=== PATIENT | female | born 1975 | race Caucasian/White ===

== ENCOUNTER → 2018-11-15 08:22 | Outpatient (CLI) | payer OTHER, SELFPAY ==
[2018-11-15 10:07] LABS: Alanine Aminotransferase 19 IU/L (9-52); Albumin 4.1 g/dL (3.5-5.0); Albumin Globulin Ratio 1.4 (1.0-2.8); Alkaline Phosphatase 67 U/L (38-126); Aspartate Aminotransferase 20 IU/L (14-36); Bilirubin Total 0.8 mg/dL (0.2-1.3); Blood Urea Nitrogen 9 mg/dL (7-17); Calcium 8.9 mg/dL (8.4-10.2); Carbon Dioxide 29 mmol/L (22-32); Chloride 99 mmol/L (98-107); Cholesterol 221 mg/dL (140-199); Estimated Glomerular Filt Rate > 60.0 mL/min (>60); Globulin 2.9 g/dL (1.7-4.1); Glucose 90 mg/dL (70-100); HDL Cholesterol 56 mg/dL (40-60); HEMOLYSIS < 15 (0-50); LDL Cholesterol Calculated 132 mg/dL (<100); Potassium 4.2 mmol/L (3.4-5.1); Sodium 136 mmol/L (137-145); Triglycerides 166 mg/dL (35-150)
[2018-11-15 10:33] LABS: Thyroid Stimulating Hormone 1.15 uIU/mL (0.47-4.68)
== END ==
PROVIDERS: Family Provider Internal Medicine; PCP Internal Medicine; Visit Provider Registered Nurse
DX: I10 Essential (primary) hypertension (principal)
CPT/HCPCS: 36415; 80053; 80061; 84443

== ENCOUNTER 2018-12-10 21:24 | Emergency (ER) | payer OTHER, SELFPAY ==
[2018-12-10 21:30] VITALS: BP 133/79; PULSE 103; RESP 18; TEMP 37.2; O2SAT 96; BMI 26.5
--- NOTE | 2018-12-10 21:44 | ED.NAVMDI ---
HPI - Nausea/Vomiting/Diarrhea General Chief complaint: Nausea/Vomiting/Diarrhea Stated complaint: N,V,DIARRHEA, FEVER Time Seen by Provider: 12/10/18 21:43 Source: patient and family Mode of arrival: ambulatory Limitations: no limitations History of Present Illness HPI Narrative: 43-year-old female, nonsmoker, otherwise healthy presents with a chief complaint of nausea, vomiting and diarrhea since last night. She has had subjective fever and chills. She denies runny nose, sore throat but has had bit of cough. Her youngest son had very similar symptoms recently. She denies recent travel, antibiotic use, or blood in her stool. She is not dizzy or lightheaded but has become a bit weak. She denies chest pain or abdominal MD complaint: nausea, vomiting and diarrhea Onset (ago): hour(s) Description of Vomiting: food contents and watery Description of Diarrhea: watery Associated Abdominal Pain: No Severity: mild Relieving factors: none Exacerbating factors: none Related Data Previous Rx's Medication Instructions Recorded metoprolol succinate ER 50 mg 50 mg PO QDAY #90 tab 11/20/18 tablet,extended release 24 hr ondansetron 4 mg PO TID-QID PRN #10 tab 12/11/18 Allergies Allergy/AdvReac Type Severity Reaction Status Date / Time Opioids - Morphine Analogues AdvReac Mild SEVERE GI Unverified 11/20/18 10:25 [OPIOIDS - MORPHINE UPSET ANALOGUES] Review of Systems Constitutional Denies chills, Denies fever(s), Denies lethargy and Denies weakness Eyes Denies change in vision, Denies eye discharge, Denies irritation and Denies loss of vision ENT Ears, Nose, Mouth, and Throat: Denies change in voice, Denies neck pain and Denies sore throat Cardiovascular Denies chest pain, Denies irregular heart rhythm, Denies lightheadedness, Denies palpitations, Denies dyspnea, Denies dyspnea on exertion and Denies orthopnea Respiratory Denies cough, Denies dyspnea, Denies dyspnea on exertion and Denies wheezing Gastrointestinal Gastrointestinal: Denies abdominal pain, Denies change in bowel habits, Reports diarrhea, Reports nausea and Reports vomiting Genitourinary Denies hematuria, Denies flank pain, Denies urinary incontinence and Denies urinary urgency Musculoskeletal Denies neck pain Integumentary/Breasts Denies pruritus, Denies erythema, Denies rash and Denies wounds Neurologic Denies confusion, Denies loss of vision and Denies weakness Psychiatric Denies anxiety, Denies confusion, Denies depression, Denies homicidal ideation and Denies suicidal ideation Endocrine Denies palpitations Hematologic/Lymphatic Denies easy bruising Allergic/Immunologic Denies wheezing [facility] Medical History Abnormal Pap smear of cervix (Chronic ~1999) Asthma (Chronic) Eczema (Chronic) Heavy menstrual period (Chronic) Hypertension (Chronic ~2011) Infertility (Chronic) Irregular menstrual cycle (Chronic) Ovarian cyst (Chronic) PCOS (polycystic ovarian syndrome) (Chronic) Painful menstrual periods (Chronic) Chicken pox (Resolved) Surgical History Surgical procedure planned (Resolved ~2011) Status post breast lumpectomy (~2006) Status post dilation and curettage Family History Father Age: 71 Heart disease Hypertension Mother Heart disease Hypertension Grandfather No problems noted. Grandmother No problems noted. Grandfather No problems noted. Social History Smoking Status: Never smoker alcohol intake: current (Occasionally) substance use type: does not use Family History Father Age: 71 Heart disease Hypertension Mother Heart disease Hypertension Grandfather No problems noted. Grandmother No problems noted. Grandfather No problems noted. Social History Smoking Status: Never smoker alcohol intake: current (Occasionally) substance use type: does not use Exam Narrative Exam Narrative: GENERAL: This is a well-nourished, well-developed patient, in mild distress. HEAD: Atraumatic. Normocephalic. No temporal or scalp tenderness. EYES: Pupils equal round and reactive. Extraocular motions intact. No scleral icterus. No injection or drainage. ENT: Nose without bleeding, purulent drainage or septal hematoma. Throat without erythema, tonsillar hypertrophy or exudate. Uvula midline. Airway patent. NECK: Trachea midline. No JVD or lymphadenopathy. Supple, nontender, no meningeal signs. CARDIOVASCULAR: Regular rate and rhythm without murmurs, gallops, or rubs. RESPIRATORY: Clear to auscultation. Breath sounds equal bilaterally. No wheezes, rales, or rhonchi. GASTROINTESTINAL: Abdomen soft, non-tender, nondistended. No hepato-splenomegaly, or palpable masses. No guarding. EXTREMITIES: No clubbing, cyanosis, or edema. No joint tenderness, effusion, or edema noted. BACK: Nontender without deformity or crepitance. No flank tenderness. NEURO: AOx3. SKIN: No rash or erythema. Initial Vital Signs Initial Vital Signs: Vital Signs Temperature 99 F 12/10/18 21:30 Pulse Rate 103 H 12/10/18 21:30 Respiratory Rate 18 12/10/18 21:30 Blood Pressure 133/79 12/10/18 21:30 Pulse Oximetry 96 12/10/18 21:30 Course Orders Ordered: ED Orders 12/10/18 23:30 Basic Metabolic Panel Stat Complete Blood Count AUTO DIFF Stat 12/10/18 23:55 Influenza A and B by PCR Rapid Stat Ondansetron HCl (Zofran) 4 mg IV Q4HR PRN PRN Reason: Nausea And Vomiting Last Admin: 12/11/18 00:21 Dose: 4 mg Discontinued Medications Sodium Chloride (Normal Saline 0.9%) 1,000 mls @ 1,000 mls/hr IV BOLUS ONE Stop: 12/11/18 00:54 Last Admin: 12/11/18 00:21 Dose: 1,000 mls/hr Reevaluation(s) Reevaluation #1: patient feeling much better after above stated therapies Vital Signs - 8 hr 12/10/18 21:30 12/10/18 23:20 Temperature 99 F Pulse Rate 103 H 76 Respiratory Rate 18 16 Blood Pressure 133/79 Blood Pressure [Right Arm] 115/68 Pulse Oximetry 96 97 MDM - Nausea/Vomiting/Diarrhea Differential Diagnosis Likely traveler's diarrhea, food poisoning, gastroenteritis, clostridium difficile infection, drug-induced nausea and vomiting and dehydration Medical Records Attestation: I reviewed the patient's medical records. Lab Data Attestation: I reviewed the patient's lab results. Result diagrams: 12/10/18 23:30 12/10/18 23:30 Lab Results 12/10/18 12/10/18 12/11/18 Range/Units 23:30 23:30 00:20 WBC 7.2 (4.5-11.0) X10^3/uL RBC 4.74 (4.0-5.2) X10^6/uL Hgb 14.0 (12.0-16.0) g/dL Hct 40.7 (36-46) % MCV 85.8 (80-100) fL MCH 29.6 (26-34) PG MCHC 34.5 (30-36) % RDW 12.2 (11.6-14.8) % Plt Count 258 (150-400) X10^3/uL Neut % (Auto) 86.8 H (50-75) % Lymph % (Auto) 6.2 L (25-40) % [place] % (Auto) 6.6 (3-14) % Eos % (Auto) 0.2 L (2-4) % Baso % (Auto) 0.2 (0-2) % Neut # (Auto) 6200 (5674-1424) /uL Lymph # (Auto) 400 L (9763-4851) /uL [place] # (Auto) 500 (0-900) /uL Eos # (Auto) 0 (0-450) /uL Baso # (Auto) 0 (0-100) /uL Sodium 136 L (137-145) mmol/L Potassium 3.6 (3.4-5.1) mmol/L Chloride 102 (98-107) mmol/L Carbon Dioxide 25 (22-32) mmol/L BUN 8 (7-17) mg/dL Creatinine 0.50 L (0.52-1.04) mg/dL Estimated GFR > 60.0 (>60) mL/min BUN/Creatinine Ratio 16.0 (6-22) Glucose 110 H (70-100) mg/dL Calcium 8.6 (8.4-10.2) mg/dL Influenza A & B (PCR) Negative (Negative) Urine Dip Bedside Urine Glucose Negative Bedside Urine Bilirubin - Negative Bedside Urine Ketone - Negative Urine Specific [place] 1.015 Bedside Urine Occult Blood +/- Bedside Urine pH 6.0 Bedside Urine Protein - Negative Bedside Urine Urobilinogen - Negative Bedside Urine Nitrite - Negative Bedside Urine Leukocytes - Negative Esterase MDM Narrative Medical decision making narrative: Multiple etiologies for patient's symptoms considered including: [Viral gastroenteritis, infectious diarrhea, Clostridium difficile, norovirus, versus other] Patient's symptoms improved or duration of stay with above-stated therapies. Findings and discharge diagnosis discussed with patient/family followed by verbalization of understanding Return precautions discussed with patient/family whom verbalize understanding. Discharge Plan Departure Patient Disposition: Home Clinical Impression: Vomiting, Diarrhea Instructions: Viral Gastroenteritis Activity Restrictions/Additional Instructions: 1. Drink plenty of fluids with frequent small sips. 2. For the next 24 hours a clear liquid diet is advised. After that please employ a brat diet which would include bananas, rice, apples, toast. 3. Please take medications as directed. A prescription for nausea medicine has been electronically transmitted to the [facility] in [place] 4. Please follow-up with your doctor in the next 1-2 days. Call the office for an appointment. 5. Please return to the emergency Department for any worsening or persistent symptoms, such as increasing pain or fever. Prescriptions: New ondansetron 4 mg tablet,disintegrating 4 mg PO TID-QID PRN (Reason: nausea and vomiting) Qty: 10 RF: 0 No Action metoprolol succinate 50 mg tablet extended release 24 hr 50 mg PO QDAY Qty: 90 RF: 3
--- NOTE | 2018-12-10 22:41 | PC.NURSE ---
Patient's son was just sick with GI upset, diarrhea, and vomiting. She has been vomiting with diarrhea since yesterday and is concerned for dehydration. Lips and tongue are moist, skin has good rebound.
[2018-12-10 23:20] VITALS: BP 115/68; PULSE 76; RESP 16; O2SAT 97
[2018-12-11 00:06] LABS: Blood Urea Nitrogen 8 mg/dL (7-17); Calcium 8.6 mg/dL (8.4-10.2); Carbon Dioxide 25 mmol/L (22-32); Chloride 102 mmol/L (98-107); Estimated Glomerular Filt Rate > 60.0 mL/min (>60); Glucose 110 mg/dL (70-100); HEMOLYSIS < 15 (0-50); Potassium 3.6 mmol/L (3.4-5.1); Sodium 136 mmol/L (137-145)
[2018-12-11 00:09] LABS: Add Manual Diff / Slide Review NO; Basophils Absolute Auto 0 /uL (0-100); Basophils Percent Auto 0.2 % (0-2); Eosinophils Absolute Auto 0 /uL (0-450); Eosinophils Percent Auto 0.2 % (2-4); Hematocrit 40.7 % (36-46); Lymphocytes Absolute Auto 400 /uL (1100-4500); Lymphocytes Percent Auto 6.2 % (25-40); Mean Corpuscular HGB Conc 34.5 % (30-36); Mean Corpuscular Hemoglobin 29.6 PG (26-34); Mean Corpuscular Volume 85.8 fL (80-100); Monocytes Absolute Auto 500 /uL (0-900); Monocytes Percent Auto 6.6 % (3-14); Neutrophils Absolute Auto 6200 /uL (1500-7000); Neutrophils Percent Auto 86.8 % (50-75); Platelet Count 258 X10^3/uL (150-400); Red Blood Cell Count 4.74 X10^6/uL (4.0-5.2); Red Cell Distribution Width 12.2 % (11.6-14.8); White Blood Cell Count 7.2 X10^3/uL (4.5-11.0)
[2018-12-11] MEDS: SODIUM CHLORIDE 0.9% 1,000 ML 1000 ML IV (00:21)
[2018-12-11] MEDS: ONDANSETRON 4 MG/2 ML INJ IV (00:21)
[2018-12-11 00:41] LABS: Influenza A and B by PCR Rapid Negative (Negative)
--- NOTE | 2018-12-11 00:47 | ED_ITS ---
HPI - Nausea/Vomiting/Diarrhea General Chief complaint: Nausea/Vomiting/Diarrhea Stated complaint: N,V,DIARRHEA, FEVER Time Seen by Provider: 12/10/18 21:43 Source: patient and family Mode of arrival: ambulatory Limitations: no limitations History of Present Illness HPI Narrative: 43-year-old female, nonsmoker, otherwise healthy presents with a chief complaint of nausea, vomiting and diarrhea since last night. She has had subjective fever and chills. She denies runny nose, sore throat but has had bit of cough. Her youngest son had very similar symptoms recently. She denies recent travel, antibiotic use, or blood in her stool. She is not dizzy or lightheaded but has become a bit weak. She denies chest pain or abdominal MD complaint: nausea, vomiting and diarrhea Onset (ago): hour(s) Description of Vomiting: food contents and watery Description of Diarrhea: watery Associated Abdominal Pain: No Severity: mild Relieving factors: none Exacerbating factors: none Related Data Previous Rx's Medication Instructions Recorded metoprolol succinate ER 50 mg 50 mg PO QDAY #90 tab 11/20/18 tablet,extended release 24 hr ondansetron 4 mg PO TID-QID PRN #10 tab 12/11/18 Allergies Allergy/AdvReac Type Severity Reaction Status Date / Time Opioids - Morphine Analogues AdvReac Mild SEVERE GI Unverified 11/20/18 10:25 [OPIOIDS - MORPHINE UPSET ANALOGUES] Review of Systems Constitutional Denies chills, Denies fever(s), Denies lethargy and Denies weakness Eyes Denies change in vision, Denies eye discharge, Denies irritation and Denies loss of vision ENT Ears, Nose, Mouth, and Throat: Denies change in voice, Denies neck pain and Denies sore throat Cardiovascular Denies chest pain, Denies irregular heart rhythm, Denies lightheadedness, Denies palpitations, Denies dyspnea, Denies dyspnea on exertion and Denies orthopnea Respiratory Denies cough, Denies dyspnea, Denies dyspnea on exertion and Denies wheezing Gastrointestinal Gastrointestinal: Denies abdominal pain, Denies change in bowel habits, Reports diarrhea, Reports nausea and Reports vomiting Genitourinary Denies hematuria, Denies flank pain, Denies urinary incontinence and Denies urinary urgency Musculoskeletal Denies neck pain Integumentary/Breasts Denies pruritus, Denies erythema, Denies rash and Denies wounds Neurologic Denies confusion, Denies loss of vision and Denies weakness Psychiatric Denies anxiety, Denies confusion, Denies depression, Denies homicidal ideation and Denies suicidal ideation Endocrine Denies palpitations Hematologic/Lymphatic Denies easy bruising Allergic/Immunologic Denies wheezing [facility] Medical History Abnormal Pap smear of cervix (Chronic ~1999) Asthma (Chronic) Eczema (Chronic) Heavy menstrual period (Chronic) Hypertension (Chronic ~2011) Infertility (Chronic) Irregular menstrual cycle (Chronic) Ovarian cyst (Chronic) PCOS (polycystic ovarian syndrome) (Chronic) Painful menstrual periods (Chronic) Chicken pox (Resolved) Surgical History Surgical procedure planned (Resolved ~2011) Status post breast lumpectomy (~2006) Status post dilation and curettage Family History Father Age: 71 Heart disease Hypertension Mother Heart disease Hypertension Grandfather No problems noted. Grandmother No problems noted. Grandfather No problems noted. Social History Smoking Status: Never smoker alcohol intake: current (Occasionally) substance use type: does not use Family History Father Age: 71 Heart disease Hypertension Mother Heart disease Hypertension Grandfather No problems noted. Grandmother No problems noted. Grandfather No problems noted. Social History Smoking Status: Never smoker alcohol intake: current (Occasionally) substance use type: does not use Exam Narrative Exam Narrative: GENERAL: This is a well-nourished, well-developed patient, in mild distress. HEAD: Atraumatic. Normocephalic. No temporal or scalp tenderness. EYES: Pupils equal round and reactive. Extraocular motions intact. No scleral icterus. No injection or drainage. ENT: Nose without bleeding, purulent drainage or septal hematoma. Throat without erythema, tonsillar hypertrophy or exudate. Uvula midline. Airway patent. NECK: Trachea midline. No JVD or lymphadenopathy. Supple, nontender, no meningeal signs. CARDIOVASCULAR: Regular rate and rhythm without murmurs, gallops, or rubs. RESPIRATORY: Clear to auscultation. Breath sounds equal bilaterally. No wheezes , rales, or rhonchi. GASTROINTESTINAL: Abdomen soft, non-tender, nondistended. No hepato-splenomegaly , or palpable masses. No guarding. EXTREMITIES: No clubbing, cyanosis, or edema. No joint tenderness, effusion, or edema noted. BACK: Nontender without deformity or crepitance. No flank tenderness. NEURO: AOx3. SKIN: No rash or erythema. Initial Vital Signs Initial Vital Signs: Vital Signs Temperature 99 F 12/10/18 21:30 Pulse Rate 103 H 12/10/18 21:30 Respiratory Rate 18 12/10/18 21:30 Blood Pressure 133/79 12/10/18 21:30 Pulse Oximetry 96 12/10/18 21:30 Course Orders Ordered: ED Orders 12/10/18 23:30 Basic Metabolic Panel Stat Complete Blood Count AUTO DIFF Stat 12/10/18 23:55 Influenza A and B by PCR Rapid Stat Ondansetron HCl (Zofran) 4 mg IV Q4HR PRN PRN Reason: Nausea And Vomiting Last Admin: 12/11/18 00:21 Dose: 4 mg Discontinued Medications Sodium Chloride (Normal Saline 0.9%) 1,000 mls @ 1,000 mls/hr IV BOLUS ONE Stop: 12/11/18 00:54 Last Admin: 12/11/18 00:21 Dose: 1,000 mls/hr Reevaluation(s) Reevaluation #1: patient feeling much better after above stated therapies Vital Signs - 8 hr 12/10/18 21:30 12/10/18 23:20 Temperature 99 F Pulse Rate 103 H 76 Respiratory Rate 18 16 Blood Pressure 133/79 Blood Pressure [Right Arm] 115/68 Pulse Oximetry 96 97 MDM - Nausea/Vomiting/Diarrhea Differential Diagnosis Likely traveler's diarrhea, food poisoning, gastroenteritis, clostridium difficile infection, drug-induced nausea and vomiting and dehydration Medical Records Attestation: I reviewed the patient's medical records. Lab Data Attestation: I reviewed the patient's lab results. Result diagrams: 12/10/18 23:30 12/10/18 23:30 Lab Results 12/10/18 12/10/18 12/11/18 Range/Units 23:30 23:30 00:20 WBC 7.2 (4.5-11.0) X10^3/uL RBC 4.74 (4.0-5.2) X10^6/uL Hgb 14.0 (12.0-16.0) g/dL Hct 40.7 (36-46) % MCV 85.8 (80-100) fL MCH 29.6 (26-34) PG MCHC 34.5 (30-36) % RDW 12.2 (11.6-14.8) % Plt Count 258 (150-400) X10^3/uL Neut % (Auto) 86.8 H (50-75) % Lymph % (Auto) 6.2 L (25-40) % [place] % (Auto) 6.6 (3-14) % Eos % (Auto) 0.2 L (2-4) % Baso % (Auto) 0.2 (0-2) % Neut # (Auto) 6200 (4556-5148) /uL Lymph # (Auto) 400 L (6927-1957) /uL [place] # (Auto) 500 (0-900) /uL Eos # (Auto) 0 (0-450) /uL Baso # (Auto) 0 (0-100) /uL Sodium 136 L (137-145) mmol/L Potassium 3.6 (3.4-5.1) mmol/L Chloride 102 (98-107) mmol/L Carbon Dioxide 25 (22-32) mmol/L BUN 8 (7-17) mg/dL Creatinine 0.50 L (0.52-1.04) mg/dL Estimated GFR > 60.0 (>60) mL/min BUN/Creatinine Ratio 16.0 (6-22) Glucose 110 H (70-100) mg/dL Calcium 8.6 (8.4-10.2) mg/dL Influenza A & B (PCR) Negative (Negative) Urine Dip Bedside Urine Glucose Negative Bedside Urine Bilirubin - Negative Bedside Urine Ketone - Negative Urine Specific [place] 1.015 Bedside Urine Occult Blood +/- Bedside Urine pH 6.0 Bedside Urine Protein - Negative Bedside Urine Urobilinogen - Negative Bedside Urine Nitrite - Negative Bedside Urine Leukocytes - Negative Esterase MDM Narrative Medical decision making narrative: Multiple etiologies for patient's symptoms considered including: [Viral gastroenteritis, infectious diarrhea, Clostridium difficile, norovirus, versus other] Patient's symptoms improved or duration of stay with above-stated therapies. Findings and discharge diagnosis discussed with patient/family followed by verbalization of understanding Return precautions discussed with patient/family whom verbalize understanding. Discharge Plan Departure Patient Disposition: Home Clinical Impression: Vomiting, Diarrhea Instructions: Viral Gastroenteritis Activity Restrictions/Additional Instructions: 1. Drink plenty of fluids with frequent small sips. 2. For the next 24 hours a clear liquid diet is advised. After that please employ a brat diet which would include bananas, rice, apples, toast. 3. Please take medications as directed. A prescription for nausea medicine has been electronically transmitted to the [facility] in [place] 4. Please follow-up with your doctor in the next 1-2 days. Call the office for an appointment. 5. Please return to the emergency Department for any worsening or persistent symptoms, such as increasing pain or fever. Prescriptions: New ondansetron 4 mg tablet,disintegrating 4 mg PO TID-QID PRN (Reason: nausea and vomiting) Qty: 10 RF: 0 No Action metoprolol succinate 50 mg tablet extended release 24 hr 50 mg PO QDAY Qty: 90 RF: 3
[2018-12-11 01:19] VITALS: BP 108/60; PULSE 74; O2SAT 100
== END 2018-12-11 01:20 | disposition home or self-care (01) ==
PROVIDERS: Emergency Provider Emergency Medicine; Family Provider Internal Medicine; PCP Internal Medicine
DX: R11.10 Vomiting, unspecified (principal); R19.7 Diarrhea, unspecified
CPT/HCPCS: 80048; 81003; 85025; 87400; 96361; 96374; 99283; 99284; J2405

== ENCOUNTER → 2018-12-31 14:20 | Outpatient (CLI) | payer OTHER, SELFPAY ==
--- NOTE | 2018-12-31 14:22 | DI.MG.S_ITS ---
BILATERAL DIGITAL SCREENING MAMMOGRAM 3D/2D WITH CAD: 12/31/2018 CLINICAL: Routine screening. Comparison is made to exam dated: 05/11/2017 [facility]. The tissue of both breasts is heterogeneously dense. This may lower the sensitivity of mammography. Current study was also evaluated with a Computer Aided Detection (CAD) system. No significant masses, calcifications, or other findings are seen in either breast. There has been no significant interval change. IMPRESSION: NEGATIVE There is no mammographic evidence of malignancy. A 1 year screening mammogram is recommended. This exam was interpreted at Station ID: [id number]. NOTE: For mammograms, a report in lay terms will be sent to the patient. Approximately 15% of breast malignancies will not be visualized mammographically. In the management of a palpable breast mass, a negative mammogram must not discourage biopsy of a clinically suspicious lesion. Electronically Signed By: Delfino quigley/kd:12/31/2018 18:46:09 letter sent: Normal Exam ACR BI-RADS Category 1: Negative 3341F
== END ==
PROVIDERS: PCP Registered Nurse; Visit Provider Registered Nurse
DX: Z12.31 Encounter for screening mammogram for malignant neoplasm of breast (principal)
CPT/HCPCS: 77063; 77067

== ENCOUNTER → 2019-02-11 07:11 | Outpatient (CLI) | payer OTHER, SELFPAY ==
[2019-02-11 09:38] LABS: Cholesterol 210 mg/dL (140-199); HDL Cholesterol 64 mg/dL (40-60); LDL Cholesterol Calculated 122 mg/dL (<100); Triglycerides 118 mg/dL (35-150)
[2019-02-11 09:55] LABS: Vitamin D 25 Hydroxy (D3) 20.8 ng/mL (30.0-100.0)
[2019-02-11 10:13] LABS: Microalbumi Creatinin Ratio Ur 6.8 ug/mg CR (<30); Microalbumin Urine Random < 0.6 mg/dL (0-1.6)
== END ==
PROVIDERS: PCP Registered Nurse; Visit Provider Registered Nurse
DX: E78.5 Hyperlipidemia, unspecified (principal); I10 Essential (primary) hypertension; E55.9 Vitamin D deficiency, unspecified
CPT/HCPCS: 36415; 80061; 82043; 82306; 82570

== ENCOUNTER → 2019-12-11 09:11 | Outpatient (CLI) | payer OTHER, SELFPAY ==
[2019-12-11 10:15] LABS: Blood Urea Nitrogen 12 mg/dL (7-17); Calcium 9.6 mg/dL (8.4-10.2); Carbon Dioxide 26 mmol/L (22-32); Chloride 101 mmol/L (98-107); Cholesterol 202 mg/dL (140-199); Estimated Glomerular Filt Rate > 60.0 mL/min (>60); Glucose 96 mg/dL (70-100); HDL Cholesterol 58 mg/dL (40-60); HEMOLYSIS < 15 (0-50); LDL Cholesterol Calculated 121 mg/dL (<100); Potassium 4.4 mmol/L (3.4-5.1); Sodium 137 mmol/L (137-145); Triglycerides 117 mg/dL (35-150)
== END ==
PROVIDERS: PCP Registered Nurse; Visit Provider Registered Nurse
DX: I10 Essential (primary) hypertension (principal)
CPT/HCPCS: 36415; 80048; 80061

== ENCOUNTER → 2020-12-20 16:13 | Outpatient (CLI) | payer OTHER, SELFPAY ==
--- NOTE | 2020-12-20 16:14 | DI.MG.S_ITS ---
BILATERAL DIGITAL SCREENING MAMMOGRAM 3D/2D WITH CAD: 12/20/2020 CLINICAL: Routine screening. Comparison is made to exams dated: 12/31/2018 mammogram and 05/11/2017 mammogram - [facility]. The tissue of both breasts is heterogeneously dense. This may lower the sensitivity of mammography. Current study was also evaluated with a Computer Aided Detection (CAD) system. No significant masses, calcifications, or other findings are seen in either breast. There has been no significant interval change. IMPRESSION: NEGATIVE There is no mammographic evidence of malignancy. A 1 year screening mammogram is recommended. This exam was interpreted at Station ID: [id number]. NOTE: For mammograms, a report in lay terms will be sent to the patient. Approximately 15% of breast malignancies will not be visualized mammographically. In the management of a palpable breast mass, a negative mammogram must not discourage biopsy of a clinically suspicious lesion. Electronically Signed By: Delfino quigley/kd:12/20/2020 17:47:52 letter sent: Normal Exam ACR BI-RADS Category 1: Negative [id number]
== END ==
PROVIDERS: PCP Nurse Practitioner Family; Referring Provider Nurse Practitioner Family; Visit Provider Nurse Practitioner Family
DX: Z12.31 Encounter for screening mammogram for malignant neoplasm of breast (principal)
CPT/HCPCS: 77063; 77067

== ENCOUNTER → 2020-12-29 08:26 | Outpatient (CLI) | payer OTHER, SELFPAY ==
[2020-12-29 09:43] LABS: Hematocrit 41.4 % (36-46); Hemoglobin 14.2 g/dL (12.0-16.0); Mean Corpuscular HGB Conc 34.2 % (30-36); Mean Corpuscular Hemoglobin 30.3 PG (26-34); Mean Corpuscular Volume 88.5 fL (80-100); Platelet Count 346 X10^3/uL (150-400); Red Blood Cell Count 4.68 X10^6/uL (4.0-5.2); Red Cell Distribution Width 12.3 % (11.6-14.8); White Blood Cell Count 6.2 X10^3/uL (4.5-11.0)
[2020-12-29 10:03] LABS: Alanine Aminotransferase 14 IU/L (<35); Albumin 4.1 g/dL (3.5-5.0); Albumin Globulin Ratio 1.5 (1.0-2.8); Alkaline Phosphatase 84 U/L (38-126); Aspartate Aminotransferase 23 IU/L (14-36); BUN Creatinine Ratio 19.6 (6-22); Bilirubin Total 0.5 mg/dL (0.2-1.3); Blood Urea Nitrogen 11 mg/dL (7-17); Calcium 9.1 mg/dL (8.4-10.2); Carbon Dioxide 31 mmol/L (22-32); Chloride 101 mmol/L (98-107); Cholesterol 203 mg/dL (140-199); Estimated Glomerular Filt Rate > 60.0 mL/min (>60); Globulin 2.8 g/dL (1.7-4.1); Glucose 92 mg/dL (70-100); HDL Cholesterol 67 mg/dL (40-60); HEMOLYSIS < 15 (0-50); LDL Cholesterol Calculated 121 mg/dL (<100); Potassium 4.7 mmol/L (3.4-5.1); Sodium 136 mmol/L (137-145); Total Protein 6.9 g/dL (6.3-8.2); Triglycerides 73 mg/dL (35-150)
== END ==
PROVIDERS: PCP Nurse Practitioner Family; Referring Provider Nurse Practitioner Family; Visit Provider Nurse Practitioner Family
DX: Z00.00 Encounter for general adult medical examination without abnormal findings (principal); E78.2 Mixed hyperlipidemia
CPT/HCPCS: 36415; 80053; 80061; 85027

== ENCOUNTER → 2021-01-12 16:13 | Outpatient (CLI) | payer OTHER, SELFPAY ==
[2021-01-12 18:10] LABS: Vitamin D 25 Hydroxy (D3) 21.2 ng/mL (30.0-100.0)
== END ==
PROVIDERS: PCP Nurse Practitioner Family; Referring Provider Nurse Practitioner Family; Visit Provider Nurse Practitioner Family
DX: E55.9 Vitamin D deficiency, unspecified (principal)
CPT/HCPCS: 36415; 82306

== ENCOUNTER → 2021-04-29 16:59 | Outpatient (CLI) | payer OTHER, SELFPAY ==
--- NOTE | 2021-04-29 17:50 | DI.MRI.S_ITS ---
PROCEDURE: MR ANKLE RT WO CON INDICATIONS: Pain in arch of right foot TECHNIQUE: Noncontrast sagittal T1 spin echo and T2 fast spin echo with fat saturation, axial proton density fast spin echo and T2 fast spin echo with fat saturation, coronal T1 spin echo and T2 fast spin echo with fat saturation through the ankle/hindfoot. COMPARISON: None. FINDINGS: Image quality: Excellent. Bones and joints: There is well-defined plantar calcaneal enthesophyte with edema within plantar aspect of posterior calcaneus near plantar fascia insertion. No other area of abnormal marrow signal. No fracture or dislocation. No hindfoot coalitions. No osteochondral injuries of the talar dome. No pathologic joint effusions. Mild osteoarthritic changes in forefoot joints are noted most prominent involving 1st MTP joint and 1st interphalangeal joint. Medial structures: The posterior tibialis, flexor digitorum longus, and flexor hallucis longus tendons are mildly thickened with overlying soft tissue edema is concerning for mild tendinosis. The posterior tibial neurovascular bundle appears normal within the tarsal tunnel, without extrinsic mass effect. The deep layer (anterior and posterior tibiotalar ligaments) and superficial layer (tibionavicular, tibiospring, and tibiocalcaneal ligaments) of the deltoid ligament appear normal. The spring ligament components (superomedial calcaneonavicular, medioplantar oblique calcaneonavicular, and inferoplantar longitudinal ligaments) are intact. Lateral structures: The anterior talofibular, calcaneofibular, and posterior talofibular ligaments appear intact. More superiorly, the anterior and posterior tibiofibular ligaments appear intact, as is the intermalleolar ligament. The tibiofibular syndesmosis is normal in width at 2 mm or less. The peroneus longus and brevis tendons demonstrate normal location and morphology. Adjacent bony peroneal tubercle and retrotrochlear prominence are normal in size. The sinus tarsi demonstrates normal fatty signal, without edema, fibrosis, or cyst formation. Visualized sinus tarsi components (cervical ligament, interosseous talocalcaneal ligament, roots of the inferior extensor retinaculum) appear normal. The calcaneonavicular and calcaneocuboid components of the bifurcate ligament appear intact. The dorsal calcaneocuboid ligament appears intact. Anterior structures: The tibialis anterior, extensor hallucis longus, and extensor digitorum longus tendons appear intact. The dorsal talonavicular ligament appears intact. Posterior and plantar structures: Achilles tendon is intact. Medial and lateral bands of the plantar fascia are thickened at its plantar calcaneal insertion. No full-thickness plantar fascia rupture. No abductor digiti quinti muscle atrophy to suggest Joseph neuropathy. IMPRESSION: 1. Finding is consistent with plantar fasciitis with thickened plantar fascia at its plantar calcaneal insertion. Well-defined plantar calcaneal enthesophyte with mild edema in this region. No stress fracture. No other area of marrow signal abnormality. 2. Suggestion of low-grade tendinosis involving flexor tendons particularly the posterior tibialis tendon. Rest of the ankle tendons are intact. 3. Medial and lateral ankle ligaments are intact. 4. Mild forefoot joint osteoarthritis. Dictated by: Bob Marina M.D. on 05/02/2021 at 8:36 Approved by: Bob Marina M.D. on 05/02/2021 at 8:48
== END ==
PROVIDERS: PCP Nurse Practitioner Family; Referring Provider Podiatrist; Visit Provider Podiatrist
DX: M79.671 Pain in right foot (principal); M19.071 Primary osteoarthritis, right ankle and foot
CPT/HCPCS: 73721

== ENCOUNTER → 2022-01-05 16:57 | Outpatient (CLI) | payer OTHER, SELFPAY ==
--- NOTE | 2022-01-05 | DI.MG.S_ITS ---
BILATERAL DIGITAL SCREENING MAMMOGRAM 3D/2D WITH CAD: 01/05/2022 CLINICAL: Routine screening. Comparison is made to exams dated: 12/20/2020 mammogram, 12/31/2018 mammogram, and 05/11/2017 mammogram - [facility]. The tissue of both breasts is heterogeneously dense. This may lower the sensitivity of mammography. Current study was also evaluated with a Computer Aided Detection (CAD) system. No significant masses, calcifications, or other findings are seen in either breast. There has been no significant interval change. IMPRESSION: NEGATIVE There is no mammographic evidence of malignancy. A 1 year screening mammogram is recommended. This exam was interpreted at Station ID: [id number]. NOTE: For mammograms, a report in lay terms will be sent to the patient. Approximately 15% of breast malignancies will not be visualized mammographically. In the management of a palpable breast mass, a negative mammogram must not discourage biopsy of a clinically suspicious lesion. Electronically Signed By: Libby danielle/kd:01/06/2022 09:42:48 letter sent: Normal Exam ACR BI-RADS Category 1: Negative [id number]
== END ==
PROVIDERS: PCP Nurse Practitioner Family; Referring Provider Nurse Practitioner Family; Visit Provider Nurse Practitioner Family
DX: Z12.31 Encounter for screening mammogram for malignant neoplasm of breast (principal)
CPT/HCPCS: 77063; 77067

== ENCOUNTER → 2022-01-13 07:50 | Outpatient (CLI) | payer OTHER, SELFPAY ==
[2022-01-13 08:53] LABS: Hematocrit 41.6 % (36-46); Hemoglobin 14.5 g/dL (12.0-16.0); Mean Corpuscular HGB Conc 34.8 % (30-36); Mean Corpuscular Hemoglobin 30.2 PG (26-34); Mean Corpuscular Volume 86.8 fL (80-100); Platelet Count 329 X10^3/uL (150-400); Red Blood Cell Count 4.79 X10^6/uL (4.0-5.2); Red Cell Distribution Width 12.3 % (11.6-14.8); White Blood Cell Count 6.5 X10^3/uL (4.5-11.0)
[2022-01-13 09:04] LABS: Alanine Aminotransferase 18 IU/L (<35); Albumin 4.3 g/dL (3.5-5.0); Albumin Globulin Ratio 1.4 (1.0-2.8); Alkaline Phosphatase 72 U/L (38-126); Aspartate Aminotransferase 24 IU/L (14-36); BUN Creatinine Ratio 13.8 (6-22); Bilirubin Total 0.7 mg/dL (0.2-1.3); Blood Urea Nitrogen 8 mg/dL (7-17); Calcium 8.9 mg/dL (8.4-10.2); Carbon Dioxide 27 mmol/L (22-32); Chloride 104 mmol/L (98-107); Cholesterol 228 mg/dL (140-199); Estimated Glomerular Filt Rate > 60.0 mL/min (>60); Glucose 105 mg/dL (70-100); HDL Cholesterol 61 mg/dL (40-60); HEMOLYSIS < 15 (0-50); LDL Cholesterol Calculated 141 mg/dL (<100); Potassium 4.5 mmol/L (3.4-5.1); Sodium 137 mmol/L (137-145); Total Protein 7.3 g/dL (6.3-8.2); Triglycerides 129 mg/dL (35-150)
[2022-01-13 09:47] LABS: Vitamin D 25 Hydroxy (D3) 28.3 ng/mL (30.0-100.0)
== END ==
PROVIDERS: PCP Nurse Practitioner Family; Referring Provider Nurse Practitioner Family; Visit Provider Nurse Practitioner Family
DX: E55.9 Vitamin D deficiency, unspecified (principal); E78.2 Mixed hyperlipidemia; Z00.00 Encounter for general adult medical examination without abnormal findings
CPT/HCPCS: 36415; 80053; 80061; 82306; 85027

== ENCOUNTER → 2023-01-18 13:04 | Outpatient (CLI) | payer OTHER, SELFPAY ==
--- NOTE | 2023-01-18 13:07 | DI.MG.S_ITS ---
BILATERAL DIGITAL SCREENING MAMMOGRAM 3D/2D WITH CAD: 01/18/2023 CLINICAL: Routine screening. Comparison is made to exams dated: 01/05/2022 mammogram, 12/20/2020 mammogram, 12/31/2018 mammogram, and 05/11/2017 mammogram - [facility]. Both breasts are heterogeneously dense, which may obscure small masses (category c / 51-75% glandular tissue). Current study was also evaluated with a Computer Aided Detection (CAD) system. No significant masses, calcifications, or other findings are seen in either breast. There has been no significant interval change. IMPRESSION: NEGATIVE There is no mammographic evidence of malignancy. A 1 year screening mammogram is recommended. Based on the Tyrer Cuzick model (a risk assessment model) the patient's lifetime risk is 12.4% and her 10 year risk is 2.4%. According to the ACR, ACS, and NCCN guidelines, an annual breast MRI exam along with mammogram is recommended if the patient's lifetime risk is 20% or greater. This exam was interpreted at Station ID: [id number]. NOTE: For mammograms, a report in lay terms will be sent to the patient. Approximately 15% of breast malignancies will not be visualized mammographically. In the management of a palpable breast mass, a negative mammogram must not discourage biopsy of a clinically suspicious lesion. Electronically Signed By: Familia pelaez/kd:01/18/2023 14:36:31 letter sent: Normal Exam ACR BI-RADS Category 1: Negative 3341F
== END ==
PROVIDERS: PCP Family Medicine; Referring Provider Family Medicine; Visit Provider Family Medicine
DX: Z12.31 Encounter for screening mammogram for malignant neoplasm of breast (principal)
CPT/HCPCS: 77063; 77067

== ENCOUNTER → 2023-01-20 08:49 | Outpatient (CLI) | payer OTHER, SELFPAY ==
[2023-01-20 09:28] LABS: Hematocrit 41.6 % (36-46); Mean Corpuscular HGB Conc 33.6 % (30-36); Mean Corpuscular Hemoglobin 29.1 PG (26-34); Mean Corpuscular Volume 86.7 fL (80-100); Platelet Count 342 X10^3/uL (150-400); Red Cell Distribution Width 12.4 % (11.6-14.8); White Blood Cell Count 7.4 X10^3/uL (4.5-11.0)
[2023-01-20 12:20] LABS: Alanine Aminotransferase 24 IU/L (<35); Albumin Globulin Ratio 1.6 (1.0-2.8); Alkaline Phosphatase 78 U/L (38-126); Aspartate Aminotransferase 24 IU/L (14-36); BUN Creatinine Ratio 12.3 (6-22); Bilirubin Total 0.6 mg/dL (0.2-1.3); Blood Urea Nitrogen 7 mg/dL (7-17); Calcium 8.9 mg/dL (8.4-10.2); Carbon Dioxide 28 mmol/L (22-32); Chloride 97 mmol/L (98-107); Cholesterol 218 mg/dL (140-199); Estimated Glomerular Filt Rate > 60 mL/min (>60); Globulin 2.5 g/dL (1.7-4.1); Glucose 86 mg/dL (70-100); HDL Cholesterol 60 mg/dL (40-60); HEMOLYSIS < 15 (0-50); LDL Cholesterol Calculated 120 mg/dL (<100); Potassium 4.2 mmol/L (3.4-5.1); Sodium 133 mmol/L (137-145); Total Protein 6.5 g/dL (6.3-8.2); Triglycerides 189 mg/dL (35-150)
[2023-01-20 14:24] LABS: Creatinine Urine Random 19.3 mg/dL
[2023-01-20 14:27] LABS: Microalbumin Urine Random < 0.6 mg/dL (0-1.6)
[2023-01-22 11:01] LABS: Vitamin D 25 Hydroxy (D3) 16.6 ng/mL (30.0-100.0)
[2023-01-22 11:14] LABS: Thyroid Stimulating Hormone 1.29 uIU/mL (0.47-4.68)
== END ==
PROVIDERS: PCP Family Medicine; Referring Provider Family Medicine; Visit Provider Family Medicine
DX: Z00.00 Encounter for general adult medical examination without abnormal findings (principal); E55.9 Vitamin D deficiency, unspecified; E78.2 Mixed hyperlipidemia; I10 Essential (primary) hypertension; Z86.79 Personal history of other diseases of the circulatory system
CPT/HCPCS: 36415; 80053; 80061; 82043; 82306; 82570; 84443; 85027

== ENCOUNTER → 2023-02-14 11:38 | Outpatient (CLI) | payer OTHER, SELFPAY ==
[2023-02-15 18:12] LABS: Fecal Immunochemical Test Negative (Negative)
== END ==
PROVIDERS: PCP Family Medicine; Referring Provider Family Medicine; Visit Provider Family Medicine
DX: Z12.11 Encounter for screening for malignant neoplasm of colon (principal)
CPT/HCPCS: 82274

== ENCOUNTER → 2023-07-22 15:44 | Outpatient (CLI) | payer OTHER, SELFPAY ==
--- NOTE | 2023-07-22 15:46 | DI.MRI.S_ITS ---
PROCEDURE: MR SHOULDER RT WO CON INDICATIONS: right shoulder pian TECHNIQUE: Noncontrast oblique coronal T2 fast spin echo with fat saturation, oblique sagittal T1 spin echo and T2 fast spin echo with fat saturation, axial T1 spin echo and T2 fast spin echo with fat saturation through the shoulder. COMPARISON: None. FINDINGS: Image quality: Excellent. Rotator cuff: Low-grade articular and bursal surface partial thickness tear involving distal supraspinatus at its insertion on the humeral head extending to musculotendinous junction. Distal infraspinatus tendinosis is seen. Low-grade intrasubstance partial-thickness tear involving distal subscapularis is noted. No full-thickness rotator cuff tendon rupture. Sagittal images demonstrate no significant rotator cuff muscle atrophy. Bones and bursae: No bone marrow contusions or fractures. Mild acromioclavicular joint osteoarthritic changes are seen with joint space narrowing and downward osteophyte formation depressing on musculotendinous junction of supraspinatus. Small amount of subacromial subdeltoid bursal fluid is seen. Capsule and soft tissues: There is fraying and signal abnormality involving superior anterior labrum at 12 to 2 o'clock position suggestive of superior anterior labral tear. The long head of the biceps tendon is mildly thickened. The rotator interval appears normal, without fibrosis. The coracohumeral ligament is normal in thickness. IMPRESSION: 1. Low-grade articular and bursal surface partial thickness tear involving distal supraspinatus extending to musculotendinous junction. Distal infraspinatus tendinosis. Low-grade intrasubstance partial-thickness tear involving distal subscapularis. No full-thickness rotator cuff tendon rupture. 2. Mild acromioclavicular joint osteoarthritis. Small joint effusion and subacromial subdeltoid bursal fluid. No fracture or dislocation. 3. Suggestion of superior anterior right shoulder labral tear at 12 to 2 o'clock position. 4. Proximal long head of biceps tendinosis. Dictated by: Bob Marina M.D. on 07/23/2023 at 9:39 Approved by: Bbo Marina M.D. on 07/23/2023 at 9:50
== END ==
PROVIDERS: Family Provider Family Medicine; PCP Family Medicine; Referring Provider Family Medicine; Visit Provider Family Medicine
DX: M75.111 Incomplete rotator cuff tear or rupture of right shoulder, not specified as traumatic (principal); M19.011 Primary osteoarthritis, right shoulder; M25.511 Pain in right shoulder; M75.41 Impingement syndrome of right shoulder; M75.21 Bicipital tendinitis, right shoulder; M25.411 Effusion, right shoulder
CPT/HCPCS: 73221

== ENCOUNTER 2023-08-10 14:15 | Outpatient (RCR) | payer OTHER, SELFPAY ==
--- NOTE | 2023-06-19 15:08 | PT.OIE ---
Current Diagnoses Pain in right shoulder (06/19/23) Past Medical History (Last Updated 03/14/23 @ 14:31 by Devorah Chu DO) Abnormal Pap smear of cervix (~1999) Asthma Chicken pox Eczema Eczema Heavy menstrual period History of hypertension (2015) Hypertension (~2011) Infertility Irregular menstrual cycle Mixed hyperlipidemia Ovarian cyst Painful menstrual periods PCOS (polycystic ovarian syndrome) Plantar fasciitis of right foot (11/2019) Vitamin D deficiency (2019) Past Surgical History (Last Reviewed 01/23/23 @ 09:36 by Maki Knowles PA-C) Status post breast lumpectomy (~2006) Status post dilation and curettage Surgical procedure planned (~2011) Visit Care Team Role Provider Type Devorah Chu DO Attending Provider Physician Family Provider Primary Care Provider Referring Provider Specialty: Medical Address: [address] [place] [address], [address], [place], [address] Email: [email or web address] Physical Therapy Initial Evaluation PT-OP-A Visit Information Start: 06/19/23 14:55 Freq: Status: Active Protocol: Document 06/19/23 14:56 ED (Rec: 06/19/23 15:07 ED [id number]) Out-Patient Physical Therapy Visit Information Visit Information Visit Type Initial Evaluation Visit Start Time 14:15 Visit Stop Time 15:00 Total Visit Minutes 45 Visit Number 1 PT-OP-B Current Condition Start: 06/19/23 14:55 Freq: Status: Active Protocol: Document 06/19/23 14:56 ED (Rec: 06/19/23 15:07 ED [id number]) Current Condition History of Current Condition Onset Date January Current Complaints R anterior shoulder pain History of Current Condition Pt states that she noticed anterior R shoulder pain in January c/ no clear JOSE. Pt subsequently received steroid injection for her R shoulder in April but that did not help her much in regards to pain. She notes pain specifically when reaching across her body and when reaching behind such as tucking in her shirt. Additionally, she cannot lay on her R shoulder very long before it is painful. She notes having 5 and 8 pound dumbbells at home along with an elliptical. PT-OP-C Subjective Start: 06/19/23 14:55 Freq: Status: Active Protocol: Document 06/19/23 14:56 ED (Rec: 06/19/23 15:07 ED [id number]) Patient Questionnaires Quick Dash- Upper Extremity Quick Dash UE Score 59.1% Quick Dash UE Impairment 40 to 59% Impaired (Score 40- 59) PT-OP-K Range of Motion Start: 06/19/23 14:55 Freq: Status: Active Protocol: Document 06/19/23 14:56 ED (Rec: 06/19/23 15:07 ED [id number]) Shoulder Goniometric Range of Motion Shoulder Left Active Shoulder ROM WFL Yes Testing Position Sitting Flexion 160 External Rotation at 90 degrees 85 Abduction Internal Rotation 85 Right Active Testing Position Sitting Flexion 130 External Rotation at 90 degrees 65 Abduction Internal Rotation 65 PT-OP-L Special Tests Start: 06/19/23 14:55 Freq: Status: Active Protocol: Document 06/19/23 14:56 ED (Rec: 06/19/23 15:07 ED [id number]) Special Tests Shoulder Special Tests Biceps Load II Test Test Results + PT-OP-Q Treatments Start: 06/19/23 14:55 Freq: Status: Active Protocol: Document 06/19/23 14:56 ED (Rec: 06/19/23 15:07 ED [id number]) Therapeutic Exercises Sidelying Exercises ER Side bilateral Equipment Used 2# DB Reps/Minutes x20 Standing Exercises bicep Standing Exercise Name bicep curl Side right Equipment Used 5# Reps/Minutes x15-20 deltoid Standing Exercise Name lateral raise Side bilateral Resistance 2# Reps/Minutes x10 reps; x20'' hold Comments repetition became painful ROM Standing Exercise Name wall slides Side right Reps/Minutes x15-20 PT-OP-T Assessment and Plan Start: 06/19/23 14:55 Freq: Status: Active Protocol: Document 06/19/23 14:56 ED (Rec: 06/19/23 15:07 ED [id number]) Physical Therapy Assessment Rehab Potential Rehabilitation Potential Good Evaluation Complexity Number of Personal Factors/Comorbidities 1-2 Number of Body Systems Impaired 1-2 Clinical Presentation at Evaluation Stable Impairments Impairments Activity Tolerance,Functional Activities,Pain,ROM,Strength Goals Four Impairment quickDASH Snf Goal (LTG) Pt will improve quickDASH score by >10 points. LTG Duration 8 weeks Three Impairment strength Short Term Goal (STG) Pt will be able to perform 2# lateral/fwd raises c/o pain for 10-15 repetitions. STG Duration 3 weeks Compensation Manager Goal (LTG) Pt will be able to perform activities in all planes of motion c/o shoulder pain. LTG Duration 6 weeks Two Impairment ROM Short Term Goal (STG) Pt will be able to raise R shoulder to 140 degrees flexion c/ pain <3/10. STG Duration 3 weeks Compensation Manager Goal (LTG) Pt will demonstrate shoulder flexion to 160 degrees and ability to reach behind her back c/o pain. LTG Duration 6 weeks One Impairment HEP Short Term Goal (STG) pt will report performing HEP 3-4 days/week. STG Duration 2 weeks Snf Goal (LTG) pt will report performing HEP 3-4 days/week. LTG Duration 6 weeks Assessment Summary Assessment Pt reported to PT c/ complaints of chronic R shoulder pain that began in March 2023. Pain was located anteriorly but occasionally posteriorly as well. Pt demonstrated reduced R shoulder AROM in addition to poor tolerance to moving the arm secondary to pain. Pt appears to be having proximal biceps tendinopathy with possible labral involvement. Pt provided HEP of : wall slides, lateral raises, bicep curls, and s/l ER which she was able to perform today but required modification for pain relief. Physical Therapy Plan Frequency and Duration Frequency of Treatment 2x/Week Duration of treatment (weeks) 12 Plan of Care Start Date 06/19/23 Plan of Care End Date 09/17/23 Therapeutic Interventions Therapeutic Interventions Home Exercise Program,Joint Mobilizations,Manual Therapy, Neuromuscular Re-education, Soft Tissue Mobilization, Taping,Therapeutic Activities, Therapeutic Exercises Modalities Biofeedback,Cold Pack/Ice Massage,Electric Stimulation, Hot Packs,Ultrasound Next Visit Focus/Plan Next Note Type Treatment Note Next Visit Plan ALIREZA Nieves, (HEP: wall slides, bicep curl, lateral raise, s/l ER), ER walk outs, row
--- NOTE | 2023-06-19 15:08 | PT.OPPOC ---
Physical, Occupational & Speech Therapy At [facility] Current Diagnoses Pain in right shoulder (06/19/23) Visit Care Team Role Provider Type Devorah Chu DO Attending Provider Physician Family Provider Primary Care Provider Referring Provider Specialty: Medical Address: [address] [place] [address], [address], [place], [address] Email: [email or web address] Plan Of Care PT-OP-T Assessment and Plan Start: 06/19/23 14:55 Freq: Status: Active Protocol: Document 06/19/23 14:56 ED (Rec: 06/19/23 15:07 ED [id number]) Physical Therapy Assessment Rehab Potential Rehabilitation Potential Good Evaluation Complexity Number of Personal Factors/Comorbidities 1-2 Number of Body Systems Impaired 1-2 Clinical Presentation at Evaluation Stable Impairments Impairments Activity Tolerance,Functional Activities,Pain,ROM,Strength Goals Four Impairment quickDASH Jail Goal (LTG) Pt will improve quickDASH score by >10 points. LTG Duration 8 weeks Three Impairment strength Short Term Goal (STG) Pt will be able to perform 2# lateral/fwd raises c/o pain for 10-15 repetitions. STG Duration 3 weeks Product Specialist Goal (LTG) Pt will be able to perform activities in all planes of motion c/o shoulder pain. LTG Duration 6 weeks Two Impairment ROM Short Term Goal (STG) Pt will be able to raise R shoulder to 140 degrees flexion c/ pain <3/10. STG Duration 3 weeks Product Specialist Goal (LTG) Pt will demonstrate shoulder flexion to 160 degrees and ability to reach behind her back c/o pain. LTG Duration 6 weeks One Impairment HEP Short Term Goal (STG) pt will report performing HEP 3-4 days/week. STG Duration 2 weeks Jail Goal (LTG) pt will report performing HEP 3-4 days/week. LTG Duration 6 weeks Assessment Summary Assessment Pt reported to PT c/ complaints of chronic R shoulder pain that began in March 2023. Pain was located anteriorly but occasionally posteriorly as well. Pt demonstrated reduced R shoulder AROM in addition to poor tolerance to moving the arm secondary to pain. Pt appears to be having proximal biceps tendinopathy with possible labral involvement. Pt provided HEP of : wall slides, lateral raises, bicep curls, and s/l ER which she was able to perform today but required modification for pain relief. Physical Therapy Plan Frequency and Duration Frequency of Treatment 2x/Week Duration of treatment (weeks) 12 Plan of Care Start Date 06/19/23 Plan of Care End Date 09/17/23 Therapeutic Interventions Therapeutic Interventions Home Exercise Program,Joint Mobilizations,Manual Therapy, Neuromuscular Re-education, Soft Tissue Mobilization, Taping,Therapeutic Activities, Therapeutic Exercises Modalities Biofeedback,Cold Pack/Ice Massage,Electric Stimulation, Hot Packs,Ultrasound Next Visit Focus/Plan Next Note Type Treatment Note Next Visit Plan ALIREZA Nieves, (HEP: wall slides, bicep curl, lateral raise, s/l ER), ER walk outs, row Plan of Care Dates Plan of Care Start Date 06/19/23 Plan of Care End Date 09/17/23 Electronically Signed by: James De, PT 06/19/23 9837 If you are in agreement with this Plan of Care, please return a signed and dated copy. I have reviewed this Plan of Care and certify that the skilled therapy services above are required to meet the patient?s needs. Physician Signature Date Printed Name and Credentials Clinical Instructor Signature Printed Name and Credentials
--- NOTE | 2023-06-22 14:52 | PT.OTN ---
Current Diagnoses Pain in right shoulder (06/22/23) Physical Therapy Treatment Note PT-OP-A Visit Information Start: 06/19/23 14:55 Freq: Status: Active Protocol: Document 06/22/23 14:47 ED (Rec: 06/22/23 14:51 ED [id number]) Out-Patient Physical Therapy Visit Information Visit Information Visit Type Treatment Note Visit Start Time 14:15 Visit Stop Time 14:45 Total Visit Minutes 30 Visit Number 2 PT-OP-B Current Condition Start: 06/19/23 14:55 Freq: Status: Active Protocol: Document 06/19/23 14:56 ED (Rec: 06/19/23 15:07 ED [id number]) Current Condition History of Current Condition Onset Date January Current Complaints R anterior shoulder pain History of Current Condition Pt states that she noticed anterior R shoulder pain in January c/ no clear JOSE. Pt subsequently received steroid injection for her R shoulder in April but that did not help her much in regards to pain. She notes pain specifically when reaching across her body and when reaching behind such as tucking in her shirt. Additionally, she cannot lay on her R shoulder very long before it is painful. She notes having 5 and 8 pound dumbbells at home along with an elliptical. PT-OP-C Subjective Start: 06/19/23 14:55 Freq: Status: Active Protocol: Document 06/22/23 14:47 ED (Rec: 06/22/23 14:51 ED [id number]) OP-PT Subjective Patient Comments Patient Comments Pt states that she did her HEP 2x since evaluation and her arm was really sore. She has had to ice it to help reduce the pain. States that the wall slides are really what was painful for her. PT-OP-K Range of Motion Start: 06/19/23 14:55 Freq: Status: Active Protocol: Document 06/19/23 14:56 ED (Rec: 06/19/23 15:07 ED [id number]) Shoulder Goniometric Range of Motion Shoulder Left Active Shoulder ROM WFL Yes Testing Position Sitting Flexion 160 External Rotation at 90 degrees 85 Abduction Internal Rotation 85 Right Active Testing Position Sitting Flexion 130 External Rotation at 90 degrees 65 Abduction Internal Rotation 65 PT-OP-L Special Tests Start: 06/19/23 14:55 Freq: Status: Active Protocol: Document 06/19/23 14:56 ED (Rec: 06/19/23 15:07 ED [id number]) Special Tests Shoulder Special Tests Biceps Load II Test Test Results + PT-OP-Q Treatments Start: 06/19/23 14:55 Freq: Status: Active Protocol: Document 06/22/23 14:47 ED (Rec: 06/22/23 14:51 ED [id number]) Cardio Equipment Upper Body Ergometer (UBE) Duration (Minutes) 5 Therapeutic Exercises Standing Exercises ER walkouts Resistance pink band Reps/Minutes 2x10 row Standing Exercise Name L2 Reps/Minutes 1x20 Comments underhand beading machine operator; overhand beading machine operator painful bicep Standing Exercise Name bicep curl Side right Equipment Used 5# Reps/Minutes x15-20 deltoid Standing Exercise Name lateral raise Side bilateral Resistance 1# Reps/Minutes x10 reps; x20'' hold Comments repetition became painful ROM Standing Exercise Name pulleys Reps/Minutes x2' PT-OP-T Assessment and Plan Start: 06/19/23 14:55 Freq: Status: Active Protocol: Document 06/22/23 14:47 ED (Rec: 06/22/23 14:51 ED [id number]) Physical Therapy Assessment Goals Four Impairment quickDASH Rack Production Worker Goal (LTG) Pt will improve quickDASH score by >10 points. LTG Duration 8 weeks Three Impairment strength Short Term Goal (STG) Pt will be able to perform 2# lateral/fwd raises c/o pain for 10-15 repetitions. STG Duration 3 weeks Usp Goal (LTG) Pt will be able to perform activities in all planes of motion c/o shoulder pain. LTG Duration 6 weeks Two Impairment ROM Short Term Goal (STG) Pt will be able to raise R shoulder to 140 degrees flexion c/ pain <3/10. STG Duration 3 weeks Rack Production Worker Goal (LTG) Pt will demonstrate shoulder flexion to 160 degrees and ability to reach behind her back c/o pain. LTG Duration 6 weeks One Impairment HEP Short Term Goal (STG) pt will report performing HEP 3-4 days/week. STG Duration 2 weeks Usp Goal (LTG) pt will report performing HEP 3-4 days/week. LTG Duration 6 weeks Assessment Summary Assessment Many exercises had to be adjusted to accomodate for patient's pain in her R anterior shoulder. Pt initially had pain c/ pulleys but it slowly subsided but she is still demonstrating reduced shoulder ROM. The UBE felt fine for her. Pt was present during lateral raises and overhand rows so PT adjusted to underhand beading machine operator rows and child care education coordinator weight for lateral raises. Informed patient to take tomorrow off for appropriate recovery and then perform the exercises again on Sunday. Physical Therapy Plan Frequency and Duration Frequency of Treatment 2x/Week Duration of treatment (weeks) 12 Plan of Care Start Date 06/19/23 Plan of Care End Date 09/17/23 Next Visit Focus/Plan Next Note Type Treatment Note Next Visit Plan ALIREZA Nieves, (HEP: wall slides, bicep curl, lateral raise, s/l ER), ER walk outs, row
--- NOTE | 2023-06-26 14:59 | PT.OTN ---
Current Diagnoses Pain in right shoulder (06/26/23) Physical Therapy Treatment Note PT-OP-A Visit Information Start: 06/19/23 14:55 Freq: Status: Active Protocol: Document 06/26/23 14:54 ED (Rec: 06/26/23 14:59 ED [id number]) Out-Patient Physical Therapy Visit Information Visit Information Visit Type Treatment Note Visit Start Time 14:15 Visit Stop Time 14:55 Total Visit Minutes 40 Visit Number 3 PT-OP-B Current Condition Start: 06/19/23 14:55 Freq: Status: Active Protocol: Document 06/19/23 14:56 ED (Rec: 06/19/23 15:07 ED [id number]) Current Condition History of Current Condition Onset Date January Current Complaints R anterior shoulder pain History of Current Condition Pt states that she noticed anterior R shoulder pain in January c/ no clear JOSE. Pt subsequently received steroid injection for her R shoulder in April but that did not help her much in regards to pain. She notes pain specifically when reaching across her body and when reaching behind such as tucking in her shirt. Additionally, she cannot lay on her R shoulder very long before it is painful. She notes having 5 and 8 pound dumbbells at home along with an elliptical. PT-OP-C Subjective Start: 06/19/23 14:55 Freq: Status: Active Protocol: Document 06/26/23 14:54 ED (Rec: 06/26/23 14:59 ED [id number]) OP-PT Subjective Patient Comments Patient Comments Pt states that she was surprised that she was no that sore following last PT session. States she ices and uses Advil frequently to help c/ the collins.+ PT-OP-K Range of Motion Start: 06/19/23 14:55 Freq: Status: Active Protocol: Document 06/19/23 14:56 ED (Rec: 06/19/23 15:07 ED [id number]) Shoulder Goniometric Range of Motion Shoulder Left Active Shoulder ROM WFL Yes Testing Position Sitting Flexion 160 External Rotation at 90 degrees 85 Abduction Internal Rotation 85 Right Active Testing Position Sitting Flexion 130 External Rotation at 90 degrees 65 Abduction Internal Rotation 65 PT-OP-L Special Tests Start: 06/19/23 14:55 Freq: Status: Active Protocol: Document 06/19/23 14:56 ED (Rec: 06/19/23 15:07 ED [id number]) Special Tests Shoulder Special Tests Biceps Load II Test Test Results + PT-OP-Q Treatments Start: 06/19/23 14:55 Freq: Status: Active Protocol: Document 06/26/23 14:54 ED (Rec: 06/26/23 14:59 ED [id number]) Cardio Equipment Upper Body Ergometer (UBE) Duration (Minutes) 5 Therapeutic Exercises Sidelying Exercises SA punch Side right Resistance 2# Reps/Minutes 2x15 lateral raise Side right Resistance 2# Reps/Minutes 2x15 ER Side bilateral Equipment Used 2# DB Reps/Minutes x20 Standing Exercises IR Resistance pink band Reps/Minutes [id number] row Resistance L3 Reps/Minutes 3x15 Comments underhand staff engineer; overhand staff engineer painful bicep Standing Exercise Name bicep curl Side right Equipment Used 5# Reps/Minutes 20-30 second isometric Comments GH extended deltoid Standing Exercise Name lateral raise Side bilateral Resistance 2# Reps/Minutes x20'' hold Comments repetition became painful ROM Standing Exercise Name pulleys Reps/Minutes x2' PT-OP-T Assessment and Plan Start: 06/19/23 14:55 Freq: Status: Active Protocol: Document 06/26/23 14:54 ED (Rec: 06/26/23 14:59 ED [id number]) Physical Therapy Assessment Goals Four Impairment quickDASH Instructional Technology Teacher Goal (LTG) Pt will improve quickDASH score by >10 points. LTG Duration 8 weeks Three Impairment strength Short Term Goal (STG) Pt will be able to perform 2# lateral/fwd raises c/o pain for 10-15 repetitions. STG Duration 3 weeks Instructional Technology Teacher Goal (LTG) Pt will be able to perform activities in all planes of motion c/o shoulder pain. LTG Duration 6 weeks Two Impairment ROM Short Term Goal (STG) Pt will be able to raise R shoulder to 140 degrees flexion c/ pain <3/10. STG Duration 3 weeks Instructional Technology Teacher Goal (LTG) Pt will demonstrate shoulder flexion to 160 degrees and ability to reach behind her back c/o pain. LTG Duration 6 weeks One Impairment HEP Short Term Goal (STG) pt will report performing HEP 3-4 days/week. STG Duration 2 weeks [facility] Goal (LTG) pt will report performing HEP 3-4 days/week. LTG Duration 6 weeks Assessment Summary Assessment Many exercises had to be adjusted to accomodate for patient's pain in her R anterior shoulder. Pt initially had pain c/ pulleys but it slowly subsided but she is still demonstrating reduced shoulder ROM. The UBE felt fine for her. Pt was present during lateral raises and overhand rows so PT adjusted to underhand staff engineer rows and cabinet worker weight for lateral raises. Pain was also present in the bicep curls so they were switched to isometrics which was more comfortable for her. Physical Therapy Plan Next Visit Focus/Plan Next Note Type Treatment Note Next Visit Plan UBE, oscar, wall rolls, ext bicep curl, S/l matrix, rows, IR, isometric chest press (HEP: wall slides, bicep curl, lateral raise, s/l ER), ER walk outs, row
--- NOTE | 2023-06-28 16:43 | PT.OTN ---
Current Diagnoses Pain in right shoulder (06/28/23) Physical Therapy Treatment Note PT-OP-A Visit Information Start: 06/19/23 14:55 Freq: Status: Active Protocol: Document 06/28/23 15:28 SW (Rec: 06/28/23 16:43 [id number]) Out-Patient Physical Therapy Visit Information Visit Information Visit Type Treatment Note Visit Start Time 15:30 Visit Stop Time 16:13 Total Visit Minutes 43 Visit Number 4 Number of INSPECTOR RUBBER STAMP DIE Visits 1 PT-OP-B Current Condition Start: 06/19/23 14:55 Freq: Status: Active Protocol: Document 06/19/23 14:56 ED (Rec: 06/19/23 15:07 ED [id number]) Current Condition History of Current Condition Onset Date January Current Complaints R anterior shoulder pain History of Current Condition Pt states that she noticed anterior R shoulder pain in January c/ no clear JOSE. Pt subsequently received steroid injection for her R shoulder in April but that did not help her much in regards to pain. She notes pain specifically when reaching across her body and when reaching behind such as tucking in her shirt. Additionally, she cannot lay on her R shoulder very long before it is painful. She notes having 5 and 8 pound dumbbells at home along with an elliptical. PT-OP-C Subjective Start: 06/19/23 14:55 Freq: Status: Active Protocol: Document 06/28/23 15:28 SW (Rec: 06/28/23 16:43 [id number]) OP-PT Subjective Patient Comments Patient Comments Pt. reports a lot of pain after last session, with difficulty sleeping. Thinks it may have been from the position of her arm with some exercises. PT-OP-K Range of Motion Start: 06/19/23 14:55 Freq: Status: Active Protocol: Document 06/19/23 14:56 ED (Rec: 06/19/23 15:07 ED [id number]) Shoulder Goniometric Range of Motion Shoulder Left Active Shoulder ROM WFL Yes Testing Position Sitting Flexion 160 External Rotation at 90 degrees 85 Abduction Internal Rotation 85 Right Active Testing Position Sitting Flexion 130 External Rotation at 90 degrees 65 Abduction Internal Rotation 65 PT-OP-L Special Tests Start: 06/19/23 14:55 Freq: Status: Active Protocol: Document 06/19/23 14:56 ED (Rec: 06/19/23 15:07 ED [id number]) Special Tests Shoulder Special Tests Biceps Load II Test Test Results + PT-OP-Q Treatments Start: 06/19/23 14:55 Freq: Status: Active Protocol: Document 06/28/23 15:28 (Rec: 06/28/23 16:43 [id number]) Cardio Equipment Upper Body Ergometer (UBE) Duration (Minutes) 5 Therapeutic Exercises Standing Exercises Ball on wall Standing Exercise Name up/down, bilateral, circles ( clockwise/counter) Resistance Yellow ball Reps/Minutes 2x10 Comments verbal/tactile cues for scapular setting IR Standing Exercise Name IR walkouts, isometric hold Equipment Used therapist assist Reps/Minutes 3 x30 ER walkouts Standing Exercise Name Isometric hold Resistance pink band Equipment Used therapist assist Reps/Minutes 3x30 row Resistance L3 Reps/Minutes x10> scapular retraction 2x10 dt/ pain with resistance Comments underhand lens assistant; overhand lens assistant painful ROM Standing Exercise Name pulleys Reps/Minutes x2' Self-Care/Home Management Treatment Education Patient Education Body Mechanics,Home Exercise Program,Posture Caregiver Education Educated patient on shoulder mechanics and discussed posture. Dicussed HEP progressions and regressions. PT-OP-T Assessment and Plan Start: 06/19/23 14:55 Freq: Status: Active Protocol: Document 06/28/23 15:28 (Rec: 06/28/23 16:43 [id number]) Physical Therapy Assessment Goals Four Impairment quickDASH Nursing Home Goal (LTG) Pt will improve quickDASH score by >10 points. LTG Duration 8 weeks Three Impairment strength Short Term Goal (STG) Pt will be able to perform 2# lateral/fwd raises c/o pain for 10-15 repetitions. STG Duration 3 weeks Superintendent Maintenance [employer] Goal (LTG) Pt will be able to perform activities in all planes of motion c/o shoulder pain. LTG Duration 6 weeks Two Impairment ROM Short Term Goal (STG) Pt will be able to raise R shoulder to 140 degrees flexion c/ pain <3/10. STG Duration 3 weeks Superintendent [employer] Goal (LTG) Pt will demonstrate shoulder flexion to 160 degrees and ability to reach behind her back c/o pain. LTG Duration 6 weeks One Impairment HEP Short Term Goal (STG) pt will report performing HEP 3-4 days/week. STG Duration 2 weeks Superintendent [employer] Goal (LTG) pt will report performing HEP 3-4 days/week. LTG Duration 6 weeks Assessment Summary Assessment Regressed some ther ex to isometric today d/t patient increased pain, discussed the therapeutic process and regressions/ progressions as tolerated. Trialed ball on wall today for shldr strength/ stabilization, muscle fatigue without pain, verbal/tactile cues required for scapular setting prior to initiation of ex. Discussed HEP, patient has not been able to do HEP on her own yet but states she has 4 days between sessions so she will be doing them between, recommend followup on tolerance. Physical Therapy Plan Frequency and Duration Frequency of Treatment 2x/Week Duration of treatment (weeks) 12 Plan of Care Start Date 06/19/23 Plan of Care End Date 09/17/23 Therapeutic Interventions Therapeutic Interventions Home Exercise Program,Joint Mobilizations,Manual Therapy, Neuromuscular Re-education, Soft Tissue Mobilization, Taping,Therapeutic Activities, Therapeutic Exercises Modalities Biofeedback,Cold Pack/Ice Massage,Electric Stimulation, Hot Packs,Ultrasound Next Visit Focus/Plan Next Note Type Treatment Note Next Visit Plan UBE, oscar, wall rolls, ext bicep curl, S/l matrix, rows, IR, isometric chest press (HEP: wall slides, bicep curl, lateral raise, s/l ER), ER walk outs, row
--- NOTE | 2023-07-03 16:00 | PT.OTN ---
Current Diagnoses Pain in right shoulder (07/03/23) Physical Therapy Treatment Note PT-OP-A Visit Information Start: 06/19/23 14:55 Freq: Status: Active Protocol: Document 07/03/23 14:21 [facility] (Rec: 07/06/23 09:57 [facility] [id number]) Out-Patient Physical Therapy Visit Information Visit Information Visit Type Treatment Note Visit Start Time 14:18 Visit Stop Time 15:08 Total Visit Minutes 50 Visit Number 5 Number of VENDING MECHANIC Visits 2 PT-OP-B Current Condition Start: 06/19/23 14:55 Freq: Status: Active Protocol: Document 06/19/23 14:56 ED (Rec: 06/19/23 15:07 ED [id number]) Current Condition History of Current Condition Onset Date January Current Complaints R anterior shoulder pain History of Current Condition Pt states that she noticed anterior R shoulder pain in January c/ no clear JOSE. Pt subsequently received steroid injection for her R shoulder in April but that did not help her much in regards to pain. She notes pain specifically when reaching across her body and when reaching behind such as tucking in her shirt. Additionally, she cannot lay on her R shoulder very long before it is painful. She notes having 5 and 8 pound dumbbells at home along with an elliptical. PT-OP-C Subjective Start: 06/19/23 14:55 Freq: Status: Active Protocol: Document 07/03/23 14:21 [facility] (Rec: 07/03/23 16:13 [facility] [id number]) OP-PT Subjective Patient Comments Patient Comments Pt reports she feels like she is overall worse than when she started PT, but also because she is more aware of which movements hurt most she is better at avoiding them. She wakes up at night from the pain which is worst at night, and in general it's an achy pain 2-3/10 but if I move it the wrong way in certain directions like sideways and backwards taking my sweatshirt off it's excruciating burning pain and then it subsides. She ordered a shoulder ice pack which arrived today and is excited to use it tonight. Patient Reported Progress Same PT-OP-K Range of Motion Start: 06/19/23 14:55 Freq: Status: Active Protocol: Document 06/19/23 14:56 ED (Rec: 06/19/23 15:07 ED [id number]) Shoulder Goniometric Range of Motion Shoulder Left Active Shoulder ROM WFL Yes Testing Position Sitting Flexion 160 External Rotation at 90 degrees 85 Abduction Internal Rotation 85 Right Active Testing Position Sitting Flexion 130 External Rotation at 90 degrees 65 Abduction Internal Rotation 65 PT-OP-L Special Tests Start: 06/19/23 14:55 Freq: Status: Active Protocol: Document 06/19/23 14:56 ED (Rec: 06/19/23 15:07 ED [id number]) Special Tests Shoulder Special Tests Biceps Load II Test Test Results + PT-OP-Q Treatments Start: 06/19/23 14:55 Freq: Status: Active Protocol: Document 07/03/23 14:21 NBM (Rec: 07/03/23 16:13 NBM [id number]) Cardio Equipment Upper Body Ergometer (UBE) Duration (Minutes) 5 Other cues for posture Therapeutic Exercises Supine Exercises Scapular retraction Supine Exercise Name H/l:slide palms towards feet, then elbows at 90d, press elbows gently down Side bilateral Reps/Minutes 10 x 2 breathcycles Comments cues for UT overactivation and breathwork Scapular depression Supine Exercise Name H/l: slide palms down to feet, press palms gently down Side bilateral Reps/Minutes 10 x 2 breath cycles Comments cues for UT overactivation and breathwork Standing Exercises row Resistance L1 [place] Tb Reps/Minutes x5> scapular retract 2x10 w/ tactile cues for scap setting & UT overactive Comments underhand field logistics coordinator ROM Standing Exercise Name pulleys flex/scap/abd Equipment Used mirror Reps/Minutes x5' Comments cues for UT overaction, gentle , pain-free ROM and breathwork Manual Therapy Treatment Soft Tissue Mobilization R shoulder Body Location R UT, LS, Biceps, Deltoid, Pec Mobilization Type Cross-Friction,Myofascial Release,Rolling,Strumming, Sustained Pressure,Other Intensity/Depth Moderate Body Position Hooklying Comments Rolled towel under R elbow or Pillow support under R arm ( adducted/IR). Manual pin and stretch to R UT and R LS - positive feedback response. Self-Care/Home Management Treatment Education Patient Education Body Mechanics,Home Exercise Program,Pain Management, Posture Other Education Pt is educated on possible contribution of Upper trapezius mm. overactivation on the R shoulder pain and in breathing techniques for pain management and guarding as she tends to hold breath with pain apprehension and ex's. Significant time spent in standing with tactile cues for appropriate scapular retraction rather than UT overactivation at end-range. PT-OP-T Assessment and Plan Start: 06/19/23 14:55 Freq: Status: Active Protocol: Document 07/03/23 14:21 NB (Rec: 07/03/23 16:13 [facility] [id number]) Physical Therapy Assessment Goals Four Impairment quickDASH Roller Hand Goal (LTG) Pt will improve quickDASH score by >10 points. LTG Duration 8 weeks Three Impairment strength Short Term Goal (STG) Pt will be able to perform 2# lateral/fwd raises c/o pain for 10-15 repetitions. STG Duration 3 weeks Residential Goal (LTG) Pt will be able to perform activities in all planes of motion c/o shoulder pain. LTG Duration 6 weeks Two Impairment ROM Short Term Goal (STG) Pt will be able to raise R shoulder to 140 degrees flexion c/ pain <3/10. STG Duration 3 weeks Residential Goal (LTG) Pt will demonstrate shoulder flexion to 160 degrees and ability to reach behind her back c/o pain. LTG Duration 6 weeks One Impairment HEP Short Term Goal (STG) pt will report performing HEP 3-4 days/week. STG Duration 2 weeks Roller Hand Goal (LTG) pt will report performing HEP 3-4 days/week. LTG Duration 6 weeks Assessment Summary Assessment Lucretia requires cues for scapular setting due to Upper trapezius overactivation. Significant time spent in standing with tactile cues for appropriate scapular retraction rather than UT overactivation at end-range. She needs cues with pulleys and resisted rows for staying in a gentle, pain-free ROM but demonstrates improved self- awareness with repetition and cueing. Pt is educated in breathing techniques for pain management and guarding as she tends to hold breath with pain apprehension and ex's. Treatment focus modified to hooklying focusing on scapular depression and retraction, which she is able to tolerate well. Palpable tightness in R UT and biceps improves after manual therapy. Physical Therapy Plan Frequency and Duration Frequency of Treatment 2x/Week Duration of treatment (weeks) 12 Plan of Care Start Date 06/19/23 Plan of Care End Date 09/17/23 Therapeutic Interventions Therapeutic Interventions Home Exercise Program,Joint Mobilizations,Manual Therapy, Neuromuscular Re-education, Soft Tissue Mobilization, Taping,Therapeutic Activities, Therapeutic Exercises Modalities Biofeedback,Cold Pack/Ice Massage,Electric Stimulation, Hot Packs,Ultrasound Next Visit Focus/Plan Next Note Type Treatment Note Next Visit Plan UBE, oscar, wall rolls, ext bicep curl, S/l matrix, rows, IR, isometric chest press (HEP: wall slides, bicep curl, lateral raise, s/l ER), ER walk outs, row
--- NOTE | 2023-07-06 14:28 | PT.OTN ---
Current Diagnoses Pain in right shoulder (07/06/23) Physical Therapy Treatment Note PT-OP-A Visit Information Start: 06/19/23 14:55 Freq: Status: Active Protocol: Document 07/06/23 14:21 ED (Rec: 07/06/23 14:28 ED [id number]) Out-Patient Physical Therapy Visit Information Visit Information Visit Type Treatment Note Visit Start Time 13:30 Visit Stop Time 14:15 Total Visit Minutes 45 Visit Number 6 Number of UNDERGROUND ELECTRICIAN Visits 0 PT-OP-B Current Condition Start: 06/19/23 14:55 Freq: Status: Active Protocol: Document 06/19/23 14:56 ED (Rec: 06/19/23 15:07 ED [id number]) Current Condition History of Current Condition Onset Date January Current Complaints R anterior shoulder pain History of Current Condition Pt states that she noticed anterior R shoulder pain in January c/ no clear JOSE. Pt subsequently received steroid injection for her R shoulder in April but that did not help her much in regards to pain. She notes pain specifically when reaching across her body and when reaching behind such as tucking in her shirt. Additionally, she cannot lay on her R shoulder very long before it is painful. She notes having 5 and 8 pound dumbbells at home along with an elliptical. PT-OP-C Subjective Start: 06/19/23 14:55 Freq: Status: Active Protocol: Document 07/06/23 14:21 ED (Rec: 07/06/23 14:28 ED [id number]) OP-PT Subjective Patient Comments Patient Comments Pt states she's frustrated b/c her sleep is significantly negatively impacted by her shoulder pain. Her shoulder hasn't felt any better since starting PT and is wondering what she should do. PT-OP-K Range of Motion Start: 06/19/23 14:55 Freq: Status: Active Protocol: Document 06/19/23 14:56 ED (Rec: 06/19/23 15:07 ED [id number]) Shoulder Goniometric Range of Motion Shoulder Left Active Shoulder ROM WFL Yes Testing Position Sitting Flexion 160 External Rotation at 90 degrees 85 Abduction Internal Rotation 85 Right Active Testing Position Sitting Flexion 130 External Rotation at 90 degrees 65 Abduction Internal Rotation 65 PT-OP-L Special Tests Start: 06/19/23 14:55 Freq: Status: Active Protocol: Document 06/19/23 14:56 ED (Rec: 06/19/23 15:07 ED [id number]) Special Tests Shoulder Special Tests Biceps Load II Test Test Results + PT-OP-Q Treatments Start: 06/19/23 14:55 Freq: Status: Active Protocol: Document 07/06/23 14:21 ED (Rec: 07/06/23 14:28 ED [id number]) Cardio Equipment Upper Body Ergometer (UBE) Duration (Minutes) 5 Other cues for posture Therapeutic Exercises Sidelying Exercises lateral raise Resistance isometrics Reps/Minutes x20-30'' ER Sidelying Exercise Name bilateral ER isometrics Equipment Used peach band Reps/Minutes x20-30'' holds Standing Exercises SAPD Standing Exercise Name straight arm pull down Resistance green Reps/Minutes [id number] Ball on wall Standing Exercise Name up/down, bilateral, circles ( clockwise/counter) Resistance Yellow ball Reps/Minutes 2x10 Comments verbal/tactile cues for scapular setting row Resistance blue Reps/Minutes 4o12-53 Comments underhand primary therapist PT-OP-T Assessment and Plan Start: 06/19/23 14:55 Freq: Status: Active Protocol: Document 07/06/23 14:21 ED (Rec: 07/06/23 14:28 ED [id number]) Physical Therapy Assessment Goals Four Impairment quickDASH Computer Repair Technician Goal (LTG) Pt will improve quickDASH score by >10 points. LTG Duration 8 weeks Three Impairment strength Short Term Goal (STG) Pt will be able to perform 2# lateral/fwd raises c/o pain for 10-15 repetitions. STG Duration 3 weeks [facility] Goal (LTG) Pt will be able to perform activities in all planes of motion c/o shoulder pain. LTG Duration 6 weeks Two Impairment ROM Short Term Goal (STG) Pt will be able to raise R shoulder to 140 degrees flexion c/ pain <3/10. STG Duration 3 weeks Computer Repair Technician Goal (LTG) Pt will demonstrate shoulder flexion to 160 degrees and ability to reach behind her back c/o pain. LTG Duration 6 weeks One Impairment HEP Short Term Goal (STG) pt will report performing HEP 3-4 days/week. STG Duration 2 weeks Computer Repair Technician Goal (LTG) pt will report performing HEP 3-4 days/week. LTG Duration 6 weeks Assessment Summary Assessment Pt and PT spoke at length discussing PT POC and activity modification. Pt has repeatedly been very sore after PT sessions. Pt and PT discussed doing just 4-5 exercises consistently and only doing ones that she can tolerate very well. These exercises included straight arm pull down, rows, bilateral ER with band, lateral raise isometrics, and wall ball circles. PT and patient performed these exercises today and she felt comfortable with them. Informed patient to do these 3-4x/week for 1 set and gradually increase the sets if her shoulder is tolerating them okay. Physical Therapy Plan Frequency and Duration Frequency of Treatment 2x/Week Duration of treatment (weeks) 12 Plan of Care Start Date 06/19/23 Plan of Care End Date 09/17/23 Therapeutic Interventions Therapeutic Interventions Home Exercise Program,Joint Mobilizations,Manual Therapy, Neuromuscular Re-education, Soft Tissue Mobilization, Taping,Therapeutic Activities, Therapeutic Exercises Modalities Biofeedback,Cold Pack/Ice Massage,Electric Stimulation, Hot Packs,Ultrasound Next Visit Focus/Plan Next Note Type Treatment Note Next Visit Plan low load and consistency with exercises until shoulder allows for more advanced/ intense movements. Tolerates UBE, rows, straight arm pulls down, wall ball circles, bilateral ER, and lateral raise isometrics well
--- NOTE | 2023-07-11 15:44 | PT.OTN ---
Current Diagnoses Pain in right shoulder (07/11/23) Physical Therapy Treatment Note PT-OP-A Visit Information Start: 06/19/23 14:55 Freq: Status: Active Protocol: Document 07/11/23 14:45 SW (Rec: 07/11/23 15:44 SW [id number]) Out-Patient Physical Therapy Visit Information Visit Information Visit Type Treatment Note Visit Start Time 14:45 Visit Stop Time 15:26 Total Visit Minutes 41 Visit Number 7 Number of BUSINESS PROPOSAL REP Visits 1 PT-OP-B Current Condition Start: 06/19/23 14:55 Freq: Status: Active Protocol: Document 06/19/23 14:56 ED (Rec: 06/19/23 15:07 ED [id number]) Current Condition History of Current Condition Onset Date January Current Complaints R anterior shoulder pain History of Current Condition Pt states that she noticed anterior R shoulder pain in January c/ no clear JOSE. Pt subsequently received steroid injection for her R shoulder in April but that did not help her much in regards to pain. She notes pain specifically when reaching across her body and when reaching behind such as tucking in her shirt. Additionally, she cannot lay on her R shoulder very long before it is painful. She notes having 5 and 8 pound dumbbells at home along with an elliptical. PT-OP-C Subjective Start: 06/19/23 14:55 Freq: Status: Active Protocol: Document 07/11/23 14:45 SW (Rec: 07/11/23 15:44 SW [id number]) OP-PT Subjective Patient Comments Patient Comments Pt went to doctor, she is getting referral for x ray and MRI if insurance approves. She feels like she has been getting almost worse than she has been. PT-OP-K Range of Motion Start: 06/19/23 14:55 Freq: Status: Active Protocol: Document 06/19/23 14:56 ED (Rec: 06/19/23 15:07 ED [id number]) Shoulder Goniometric Range of Motion Shoulder Left Active Shoulder ROM WFL Yes Testing Position Sitting Flexion 160 External Rotation at 90 degrees 85 Abduction Internal Rotation 85 Right Active Testing Position Sitting Flexion 130 External Rotation at 90 degrees 65 Abduction Internal Rotation 65 PT-OP-L Special Tests Start: 06/19/23 14:55 Freq: Status: Active Protocol: Document 06/19/23 14:56 ED (Rec: 06/19/23 15:07 ED [id number]) Special Tests Shoulder Special Tests Biceps Load II Test Test Results + PT-OP-Q Treatments Start: 06/19/23 14:55 Freq: Status: Active Protocol: Document 07/11/23 14:45 (Rec: 07/11/23 15:44 [id number]) Therapeutic Exercises Sidelying Exercises lateral raise Resistance isometrics Reps/Minutes x20-30'' ER Sidelying Exercise Name bilateral ER isometrics Equipment Used peach band Reps/Minutes x20-30'' holds Standing Exercises SAPD Standing Exercise Name straight arm pull down Resistance green Reps/Minutes [id number] Ball on wall Standing Exercise Name up/down, bilateral, circles ( clockwise/counter) Resistance Yellow ball Reps/Minutes 2x10 Comments verbal/tactile cues for scapular setting row Resistance blue Reps/Minutes 9k15-21 Comments underhand non destructive testing engineer Manual Therapy Treatment Soft Tissue Mobilization R shoulder Body Location R UT, LS, Biceps, Deltoid, Pec Mobilization Type Cross-Friction,Myofascial Release,Rolling,Strumming, Sustained Pressure,Other Intensity/Depth Moderate Body Position Hooklying Comments Rolled towel under R elbow or Pillow support under R arm ( adducted/IR). Manual pin and stretch to R UT and R LS - positive feedback response. PT-OP-T Assessment and Plan Start: 06/19/23 14:55 Freq: Status: Active Protocol: Document 07/11/23 14:45 (Rec: 07/11/23 15:44 [id number]) Physical Therapy Assessment Goals Four Impairment quickDASH Gore Maker Goal (LTG) Pt will improve quickDASH score by >10 points. LTG Duration 8 weeks Three Impairment strength Short Term Goal (STG) Pt will be able to perform 2# lateral/fwd raises c/o pain for 10-15 repetitions. STG Duration 3 weeks Gore Maker Goal (LTG) Pt will be able to perform activities in all planes of motion c/o shoulder pain. LTG Duration 6 weeks Two Impairment ROM Short Term Goal (STG) Pt will be able to raise R shoulder to 140 degrees flexion c/ pain <3/10. STG Duration 3 weeks [facility]iary Goal (LTG) Pt will demonstrate shoulder flexion to 160 degrees and ability to reach behind her back c/o pain. LTG Duration 6 weeks One Impairment HEP Short Term Goal (STG) pt will report performing HEP 3-4 days/week. STG Duration 2 weeks [facility] Goal (LTG) pt will report performing HEP 3-4 days/week. LTG Duration 6 weeks Assessment Summary Assessment Continued with PT POC, consistancy in exercises today . Tolerated well, pt c/o muscle fatigue, denies pain. Pt to discuss with PT frequency of apts to preserve sessions, for post MRI, pending insurance approval. Physical Therapy Plan Frequency and Duration Frequency of Treatment 2x/Week Duration of treatment (weeks) 12 Plan of Care Start Date 06/19/23 Plan of Care End Date 09/17/23 Therapeutic Interventions Therapeutic Interventions Home Exercise Program,Joint Mobilizations,Manual Therapy, Neuromuscular Re-education, Soft Tissue Mobilization, Taping,Therapeutic Activities, Therapeutic Exercises Modalities Biofeedback,Cold Pack/Ice Massage,Electric Stimulation, Hot Packs,Ultrasound Next Visit Focus/Plan Next Note Type Treatment Note Next Visit Plan low load and consistency with exercises until shoulder allows for more advanced/ intense movements. Tolerates UBE, rows, straight arm pulls down, wall ball circles, bilateral ER, and lateral raise isometrics well
--- NOTE | 2023-07-13 14:04 | PT.OTN ---
Current Diagnoses Pain in right shoulder (07/13/23) Physical Therapy Treatment Note PT-OP-A Visit Information Start: 06/19/23 14:55 Freq: Status: Active Protocol: Document 07/13/23 14:00 ED (Rec: 07/13/23 14:04 ED [id number]) Out-Patient Physical Therapy Visit Information Visit Information Visit Type Treatment Note Visit Start Time 13:30 Visit Stop Time 14:00 Total Visit Minutes 30 Visit Number 8 Number of KNITTING INSPECTOR Visits 0 PT-OP-B Current Condition Start: 06/19/23 14:55 Freq: Status: Active Protocol: Document 06/19/23 14:56 ED (Rec: 06/19/23 15:07 ED [id number]) Current Condition History of Current Condition Onset Date January Current Complaints R anterior shoulder pain History of Current Condition Pt states that she noticed anterior R shoulder pain in January c/ no clear JOSE. Pt subsequently received steroid injection for her R shoulder in April but that did not help her much in regards to pain. She notes pain specifically when reaching across her body and when reaching behind such as tucking in her shirt. Additionally, she cannot lay on her R shoulder very long before it is painful. She notes having 5 and 8 pound dumbbells at home along with an elliptical. PT-OP-C Subjective Start: 06/19/23 14:55 Freq: Status: Active Protocol: Document 07/13/23 14:00 ED (Rec: 07/13/23 14:04 ED [id number]) OP-PT Subjective Patient Comments Patient Comments Pt states that she has had an MRI and radiograph referral placed by her PCP. Pt states that her arm is not more sore after PT; it just hurts a lot most of the time. She is unable to sleep d/t pain. PT-OP-K Range of Motion Start: 06/19/23 14:55 Freq: Status: Active Protocol: Document 06/19/23 14:56 ED (Rec: 06/19/23 15:07 ED [id number]) Shoulder Goniometric Range of Motion Shoulder Left Active Shoulder ROM WFL Yes Testing Position Sitting Flexion 160 External Rotation at 90 degrees 85 Abduction Internal Rotation 85 Right Active Testing Position Sitting Flexion 130 External Rotation at 90 degrees 65 Abduction Internal Rotation 65 PT-OP-L Special Tests Start: 06/19/23 14:55 Freq: Status: Active Protocol: Document 06/19/23 14:56 ED (Rec: 06/19/23 15:07 ED [id number]) Special Tests Shoulder Special Tests Biceps Load II Test Test Results + PT-OP-Q Treatments Start: 06/19/23 14:55 Freq: Status: Active Protocol: Document 07/13/23 14:00 ED (Rec: 07/13/23 14:04 ED [id number]) Cardio Equipment Upper Body Ergometer (UBE) Duration (Minutes) 5 Other cues for posture Therapeutic Exercises Standing Exercises SAPD Standing Exercise Name straight arm pull down Resistance green Reps/Minutes [id number] row Resistance blue Reps/Minutes [id number] Comments 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 LTG Duration 8 weeks Three Impairment strength Short Term Goal (STG) Pt will be able to perform 2# lateral/fwd raises c/o pain for 10-15 repetitions. STG Duration 3 weeks Founding Partner Goal (LTG) Pt will be able to perform activities in all planes of motion c/o shoulder pain. LTG Duration 6 weeks Two Impairment ROM Short Term Goal (STG) Pt will be able to raise R shoulder to 140 degrees flexion c/ pain <3/10. STG Duration 3 weeks [facility] Goal (LTG) Pt will demonstrate shoulder flexion to 160 degrees and ability to reach behind her back c/o pain. LTG Duration 6 weeks One Impairment HEP Short Term Goal (STG) pt will report performing HEP 3-4 days/week. STG Duration 2 weeks Founding Partner Goal (LTG) pt will report performing HEP 3-4 days/week. LTG Duration 6 weeks Assessment Summary Assessment PT and patient spoke at length regarding the lack of progress observed since she started PT. Pt has had an increase in pain and is becoming dejected by her shoulder disability right now. PT recommended cancelling next week's PT sessions in hopes to let shoulder simmer down and get out of the inflammatory process. PT and patient reviewed the few exercises she has right. PT made some minor modifications to the banded rows as that was irritating her at home but the other exercises were going well for her at home.
--- NOTE | 2023-08-10 14:58 | PT.OTN ---
Current Diagnoses Pain in right shoulder (08/10/23) Physical Therapy Treatment Note PT-OP-A Visit Information Start: 06/19/23 14:55 Freq: Status: Active Protocol: Document 08/10/23 14:53 ED (Rec: 08/10/23 14:58 ED [id number]) Out-Patient Physical Therapy Visit Information Visit Information Visit Type Treatment Note Visit Start Time 14:15 Visit Stop Time 14:55 Total Visit Minutes 40 Visit Number 9 Number of GLAUCOMA SPECIALIST Visits 0 PT-OP-B Current Condition Start: 06/19/23 14:55 Freq: Status: Active Protocol: Document 06/19/23 14:56 ED (Rec: 06/19/23 15:07 ED [id number]) Current Condition History of Current Condition Onset Date January Current Complaints R anterior shoulder pain History of Current Condition Pt states that she noticed anterior R shoulder pain in January c/ no clear JOSE. Pt subsequently received steroid injection for her R shoulder in April but that did not help her much in regards to pain. She notes pain specifically when reaching across her body and when reaching behind such as tucking in her shirt. Additionally, she cannot lay on her R shoulder very long before it is painful. She notes having 5 and 8 pound dumbbells at home along with an elliptical. PT-OP-C Subjective Start: 06/19/23 14:55 Freq: Status: Active Protocol: Document 08/10/23 14:53 ED (Rec: 08/10/23 14:58 ED [id number]) OP-PT Subjective Patient Comments Patient Comments Pt states she had US guided steroid injection for R shoulder 2 weeks ago which helped a little bit. Orthopedist believes she has frozen shoulder currently. PT-OP-K Range of Motion Start: 06/19/23 14:55 Freq: Status: Active Protocol: Document 06/19/23 14:56 ED (Rec: 06/19/23 15:07 ED [id number]) Shoulder Goniometric Range of Motion Shoulder Left Active Shoulder ROM WFL Yes Testing Position Sitting Flexion 160 External Rotation at 90 degrees 85 Abduction Internal Rotation 85 Right Active Testing Position Sitting Flexion 130 External Rotation at 90 degrees 65 Abduction Internal Rotation 65 PT-OP-L Special Tests Start: 06/19/23 14:55 Freq: Status: Active Protocol: Document 06/19/23 14:56 ED (Rec: 06/19/23 15:07 ED [id number]) Special Tests Shoulder Special Tests Biceps Load II Test Test Results + PT-OP-Q Treatments Start: 06/19/23 14:55 Freq: Status: Active Protocol: Document 08/10/23 14:53 ED (Rec: 08/10/23 14:58 ED [id number]) Therapeutic Exercises Standing Exercises SAPD Standing Exercise Name straight arm pull down Resistance green Reps/Minutes [id number] row Resistance blue Reps/Minutes 1s22-36 Comments underhand echo vasc tech bicep Standing Exercise Name bicep curl Resistance 3# Reps/Minutes x5 reps Comments painful in shoulder; stopped ROM Standing Exercise Name pulleys Reps/Minutes x20 reps Comments forward flexion PT-OP-T Assessment and Plan Start: 06/19/23 14:55 Freq: Status: Active Protocol: Document 08/10/23 14:53 ED (Rec: 08/10/23 14:58 ED [id number]) Physical Therapy Assessment Goals Four Impairment quickDASH Railroad Detective Goal (LTG) Pt will improve quickDASH score by >10 points. LTG Duration 8 weeks Three Impairment strength Short Term Goal (STG) Pt will be able to perform 2# lateral/fwd raises c/o pain for 10-15 repetitions. STG Duration 3 weeks Retirement Goal (LTG) Pt will be able to perform activities in all planes of motion c/o shoulder pain. LTG Duration 6 weeks Two Impairment ROM Short Term Goal (STG) Pt will be able to raise R shoulder to 140 degrees flexion c/ pain <3/10. STG Duration 3 weeks Retirement Goal (LTG) Pt will demonstrate shoulder flexion to 160 degrees and ability to reach behind her back c/o pain. LTG Duration 6 weeks One Impairment HEP Short Term Goal (STG) pt will report performing HEP 3-4 days/week. STG Duration 2 weeks Railroad Detective Goal (LTG) pt will report performing HEP 3-4 days/week. LTG Duration 6 weeks Assessment Summary Assessment Pt demonstrating loss of flexion, abduction, and ER since she was last in on . Pt likely experiencing adhesive capsulitis. Informed patient of prognosis for adhesive capsulitis including timeframe, loss of ROM, and strength. Informed patient to perform ROM movements and strengthening drills within her tolerance and keep track of pain levels in order to monitor her progression over time. Decided to see patient every 2-3 weeks for follow ups and let her work on exercises at home between. Physical Therapy Plan Frequency and Duration Frequency of Treatment 2x/Week Duration of treatment (weeks) 12 Plan of Care Start Date 06/19/23 Plan of Care End Date 09/17/23 Therapeutic Interventions Therapeutic Interventions Home Exercise Program,Joint Mobilizations,Manual Therapy, Neuromuscular Re-education, Soft Tissue Mobilization, Taping,Therapeutic Activities, Therapeutic Exercises Modalities Biofeedback,Cold Pack/Ice Massage,Electric Stimulation, Hot Packs,Ultrasound Next Visit Focus/Plan Next Note Type Treatment Note Next Visit Plan check ROM pain free ROM and strengthening movements
--- NOTE | 2023-09-18 09:20 | PT.OPDS ---
Current Diagnoses Pain in right shoulder (08/10/23) Visit Care Team Role Provider Type Devorah Chu DO Attending Provider Physician Family Provider Primary Care Provider Referring Provider Specialty: Medical Address: [address] [place] [address], [address], [place], [address] Email: [email or web address] Visit Number Visit Number 9 Discharge Summary PT-OP-B Current Condition Start: 06/19/23 14:55 Freq: Status: Active Protocol: Document 06/19/23 14:56 ED (Rec: 06/19/23 15:07 ED [id number]) Current Condition History of Current Condition Onset Date January Current Complaints R anterior shoulder pain History of Current Condition Pt states that she noticed anterior R shoulder pain in January c/ no clear JOSE. Pt subsequently received steroid injection for her R shoulder in April but that did not help her much in regards to pain. She notes pain specifically when reaching across her body and when reaching behind such as tucking in her shirt. Additionally, she cannot lay on her R shoulder very long before it is painful. She notes having 5 and 8 pound dumbbells at home along with an elliptical. PT-OP-C Subjective Start: 06/19/23 14:55 Freq: Status: Active Protocol: Document 08/10/23 14:53 ED (Rec: 08/10/23 14:58 ED [id number]) OP-PT Subjective Patient Comments Patient Comments Pt states she had US guided steroid injection for R shoulder 2 weeks ago which helped a little bit. Orthopedist believes she has frozen shoulder currently. PT-OP-K Range of Motion Start: 06/19/23 14:55 Freq: Status: Active Protocol: Document 06/19/23 14:56 ED (Rec: 06/19/23 15:07 ED [id number]) Shoulder Goniometric Range of Motion Shoulder Left Active Shoulder ROM WFL Yes Testing Position Sitting Flexion 160 External Rotation at 90 degrees 85 Abduction Internal Rotation 85 Right Active Testing Position Sitting Flexion 130 External Rotation at 90 degrees 65 Abduction Internal Rotation 65 PT-OP-L Special Tests Start: 06/19/23 14:55 Freq: Status: Active Protocol: Document 06/19/23 14:56 ED (Rec: 06/19/23 15:07 ED [id number]) Special Tests Shoulder Special Tests Biceps Load II Test Test Results + PT-OP-T Assessment and Plan Start: 06/19/23 14:55 Freq: Status: Active Protocol: Document 09/18/23 09:20 ED (Rec: 09/18/23 09:20 ED [id number]) Physical Therapy Assessment Goals Four Impairment quickDASH [facility] Goal (LTG) Pt will improve quickDASH score by >10 points. LTG Duration 8 weeks Three Impairment strength Short Term Goal (STG) Pt will be able to perform 2# lateral/fwd raises c/o pain for 10-15 repetitions. STG Duration 3 weeks Manager Adobe Goal (LTG) Pt will be able to perform activities in all planes of motion c/o shoulder pain. LTG Duration 6 weeks Two Impairment ROM Short Term Goal (STG) Pt will be able to raise R shoulder to 140 degrees flexion c/ pain <3/10. STG Duration 3 weeks Manager Adobe Goal (LTG) Pt will demonstrate shoulder flexion to 160 degrees and ability to reach behind her back c/o pain. LTG Duration 6 weeks One Impairment HEP Short Term Goal (STG) pt will report performing HEP 3-4 days/week. STG Duration 2 weeks [facility] Goal (LTG) pt will report performing HEP 3-4 days/week. LTG Duration 6 weeks Assessment Summary Assessment Pt will be DC'd from PT services at this time. Pt was last seen 08/10/23 for R shoulder pain that was likely adhesive capsulitis. Pt is now scheduled for PT evaluation for same shoulder at end of the month.
== END 2023-09-20 14:14 | disposition home or self-care (01) ==
LOC: PHYS 14:15
PROVIDERS: Family Provider Family Medicine; PCP Family Medicine; Referring Provider Family Medicine; Visit Provider Family Medicine
DX: M25.511 Pain in right shoulder (principal)
CPT/HCPCS: 97110; 97140; 97161; 97535

== ENCOUNTER 2024-01-21 13:00 | Outpatient (RCR) | payer OTHER, SELFPAY ==
--- NOTE | 2023-10-09 16:47 | PT.OIE ---
Current Diagnoses Other articular cartilage disorders, right shoulder (10/09/23) Pain in right shoulder (10/09/23) Adhesive capsulitis of unspecified shoulder (10/09/23) Incomplete rotator cuff tear or rupture of unspecified shoulder, not specified as traumatic (10/09/23) Past Medical History (Last Updated 03/14/23 @ 14:31 by Devorah Chu DO) Abnormal Pap smear of cervix (~1999) Asthma Chicken pox Eczema Eczema Heavy menstrual period History of hypertension (2014) Hypertension (~2011) Infertility Irregular menstrual cycle Mixed hyperlipidemia Ovarian cyst Painful menstrual periods PCOS (polycystic ovarian syndrome) Plantar fasciitis of right foot (11/2019) Vitamin D deficiency (2018) Past Surgical History (Last Reviewed 01/23/23 @ 09:36 by Maki Knowles PA-C) Status post breast lumpectomy (~2006) Status post dilation and curettage Surgical procedure planned (~2011) Visit Care Team Role Provider Type Devorah Chu DO Attending Provider Physician Family Provider Primary Care Provider Referring Provider Specialty: Medical Address: [address] [place] [address], [address], [place], [address] Email: [email or web address] Physical Therapy Initial Evaluation PT-OP-A Visit Information Start: 10/09/23 15:41 Freq: Status: Active Protocol: Document 10/09/23 15:42 NM (Rec: 10/09/23 16:46 NM [id number]) Out-Patient Physical Therapy Visit Information Visit Information Visit Type Initial Evaluation Visit Start Time 14:30 Visit Stop Time 15:15 Total Visit Minutes 45 Visit Number 1 Evaluation Information Evaluation Date 10/09/23 PT-OP-B Current Condition Start: 10/09/23 15:41 Freq: Status: Active Protocol: Document 10/09/23 15:42 NM (Rec: 10/09/23 16:46 NM [id number]) Current Condition History of Current Condition Onset Date January 2023 Current Complaints R shoulder pain, limited R shoulder mobility, difficulty with ADLs History of Current Condition Pt presents to clinic with R shoulder pain that began insidiously in January 2023. She reports that she woke up with R shoulder pain one morning. She went to her PCP who ordered an injection and then PT. Her R shoulder pain worsened with PT over the summer. She then sought an appt with an orthopedist, who dx her with adhesive capsulitis and ordered an MRI, referring her back to PT. No surgical repair or GAGANDEEP planned at this time. Since the summer, her pain has decreased considerably and her R shoulder mobility has become more limited. At this time, she reports that she only has pain with jerky movements. Pt has most difficulty with performing her ADLs (putting up hair, dressing), lifting overhead, carrying objects >5# , and general mobility. 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 Current Functional Impairments (Reported) Functional Limitations- ADL's Lifting, putting up hair, dressing, reaching overhead PT-OP-C Subjective Start: 10/09/23 15:41 Freq: Status: Active Protocol: Document 10/09/23 15:42 NM (Rec: 10/09/23 16:46 NM [id number]) Patient Questionnaires Quick Dash- Upper Extremity Quick Dash UE Score 33 (50% disability score) OP-PT Pain Assessment Pain Assessment Grid Paper Pain Assessment Grid Completed Yes Location R shoulder Pain Location Details anterior shoulder ~LH biceps tendon, posterior shoulder near RC/scapula Intensity 3 Scale Used Numeric (0 - 10) Description Aching,Sharp Description- Other At worst, sharp pain (jerky movements). Normally 0/10 Frequency Frequent Pain Duration 20 sec Pain Aggravating Factors Activity,Lifting Pain Alleviating Factors Rest Home Pain Medication Use Pain Medications Used No Pain Behaviors Pain Behaviors Facial Grimacing,Guarding, Wincing PT-OP-E Functional Tests Start: 10/09/23 15:41 Freq: Status: Active Protocol: Document 10/09/23 15:42 NM (Rec: 10/09/23 16:46 NM [id number]) Functional Tests Apley's Scratch Test Action 1- Left Able to touch R shoulder- wfl Action 1- Right Able to touch L shoulder- wfl Action 2- Left T4 Action 2- Right R ear (with pain) Action 3- Left T12 Action 3- Right R buttock (pocket) PT-OP-F Manual Assessment Start: 10/09/23 15:41 Freq: Status: Active Protocol: Document 10/09/23 15:42 NM (Rec: 10/09/23 16:46 NM [id number]) Manual Assessments Soft Tissue Assessment Soft Tissue Mobility Assessment No soft tissue restrictions noted around R scapula, trapezius, rhomboids, levator scapulae, scalenes, or SCM. Long head of biceps tendon is palpable and tender to palpation. Joint Mobility Assessment Joint Mobility Assessment Limited R GH PROM in fwd flex, horizontal abd, IR, and ER. End feels are painful and hard . No PROM into ER and limited PROM into IR. ER and IR are most limited. No shoulder subluxation noted. R scapular position is depressed; demos fair scapular control in sidelying but with limited gliding into retraction/ protraction, upward rotation/ elevation PT-OP-J Posture/Palpation/Skin Start: 10/09/23 15:41 Freq: Status: Active Protocol: Document 10/09/23 15:42 NM (Rec: 10/09/23 16:46 NM [id number]) Posture Evaluation Position Standing Evaluation View posterior, lateral Head/C-Spine Posture Neutral Position T-Spine Posture Neutral Thorax Posture (L) Elevated L-Spine Posture Neutral Shoulder Posture (L) Rounded,(R) Rounded,(L) Elevated Scapula Posture (L) Neutral,(R) Protracted,(R) Rotated Down,(R) Depressed Arm Posture (L) Neutral,(R) Internally Rotated Comments Posture Comments R shoulder is depressed compared to L shoulder Palpation Assessment Location R shoulder Palpation Location Anterior shoulder (long heads bicep tendon), posterior shldr /scap Palpation Findings Tenderness Palpation Details Tenderness along R proximal long head biceps tendon PT-OP-K Range of Motion Start: 10/09/23 15:41 Freq: Status: Active Protocol: Document 10/09/23 15:42 NM (Rec: 10/09/23 16:46 NM [id number]) Shoulder Goniometric Range of Motion Shoulder Left Shoulder ROM WFL Yes Testing Position Supine Flexion 178 Extension 60 Abduction 165 External Rotation at 90 degrees 70 Abduction External Rotation at 45 degrees 70 Abduction External Rotation at 0 degrees Abduction 70 Internal Rotation 80 Internal Rotation Behind Back (text) T12 Right Shoulder ROM WFL No Testing Position Supine Flexion 80 Extension 60 Abduction 70 External Rotation at 90 degrees 0 Abduction External Rotation at 45 degrees 10 Abduction External Rotation at 0 degrees Abduction 10 Internal Rotation 45 Internal Rotation Behind Back (text) buttock (near pocket) Comments Flex, abd, ER, IR painful (ER most limited and painful). PROM flex (90 deg), abd (70 deg), ER (10 deg), IR (55 deg) . Shoulder ROM Limitations Shoulder ROM Limitations Soft Tissue Tightness,Bony Restriction,Pain Elbow/Forearm Range of Motion Elbow/Forearm Left Elbow/Forearm ROM WFL Yes ROM Testing Position Supine Elbow Flexion (degrees) 130 Elbow Extension (degrees) 0 Right Elbow/Forearm ROM WFL Yes ROM Testing Position Supine Elbow Flexion (degrees) 130 Elbow Extension (degrees) 0 PT-OP-L Special Tests Start: 10/09/23 15:41 Freq: Status: Active Protocol: Document 10/09/23 15:42 NM (Rec: 10/09/23 16:46 NM [id number]) Special Tests Shoulder Special Tests Drop Arm Rotator Cuff Test Results negative Comments able to slowly lower arm Speed's Biceps Test Results negative [place] Test Test Results positive Comments Reproduces pain Empty Can Test Results positive Comments Reproduces pain in rotator cuff area, long head biceps tendon with resistance Yergason's Biceps Test Results negative Comments Does not reproduce pain in LH biceps tendon during resisted supination Biceps Load II Test Test Results positive Comments reproduces pain in anterior shoulder near LH biceps tendon PT-OP-M Strength Start: 10/09/23 15:41 Freq: Status: Active Protocol: Document 10/09/23 15:42 NM (Rec: 10/09/23 16:46 NM [id number]) Scapula Strength Scapula Manual Muscle Testing Left Elevation (C4) 4+ Good+ Adduction 4+ Good+ Abduction 4+ Good+ Depression 4+ Good+ Right Elevation (C4) 4 Good Adduction 4 Good Abduction 4 Good Depression 4 Good Shoulder Strength Shoulder Manual Muscle Testing Left Flexion 4+ Good+ Extension 5 Normal Abduction (C5) 4+ Good+ Adduction 4+ Good+ External Rotation 4+ Good+ Internal Rotation 4+ Good+ Horizontal Abduction 4+ Good+ Horizontal Adduction 4+ Good+ Right Flexion 3 Fair Extension 5 Normal Abduction (C5) 3+ Fair+ Adduction 4+ Good+ External Rotation 3+ Fair+ Internal Rotation 4- Good- Horizontal Abduction 3+ Fair+ Horizontal Adduction 4+ Good+ Comments Pain with resisted ER/IR, abd Elbow/Forearm Strength Elbow and Forearm Manual Muscle Testing Left Flexion (C6) 5 Normal Extension (C7) 5 Normal Right Flexion (C6) 4- Good- Extension (C7) 4+ Good+ Comments No pain with resisted elbow flex but reports stretching sensation with resisted elbow ext PT-OP-T Assessment and Plan Start: 10/09/23 15:41 Freq: Status: Active Protocol: Document 10/09/23 15:42 NM (Rec: 10/09/23 16:46 NM [id number]) Physical Therapy Assessment Rehab Potential Rehabilitation Potential Good Evaluation Complexity Number of Personal Factors/Comorbidities 3 or More Number of Body Systems Impaired 1-2 Clinical Presentation at Evaluation Stable Impairments Impairments Activity Tolerance,Functional Activities,Functional Mobility ,Pain,Posture,ROM,Soft Tissue Mobility,Strength Goals Eight Impairment function Impairment IR Apley reach to R buttock Short Term Goal (STG) Pt will increase R shoulder IR AROM to at least L4-5 in order to demostrate improved shoulder mobility and ADL tolerance for dressing. STG Duration 5 weeks [employer] Goal (LTG) Pt will increase R shoulder IR AROM to at least T12-L1 in order to demonstrate improved shoulder mobility and ADL tolerance for dressing. LTG Duration 10 weeks Seven Impairment function Impairment ER apley reach to R ear Short Term Goal (STG) Pt will increase R shoulder ER AROM to base of occiput in order to fix her hair. STG Duration 5 weeks [employer] Goal (LTG) Pt will increase R shoulder ER AROM to at least C7 in order to demonstrate improved shoulder mobility and ADL tolerance. LTG Duration 10 weeks Six Impairment strength Impairment R shoulder abd and ER strength 3+/5 Short Term Goal (STG) Pt will improve R shoulder abd and ER MMT to at least 4-/5 to demonstrate improved shoulder strength for lifting. STG Duration 5 weeks [employer] Goal (LTG) Pt will improve R shoulder abd and ER MMT to at least 4/5 to demonstrate improved shoulder strength for lifting. LTG Duration 10 weeks Five Impairment Function Impairment Quickdash score 33 (50% disability) Short Term Goal (STG) Pt will improve Quickdash score by 5 points in order to demonstrate improved ADL participation and tolerance. STG Duration 5 weeks Fpc Goal (LTG) Pt will improve Quickdash score by at least 10 points ( MCID) in order to demonstrate improved ADL participation and tolerance. LTG Duration 10 weeks Four Impairment strength Impairment R shoulder flex MMT 3/5 Short Term Goal (STG) Pt will improve R shoulder flex MMT to at least 3+/5 in order to demonstrate improved shoulder strength for lifting and to perform ADLs. STG Duration 5 weeks [employer] Goal (LTG) Pt will improve R shoulder flex MMT to at least 4-/5 in order to demonstrate improved shoulder strength for lifting and to perform ADLs. LTG Duration 10 weeks Three Impairment ROM Impairment Shldr ER (45 deg HABD) AROM 10 deg Short Term Goal (STG) Pt will increase R shoulder ER (at 45 deg HABD) AROM to at least 30 deg without compensation and < 3/10 pain in order to improve ADL tolerance. STG Duration 5 weeks Fpc Goal (LTG) Pt will increase R shoulder ER (at 45 deg HABD) AROM to at least 70 deg without compensation and < 3/10 pain in order to improve ADL tolerance. LTG Duration 10 weeks Two Impairment ROM Impairment Shldr hor abd AROM 70 deg Short Term Goal (STG) Pt will increase R shoulder horizontal abduction AROM to at least 90 deg without compensation and <3/10 pain in order to demonstrate improved shoulder AROM for reaching. STG Duration 5 weeks [employer] Goal (LTG) Pt will increase R shoulder horizontal abduction AROM to at least 120 deg without compensation and <3/10 pain in order to demonstrate improved shoulder AROM for reaching. LTG Duration 10 weeks One Impairment ROM Impairment Shldr fwd flex AROM 80 deg Short Term Goal (STG) Pt will increase R shoulder forward flexion AROM to at least 90 deg without compensation and <3/10 pain in order to demonstrate improved shoulder AROM for reaching. STG Duration 5 weeks [employer] Goal (LTG) Pt will increase R shoulder forward flexion AROM to at least 120 deg without compensation and <3/10 pain in order to demonstrate improved shoulder AROM for reaching. LTG Duration 10 weeks Assessment Summary Assessment Pt is a 47 y.o. female with R shoulder pain consistent with adhesive capsulitis diagnosis. She also has symptoms consistent with rotator cuff and proximal LH biceps tendon pathology. Her primary compaint is R anterior shoulder pain, which is worse with movement. Her PROM and AROM are limited and painful below 90 deg, especially forward flexion, abduction, ER , and IR. Pt is most limited in her ER and IR mobility. Pt also presents with decreased R shoulder strength in flexion, abd, ER, and IR. The long head of the biceps tendon is tender to palpation. Posturally, her shoulders are rounded and the R shoulder/ scapula is depressed compared to her L shoulder. She has a positive Le Roy's test, empty can test, and biceps load II test; due to limited ROM, pt has difficulty with getting into the position to test for rotator cuff involvement. At this time, pt is having difficulty with performing her ADLs. She has sought PT for the same condition, which exacerbated her symptoms. PT discussed with pt about realistic expectations to decrease shoulder pain and maximize as much function as possible. Pt would benefit from skilled PT to address impairments in R shoulder strength, ROM, and function in order to return to PLOF and improve ADL performance/QOL. Physical Therapy Plan Frequency and Duration Frequency of Treatment 2x/Week Duration of treatment (weeks) 10 Plan of Care Start Date 10/09/23 Plan of Care End Date 12/18/23 Therapeutic Interventions Therapeutic Interventions Coordination Training,Home Exercise Program,Joint Mobilizations,Manual Therapy, Neuromuscular Re-education, Patient/Caregiver Education, Soft Tissue Mobilization, Taping,Therapeutic Activities, Therapeutic Exercises Modalities Biofeedback,Cold Pack/Ice Massage,Electric Stimulation, Hot Packs,Iontophoresis, Ultrasound,Vasopneumatic Devices Next Visit Focus/Plan Next Note Type Treatment Note Next Visit Plan Begin gentle shoulder mobility , periscapular strengthening. Issue HEP
--- NOTE | 2023-10-12 15:32 | PT.OTN ---
Current Diagnoses Other articular cartilage disorders, right shoulder (10/12/23) Pain in right shoulder (10/12/23) Adhesive capsulitis of unspecified shoulder (10/12/23) Incomplete rotator cuff tear or rupture of unspecified shoulder, not specified as traumatic (10/12/23) Physical Therapy Treatment Note PT-OP-A Visit Information Start: 10/09/23 15:41 Freq: Status: Active Protocol: Document 10/12/23 14:32 SP (Rec: 10/12/23 16:02 SP [id number]) Out-Patient Physical Therapy Visit Information Visit Information Visit Type Treatment Note Visit Start Time 14:32 Visit Stop Time 15:32 Total Visit Minutes 60 Visit Number 2 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 She reports that she woke up with R shoulder pain one morning. She went to her PCP who ordered an injection and then PT. Her R shoulder pain worsened with PT over the summer. She then sought an appt with an orthopedist, who dx her with adhesive capsulitis and ordered an MRI, referring her back to PT. No surgical repair or GAGANDEEP planned at this time. Since the summer, her pain has decreased considerably and her R shoulder mobility has become more limited. At this time, she reports that she only has pain with jerky movements. Pt has most difficulty with performing her ADLs (putting up hair, dressing), lifting overhead, carrying objects >5# , and general mobility. Prior Treatments and Tests MRI 07/22/23: no full thickness RC rupture, AC joint OA, tendinosis of proximal long head of biceps tendon and infraspinatus, partial tears of subscapularis and supraspinatus, suspected labral tear 12-2 o'clock Treatment Goals Patient/Caregiver Goals Improve R shoulder ROM and strength, be able to put up her hair Prior Functional Status Baseline Function- ADL's Independent Baseline Function- Mobility Independent Baseline Function- Work/School [employer] Baseline Function- Other Prior to January 2023, able to perform all ADLs independently . Current Functional Impairments (Reported) Functional Limitations- ADL's Lifting, putting up hair, dressing, reaching overhead PT-OP-C Subjective Start: 10/09/23 15:41 Freq: Status: Active Protocol: Document 10/12/23 14:32 SP (Rec: 10/12/23 16:02 SP [id number]) OP-PT Subjective Patient Comments Patient Comments Pt reports stiff/ sore after eval moving for assess range. Doesn't do alot past HEP, not want make worse, ther ex got painful in past. PT-OP-E Functional Tests Start: 10/09/23 15:41 Freq: Status: Active Protocol: Document 10/09/23 15:42 NM (Rec: 10/09/23 16:46 NM [id number]) Functional Tests Apley's Scratch Test Action 1- Left Able to touch R shoulder- wfl Action 1- Right Able to touch L shoulder- wfl Action 2- Left T4 Action 2- Right R ear (with pain) Action 3- Left T12 Action 3- Right R buttock (pocket) PT-OP-F Manual Assessment Start: 10/09/23 15:41 Freq: Status: Active Protocol: Document 10/09/23 15:42 NM (Rec: 10/09/23 16:46 NM [id number]) Manual Assessments Soft Tissue Assessment Soft Tissue Mobility Assessment No soft tissue restrictions noted around R scapula, trapezius, rhomboids, levator scapulae, scalenes, or SCM. Long head of biceps tendon is palpable and tender to palpation. Joint Mobility Assessment Joint Mobility Assessment Limited R GH PROM in fwd flex, horizontal abd, IR, and ER. End feels are painful and hard . No PROM into ER and limited PROM into IR. ER and IR are most limited. No shoulder subluxation noted. R scapular position is depressed; demos fair scapular control in sidelying but with limited gliding into retraction/ protraction, upward rotation/ elevation PT-OP-J Posture/Palpation/Skin Start: 10/09/23 15:41 Freq: Status: Active Protocol: Document 10/09/23 15:42 NM (Rec: 10/09/23 16:46 NM [id number]) Posture Evaluation Position Standing Evaluation View posterior, lateral Head/C-Spine Posture Neutral Position T-Spine Posture Neutral Thorax Posture (L) Elevated L-Spine Posture Neutral Shoulder Posture (L) Rounded,(R) Rounded,(L) Elevated Scapula Posture (L) Neutral,(R) Protracted,(R) Rotated Down,(R) Depressed Arm Posture (L) Neutral,(R) Internally Rotated Comments Posture Comments R shoulder is depressed compared to L shoulder Palpation Assessment Location R shoulder Palpation Location Anterior shoulder (long heads bicep tendon), posterior shldr /scap Palpation Findings Tenderness Palpation Details Tenderness along R proximal long head biceps tendon PT-OP-K Range of Motion Start: 10/09/23 15:41 Freq: Status: Active Protocol: Document 10/09/23 15:42 NM (Rec: 10/09/23 16:46 NM [id number]) Shoulder Goniometric Range of Motion Shoulder Left Shoulder ROM WFL Yes Testing Position Supine Flexion 178 Extension 60 Abduction 165 External Rotation at 90 degrees 70 Abduction External Rotation at 45 degrees 70 Abduction External Rotation at 0 degrees Abduction 70 Internal Rotation 80 Internal Rotation Behind Back (text) T12 Right Shoulder ROM WFL No Testing Position Supine Flexion 80 Extension 60 Abduction 70 External Rotation at 90 degrees 0 Abduction External Rotation at 45 degrees 10 Abduction External Rotation at 0 degrees Abduction 10 Internal Rotation 45 Internal Rotation Behind Back (text) buttock (near pocket) Comments Flex, abd, ER, IR painful (ER most limited and painful). PROM flex (90 deg), abd (70 deg), ER (10 deg), IR (55 deg) . Shoulder ROM Limitations Shoulder ROM Limitations Soft Tissue Tightness,Bony Restriction,Pain Elbow/Forearm Range of Motion Elbow/Forearm Left Elbow/Forearm ROM WFL Yes ROM Testing Position Supine Elbow Flexion (degrees) 130 Elbow Extension (degrees) 0 Right Elbow/Forearm ROM WFL Yes ROM Testing Position Supine Elbow Flexion (degrees) 130 Elbow Extension (degrees) 0 PT-OP-L Special Tests Start: 10/09/23 15:41 Freq: Status: Active Protocol: Document 10/09/23 15:42 NM (Rec: 10/09/23 16:46 NM [id number]) Special Tests Shoulder Special Tests Drop Arm Rotator Cuff Test Results negative Comments able to slowly lower arm Speed's Biceps Test Results negative [place] Test Test Results positive Comments Reproduces pain Empty Can Test Results positive Comments Reproduces pain in rotator cuff area, long head biceps tendon with resistance Josérdayanara's Biceps Test Results negative Comments Does not reproduce pain in LH biceps tendon during resisted supination Biceps Load II Test Test Results positive Comments reproduces pain in anterior shoulder near LH biceps tendon PT-OP-M Strength Start: 10/09/23 15:41 Freq: Status: Active Protocol: Document 10/09/23 15:42 NM (Rec: 10/09/23 16:46 NM [id number]) Scapula Strength Scapula Manual Muscle Testing Left Elevation (C4) 4+ Good+ Adduction 4+ Good+ Abduction 4+ Good+ Depression 4+ Good+ Right Elevation (C4) 4 Good Adduction 4 Good Abduction 4 Good Depression 4 Good Shoulder Strength Shoulder Manual Muscle Testing Left Flexion 4+ Good+ Extension 5 Normal Abduction (C5) 4+ Good+ Adduction 4+ Good+ External Rotation 4+ Good+ Internal Rotation 4+ Good+ Horizontal Abduction 4+ Good+ Horizontal Adduction 4+ Good+ Right Flexion 3 Fair Extension 5 Normal Abduction (C5) 3+ Fair+ Adduction 4+ Good+ External Rotation 3+ Fair+ Internal Rotation 4- Good- Horizontal Abduction 3+ Fair+ Horizontal Adduction 4+ Good+ Comments Pain with resisted ER/IR, abd Elbow/Forearm Strength Elbow and Forearm Manual Muscle Testing Left Flexion (C6) 5 Normal Extension (C7) 5 Normal Right Flexion (C6) 4- Good- Extension (C7) 4+ Good+ Comments No pain with resisted elbow flex but reports stretching sensation with resisted elbow ext PT-OP-Q Treatments Start: 10/09/23 15:41 Freq: Status: Active Protocol: Document 10/12/23 14:32 SP (Rec: 10/12/23 16:02 SP [id number]) Therapeutic Exercises Supine Exercises serratus press Supine Exercise Name initiated in PT Side right Resistance AAROM chest press Supine Exercise Name initiated in PT Side right Resistance AAROM Sitting Exercises pendulum Sitting Exercise Name In PT: flex/ext/lat/CW/CCW- seated better vs standing Side right Resistance PROM Equipment Used ossiliations best Reps/Minutes 2 min Comments Improved GH ROM /c ossilations , pt challenged self performance Standing Exercises wall posture/ R shld ER Standing Exercise Name added to HEP Side bilateral Resistance R>L adduction/eccentric ABD Standing Exercise Name added to HEP Side right Equipment Used cues mindful no UT recruitment Reps/Minutes 8 reps Comments cued /c improvement slow GH inferior glide into ABD shld ext/eccentric flexion Standing Exercise Name added to HEP Side right Equipment Used cues mindful no UT recruitment Reps/Minutes x8 reps Comments cued and improved /c cues slow GH inferior glide with AAROM flexion Gait Training Gait Activity pendulum gait Comments improved GH swing post manual and ther ex, able self focus GH mobility improvement almost normal. Manual Therapy Treatment Soft Tissue Mobilization R shld Body Location UT, LS, pec, coracobrac, bicep , infra, supra,Teres, Rhom, subscap, SA, Lat Mobilization Type Myofascial Release, Oscillations,Strumming, Sustained Pressure,Other Intensity/Depth Moderate Body Position hooklying & L Sidelying Comments manual STMs, MWM /c FM ER/IR, flex punch motion, ABD, contract relax IR move into ER at approx 30 deg ABD. Joint Mobilizations R scapulothoracic Jt Direction retraction/protraction/ UR/DR Grade II Body Position L SL Comments PROM, AAROM /c STMs R GH jt Direction posterior, inferior Grade II Body Position Hooklying Comments R GH Jt off edge bed, /c rhythmic movement PT-OP-R Modalities Start: 10/15/23 07:53 Freq: Status: Active Protocol: Document 10/12/23 14:32 SP (Rec: 10/15/23 07:55 SP [id number]) Hot Pack/Cold Pack Treatment CP Location R shld Patient Position Sitting Treatment Duration (minutes) 6 Patient Tolerance Good Comments CP end tx during wall posture ther ex. PT-OP-T Assessment and Plan Start: 10/09/23 15:41 Freq: Status: Active Protocol: Document 10/12/23 14:32 SP (Rec: 10/12/23 16:02 SP [id number]) Physical Therapy Assessment Goals Eight Impairment function Impairment IR Apley reach to R buttock Short Term Goal (STG) Pt will increase R shoulder IR AROM to at least L4-5 in order to demostrate improved shoulder mobility and ADL tolerance for dressing. STG Duration 5 weeks [facility] Goal (LTG) Pt will increase R shoulder IR AROM to at least T12-L1 in order to demonstrate improved shoulder mobility and ADL tolerance for dressing. LTG Duration 10 weeks Seven Impairment function Impairment ER apley reach to R ear Short Term Goal (STG) Pt will increase R shoulder ER AROM to base of occiput in order to fix her hair. STG Duration 5 weeks [facility] Goal (LTG) Pt will increase R shoulder ER AROM to at least C7 in order to demonstrate improved shoulder mobility and ADL tolerance. LTG Duration 10 weeks Six Impairment strength Impairment R shoulder abd and ER strength 3+/5 Short Term Goal (STG) Pt will improve R shoulder abd and ER MMT to at least 4-/5 to demonstrate improved shoulder strength for lifting. STG Duration 5 weeks [facility] Goal (LTG) Pt will improve R shoulder abd and ER MMT to at least 4/5 to demonstrate improved shoulder strength for lifting. LTG Duration 10 weeks Five Impairment Function Impairment Quickdash score 33 (50% disability) Short Term Goal (STG) Pt will improve Quickdash score by 5 points in order to demonstrate improved ADL participation and tolerance. STG Duration 5 weeks [facility] Goal (LTG) Pt will improve Quickdash score by at least 10 points ( MCID) in order to demonstrate improved ADL participation and tolerance. LTG Duration 10 weeks Four Impairment strength Impairment R shoulder flex MMT 3/5 Short Term Goal (STG) Pt will improve R shoulder flex MMT to at least 3+/5 in order to demonstrate improved shoulder strength for lifting and to perform ADLs. STG Duration 5 weeks [facility] Goal (LTG) Pt will improve R shoulder flex MMT to at least 4-/5 in order to demonstrate improved shoulder strength for lifting and to perform ADLs. LTG Duration 10 weeks Three Impairment ROM Impairment Shldr ER (45 deg HABD) AROM 10 deg Short Term Goal (STG) Pt will increase R shoulder ER (at 45 deg HABD) AROM to at least 30 deg without compensation and < 3/10 pain in order to improve ADL tolerance. STG Duration 5 weeks [facility] Goal (LTG) Pt will increase R shoulder ER (at 45 deg HABD) AROM to at least 70 deg without compensation and < 3/10 pain in order to improve ADL tolerance. LTG Duration 10 weeks Two Impairment ROM Impairment Shldr hor abd AROM 70 deg Short Term Goal (STG) Pt will increase R shoulder horizontal abduction AROM to at least 90 deg without compensation and <3/10 pain in order to demonstrate improved shoulder AROM for reaching. STG Duration 5 weeks [facility] Goal (LTG) Pt will increase R shoulder horizontal abduction AROM to at least 120 deg without compensation and <3/10 pain in order to demonstrate improved shoulder AROM for reaching. LTG Duration 10 weeks One Impairment ROM Impairment Shldr fwd flex AROM 80 deg Short Term Goal (STG) Pt will increase R shoulder forward flexion AROM to at least 90 deg without compensation and <3/10 pain in order to demonstrate improved shoulder AROM for reaching. STG Duration 5 weeks [facility] Goal (LTG) Pt will increase R shoulder forward flexion AROM to at least 120 deg without compensation and <3/10 pain in order to demonstrate improved shoulder AROM for reaching. LTG Duration 10 weeks Assessment Summary Assessment Pt good tolerance to manual therapy, progression into AAROM utilizing MWM with ability to gain RUE arm draped into anatomical positioning by end of tx. Added ther ex to support gained R scapular and GH AROM. Pt reported sore at end of tx but pleased with mobility. Pt agreeable to modalities and ther ex instructed for carryover at home. Physical Therapy Plan Frequency and Duration Frequency of Treatment 2x/Week Duration of treatment (weeks) 10 Plan of Care Start Date 10/09/23 Plan of Care End Date 12/18/23 Therapeutic Interventions Therapeutic Interventions Coordination Training,Home Exercise Program,Joint Mobilizations,Manual Therapy, Neuromuscular Re-education, Patient/Caregiver Education, Soft Tissue Mobilization, Taping,Therapeutic Activities, Therapeutic Exercises Modalities Biofeedback,Cold Pack/Ice Massage,Electric Stimulation, Hot Packs,Iontophoresis, Ultrasound,Vasopneumatic Devices Next Visit Focus/Plan Next Note Type Treatment Note Next Visit Plan Trial [place] Protocol, pendulum with DB. Measure pre/ end tx. HEP: sup serratus press, chest press, wall posture, resisted ADD/ecc abd, resisted ext/ eccentric flexion. Discussed pendulum arms swing during gait. POC: Begin gentle shoulder mobility, periscapular strengthening. Continue progress HEP.
--- NOTE | 2023-10-16 09:24 | PT.OTN ---
Current Diagnoses Other articular cartilage disorders, right shoulder (10/16/23) Pain in right shoulder (10/16/23) Adhesive capsulitis of unspecified shoulder (10/16/23) Incomplete rotator cuff tear or rupture of unspecified shoulder, not specified as traumatic (10/16/23) Physical Therapy Treatment Note PT-OP-A Visit Information Start: 10/09/23 15:41 Freq: Status: Active Protocol: Document 10/16/23 07:32 NM (Rec: 10/16/23 08:20 NM [id number]) Out-Patient Physical Therapy Visit Information Visit Information Visit Type Treatment Note Visit Start Time 07:33 Visit Stop Time 08:17 Total Visit Minutes 45 Visit Number 3 Number of OPERATIONS MGR Visits 1 Evaluation Information Evaluation Date 10/09/23 PT-OP-B Current Condition Start: 10/09/23 15:41 Freq: Status: Active Protocol: Document 10/09/23 15:42 NM (Rec: 10/09/23 16:46 NM [id number]) Current Condition History of Current Condition Onset Date January 2023 Current Complaints R shoulder pain, limited R shoulder mobility, difficulty with ADLs History of Current Condition Pt presents to clinic with R shoulder pain that began insidiously in January 2023. She reports that she woke up with R shoulder pain one morning. She went to her PCP who ordered an injection and then PT. Her R shoulder pain worsened with PT over the summer. She then sought an appt with an orthopedist, who dx her with adhesive capsulitis and ordered an MRI, referring her back to PT. No surgical repair or GAGANDEEP planned at this time. Since the summer, her pain has decreased considerably and her R shoulder mobility has become more limited. At this time, she reports that she only has pain with jerky movements. Pt has most difficulty with performing her ADLs (putting up hair, dressing), lifting overhead, carrying objects >5# , and general mobility. Prior Treatments and Tests MRI 07/22/23: no full thickness RC rupture, AC joint OA, tendinosis of proximal long head of biceps tendon and infraspinatus, partial tears of subscapularis and supraspinatus, suspected labral tear 12-2 o'clock Treatment Goals Patient/Caregiver Goals Improve R shoulder ROM and strength, be able to put up her hair Prior Functional Status Baseline Function- ADL's Independent Baseline Function- Mobility Independent Baseline Function- Work/School [employer] Baseline Function- Other Prior to January 2023, able to perform all ADLs independently . Current Functional Impairments (Reported) Functional Limitations- ADL's Lifting, putting up hair, dressing, reaching overhead PT-OP-C Subjective Start: 10/09/23 15:41 Freq: Status: Active Protocol: Document 10/16/23 07:32 NM (Rec: 10/16/23 08:20 NM [id number]) OP-PT Subjective Patient Comments Patient Comments Pt reports that she is doing well. She had to cancel yesterday because her kid was sick. Her R shoulder is tender in the fron today after sleeping on her side. She has some soreness and tenderness after last session, but it resolved quickly. PT-OP-E Functional Tests Start: 10/09/23 15:41 Freq: Status: Active Protocol: Document 10/09/23 15:42 NM (Rec: 10/09/23 16:46 NM [id number]) Functional Tests Apley's Scratch Test Action 1- Left Able to touch R shoulder- wfl Action 1- Right Able to touch L shoulder- wfl Action 2- Left T4 Action 2- Right R ear (with pain) Action 3- Left T12 Action 3- Right R buttock (pocket) PT-OP-F Manual Assessment Start: 10/09/23 15:41 Freq: Status: Active Protocol: Document 10/09/23 15:42 NM (Rec: 10/09/23 16:46 NM [id number]) Manual Assessments Soft Tissue Assessment Soft Tissue Mobility Assessment No soft tissue restrictions noted around R scapula, trapezius, rhomboids, levator scapulae, scalenes, or SCM. Long head of biceps tendon is palpable and tender to palpation. Joint Mobility Assessment Joint Mobility Assessment Limited R GH PROM in fwd flex, horizontal abd, IR, and ER. End feels are painful and hard . No PROM into ER and limited PROM into IR. ER and IR are most limited. No shoulder subluxation noted. R scapular position is depressed; demos fair scapular control in sidelying but with limited gliding into retraction/ protraction, upward rotation/ elevation PT-OP-J Posture/Palpation/Skin Start: 10/09/23 15:41 Freq: Status: Active Protocol: Document 10/09/23 15:42 NM (Rec: 10/09/23 16:46 NM [id number]) Posture Evaluation Position Standing Evaluation View posterior, lateral Head/C-Spine Posture Neutral Position T-Spine Posture Neutral Thorax Posture (L) Elevated L-Spine Posture Neutral Shoulder Posture (L) Rounded,(R) Rounded,(L) Elevated Scapula Posture (L) Neutral,(R) Protracted,(R) Rotated Down,(R) Depressed Arm Posture (L) Neutral,(R) Internally Rotated Comments Posture Comments R shoulder is depressed compared to L shoulder Palpation Assessment Location R shoulder Palpation Location Anterior shoulder (long heads bicep tendon), posterior shldr /scap Palpation Findings Tenderness Palpation Details Tenderness along R proximal long head biceps tendon PT-OP-K Range of Motion Start: 10/09/23 15:41 Freq: Status: Active Protocol: Document 10/09/23 15:42 NM (Rec: 10/09/23 16:46 NM [id number]) Shoulder Goniometric Range of Motion Shoulder Left Shoulder ROM WFL Yes Testing Position Supine Flexion 178 Extension 60 Abduction 165 External Rotation at 90 degrees 70 Abduction External Rotation at 45 degrees 70 Abduction External Rotation at 0 degrees Abduction 70 Internal Rotation 80 Internal Rotation Behind Back (text) T12 Right Shoulder ROM WFL No Testing Position Supine Flexion 80 Extension 60 Abduction 70 External Rotation at 90 degrees 0 Abduction External Rotation at 45 degrees 10 Abduction External Rotation at 0 degrees Abduction 10 Internal Rotation 45 Internal Rotation Behind Back (text) buttock (near pocket) Comments Flex, abd, ER, IR painful (ER most limited and painful). PROM flex (90 deg), abd (70 deg), ER (10 deg), IR (55 deg) . Shoulder ROM Limitations Shoulder ROM Limitations Soft Tissue Tightness,Bony Restriction,Pain Elbow/Forearm Range of Motion Elbow/Forearm Left Elbow/Forearm ROM WFL Yes ROM Testing Position Supine Elbow Flexion (degrees) 130 Elbow Extension (degrees) 0 Right Elbow/Forearm ROM WFL Yes ROM Testing Position Supine Elbow Flexion (degrees) 130 Elbow Extension (degrees) 0 PT-OP-L Special Tests Start: 10/09/23 15:41 Freq: Status: Active Protocol: Document 10/09/23 15:42 NM (Rec: 10/09/23 16:46 NM [id number]) Special Tests Shoulder Special Tests Drop Arm Rotator Cuff Test Results negative Comments able to slowly lower arm Speed's Biceps Test Results negative [place] Test Test Results positive Comments Reproduces pain Empty Can Test Results positive Comments Reproduces pain in rotator cuff area, long head biceps tendon with resistance Yerdayanara's Biceps Test Results negative Comments Does not reproduce pain in LH biceps tendon during resisted supination Biceps Load II Test Test Results positive Comments reproduces pain in anterior shoulder near LH biceps tendon PT-OP-M Strength Start: 10/09/23 15:41 Freq: Status: Active Protocol: Document 10/09/23 15:42 NM (Rec: 10/09/23 16:46 NM [id number]) Scapula Strength Scapula Manual Muscle Testing Left Elevation (C4) 4+ Good+ Adduction 4+ Good+ Abduction 4+ Good+ Depression 4+ Good+ Right Elevation (C4) 4 Good Adduction 4 Good Abduction 4 Good Depression 4 Good Shoulder Strength Shoulder Manual Muscle Testing Left Flexion 4+ Good+ Extension 5 Normal Abduction (C5) 4+ Good+ Adduction 4+ Good+ External Rotation 4+ Good+ Internal Rotation 4+ Good+ Horizontal Abduction 4+ Good+ Horizontal Adduction 4+ Good+ Right Flexion 3 Fair Extension 5 Normal Abduction (C5) 3+ Fair+ Adduction 4+ Good+ External Rotation 3+ Fair+ Internal Rotation 4- Good- Horizontal Abduction 3+ Fair+ Horizontal Adduction 4+ Good+ Comments Pain with resisted ER/IR, abd Elbow/Forearm Strength Elbow and Forearm Manual Muscle Testing Left Flexion (C6) 5 Normal Extension (C7) 5 Normal Right Flexion (C6) 4- Good- Extension (C7) 4+ Good+ Comments No pain with resisted elbow flex but reports stretching sensation with resisted elbow ext PT-OP-Q Treatments Start: 10/09/23 15:41 Freq: Status: Active Protocol: Document 10/16/23 07:32 NM (Rec: 10/16/23 08:20 NM [id number]) Therapeutic Exercises Supine Exercises serratus press Side right Resistance AAROM Reps/Minutes 2x10 Comments cues to decrease UT compensation, manual assist with scap protraction chest press Side right Resistance AAROM Reps/Minutes 2x10 Sitting Exercises pendulum Sitting Exercise Name In PT: flex/ext/lat/CW/CCW- seated better vs standing Side right Resistance PROM Equipment Used ossiliations help pt relax Reps/Minutes 2 min Comments Improved GH ROM /c ossilations , pt challenged self performance Standing Exercises wall posture/ R shld ER Standing Exercise Name AAROM Side bilateral Equipment Used dowel Reps/Minutes 2x5 Comments cues for elbow by side adduction/eccentric ABD Side right Equipment Used cues mindful no UT recruitment Reps/Minutes 3x5 Comments cued /c improvement slow GH inferior glide into ABD shld ext/eccentric flexion Side right Equipment Used cues mindful no UT recruitment Reps/Minutes 3x5 Comments cued and improved /c cues slow GH inferior glide with AAROM flexion Manual Therapy Treatment Soft Tissue Mobilization R shld Body Location UT, LS, pec, coracobrac, bicep , infra, supra,Teres, Rhom, subscap, SA, Lat Mobilization Type Myofascial Release, Oscillations,Strumming, Sustained Pressure,Other Intensity/Depth Superficial Body Position hooklying & L Sidelying Comments manual STMs Superficial today due to soreness Joint Mobilizations R scapulothoracic Jt Direction retraction/protraction/ UR/DR Grade II Body Position L SL Comments PROM, AAROM /c STMs R GH jt Joint next session PT-OP-R Modalities Start: 10/15/23 07:53 Freq: Status: Active Protocol: Document 10/12/23 14:32 SP (Rec: 10/15/23 07:55 SP [id number]) Hot Pack/Cold Pack Treatment CP Location R shld Patient Position Sitting Treatment Duration (minutes) 6 Patient Tolerance Good Comments CP end tx during wall posture ther ex. PT-OP-T Assessment and Plan Start: 10/09/23 15:41 Freq: Status: Active Protocol: Document 10/16/23 07:32 NM (Rec: 10/16/23 08:20 NM [id number]) Physical Therapy Assessment Rehab Potential Rehabilitation Potential Good Evaluation Complexity Number of Personal Factors/Comorbidities 3 or More Number of Body Systems Impaired 1-2 Clinical Presentation at Evaluation Stable Impairments Impairments Activity Tolerance,Functional Activities,Functional Mobility ,Pain,Posture,ROM,Soft Tissue Mobility,Strength Goals Eight Impairment function Impairment IR Apley reach to R buttock Short Term Goal (STG) Pt will increase R shoulder IR AROM to at least L4-5 in order to demostrate improved shoulder mobility and ADL tolerance for dressing. STG Duration 5 weeks Nursing Home Goal (LTG) Pt will increase R shoulder IR AROM to at least T12-L1 in order to demonstrate improved shoulder mobility and ADL tolerance for dressing. LTG Duration 10 weeks Seven Impairment function Impairment ER apley reach to R ear Short Term Goal (STG) Pt will increase R shoulder ER AROM to base of occiput in order to fix her hair. STG Duration 5 weeks Clam Grower Goal (LTG) Pt will increase R shoulder ER AROM to at least C7 in order to demonstrate improved shoulder mobility and ADL tolerance. LTG Duration 10 weeks Six Impairment strength Impairment R shoulder abd and ER strength 3+/5 Short Term Goal (STG) Pt will improve R shoulder abd and ER MMT to at least 4-/5 to demonstrate improved shoulder strength for lifting. STG Duration 5 weeks Clam Grower Goal (LTG) Pt will improve R shoulder abd and ER MMT to at least 4/5 to demonstrate improved shoulder strength for lifting. LTG Duration 10 weeks Five Impairment Function Impairment Quickdash score 33 (50% disability) Short Term Goal (STG) Pt will improve Quickdash score by 5 points in order to demonstrate improved ADL participation and tolerance. STG Duration 5 weeks Nursing Home Goal (LTG) Pt will improve Quickdash score by at least 10 points ( MCID) in order to demonstrate improved ADL participation and tolerance. LTG Duration 10 weeks Four Impairment strength Impairment R shoulder flex MMT 3/5 Short Term Goal (STG) Pt will improve R shoulder flex MMT to at least 3+/5 in order to demonstrate improved shoulder strength for lifting and to perform ADLs. STG Duration 5 weeks Clam Grower Goal (LTG) Pt will improve R shoulder flex MMT to at least 4-/5 in order to demonstrate improved shoulder strength for lifting and to perform ADLs. LTG Duration 10 weeks Three Impairment ROM Impairment Shldr ER (45 deg HABD) AROM 10 deg Short Term Goal (STG) Pt will increase R shoulder ER (at 45 deg HABD) AROM to at least 30 deg without compensation and < 3/10 pain in order to improve ADL tolerance. STG Duration 5 weeks Clam Grower Goal (LTG) Pt will increase R shoulder ER (at 45 deg HABD) AROM to at least 70 deg without compensation and < 3/10 pain in order to improve ADL tolerance. LTG Duration 10 weeks Two Impairment ROM Impairment Shldr hor abd AROM 70 deg Short Term Goal (STG) Pt will increase R shoulder horizontal abduction AROM to at least 90 deg without compensation and <3/10 pain in order to demonstrate improved shoulder AROM for reaching. STG Duration 5 weeks Clam Grower Goal (LTG) Pt will increase R shoulder horizontal abduction AROM to at least 120 deg without compensation and <3/10 pain in order to demonstrate improved shoulder AROM for reaching. LTG Duration 10 weeks One Impairment ROM Impairment Shldr fwd flex AROM 80 deg Short Term Goal (STG) Pt will increase R shoulder forward flexion AROM to at least 90 deg without compensation and <3/10 pain in order to demonstrate improved shoulder AROM for reaching. STG Duration 5 weeks Nursing Home Goal (LTG) Pt will increase R shoulder forward flexion AROM to at least 120 deg without compensation and <3/10 pain in order to demonstrate improved shoulder AROM for reaching. LTG Duration 10 weeks Assessment Summary Assessment Pt demos good tolerance for R shoulder AAROM and flex/abd eccentric contractions. She has small improvements with ROM and decreased reports of pain with repetition. Will continue to progress gentle shoulder and thoracic mobility as tolerated. Pt tolerated manual tmt well to address soft tissue restrictions and improve scapular motions, especially with scap rotation. PT and pt discussed/reviewed HEP issued last time and will update in next sessions. Pt would benefit from skilled PT to address limitations in R shoulder mobility and strength within her available range in order to minimize compensations, reduce risk of further injury, and to improve QOL for return to [facility]. Physical Therapy Plan Frequency and Duration Frequency of Treatment 2x/Week Duration of treatment (weeks) 10 Plan of Care Start Date 10/09/23 Plan of Care End Date 12/18/23 Therapeutic Interventions Therapeutic Interventions Coordination Training,Home Exercise Program,Joint Mobilizations,Manual Therapy, Neuromuscular Re-education, Patient/Caregiver Education, Soft Tissue Mobilization, Taping,Therapeutic Activities, Therapeutic Exercises Modalities Biofeedback,Cold Pack/Ice Massage,Electric Stimulation, Hot Packs,Iontophoresis, Ultrasound,Vasopneumatic Devices Next Visit Focus/Plan Next Note Type Treatment Note Next Visit Plan Trial [place] Protocol, pendulum with DB. Measure pre/ end tx. HEP: sup serratus press, chest press, wall posture, resisted ADD/ecc abd, resisted ext/ eccentric flexion. Discussed pendulum arms swing during gait. POC: Begin gentle shoulder mobility, periscapular strengthening. Continue progress HEP.
--- NOTE | 2023-10-18 15:39 | PT.OTN ---
Current Diagnoses Other articular cartilage disorders, right shoulder (10/18/23) Pain in right shoulder (10/18/23) Adhesive capsulitis of unspecified shoulder (10/18/23) Incomplete rotator cuff tear or rupture of unspecified shoulder, not specified as traumatic (10/18/23) Physical Therapy Treatment Note PT-OP-A Visit Information Start: 10/09/23 15:41 Freq: Status: Active Protocol: Document 10/18/23 14:28 NM (Rec: 10/18/23 15:38 NM [id number]) Out-Patient Physical Therapy Visit Information Visit Information Visit Type Treatment Note Visit Start Time 14:30 Visit Stop Time 15:15 Total Visit Minutes 45 Visit Number 4 Number of WATER TAXI CAPTAIN Visits 1 PT-OP-B Current Condition Start: 10/09/23 15:41 Freq: Status: Active Protocol: Document 10/09/23 15:42 NM (Rec: 10/09/23 16:46 NM [id number]) Current Condition History of Current Condition Onset Date January 2023 Current Complaints R shoulder pain, limited R shoulder mobility, difficulty with ADLs History of Current Condition Pt presents to clinic with R shoulder pain that began insidiously in January 2023. She reports that she woke up with R shoulder pain one morning. She went to her PCP who ordered an injection and then PT. Her R shoulder pain worsened with PT over the summer. She then sought an appt with an orthopedist, who dx her with adhesive capsulitis and ordered an MRI, referring her back to PT. No surgical repair or GAGANDEEP planned at this time. Since the summer, her pain has decreased considerably and her R shoulder mobility has become more limited. At this time, she reports that she only has pain with jerky movements. Pt has most difficulty with performing her ADLs (putting up hair, dressing), lifting overhead, carrying objects >5# , and general mobility. Prior Treatments and Tests MRI 07/22/23: no full thickness RC rupture, AC joint OA, tendinosis of proximal long head of biceps tendon and infraspinatus, partial tears of subscapularis and supraspinatus, suspected labral tear 12-2 o'clock Treatment Goals Patient/Caregiver Goals Improve R shoulder ROM and strength, be able to put up her hair Prior Functional Status Baseline Function- ADL's Independent Baseline Function- Mobility Independent Baseline Function- Work/School [employer] Baseline Function- Other Prior to January 2023, able to perform all ADLs independently . Current Functional Impairments (Reported) Functional Limitations- ADL's Lifting, putting up hair, dressing, reaching overhead PT-OP-C Subjective Start: 10/09/23 15:41 Freq: Status: Active Protocol: Document 10/18/23 14:28 NM (Rec: 10/18/23 15:38 NM [id number]) OP-PT Subjective Patient Comments Patient Comments Pt reports that she feels like her R arm is less stiff compared to usual and that she is using it more. She states that she was able to reach across the table to say keyla last night, which her kids noticed too. She has not been able to do that for several months. Pt reports compliance with HEP. PT-OP-E Functional Tests Start: 10/09/23 15:41 Freq: Status: Active Protocol: Document 10/09/23 15:42 NM (Rec: 10/09/23 16:46 NM [id number]) Functional Tests Apley's Scratch Test Action 1- Left Able to touch R shoulder- wfl Action 1- Right Able to touch L shoulder- wfl Action 2- Left T4 Action 2- Right R ear (with pain) Action 3- Left T12 Action 3- Right R buttock (pocket) PT-OP-F Manual Assessment Start: 10/09/23 15:41 Freq: Status: Active Protocol: Document 10/09/23 15:42 NM (Rec: 10/09/23 16:46 NM [id number]) Manual Assessments Soft Tissue Assessment Soft Tissue Mobility Assessment No soft tissue restrictions noted around R scapula, trapezius, rhomboids, levator scapulae, scalenes, or SCM. Long head of biceps tendon is palpable and tender to palpation. Joint Mobility Assessment Joint Mobility Assessment Limited R GH PROM in fwd flex, horizontal abd, IR, and ER. End feels are painful and hard . No PROM into ER and limited PROM into IR. ER and IR are most limited. No shoulder subluxation noted. R scapular position is depressed; demos fair scapular control in sidelying but with limited gliding into retraction/ protraction, upward rotation/ elevation PT-OP-J Posture/Palpation/Skin Start: 10/09/23 15:41 Freq: Status: Active Protocol: Document 10/09/23 15:42 NM (Rec: 10/09/23 16:46 NM [id number]) Posture Evaluation Position Standing Evaluation View posterior, lateral Head/C-Spine Posture Neutral Position T-Spine Posture Neutral Thorax Posture (L) Elevated L-Spine Posture Neutral Shoulder Posture (L) Rounded,(R) Rounded,(L) Elevated Scapula Posture (L) Neutral,(R) Protracted,(R) Rotated Down,(R) Depressed Arm Posture (L) Neutral,(R) Internally Rotated Comments Posture Comments R shoulder is depressed compared to L shoulder Palpation Assessment Location R shoulder Palpation Location Anterior shoulder (long heads bicep tendon), posterior shldr /scap Palpation Findings Tenderness Palpation Details Tenderness along R proximal long head biceps tendon PT-OP-K Range of Motion Start: 10/09/23 15:41 Freq: Status: Active Protocol: Document 10/09/23 15:42 NM (Rec: 10/09/23 16:46 NM [id number]) Shoulder Goniometric Range of Motion Shoulder Left Shoulder ROM WFL Yes Testing Position Supine Flexion 178 Extension 60 Abduction 165 External Rotation at 90 degrees 70 Abduction External Rotation at 45 degrees 70 Abduction External Rotation at 0 degrees Abduction 70 Internal Rotation 80 Internal Rotation Behind Back (text) T12 Right Shoulder ROM WFL No Testing Position Supine Flexion 80 Extension 60 Abduction 70 External Rotation at 90 degrees 0 Abduction External Rotation at 45 degrees 10 Abduction External Rotation at 0 degrees Abduction 10 Internal Rotation 45 Internal Rotation Behind Back (text) buttock (near pocket) Comments Flex, abd, ER, IR painful (ER most limited and painful). PROM flex (90 deg), abd (70 deg), ER (10 deg), IR (55 deg) . Shoulder ROM Limitations Shoulder ROM Limitations Soft Tissue Tightness,Bony Restriction,Pain Elbow/Forearm Range of Motion Elbow/Forearm Left Elbow/Forearm ROM WFL Yes ROM Testing Position Supine Elbow Flexion (degrees) 130 Elbow Extension (degrees) 0 Right Elbow/Forearm ROM WFL Yes ROM Testing Position Supine Elbow Flexion (degrees) 130 Elbow Extension (degrees) 0 PT-OP-L Special Tests Start: 10/09/23 15:41 Freq: Status: Active Protocol: Document 10/09/23 15:42 NM (Rec: 10/09/23 16:46 NM [id number]) Special Tests Shoulder Special Tests Drop Arm Rotator Cuff Test Results negative Comments able to slowly lower arm Speed's Biceps Test Results negative Coll[place]worth Test Test Results positive Comments Reproduces pain Empty Can Test Results positive Comments Reproduces pain in rotator cuff area, long head biceps tendon with resistance Yerdayanara's Biceps Test Results negative Comments Does not reproduce pain in LH biceps tendon during resisted supination Biceps Load II Test Test Results positive Comments reproduces pain in anterior shoulder near LH biceps tendon PT-OP-M Strength Start: 10/09/23 15:41 Freq: Status: Active Protocol: Document 10/09/23 15:42 NM (Rec: 10/09/23 16:46 NM [id number]) Scapula Strength Scapula Manual Muscle Testing Left Elevation (C4) 4+ Good+ Adduction 4+ Good+ Abduction 4+ Good+ Depression 4+ Good+ Right Elevation (C4) 4 Good Adduction 4 Good Abduction 4 Good Depression 4 Good Shoulder Strength Shoulder Manual Muscle Testing Left Flexion 4+ Good+ Extension 5 Normal Abduction (C5) 4+ Good+ Adduction 4+ Good+ External Rotation 4+ Good+ Internal Rotation 4+ Good+ Horizontal Abduction 4+ Good+ Horizontal Adduction 4+ Good+ Right Flexion 3 Fair Extension 5 Normal Abduction (C5) 3+ Fair+ Adduction 4+ Good+ External Rotation 3+ Fair+ Internal Rotation 4- Good- Horizontal Abduction 3+ Fair+ Horizontal Adduction 4+ Good+ Comments Pain with resisted ER/IR, abd Elbow/Forearm Strength Elbow and Forearm Manual Muscle Testing Left Flexion (C6) 5 Normal Extension (C7) 5 Normal Right Flexion (C6) 4- Good- Extension (C7) 4+ Good+ Comments No pain with resisted elbow flex but reports stretching sensation with resisted elbow ext PT-OP-Q Treatments Start: 10/09/23 15:41 Freq: Status: Active Protocol: Document 10/18/23 14:28 NM (Rec: 10/18/23 15:38 NM [id number]) Therapeutic Exercises Sitting Exercises Scapular retractions Sitting Exercise Name HEP Side bilateral Reps/Minutes 10x5 Comments cues for retraction, manual assist Table slides Sitting Exercise Name 1. fwd flex, 2. abd -- added to HEP Side right Resistance with small fwd trunk lean; Equipment Used pillow case to slide better Reps/Minutes 10x5 ea Comments cues to stay pain free range; manual protraction assist with fwd flex pendulum Sitting Exercise Name In PT: flex/ext/lat/CW/CCW- seated better vs standing Side right Resistance PROM Reps/Minutes 2 min Comments cues to move body not shoulder Standing Exercises wall posture/ R shld ER Standing Exercise Name AAROM Side bilateral Equipment Used dowel Reps/Minutes 1x10 Comments L to R, cues for relaxed shoulder, no UT compensation; elbow by side adduction/eccentric ABD Side right Resistance light blue tb (lvl1) Equipment Used cues mindful no UT recruitment , mirror for vc Reps/Minutes 2x8 Comments 60 deg abd until pain; cued for slow GH inf glide into ABD shld ext/eccentric flexion Side right Equipment Used cues mindful no [place] recruitment , mirror for vc Reps/Minutes 2x8 Comments 90 deg fwd flex until pain; cues for slow control for GH roll into flex Manual Therapy Treatment Joint Mobilizations R scapulothoracic Jt Comments Next session R GH jt Direction posterior, inferior Grade II Body Position hoooklying Comments R GHJ off bed. Glides with oscillations to promote relaxation of GHJ and decrease guarding. Abd kep to 45 deg to remain in pain-free range. ER at 45 deg abd Self-Care/Home Management Treatment Education Patient Education Home Exercise Program PT-OP-R Modalities Start: 10/15/23 07:53 Freq: Status: Active Protocol: Document 10/12/23 14:32 SP (Rec: 10/15/23 07:55 SP [id number]) Hot Pack/Cold Pack Treatment CP Location R shld Patient Position Sitting Treatment Duration (minutes) 6 Patient Tolerance Good Comments CP end tx during wall posture ther ex. PT-OP-T Assessment and Plan Start: 10/09/23 15:41 Freq: Status: Active Protocol: Document 10/18/23 14:28 NM (Rec: 10/18/23 15:38 NM [id number]) Physical Therapy Assessment Rehab Potential Rehabilitation Potential Good Evaluation Complexity Number of Personal Factors/Comorbidities 3 or More Number of Body Systems Impaired 1-2 Clinical Presentation at Evaluation Stable Impairments Impairments Activity Tolerance,Functional Activities,Functional Mobility ,Pain,Posture,ROM,Soft Tissue Mobility,Strength Goals Eight Impairment function Impairment IR Apley reach to R buttock Short Term Goal (STG) Pt will increase R shoulder IR AROM to at least L4-5 in order to demostrate improved shoulder mobility and ADL tolerance for dressing. STG Duration 5 weeks Assisted Goal (LTG) Pt will increase R shoulder IR AROM to at least T12-L1 in order to demonstrate improved shoulder mobility and ADL tolerance for dressing. LTG Duration 10 weeks Seven Impairment function Impairment ER apley reach to R ear Short Term Goal (STG) Pt will increase R shoulder ER AROM to base of occiput in order to fix her hair. STG Duration 5 weeks Assisted Goal (LTG) Pt will increase R shoulder ER AROM to at least C7 in order to demonstrate improved shoulder mobility and ADL tolerance. LTG Duration 10 weeks Six Impairment strength Impairment R shoulder abd and ER strength 3+/5 Short Term Goal (STG) Pt will improve R shoulder abd and ER MMT to at least 4-/5 to demonstrate improved shoulder strength for lifting. STG Duration 5 weeks Assisted Goal (LTG) Pt will improve R shoulder abd and ER MMT to at least 4/5 to demonstrate improved shoulder strength for lifting. LTG Duration 10 weeks Five Impairment Function Impairment Quickdash score 33 (50% disability) Short Term Goal (STG) Pt will improve Quickdash score by 5 points in order to demonstrate improved ADL participation and tolerance. STG Duration 5 weeks Assisted Goal (LTG) Pt will improve Quickdash score by at least 10 points ( MCID) in order to demonstrate improved ADL participation and tolerance. LTG Duration 10 weeks Four Impairment strength Impairment R shoulder flex MMT 3/5 Short Term Goal (STG) Pt will improve R shoulder flex MMT to at least 3+/5 in order to demonstrate improved shoulder strength for lifting and to perform ADLs. STG Duration 5 weeks Stone Grader Goal (LTG) Pt will improve R shoulder flex MMT to at least 4-/5 in order to demonstrate improved shoulder strength for lifting and to perform ADLs. LTG Duration 10 weeks Three Impairment ROM Impairment Shldr ER (45 deg HABD) AROM 10 deg Short Term Goal (STG) Pt will increase R shoulder ER (at 45 deg HABD) AROM to at least 30 deg without compensation and < 3/10 pain in order to improve ADL tolerance. STG Duration 5 weeks Stone Grader Goal (LTG) Pt will increase R shoulder ER (at 45 deg HABD) AROM to at least 70 deg without compensation and < 3/10 pain in order to improve ADL tolerance. LTG Duration 10 weeks Two Impairment ROM Impairment Shldr hor abd AROM 70 deg Short Term Goal (STG) Pt will increase R shoulder horizontal abduction AROM to at least 90 deg without compensation and <3/10 pain in order to demonstrate improved shoulder AROM for reaching. STG Duration 5 weeks Assisted Goal (LTG) Pt will increase R shoulder horizontal abduction AROM to at least 120 deg without compensation and <3/10 pain in order to demonstrate improved shoulder AROM for reaching. LTG Duration 10 weeks One Impairment ROM Impairment Shldr fwd flex AROM 80 deg Short Term Goal (STG) Pt will increase R shoulder forward flexion AROM to at least 90 deg without compensation and <3/10 pain in order to demonstrate improved shoulder AROM for reaching. STG Duration 5 weeks Assisted Goal (LTG) Pt will increase R shoulder forward flexion AROM to at least 120 deg without compensation and <3/10 pain in order to demonstrate improved shoulder AROM for reaching. LTG Duration 10 weeks Assessment Summary Assessment Pt tolerated tmt well today, and she reports improvements in activity tolerance today. Tmt focus on gentle R shoulder ROM and initiated periscapular strengthening with scap retractions. Added table slides fwd flex and abd with pillow case to facilitate sliding; pt instructed to remainin in pain free range and tolerated fair for an increased stretch. Manual tmt consisting of joint mobilizations to reduce pain at GH joint in preparation for grade III-IV mobs to increase ROM in future sessions. Able to perform abd to 45 deg and flex upto 90 deg actively without compensations. Updated HEP to include scap retraction, table slides, and ER AAROM with dowel. Pt would benefit from skilled PT to address limitations in R shoulder mobility and strength within her available range in order to minimize compensations, reduce risk of further injury, and to improve QOL for return to PLOF. Physical Therapy Plan Frequency and Duration Frequency of Treatment 2x/Week Duration of treatment (weeks) 10 Plan of Care Start Date 10/09/23 Plan of Care End Date 12/18/23 Therapeutic Interventions Therapeutic Interventions Coordination Training,Home Exercise Program,Joint Mobilizations,Manual Therapy, Neuromuscular Re-education, Patient/Caregiver Education, Soft Tissue Mobilization, Taping,Therapeutic Activities, Therapeutic Exercises Modalities Biofeedback,Cold Pack/Ice Massage,Electric Stimulation, Hot Packs,Iontophoresis, Ultrasound,Vasopneumatic Devices Next Visit Focus/Plan Next Note Type Treatment Note Next Visit Plan Trial [place] Protocol, pendulum with DB. Measure pre/ end tx. HEP: sup serratus press, chest press, wall posture, resisted ADD/ecc abd, resisted ext/ eccentric flexion, table slides flex/abd, ER with dowel . Discussed pendulum arms swing during gait. POC: Begin gentle shoulder mobility, periscapular strengthening. Cont manual tx with grade II mobs (III as lashonda ). Continue progress HEP.
--- NOTE | 2023-10-26 15:31 | PT.OTN ---
Current Diagnoses Other articular cartilage disorders, right shoulder (10/26/23) Pain in right shoulder (10/26/23) Adhesive capsulitis of unspecified shoulder (10/26/23) Incomplete rotator cuff tear or rupture of unspecified shoulder, not specified as traumatic (10/26/23) Physical Therapy Treatment Note PT-OP-A Visit Information Start: 10/09/23 15:41 Freq: Status: Active Protocol: Document 10/26/23 14:31 NM (Rec: 10/26/23 15:30 NM [id number]) Out-Patient Physical Therapy Visit Information Visit Information Visit Type Treatment Note Visit Start Time 14:30 Visit Stop Time 15:15 Total Visit Minutes 45 Visit Number 6 Evaluation Information Evaluation Date 10/09/23 PT-OP-B Current Condition Start: 10/09/23 15:41 Freq: Status: Active Protocol: Document 10/09/23 15:42 NM (Rec: 10/09/23 16:46 NM [id number]) Current Condition History of Current Condition Onset Date January 2023 Current Complaints R shoulder pain, limited R shoulder mobility, difficulty with ADLs History of Current Condition Pt presents to clinic with R shoulder pain that began insidiously in January 2023. She reports that she woke up with R shoulder pain one morning. She went to her PCP who ordered an injection and then PT. Her R shoulder pain worsened with PT over the summer. She then sought an appt with an orthopedist, who dx her with adhesive capsulitis and ordered an MRI, referring her back to PT. No surgical repair or GAGANDEEP planned at this time. Since the summer, her pain has decreased considerably and her R shoulder mobility has become more limited. At this time, she reports that she only has pain with jerky movements. Pt has most difficulty with performing her ADLs (putting up hair, dressing), lifting overhead, carrying objects >5# , and general mobility. Prior Treatments and Tests MRI 07/22/23: no full thickness RC rupture, AC joint OA, tendinosis of proximal long head of biceps tendon and infraspinatus, partial tears of subscapularis and supraspinatus, suspected labral tear 12-2 o'clock Treatment Goals Patient/Caregiver Goals Improve R shoulder ROM and strength, be able to put up her hair Prior Functional Status Baseline Function- ADL's Independent Baseline Function- Mobility Independent Baseline Function- Work/School [employer] Baseline Function- Other Prior to January 2023, able to perform all ADLs independently . Current Functional Impairments (Reported) Functional Limitations- ADL's Lifting, putting up hair, dressing, reaching overhead PT-OP-C Subjective Start: 10/09/23 15:41 Freq: Status: Active Protocol: Document 10/26/23 14:31 NM (Rec: 10/26/23 15:30 NM [id number]) OP-PT Subjective Patient Comments Patient Comments Pt reports that her shoulder was not sore after last tmt session and reports that she feels like she has more range of motion. PT-OP-E Functional Tests Start: 10/09/23 15:41 Freq: Status: Active Protocol: Document 10/09/23 15:42 NM (Rec: 10/09/23 16:46 NM [id number]) Functional Tests Apley's Scratch Test Action 1- Left Able to touch R shoulder- wfl Action 1- Right Able to touch L shoulder- wfl Action 2- Left T4 Action 2- Right R ear (with pain) Action 3- Left T12 Action 3- Right R buttock (pocket) PT-OP-F Manual Assessment Start: 10/09/23 15:41 Freq: Status: Active Protocol: Document 10/09/23 15:42 NM (Rec: 10/09/23 16:46 NM [id number]) Manual Assessments Soft Tissue Assessment Soft Tissue Mobility Assessment No soft tissue restrictions noted around R scapula, trapezius, rhomboids, levator scapulae, scalenes, or SCM. Long head of biceps tendon is palpable and tender to palpation. Joint Mobility Assessment Joint Mobility Assessment Limited R GH PROM in fwd flex, horizontal abd, IR, and ER. End feels are painful and hard . No PROM into ER and limited PROM into IR. ER and IR are most limited. No shoulder subluxation noted. R scapular position is depressed; demos fair scapular control in sidelying but with limited gliding into retraction/ protraction, upward rotation/ elevation PT-OP-J Posture/Palpation/Skin Start: 10/09/23 15:41 Freq: Status: Active Protocol: Document 10/09/23 15:42 NM (Rec: 10/09/23 16:46 NM [id number]) Posture Evaluation Position Standing Evaluation View posterior, lateral Head/C-Spine Posture Neutral Position T-Spine Posture Neutral Thorax Posture (L) Elevated L-Spine Posture Neutral Shoulder Posture (L) Rounded,(R) Rounded,(L) Elevated Scapula Posture (L) Neutral,(R) Protracted,(R) Rotated Down,(R) Depressed Arm Posture (L) Neutral,(R) Internally Rotated Comments Posture Comments R shoulder is depressed compared to L shoulder Palpation Assessment Location R shoulder Palpation Location Anterior shoulder (long heads bicep tendon), posterior shldr /scap Palpation Findings Tenderness Palpation Details Tenderness along R proximal long head biceps tendon PT-OP-K Range of Motion Start: 10/09/23 15:41 Freq: Status: Active Protocol: Document 10/09/23 15:42 NM (Rec: 10/09/23 16:46 NM [id number]) Shoulder Goniometric Range of Motion Shoulder Left Shoulder ROM WFL Yes Testing Position Supine Flexion 178 Extension 60 Abduction 165 External Rotation at 90 degrees 70 Abduction External Rotation at 45 degrees 70 Abduction External Rotation at 0 degrees Abduction 70 Internal Rotation 80 Internal Rotation Behind Back (text) T12 Right Shoulder ROM WFL No Testing Position Supine Flexion 80 Extension 60 Abduction 70 External Rotation at 90 degrees 0 Abduction External Rotation at 45 degrees 10 Abduction External Rotation at 0 degrees Abduction 10 Internal Rotation 45 Internal Rotation Behind Back (text) buttock (near pocket) Comments Flex, abd, ER, IR painful (ER most limited and painful). PROM flex (90 deg), abd (70 deg), ER (10 deg), IR (55 deg) . Shoulder ROM Limitations Shoulder ROM Limitations Soft Tissue Tightness,Bony Restriction,Pain Elbow/Forearm Range of Motion Elbow/Forearm Left Elbow/Forearm ROM WFL Yes ROM Testing Position Supine Elbow Flexion (degrees) 130 Elbow Extension (degrees) 0 Right Elbow/Forearm ROM WFL Yes ROM Testing Position Supine Elbow Flexion (degrees) 130 Elbow Extension (degrees) 0 PT-OP-L Special Tests Start: 10/09/23 15:41 Freq: Status: Active Protocol: Document 10/09/23 15:42 NM (Rec: 10/09/23 16:46 NM [id number]) Special Tests Shoulder Special Tests Drop Arm Rotator Cuff Test Results negative Comments able to slowly lower arm Speed's Biceps Test Results negative [place]ap Test Test Results positive Comments Reproduces pain Empty Can Test Results positive Comments Reproduces pain in rotator cuff area, long head biceps tendon with resistance Belkis's Biceps Test Results negative Comments Does not reproduce pain in LH biceps tendon during resisted supination Biceps Load II Test Test Results positive Comments reproduces pain in anterior shoulder near LH biceps tendon PT-OP-M Strength Start: 10/09/23 15:41 Freq: Status: Active Protocol: Document 10/09/23 15:42 NM (Rec: 10/09/23 16:46 NM [id number]) Scapula Strength Scapula Manual Muscle Testing Left Elevation (C4) 4+ Good+ Adduction 4+ Good+ Abduction 4+ Good+ Depression 4+ Good+ Right Elevation (C4) 4 Good Adduction 4 Good Abduction 4 Good Depression 4 Good Shoulder Strength Shoulder Manual Muscle Testing Left Flexion 4+ Good+ Extension 5 Normal Abduction (C5) 4+ Good+ Adduction 4+ Good+ External Rotation 4+ Good+ Internal Rotation 4+ Good+ Horizontal Abduction 4+ Good+ Horizontal Adduction 4+ Good+ Right Flexion 3 Fair Extension 5 Normal Abduction (C5) 3+ Fair+ Adduction 4+ Good+ External Rotation 3+ Fair+ Internal Rotation 4- Good- Horizontal Abduction 3+ Fair+ Horizontal Adduction 4+ Good+ Comments Pain with resisted ER/IR, abd Elbow/Forearm Strength Elbow and Forearm Manual Muscle Testing Left Flexion (C6) 5 Normal Extension (C7) 5 Normal Right Flexion (C6) 4- Good- Extension (C7) 4+ Good+ Comments No pain with resisted elbow flex but reports stretching sensation with resisted elbow ext PT-OP-Q Treatments Start: 10/09/23 15:41 Freq: Status: Active Protocol: Document 10/26/23 14:31 NM (Rec: 10/26/23 15:30 NM [id number]) Therapeutic Exercises Supine Exercises R shldr flex Supine Exercise Name added to HEP Side bilateral Resistance AAROM (L arm help R) Equipment Used dowel Reps/Minutes 5 reps Comments reports increased tenderness at her end range R shld ER Side right Resistance LUE help R (AAROM) Equipment Used dowel Reps/Minutes 5x5 Comments cued to begin in wrist RD/ext to prevent compensation Prone Exercises I,T Prone Exercise Name bent arm row (T); added to HEP Side right Reps/Minutes 1x10 Comments reports no pain, but challenge ; cue for scap setting and retraction Sitting Exercises Scapular retractions Sitting Exercise Name HEP Side bilateral Reps/Minutes 10x5 Comments cues for retraction, manual assist pendulum Sitting Exercise Name HEP reviewed flex/ext/lat/CW/ CCW-seated better and standing Side right Resistance PROM Reps/Minutes 2 min Comments cues to move body not shoulder Standing Exercises Shldr ER stretch Side right Equipment Used wall Reps/Minutes 10x5 Comments to prevent compensation with wrist; cue to prevent shldr abd IR Side right Resistance LUE assist RUE Equipment Used towel behind back Reps/Minutes 5x5 Comments pendulum between set Manual Therapy Treatment Joint Mobilizations R scapulothoracic Jt Direction retraction/protraction/ UR/DR Grade II Body Position LSL Comments with PROM ABD/FF/ER R GH jt Direction posterior, inferior Grade III Body Position Hooklying Comments R GHJ off EOB. Glides with oscillations to promote relaxation of GHJ and decrease guarding. Abd kep to 45 deg to remain in pain-free range. Up to 85 deg habd before painful ER at 45 deg abd with post glide PT-OP-R Modalities Start: 10/15/23 07:53 Freq: Status: Active Protocol: Document 10/12/23 14:32 SP (Rec: 10/15/23 07:55 SP [id number]) Hot Pack/Cold Pack Treatment CP Location R shld Patient Position Sitting Treatment Duration (minutes) 6 Patient Tolerance Good Comments CP end tx during wall posture ther ex. PT-OP-T Assessment and Plan Start: 10/09/23 15:41 Freq: Status: Active Protocol: Document 10/26/23 14:31 NM (Rec: 10/26/23 15:30 NM [id number]) Physical Therapy Assessment Goals Eight Impairment function Impairment IR Apley reach to R buttock Short Term Goal (STG) Pt will increase R shoulder IR AROM to at least L4-5 in order to demostrate improved shoulder mobility and ADL tolerance for dressing. STG Duration 5 weeks Pipe Roller Goal (LTG) Pt will increase R shoulder IR AROM to at least T12-L1 in order to demonstrate improved shoulder mobility and ADL tolerance for dressing. LTG Duration 10 weeks Seven Impairment function Impairment ER apley reach to R ear Short Term Goal (STG) Pt will increase R shoulder ER AROM to base of occiput in order to fix her hair. STG Duration 5 weeks Usp Goal (LTG) Pt will increase R shoulder ER AROM to at least C7 in order to demonstrate improved shoulder mobility and ADL tolerance. LTG Duration 10 weeks Six Impairment strength Impairment R shoulder abd and ER strength 3+/5 Short Term Goal (STG) Pt will improve R shoulder abd and ER MMT to at least 4-/5 to demonstrate improved shoulder strength for lifting. STG Duration 5 weeks Pipe Roller Goal (LTG) Pt will improve R shoulder abd and ER MMT to at least 4/5 to demonstrate improved shoulder strength for lifting. LTG Duration 10 weeks Five Impairment Function Impairment Quickdash score 33 (50% disability) Short Term Goal (STG) Pt will improve Quickdash score by 5 points in order to demonstrate improved ADL participation and tolerance. STG Duration 5 weeks Pipe Roller Goal (LTG) Pt will improve Quickdash score by at least 10 points ( MCID) in order to demonstrate improved ADL participation and tolerance. LTG Duration 10 weeks Four Impairment strength Impairment R shoulder flex MMT 3/5 Short Term Goal (STG) Pt will improve R shoulder flex MMT to at least 3+/5 in order to demonstrate improved shoulder strength for lifting and to perform ADLs. STG Duration 5 weeks Pipe Roller Goal (LTG) Pt will improve R shoulder flex MMT to at least 4-/5 in order to demonstrate improved shoulder strength for lifting and to perform ADLs. LTG Duration 10 weeks Three Impairment ROM Impairment Shldr ER (45 deg HABD) AROM 10 deg Short Term Goal (STG) Pt will increase R shoulder ER (at 45 deg HABD) AROM to at least 30 deg without compensation and < 3/10 pain in order to improve ADL tolerance. STG Duration 5 weeks Usp Goal (LTG) Pt will increase R shoulder ER (at 45 deg HABD) AROM to at least 70 deg without compensation and < 3/10 pain in order to improve ADL tolerance. LTG Duration 10 weeks Two Impairment ROM Impairment Shldr hor abd AROM 70 deg Short Term Goal (STG) Pt will increase R shoulder horizontal abduction AROM to at least 90 deg without compensation and <3/10 pain in order to demonstrate improved shoulder AROM for reaching. STG Duration 5 weeks Pipe Roller Goal (LTG) Pt will increase R shoulder horizontal abduction AROM to at least 120 deg without compensation and <3/10 pain in order to demonstrate improved shoulder AROM for reaching. LTG Duration 10 weeks One Impairment ROM Impairment Shldr fwd flex AROM 80 deg Short Term Goal (STG) Pt will increase R shoulder forward flexion AROM to at least 90 deg without compensation and <3/10 pain in order to demonstrate improved shoulder AROM for reaching. STG Duration 5 weeks Usp Goal (LTG) Pt will increase R shoulder forward flexion AROM to at least 120 deg without compensation and <3/10 pain in order to demonstrate improved shoulder AROM for reaching. LTG Duration 10 weeks Assessment Summary Assessment Pt adrián improved tolerance for AAROM today, reporting less pain with arm elevation. She continues to have limited global ROM, with fwd flex up to 90 deg before pain, HABD up to 80 with mobilization, and ER up to 10 deg. Pt attempts to compensate for R shldr ER with wrist ext and radial deviation. Added prone I and prone bent arm row (not T because abd painful) to begin periscapular strengthening and to improve scapular control; added to HEP (pt declines HO but writes it down in clinic and is compliant). Performed grade III inferior and posterior glides to begin mobilization into a greater range, which pt tolerated well . However, limited to 95 deg fwd flex, 85 deg HABD, and 20 deg ER. Pt would benefit from skilled PT to address R shoulder ROM and strength limitations, improve periscapular strength and control for improved ROM. Physical Therapy Plan Frequency and Duration Frequency of Treatment 2x/Week Duration of treatment (weeks) 10 Plan of Care Start Date 10/09/23 Plan of Care End Date 12/18/23 Therapeutic Interventions Therapeutic Interventions Coordination Training,Home Exercise Program,Joint Mobilizations,Manual Therapy, Neuromuscular Re-education, Patient/Caregiver Education, Soft Tissue Mobilization, Taping,Therapeutic Activities, Therapeutic Exercises Modalities Biofeedback,Cold Pack/Ice Massage,Electric Stimulation, Hot Packs,Iontophoresis, Ultrasound,Vasopneumatic Devices Next Visit Focus/Plan Next Note Type Treatment Note Next Visit Plan Trial Ovid Protocol, pendulum with DB. Measure pre/ end tx. HEP: sup serratus press, chest press, wall posture, resisted ADD/ecc abd, resisted ext/ eccentric flexion, table slides flex/abd, ER with dowel . Discussed pendulum arms swing during gait. POC: Begin gentle shoulder mobility, periscapular strengthening. Cont manual tx with grade II mobs (III as lashonda ). Continue progress HEP.
--- NOTE | 2023-10-29 13:45 | PT.OTN ---
Current Diagnoses Other articular cartilage disorders, right shoulder (10/29/23) Pain in right shoulder (10/29/23) Adhesive capsulitis of unspecified shoulder (10/29/23) Incomplete rotator cuff tear or rupture of unspecified shoulder, not specified as traumatic (10/29/23) Physical Therapy Treatment Note PT-OP-A Visit Information Start: 10/09/23 15:41 Freq: Status: Active Protocol: Document 10/29/23 13:05 SP (Rec: 10/29/23 14:33 SP [id number]) Out-Patient Physical Therapy Visit Information Visit Information Visit Type Treatment Note Visit Note 12/24 visits approved Visit Start Time 13:06 Visit Stop Time 13:45 Total Visit Minutes 39 Visit Number 7 Number of FLAT SURFACER Visits 1 PT-OP-B Current Condition Start: 10/09/23 15:41 Freq: Status: Active Protocol: Document 10/09/23 15:42 NM (Rec: 10/09/23 16:46 NM [id number]) Current Condition History of Current Condition Onset Date January 2023 Current Complaints R shoulder pain, limited R shoulder mobility, difficulty with ADLs History of Current Condition Pt presents to clinic with R shoulder pain that began insidiously in January 2023. She reports that she woke up with R shoulder pain one morning. She went to her PCP who ordered an injection and then PT. Her R shoulder pain worsened with PT over the summer. She then sought an appt with an orthopedist, who dx her with adhesive capsulitis and ordered an MRI, referring her back to PT. No surgical repair or GAGANDEEP planned at this time. Since the summer, her pain has decreased considerably and her R shoulder mobility has become more limited. At this time, she reports that she only has pain with jerky movements. Pt has most difficulty with performing her ADLs (putting up hair, dressing), lifting overhead, carrying objects >5# , and general mobility. Prior Treatments and Tests MRI 07/22/23: no full thickness RC rupture, AC joint OA, tendinosis of proximal long head of biceps tendon and infraspinatus, partial tears of subscapularis and supraspinatus, suspected labral tear 12-2 o'clock Treatment Goals Patient/Caregiver Goals Improve R shoulder ROM and strength, be able to put up her hair Prior Functional Status Baseline Function- ADL's Independent Baseline Function- Mobility Independent Baseline Function- Work/School [employer] Baseline Function- Other Prior to January 2023, able to perform all ADLs independently . Current Functional Impairments (Reported) Functional Limitations- ADL's Lifting, putting up hair, dressing, reaching overhead PT-OP-C Subjective Start: 10/09/23 15:41 Freq: Status: Active Protocol: Document 10/29/23 13:05 SP (Rec: 10/29/23 14:33 SP [id number]) OP-PT Subjective Patient Comments Patient Comments Pt reports R shld has been sore over anterior with lifting, cooking, trying wash hair limited range. She does feel making small gains in ROM . PT-OP-E Functional Tests Start: 10/09/23 15:41 Freq: Status: Active Protocol: Document 10/09/23 15:42 NM (Rec: 10/09/23 16:46 NM [id number]) Functional Tests Apley's Scratch Test Action 1- Left Able to touch R shoulder- wfl Action 1- Right Able to touch L shoulder- wfl Action 2- Left T4 Action 2- Right R ear (with pain) Action 3- Left T12 Action 3- Right R buttock (pocket) PT-OP-F Manual Assessment Start: 10/09/23 15:41 Freq: Status: Active Protocol: Document 10/09/23 15:42 NM (Rec: 10/09/23 16:46 NM [id number]) Manual Assessments Soft Tissue Assessment Soft Tissue Mobility Assessment No soft tissue restrictions noted around R scapula, trapezius, rhomboids, levator scapulae, scalenes, or SCM. Long head of biceps tendon is palpable and tender to palpation. Joint Mobility Assessment Joint Mobility Assessment Limited R GH PROM in fwd flex, horizontal abd, IR, and ER. End feels are painful and hard . No PROM into ER and limited PROM into IR. ER and IR are most limited. No shoulder subluxation noted. R scapular position is depressed; demos fair scapular control in sidelying but with limited gliding into retraction/ protraction, upward rotation/ elevation PT-OP-J Posture/Palpation/Skin Start: 10/09/23 15:41 Freq: Status: Active Protocol: Document 10/09/23 15:42 NM (Rec: 10/09/23 16:46 NM [id number]) Posture Evaluation Position Standing Evaluation View posterior, lateral Head/C-Spine Posture Neutral Position T-Spine Posture Neutral Thorax Posture (L) Elevated L-Spine Posture Neutral Shoulder Posture (L) Rounded,(R) Rounded,(L) Elevated Scapula Posture (L) Neutral,(R) Protracted,(R) Rotated Down,(R) Depressed Arm Posture (L) Neutral,(R) Internally Rotated Comments Posture Comments R shoulder is depressed compared to L shoulder Palpation Assessment Location R shoulder Palpation Location Anterior shoulder (long heads bicep tendon), posterior shldr /scap Palpation Findings Tenderness Palpation Details Tenderness along R proximal long head biceps tendon PT-OP-K Range of Motion Start: 10/09/23 15:41 Freq: Status: Active Protocol: Document 10/29/23 13:05 SP (Rec: 10/29/23 14:33 SP [id number]) Shoulder Goniometric Range of Motion Shoulder Right Comments 10/29/23 Standing RUE AROM: FF 97* ABD 68* ER 18* IR behind back: R lateral sacrum L SL RUE AROM: ABD 89* Supine RUE AROM: FF 108* PT-OP-L Special Tests Start: 10/09/23 15:41 Freq: Status: Active Protocol: Document 10/09/23 15:42 NM (Rec: 10/09/23 16:46 NM [id number]) Special Tests Shoulder Special Tests Drop Arm Rotator Cuff Test Results negative Comments able to slowly lower arm Speed's Biceps Test Results negative Haywood Test Test Results positive Comments Reproduces pain Empty Can Test Results positive Comments Reproduces pain in rotator cuff area, long head biceps tendon with resistance Yergason's Biceps Test Results negative Comments Does not reproduce pain in LH biceps tendon during resisted supination Biceps Load II Test Test Results positive Comments reproduces pain in anterior shoulder near LH biceps tendon PT-OP-M Strength Start: 10/09/23 15:41 Freq: Status: Active Protocol: Document 10/09/23 15:42 NM (Rec: 10/09/23 16:46 NM [id number]) Scapula Strength Scapula Manual Muscle Testing Left Elevation (C4) 4+ Good+ Adduction 4+ Good+ Abduction 4+ Good+ Depression 4+ Good+ Right Elevation (C4) 4 Good Adduction 4 Good Abduction 4 Good Depression 4 Good Shoulder Strength Shoulder Manual Muscle Testing Left Flexion 4+ Good+ Extension 5 Normal Abduction (C5) 4+ Good+ Adduction 4+ Good+ External Rotation 4+ Good+ Internal Rotation 4+ Good+ Horizontal Abduction 4+ Good+ Horizontal Adduction 4+ Good+ Right Flexion 3 Fair Extension 5 Normal Abduction (C5) 3+ Fair+ Adduction 4+ Good+ External Rotation 3+ Fair+ Internal Rotation 4- Good- Horizontal Abduction 3+ Fair+ Horizontal Adduction 4+ Good+ Comments Pain with resisted ER/IR, abd Elbow/Forearm Strength Elbow and Forearm Manual Muscle Testing Left Flexion (C6) 5 Normal Extension (C7) 5 Normal Right Flexion (C6) 4- Good- Extension (C7) 4+ Good+ Comments No pain with resisted elbow flex but reports stretching sensation with resisted elbow ext PT-OP-Q Treatments Start: 10/09/23 15:41 Freq: Status: Active Protocol: Document 10/29/23 13:05 SP (Rec: 10/29/23 14:33 SP [id number]) Therapeutic Exercises Supine Exercises R shldr flex Supine Exercise Name HEP reviewed: FF con/ecc- approx 108 deg max 10/29 Side right Resistance AAROM> AROM Reps/Minutes 3 reps x2 Comments cued awareness scap retraction /depression positioning- improves with reps Sidelying Exercises ABD Sidelying Exercise Name added to HEP: approx 89 deg Side right Resistance AAROM> AROM Reps/Minutes 2 reps x2 sets Comments cued scapular rotation, minimize UT recruitment Sitting Exercises pulleys Sitting Exercise Name reviewed for HEP Side right Resistance PROM Equipment Used seated rear facing, use mirror for self correction awareness Reps/Minutes x8 reps Comments cued level shld, no UT recruitment into FF, head/neck ext neutral/nod pendulum Sitting Exercise Name HEP reviewed flex/ext/lat/CW/ CCW-seated better and standing Side right Resistance PROM Reps/Minutes 1 min Comments cues to move body not shoulder Standing Exercises IR Side right Resistance AROM Reps/Minutes 2 reps measurement Comments AROM measurements lateral R sacrum Manual Therapy Treatment Soft Tissue Mobilization R shld Body Location distal pec, coracobrac, ant deltoid, Mobilization Type Strumming,Sustained Pressure, Other Intensity/Depth Moderate Body Position hooklying & L Sidelying Comments manual STMs /c PROM punch, ABD , ER. Joint Mobilizations R scapulothoracic Jt Direction retraction/protraction/ UR/DR Grade II Body Position L SL Comments with PROM ABD/FF/ER R GH jt Direction posterior, inferior Grade III Body Position Hooklying Comments R GHJ off EOB. Glides with oscillations to promote relaxation of GHJ and decrease guarding, 0 and up to 45 deg ABD. PT-OP-R Modalities Start: 10/15/23 07:53 Freq: Status: Active Protocol: Document 10/12/23 14:32 SP (Rec: 10/15/23 07:55 SP [id number]) Hot Pack/Cold Pack Treatment CP Location R shld Patient Position Sitting Treatment Duration (minutes) 6 Patient Tolerance Good Comments CP end tx during wall posture ther ex. PT-OP-T Assessment and Plan Start: 10/09/23 15:41 Freq: Status: Active Protocol: Document 10/29/23 13:05 SP (Rec: 10/29/23 14:33 SP [id number]) Physical Therapy Assessment Goals Eight Impairment function Impairment IR Apley reach to R buttock Short Term Goal (STG) Pt will increase R shoulder IR AROM to at least L4-5 in order to demostrate improved shoulder mobility and ADL tolerance for dressing. STG Duration 5 weeks Intermediate Goal (LTG) Pt will increase R shoulder IR AROM to at least T12-L1 in order to demonstrate improved shoulder mobility and ADL tolerance for dressing. LTG Duration 10 weeks Seven Impairment function Impairment ER apley reach to R ear Short Term Goal (STG) Pt will increase R shoulder ER AROM to base of occiput in order to fix her hair. STG Duration 5 weeks Managing Supervisor Goal (LTG) Pt will increase R shoulder ER AROM to at least C7 in order to demonstrate improved shoulder mobility and ADL tolerance. LTG Duration 10 weeks Six Impairment strength Impairment R shoulder abd and ER strength 3+/5 Short Term Goal (STG) Pt will improve R shoulder abd and ER MMT to at least 4-/5 to demonstrate improved shoulder strength for lifting. STG Duration 5 weeks Intermediate Goal (LTG) Pt will improve R shoulder abd and ER MMT to at least 4/5 to demonstrate improved shoulder strength for lifting. LTG Duration 10 weeks Five Impairment Function Impairment Quickdash score 33 (50% disability) Short Term Goal (STG) Pt will improve Quickdash score by 5 points in order to demonstrate improved ADL participation and tolerance. STG Duration 5 weeks Managing Supervisor Goal (LTG) Pt will improve Quickdash score by at least 10 points ( MCID) in order to demonstrate improved ADL participation and tolerance. LTG Duration 10 weeks Four Impairment strength Impairment R shoulder flex MMT 3/5 Short Term Goal (STG) Pt will improve R shoulder flex MMT to at least 3+/5 in order to demonstrate improved shoulder strength for lifting and to perform ADLs. STG Duration 5 weeks Intermediate Goal (LTG) Pt will improve R shoulder flex MMT to at least 4-/5 in order to demonstrate improved shoulder strength for lifting and to perform ADLs. LTG Duration 10 weeks Three Impairment ROM Impairment Shldr ER (45 deg HABD) AROM 10 deg Short Term Goal (STG) Pt will increase R shoulder ER (at 45 deg HABD) AROM to at least 30 deg without compensation and < 3/10 pain in order to improve ADL tolerance. STG Duration 5 weeks Intermediate Goal (LTG) Pt will increase R shoulder ER (at 45 deg HABD) AROM to at least 70 deg without compensation and < 3/10 pain in order to improve ADL tolerance. LTG Duration 10 weeks Two Impairment ROM Impairment Shldr hor abd AROM 70 deg Short Term Goal (STG) Pt will increase R shoulder horizontal abduction AROM to at least 90 deg without compensation and <3/10 pain in order to demonstrate improved shoulder AROM for reaching. STG Duration 5 weeks Intermediate Goal (LTG) Pt will increase R shoulder horizontal abduction AROM to at least 120 deg without compensation and <3/10 pain in order to demonstrate improved shoulder AROM for reaching. LTG Duration 10 weeks One Impairment ROM Impairment Shldr fwd flex AROM 80 deg Short Term Goal (STG) Pt will increase R shoulder forward flexion AROM to at least 90 deg without compensation and <3/10 pain in order to demonstrate improved shoulder AROM for reaching. 10/29/23: R shld AROM: FF 108 deg supine, L SL abd 89 deg, 18 deg standing, IR behind back lateral R sacrum. STG Duration 5 weeks progressing 10/29/23 Managing Supervisor Goal (LTG) Pt will increase R shoulder forward flexion AROM to at least 120 deg without compensation and <3/10 pain in order to demonstrate improved shoulder AROM for reaching. LTG Duration 10 weeks Progress Towards Goals Progress Comments Standing RUE AROM (pre ther ex ): FF 97* ( increase 11 deg from 10/09) ABD 68* increase 18 deg vrom 10/09) ER 18* (increase 8 deg from ) IR behind back: R lateral sacrum (increase from lateral back pocket 10/09) L SL RUE AROM (post manual): ABD 89* Supine RUE AROM (post manual): FF 108* Assessment Summary Assessment Pt is making slow progressing gains in AROM, ableto perform FF in supine with eccentric control and L SL abd con/ eccentric with cued control with minimal anterior shld discomfort, demonstrates improvement of initiation humeral and scapular inferior glide, better with tactile cuing and vcs for slower pacing, ed for humeral med/ lateral rotation for added GH stability support. Pt reports R shld sore but felt more effort and pleased with ther ex progressed today for home. Declined HOs. Physical Therapy Plan Frequency and Duration Frequency of Treatment 2x/Week Duration of treatment (weeks) 10 Plan of Care Start Date 10/09/23 Plan of Care End Date 12/18/23 Therapeutic Interventions Therapeutic Interventions Coordination Training,Home Exercise Program,Joint Mobilizations,Manual Therapy, Neuromuscular Re-education, Patient/Caregiver Education, Soft Tissue Mobilization, Taping,Therapeutic Activities, Therapeutic Exercises Modalities Biofeedback,Cold Pack/Ice Massage,Electric Stimulation, Hot Packs,Iontophoresis, Ultrasound,Vasopneumatic Devices Next Visit Focus/Plan Next Note Type Treatment Note Next Visit Plan [place] Protocol, pendulum with DB. Measure pre/ end tx. HEP: supine FF, L SL abd, sup serratus press, chest press, wall posture, resisted ADD/ecc abd, resisted ext/eccentric flexion, table slides flex/abd , ER with dowel. Discussed pendulum arms swing during gait. POC: Begin gentle shoulder mobility, periscapular strengthening. Cont manual tx with grade II mobs (III as lashonda ). Continue progress HEP.
--- NOTE | 2023-10-31 14:33 | PT.OTN ---
Current Diagnoses Other articular cartilage disorders, right shoulder (10/31/23) Pain in right shoulder (10/31/23) Adhesive capsulitis of unspecified shoulder (10/31/23) Incomplete rotator cuff tear or rupture of unspecified shoulder, not specified as traumatic (10/31/23) Physical Therapy Treatment Note PT-OP-A Visit Information Start: 10/09/23 15:41 Freq: Status: Active Protocol: Document 10/31/23 13:50 SP (Rec: 10/31/23 14:37 SP [id number]) Out-Patient Physical Therapy Visit Information Visit Information Visit Type Treatment Note Visit Note 01/21 visits approved Visit Start Time 13:50 Visit Stop Time 14:33 Total Visit Minutes 43 Visit Number 8 Number of [employer] Visits 2 Evaluation Information Evaluation Date 10/09/23 PT-OP-B Current Condition Start: 10/09/23 15:41 Freq: Status: Active Protocol: Document 10/09/23 15:42 NM (Rec: 10/09/23 16:46 NM [id number]) Current Condition History of Current Condition Onset Date January 2023 Current Complaints R shoulder pain, limited R shoulder mobility, difficulty with ADLs History of Current Condition Pt presents to clinic with R shoulder pain that began insidiously in January 2023. She reports that she woke up with R shoulder pain one morning. She went to her PCP who ordered an injection and then PT. Her R shoulder pain worsened with PT over the summer. She then sought an appt with an orthopedist, who dx her with adhesive capsulitis and ordered an MRI, referring her back to PT. No surgical repair or GAGANDEEP planned at this time. Since the summer, her pain has decreased considerably and her R shoulder mobility has become more limited. At this time, she reports that she only has pain with jerky movements. Pt has most difficulty with performing her ADLs (putting up hair, dressing), lifting overhead, carrying objects >5# , and general mobility. Prior Treatments and Tests MRI 07/22/23: no full thickness RC rupture, AC joint OA, tendinosis of proximal long head of biceps tendon and infraspinatus, partial tears of subscapularis and supraspinatus, suspected labral tear 12-2 o'clock Treatment Goals Patient/Caregiver Goals Improve R shoulder ROM and strength, be able to put up her hair Prior Functional Status Baseline Function- ADL's Independent Baseline Function- Mobility Independent Baseline Function- Work/School [employer] Baseline Function- Other Prior to January 2023, able to perform all ADLs independently . Current Functional Impairments (Reported) Functional Limitations- ADL's Lifting, putting up hair, dressing, reaching overhead PT-OP-C Subjective Start: 10/09/23 15:41 Freq: Status: Active Protocol: Document 10/31/23 13:50 SP (Rec: 10/31/23 14:37 SP [id number]) OP-PT Subjective Patient Comments Patient Comments Pt reports anterior R shld tension with lifting R up forward against gravity and post shld twinge sore fairly new. PT-OP-E Functional Tests Start: 10/09/23 15:41 Freq: Status: Active Protocol: Document 10/09/23 15:42 NM (Rec: 10/09/23 16:46 NM [id number]) Functional Tests Apley's Scratch Test Action 1- Left Able to touch R shoulder- wfl Action 1- Right Able to touch L shoulder- wfl Action 2- Left T4 Action 2- Right R ear (with pain) Action 3- Left T12 Action 3- Right R buttock (pocket) PT-OP-F Manual Assessment Start: 10/09/23 15:41 Freq: Status: Active Protocol: Document 10/09/23 15:42 NM (Rec: 10/09/23 16:46 NM [id number]) Manual Assessments Soft Tissue Assessment Soft Tissue Mobility Assessment No soft tissue restrictions noted around R scapula, trapezius, rhomboids, levator scapulae, scalenes, or SCM. Long head of biceps tendon is palpable and tender to palpation. Joint Mobility Assessment Joint Mobility Assessment Limited R GH PROM in fwd flex, horizontal abd, IR, and ER. End feels are painful and hard . No PROM into ER and limited PROM into IR. ER and IR are most limited. No shoulder subluxation noted. R scapular position is depressed; demos fair scapular control in sidelying but with limited gliding into retraction/ protraction, upward rotation/ elevation PT-OP-J Posture/Palpation/Skin Start: 10/09/23 15:41 Freq: Status: Active Protocol: Document 10/09/23 15:42 NM (Rec: 10/09/23 16:46 NM [id number]) Posture Evaluation Position Standing Evaluation View posterior, lateral Head/C-Spine Posture Neutral Position T-Spine Posture Neutral Thorax Posture (L) Elevated L-Spine Posture Neutral Shoulder Posture (L) Rounded,(R) Rounded,(L) Elevated Scapula Posture (L) Neutral,(R) Protracted,(R) Rotated Down,(R) Depressed Arm Posture (L) Neutral,(R) Internally Rotated Comments Posture Comments R shoulder is depressed compared to L shoulder Palpation Assessment Location R shoulder Palpation Location Anterior shoulder (long heads bicep tendon), posterior shldr /scap Palpation Findings Tenderness Palpation Details Tenderness along R proximal long head biceps tendon PT-OP-K Range of Motion Start: 10/09/23 15:41 Freq: Status: Active Protocol: Document 10/29/23 13:05 SP (Rec: 10/29/23 14:33 SP [id number]) Shoulder Goniometric Range of Motion Shoulder Right Comments 10/29/23 Standing RUE AROM: FF 97* ABD 68* ER 18* IR behind back: R lateral sacrum L SL RUE AROM: ABD 89* Supine RUE AROM: FF 108* PT-OP-L Special Tests Start: 10/09/23 15:41 Freq: Status: Active Protocol: Document 10/09/23 15:42 NM (Rec: 10/09/23 16:46 NM [id number]) Special Tests Shoulder Special Tests Drop Arm Rotator Cuff Test Results negative Comments able to slowly lower arm Speed's Biceps Test Results negative [place] Test Test Results positive Comments Reproduces pain Empty Can Test Results positive Comments Reproduces pain in rotator cuff area, long head biceps tendon with resistance Yergason's Biceps Test Results negative Comments Does not reproduce pain in LH biceps tendon during resisted supination Biceps Load II Test Test Results positive Comments reproduces pain in anterior shoulder near LH biceps tendon PT-OP-M Strength Start: 10/09/23 15:41 Freq: Status: Active Protocol: Document 10/09/23 15:42 NM (Rec: 10/09/23 16:46 NM [id number]) Scapula Strength Scapula Manual Muscle Testing Left Elevation (C4) 4+ Good+ Adduction 4+ Good+ Abduction 4+ Good+ Depression 4+ Good+ Right Elevation (C4) 4 Good Adduction 4 Good Abduction 4 Good Depression 4 Good Shoulder Strength Shoulder Manual Muscle Testing Left Flexion 4+ Good+ Extension 5 Normal Abduction (C5) 4+ Good+ Adduction 4+ Good+ External Rotation 4+ Good+ Internal Rotation 4+ Good+ Horizontal Abduction 4+ Good+ Horizontal Adduction 4+ Good+ Right Flexion 3 Fair Extension 5 Normal Abduction (C5) 3+ Fair+ Adduction 4+ Good+ External Rotation 3+ Fair+ Internal Rotation 4- Good- Horizontal Abduction 3+ Fair+ Horizontal Adduction 4+ Good+ Comments Pain with resisted ER/IR, abd Elbow/Forearm Strength Elbow and Forearm Manual Muscle Testing Left Flexion (C6) 5 Normal Extension (C7) 5 Normal Right Flexion (C6) 4- Good- Extension (C7) 4+ Good+ Comments No pain with resisted elbow flex but reports stretching sensation with resisted elbow ext PT-OP-Q Treatments Start: 10/09/23 15:41 Freq: Status: Active Protocol: Document 10/31/23 13:50 SP (Rec: 10/31/23 14:37 SP [id number]) Therapeutic Exercises Sitting Exercises eccentric FF Sitting Exercise Name added to HEP Side right Resistance AAROM TB #2 orange (anchored over door) Equipment Used rear facing in chair, mirror front self awareness of level shld Reps/Minutes 4 reps- cued rhomboid&LT scapular retro engagement improve FF ROM Comments noted decrease UT compensation with TB support ER Sitting Exercise Name wand Side right Resistance AAROM Reps/Minutes x10 Comments cued no trunk rotation and wrist RD pulleys Sitting Exercise Name reviewed for HEP Side right Resistance PROM Equipment Used seated rear facing, use mirror for self correction awareness , use mirror Reps/Minutes x8 reps FF AAROM therapist support Comments cued level shld, no UT recruitment into FF, head/neck ext neutral/nod Standing Exercises table walk out Standing Exercise Name added to HEP: FF Side right Resistance AAROM FF Equipment Used grasp TM rail, retro walking trunk flexion Reps/Minutes 10 SH x3 reps Comments cued walk out to comfort R shld FF ROM, hold with breath relax shld serratus pushup Standing Exercise Name added to HEP Resistance incline TM rail Reps/Minutes 2x5 reps Comments improved Shldr ER stretch Side right Resistance AAROM via LUE assist Equipment Used dowel Reps/Minutes 3x5 Comments to prevent compensation with wrist; cue to prevent shldr abd Manual Therapy Treatment Soft Tissue Mobilization R shld Body Location distal pec, coracobrac, ant deltoid, Mobilization Type Strumming,Sustained Pressure, Other Intensity/Depth Moderate Body Position hooklying & L Sidelying Comments manual STMs /c PROM punch, ABD , ER. Joint Mobilizations R scapulothoracic Jt Direction retraction/protraction/ UR/DR Grade II Body Position L SL Comments with PROM ABD/FF/ER R GH jt Direction posterior, inferior Grade II Body Position Hooklying Comments R GHJ off EOB. Glides with oscillations to promote relaxation of GHJ and decrease guarding, 0 and up to 45 deg ABD. PT-OP-R Modalities Start: 10/15/23 07:53 Freq: Status: Active Protocol: Document 10/12/23 14:32 SP (Rec: 10/15/23 07:55 SP [id number]) Hot Pack/Cold Pack Treatment CP Location R shld Patient Position Sitting Treatment Duration (minutes) 6 Patient Tolerance Good Comments CP end tx during wall posture ther ex. PT-OP-T Assessment and Plan Start: 10/09/23 15:41 Freq: Status: Active Protocol: Document 10/31/23 13:50 SP (Rec: 10/31/23 14:37 SP [id number]) Physical Therapy Assessment Assessment Summary Assessment Pt responses well to manual, continues to guard with UT and L Side bend compensations during FF, ABD AROM. She improved ROM eccentric FF TB assist little more than 90deg with cues for rhomboid& LT engagement stabilization, not measured. Pt improved scapulothoracic mobility during added serratus pushups end tx today with good understanding no UT recruitment carryover for HEP. Physical Therapy Plan Frequency and Duration Frequency of Treatment 2x/Week Duration of treatment (weeks) 10 Plan of Care Start Date 10/09/23 Plan of Care End Date 12/18/23 Therapeutic Interventions Therapeutic Interventions Coordination Training,Home Exercise Program,Joint Mobilizations,Manual Therapy, Neuromuscular Re-education, Patient/Caregiver Education, Soft Tissue Mobilization, Taping,Therapeutic Activities, Therapeutic Exercises Modalities Biofeedback,Cold Pack/Ice Massage,Electric Stimulation, Hot Packs,Iontophoresis, Ultrasound,Vasopneumatic Devices Next Visit Focus/Plan Next Note Type Treatment Note Next Visit Plan 10th visit PN 2 tx. Next add rythmic stabilization manual, ABCs FF 90deg. HEP: supine FF, L SL abd, sup serratus press (add over noodle), chest press, wall posture, resisted ADD/ecc abd, resisted ext/eccentric flexion, eccentric FF walk out , ER with dowel wall pushup. Continue remind pendulum arms swing/scapular AROM during gait. POC: Begin gentle shoulder mobility, periscapular strengthening. Cont manual tx with grade II mobs (III as lashonda ). Continue progress HEP. d
--- NOTE | 2023-11-07 09:32 | PT.OTN ---
Current Diagnoses Other articular cartilage disorders, right shoulder (11/07/23) Pain in right shoulder (11/07/23) Adhesive capsulitis of unspecified shoulder (11/07/23) Incomplete rotator cuff tear or rupture of unspecified shoulder, not specified as traumatic (11/07/23) Physical Therapy Treatment Note PT-OP-A Visit Information Start: 10/09/23 15:41 Freq: Status: Active Protocol: Document 11/07/23 08:20 NM (Rec: 11/07/23 09:02 NM [id number]) Out-Patient Physical Therapy Visit Information Visit Information Visit Type Treatment Note Visit Note Pt has used 3/6 approved visits through 11/19 Visit Start Time 08:20 Visit Stop Time 09:00 Total Visit Minutes 40 Visit Number 9 Evaluation Information Evaluation Date 10/09/23 PT-OP-B Current Condition Start: 10/09/23 15:41 Freq: Status: Active Protocol: Document 10/09/23 15:42 NM (Rec: 10/09/23 16:46 NM [id number]) Current Condition History of Current Condition Onset Date January 2023 Current Complaints R shoulder pain, limited R shoulder mobility, difficulty with ADLs History of Current Condition Pt presents to clinic with R shoulder pain that began insidiously in January 2023. She reports that she woke up with R shoulder pain one morning. She went to her PCP who ordered an injection and then PT. Her R shoulder pain worsened with PT over the summer. She then sought an appt with an orthopedist, who dx her with adhesive capsulitis and ordered an MRI, referring her back to PT. No surgical repair or GAGANDEEP planned at this time. Since the summer, her pain has decreased considerably and her R shoulder mobility has become more limited. At this time, she reports that she only has pain with jerky movements. Pt has most difficulty with performing her ADLs (putting up hair, dressing), lifting overhead, carrying objects >5# , and general mobility. Prior Treatments and Tests MRI 07/22/23: no full thickness RC rupture, AC joint OA, tendinosis of proximal long head of biceps tendon and infraspinatus, partial tears of subscapularis and supraspinatus, suspected labral tear 12-2 o'clock Treatment Goals Patient/Caregiver Goals Improve R shoulder ROM and strength, be able to put up her hair Prior Functional Status Baseline Function- ADL's Independent Baseline Function- Mobility Independent Baseline Function- Work/School [employer] Baseline Function- Other Prior to January 2023, able to perform all ADLs independently . Current Functional Impairments (Reported) Functional Limitations- ADL's Lifting, putting up hair, dressing, reaching overhead PT-OP-C Subjective Start: 10/09/23 15:41 Freq: Status: Active Protocol: Document 11/07/23 08:20 NM (Rec: 11/07/23 09:02 NM [id number]) OP-PT Subjective Patient Comments Patient Comments Pt reports moderate soreness in her R shoulder today with more stiffness than normal. After last session, she had soreness that did not resolve for several days. She is unsure what exercises she should be doing at home. PT-OP-E Functional Tests Start: 10/09/23 15:41 Freq: Status: Active Protocol: Document 10/09/23 15:42 NM (Rec: 10/09/23 16:46 NM [id number]) Functional Tests Apley's Scratch Test Action 1- Left Able to touch R shoulder- wfl Action 1- Right Able to touch L shoulder- wfl Action 2- Left T4 Action 2- Right R ear (with pain) Action 3- Left T12 Action 3- Right R buttock (pocket) PT-OP-F Manual Assessment Start: 10/09/23 15:41 Freq: Status: Active Protocol: Document 10/09/23 15:42 NM (Rec: 10/09/23 16:46 NM [id number]) Manual Assessments Soft Tissue Assessment Soft Tissue Mobility Assessment No soft tissue restrictions noted around R scapula, trapezius, rhomboids, levator scapulae, scalenes, or SCM. Long head of biceps tendon is palpable and tender to palpation. Joint Mobility Assessment Joint Mobility Assessment Limited R GH PROM in fwd flex, horizontal abd, IR, and ER. End feels are painful and hard . No PROM into ER and limited PROM into IR. ER and IR are most limited. No shoulder subluxation noted. R scapular position is depressed; demos fair scapular control in sidelying but with limited gliding into retraction/ protraction, upward rotation/ elevation PT-OP-J Posture/Palpation/Skin Start: 10/09/23 15:41 Freq: Status: Active Protocol: Document 10/09/23 15:42 NM (Rec: 10/09/23 16:46 NM [id number]) Posture Evaluation Position Standing Evaluation View posterior, lateral Head/C-Spine Posture Neutral Position T-Spine Posture Neutral Thorax Posture (L) Elevated L-Spine Posture Neutral Shoulder Posture (L) Rounded,(R) Rounded,(L) Elevated Scapula Posture (L) Neutral,(R) Protracted,(R) Rotated Down,(R) Depressed Arm Posture (L) Neutral,(R) Internally Rotated Comments Posture Comments R shoulder is depressed compared to L shoulder Palpation Assessment Location R shoulder Palpation Location Anterior shoulder (long heads bicep tendon), posterior shldr /scap Palpation Findings Tenderness Palpation Details Tenderness along R proximal long head biceps tendon PT-OP-K Range of Motion Start: 10/09/23 15:41 Freq: Status: Active Protocol: Document 10/29/23 13:05 SP (Rec: 10/29/23 14:33 SP [id number]) Shoulder Goniometric Range of Motion Shoulder Right Comments 10/29/23 Standing RUE AROM: FF 97* ABD 68* ER 18* IR behind back: R lateral sacrum L SL RUE AROM: ABD 89* Supine RUE AROM: FF 108* PT-OP-L Special Tests Start: 10/09/23 15:41 Freq: Status: Active Protocol: Document 10/09/23 15:42 NM (Rec: 10/09/23 16:46 NM [id number]) Special Tests Shoulder Special Tests Drop Arm Rotator Cuff Test Results negative Comments able to slowly lower arm Speed's Biceps Test Results negative Thrall Test Test Results positive Comments Reproduces pain Empty Can Test Results positive Comments Reproduces pain in rotator cuff area, long head biceps tendon with resistance Yergason's Biceps Test Results negative Comments Does not reproduce pain in LH biceps tendon during resisted supination Biceps Load II Test Test Results positive Comments reproduces pain in anterior shoulder near LH biceps tendon PT-OP-M Strength Start: 10/09/23 15:41 Freq: Status: Active Protocol: Document 10/09/23 15:42 NM (Rec: 10/09/23 16:46 NM [id number]) Scapula Strength Scapula Manual Muscle Testing Left Elevation (C4) 4+ Good+ Adduction 4+ Good+ Abduction 4+ Good+ Depression 4+ Good+ Right Elevation (C4) 4 Good Adduction 4 Good Abduction 4 Good Depression 4 Good Shoulder Strength Shoulder Manual Muscle Testing Left Flexion 4+ Good+ Extension 5 Normal Abduction (C5) 4+ Good+ Adduction 4+ Good+ External Rotation 4+ Good+ Internal Rotation 4+ Good+ Horizontal Abduction 4+ Good+ Horizontal Adduction 4+ Good+ Right Flexion 3 Fair Extension 5 Normal Abduction (C5) 3+ Fair+ Adduction 4+ Good+ External Rotation 3+ Fair+ Internal Rotation 4- Good- Horizontal Abduction 3+ Fair+ Horizontal Adduction 4+ Good+ Comments Pain with resisted ER/IR, abd Elbow/Forearm Strength Elbow and Forearm Manual Muscle Testing Left Flexion (C6) 5 Normal Extension (C7) 5 Normal Right Flexion (C6) 4- Good- Extension (C7) 4+ Good+ Comments No pain with resisted elbow flex but reports stretching sensation with resisted elbow ext PT-OP-Q Treatments Start: 10/09/23 15:41 Freq: Status: Active Protocol: Document 11/07/23 08:20 NM (Rec: 11/07/23 09:02 NM [id number]) Therapeutic Exercises Sitting Exercises eccentric FF Sitting Exercise Name added to HEP Side right Resistance AAROM TB #2 orange (anchored over door) Equipment Used fwd facing in chair Reps/Minutes 1x10 Comments up to 110 deg; noted decrease UT compensation with cue for scap set/retract pulleys Sitting Exercise Name reviewed for HEP Side right Resistance PROM Equipment Used seated rear facing, use mirror for self correction awareness , use mirror Reps/Minutes x8 reps FF AAROM therapist support Comments cued level shld, no UT recruitment into FF, head/neck ext neutral/nod Scapular retractions Side bilateral Reps/Minutes 1x10x5 Standing Exercises table walk out Standing Exercise Name 1. flex, 2. abd Side right Resistance AAROM FF, abd on orange sb Equipment Used d/c TM d/t pain Reps/Minutes 1x5 ea Comments cued walk out to comfort R shld FF/abd ROM, hold with breath relax shld serratus pushup Standing Exercise Name added to HEP Resistance incline TM rail Reps/Minutes 2x5 reps Comments decreased scap protract R shldr, cues to remain pain free range Shldr ER stretch Side right Resistance AAROM via LUE assist Equipment Used dowel; mirror for visual cue Reps/Minutes 5x5 Comments to prevent compensation with wrist; cue to prevent shldr abd Manual Therapy Treatment Joint Mobilizations R scapulothoracic Jt Direction retraction/protraction/ UR/DR Grade III Body Position L SL Reps/Duration 1x10 ea x2 contraction Comments with PROM ABD/FF/ER. Improved scapular control in sidelying compared to standing R GH jt Direction posterior, inferior Grade III Body Position Hooklying Reps/Duration 4x30 ea Comments R GHJ elevated on towel. Post and inf glides with oscillations to promote relaxation, improve ROM. Pt fwd flex AROM up to 110 deg, abd AROM up to 90 deg before painful. R GHJ off EOB, moving from 0 deg and up to 45 deg ABD. Grade II mob for ER at 45 deg abd with post glide, limited ROM due to pain PT-OP-R Modalities Start: 10/15/23 07:53 Freq: Status: Active Protocol: Document 10/12/23 14:32 SP (Rec: 10/15/23 07:55 SP [id number]) Hot Pack/Cold Pack Treatment CP Location R shld Patient Position Sitting Treatment Duration (minutes) 6 Patient Tolerance Good Comments CP end tx during wall posture ther ex. PT-OP-T Assessment and Plan Start: 10/09/23 15:41 Freq: Status: Active Protocol: Document 11/07/23 08:20 NM (Rec: 11/07/23 09:02 NM [id number]) Physical Therapy Assessment Goals Eight Impairment function Impairment IR Apley reach to R buttock Short Term Goal (STG) Pt will increase R shoulder IR AROM to at least L4-5 in order to demostrate improved shoulder mobility and ADL tolerance for dressing. STG Duration 5 weeks Disc Sander Goal (LTG) Pt will increase R shoulder IR AROM to at least T12-L1 in order to demonstrate improved shoulder mobility and ADL tolerance for dressing. LTG Duration 10 weeks Seven Impairment function Impairment ER apley reach to R ear Short Term Goal (STG) Pt will increase R shoulder ER AROM to base of occiput in order to fix her hair. STG Duration 5 weeks Disc Sander Goal (LTG) Pt will increase R shoulder ER AROM to at least C7 in order to demonstrate improved shoulder mobility and ADL tolerance. LTG Duration 10 weeks Six Impairment strength Impairment R shoulder abd and ER strength 3+/5 Short Term Goal (STG) Pt will improve R shoulder abd and ER MMT to at least 4-/5 to demonstrate improved shoulder strength for lifting. STG Duration 5 weeks Disc Sander Goal (LTG) Pt will improve R shoulder abd and ER MMT to at least 4/5 to demonstrate improved shoulder strength for lifting. LTG Duration 10 weeks Five Impairment Function Impairment Quickdash score 33 (50% disability) Short Term Goal (STG) Pt will improve Quickdash score by 5 points in order to demonstrate improved ADL participation and tolerance. STG Duration 5 weeks Disc Sander Goal (LTG) Pt will improve Quickdash score by at least 10 points ( MCID) in order to demonstrate improved ADL participation and tolerance. LTG Duration 10 weeks Four Impairment strength Impairment R shoulder flex MMT 3/5 Short Term Goal (STG) Pt will improve R shoulder flex MMT to at least 3+/5 in order to demonstrate improved shoulder strength for lifting and to perform ADLs. STG Duration 5 weeks Detention Goal (LTG) Pt will improve R shoulder flex MMT to at least 4-/5 in order to demonstrate improved shoulder strength for lifting and to perform ADLs. LTG Duration 10 weeks Three Impairment ROM Impairment Shldr ER (45 deg HABD) AROM 10 deg Short Term Goal (STG) Pt will increase R shoulder ER (at 45 deg HABD) AROM to at least 30 deg without compensation and < 3/10 pain in order to improve ADL tolerance. STG Duration 5 weeks Disc Sander Goal (LTG) Pt will increase R shoulder ER (at 45 deg HABD) AROM to at least 70 deg without compensation and < 3/10 pain in order to improve ADL tolerance. LTG Duration 10 weeks Two Impairment ROM Impairment Shldr hor abd AROM 70 deg Short Term Goal (STG) Pt will increase R shoulder horizontal abduction AROM to at least 90 deg without compensation and <3/10 pain in order to demonstrate improved shoulder AROM for reaching. STG Duration 5 weeks Detention Goal (LTG) Pt will increase R shoulder horizontal abduction AROM to at least 120 deg without compensation and <3/10 pain in order to demonstrate improved shoulder AROM for reaching. LTG Duration 10 weeks One Impairment ROM Impairment Shldr fwd flex AROM 80 deg Short Term Goal (STG) Pt will increase R shoulder forward flexion AROM to at least 90 deg without compensation and <3/10 pain in order to demonstrate improved shoulder AROM for reaching. 10/29/23: R shld AROM: FF 108 deg supine, L SL abd 89 deg, 18 deg standing, IR behind back lateral R sacrum. STG Duration 5 weeks progressing 10/29/23 Detention Goal (LTG) Pt will increase R shoulder forward flexion AROM to at least 120 deg without compensation and <3/10 pain in order to demonstrate improved shoulder AROM for reaching. LTG Duration 10 weeks Assessment Summary Assessment Continued promoting scapular setting and retraction prior to R shoulder elevation in fwd flexion and abduction for improved posture and scapular mechanics. Pt able to reach 100 deg fwd flex AAROM assisted with theraband after seated shoulder ext. Continued with serratus anterior strengthening and adjusted treadmill walkouts to using dominican ball on table to prevent provoking pain symptoms. Will continue to progress periscapular strengthening in next sessions. Demos improvement in tolerance for exercise, however still limited by pain. Pt continues to tolerate manual tmt well, progressed to grade III scapulothoracic and glenohumeral mobilizations to encourage greater range using inferior and posterior glides. After manual tmt, pt able to perform 110 deg AAROM fwd flex and 90 deg AROM abd. She continues to have limited R shoulder global ROM and strength. Due to limited authorization, PT and pt discussed possibly moving from 2x/wk to 1x/wk; will continue to discuss at next session (PN). Pt would benefit from skilled PT to address impairments in R shoulder ROM, strength, and activity tolerance in order to return to PLOF and improve symptom management. Physical Therapy Plan Frequency and Duration Frequency of Treatment 2x/Week Duration of treatment (weeks) 10 Plan of Care Start Date 10/09/23 Plan of Care End Date 12/18/23 Therapeutic Interventions Therapeutic Interventions Coordination Training,Home Exercise Program,Joint Mobilizations,Manual Therapy, Neuromuscular Re-education, Patient/Caregiver Education, Soft Tissue Mobilization, Taping,Therapeutic Activities, Therapeutic Exercises Modalities Biofeedback,Cold Pack/Ice Massage,Electric Stimulation, Hot Packs,Iontophoresis, Ultrasound,Vasopneumatic Devices Next Visit Focus/Plan Next Note Type Progress Note Next Visit Plan Next add rythmic stabilization manual, ABCs FF 90deg. Trial tb row (low resistance) HEP: supine FF, L SL abd, sup serratus press (add over noodle), chest press, wall posture, resisted ADD/ecc abd, resisted ext/eccentric flexion, eccentric FF walk out , ER with dowel wall pushup. Continue remind pendulum arms swing/scapular AROM during gait. POC: Begin gentle shoulder mobility, periscapular strengthening. Cont manual tx with grade II mobs (III as lashonda ). Continue progress HEP.
--- NOTE | 2023-11-09 15:40 | PT.OTN ---
Current Diagnoses Other articular cartilage disorders, right shoulder (11/09/23) Pain in right shoulder (11/09/23) Adhesive capsulitis of unspecified shoulder (11/09/23) Incomplete rotator cuff tear or rupture of unspecified shoulder, not specified as traumatic (11/09/23) Physical Therapy Treatment Note PT-OP-A Visit Information Start: 10/09/23 15:41 Freq: Status: Active Protocol: Document 11/09/23 08:17 NM (Rec: 11/09/23 09:02 NM [id number]) Out-Patient Physical Therapy Visit Information Visit Information Visit Type Progress Note Visit Note Used 4/6 visits approved Visit Start Time 08:16 Visit Stop Time 09:00 Total Visit Minutes 44 Visit Number 10 Evaluation Information Evaluation Date 10/09/23 PT-OP-B Current Condition Start: 10/09/23 15:41 Freq: Status: Active Protocol: Document 10/09/23 15:42 NM (Rec: 10/09/23 16:46 NM [id number]) Current Condition History of Current Condition Onset Date January 2023 Current Complaints R shoulder pain, limited R shoulder mobility, difficulty with ADLs History of Current Condition Pt presents to clinic with R shoulder pain that began insidiously in January 2023. She reports that she woke up with R shoulder pain one morning. She went to her PCP who ordered an injection and then PT. Her R shoulder pain worsened with PT over the summer. She then sought an appt with an orthopedist, who dx her with adhesive capsulitis and ordered an MRI, referring her back to PT. No surgical repair or GAGANDEEP planned at this time. Since the summer, her pain has decreased considerably and her R shoulder mobility has become more limited. At this time, she reports that she only has pain with jerky movements. Pt has most difficulty with performing her ADLs (putting up hair, dressing), lifting overhead, carrying objects >5# , and general mobility. 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 Current Functional Impairments (Reported) Functional Limitations- ADL's Lifting, putting up hair, dressing, reaching overhead PT-OP-C Subjective Start: 10/09/23 15:41 Freq: Status: Active Protocol: Document 11/09/23 08:17 NM (Rec: 11/09/23 09:02 NM [id number]) OP-PT Subjective Patient Comments Patient Comments Pt reports moderate soreness/ pain in her R shoulder today. She states that she wants to push into and through pain in order to improve, even though she knows not to do that. PT-OP-E Functional Tests Start: 10/09/23 15:41 Freq: Status: Active Protocol: Document 10/09/23 15:42 NM (Rec: 10/09/23 16:46 NM [id number]) Functional Tests Apley's Scratch Test Action 1- Left Able to touch R shoulder- wfl Action 1- Right Able to touch L shoulder- wfl Action 2- Left T4 Action 2- Right R ear (with pain) Action 3- Left T12 Action 3- Right R buttock (pocket) PT-OP-F Manual Assessment Start: 10/09/23 15:41 Freq: Status: Active Protocol: Document 10/09/23 15:42 NM (Rec: 10/09/23 16:46 NM [id number]) Manual Assessments Soft Tissue Assessment Soft Tissue Mobility Assessment No soft tissue restrictions noted around R scapula, trapezius, rhomboids, levator scapulae, scalenes, or SCM. Long head of biceps tendon is palpable and tender to palpation. Joint Mobility Assessment Joint Mobility Assessment Limited R GH PROM in fwd flex, horizontal abd, IR, and ER. End feels are painful and hard . No PROM into ER and limited PROM into IR. ER and IR are most limited. No shoulder subluxation noted. R scapular position is depressed; demos fair scapular control in sidelying but with limited gliding into retraction/ protraction, upward rotation/ elevation PT-OP-J Posture/Palpation/Skin Start: 10/09/23 15:41 Freq: Status: Active Protocol: Document 10/09/23 15:42 NM (Rec: 10/09/23 16:46 NM [id number]) Posture Evaluation Position Standing Evaluation View posterior, lateral Head/C-Spine Posture Neutral Position T-Spine Posture Neutral Thorax Posture (L) Elevated L-Spine Posture Neutral Shoulder Posture (L) Rounded,(R) Rounded,(L) Elevated Scapula Posture (L) Neutral,(R) Protracted,(R) Rotated Down,(R) Depressed Arm Posture (L) Neutral,(R) Internally Rotated Comments Posture Comments R shoulder is depressed compared to L shoulder Palpation Assessment Location R shoulder Palpation Location Anterior shoulder (long heads bicep tendon), posterior shldr /scap Palpation Findings Tenderness Palpation Details Tenderness along R proximal long head biceps tendon PT-OP-K Range of Motion Start: 10/09/23 15:41 Freq: Status: Active Protocol: Document 11/09/23 08:17 NM (Rec: 11/14/23 07:45 NM [id number]) Shoulder Goniometric Range of Motion Shoulder Right Flexion 105 Abduction 85 External Rotation at 90 degrees 0 Abduction External Rotation at 45 degrees 15 Abduction External Rotation at 0 degrees Abduction 20 Internal Rotation 45 Internal Rotation Behind Back (text) L5 Comments IE 10/09/23 flex: 80 abd: 70 ER 10 deg (@45 deg abd), 10 deg (@0 deg abd) IR 45 deg, buttock (near pocket) Flex, abd, ER, IR painful (ER most limited and painful). PROM flex (90 deg), abd (70 deg), ER (10 deg), IR (55 deg) . PT-OP-L Special Tests Start: 10/09/23 15:41 Freq: Status: Active Protocol: Document 10/09/23 15:42 NM (Rec: 10/09/23 16:46 NM [id number]) Special Tests Shoulder Special Tests Drop Arm Rotator Cuff Test Results negative Comments able to slowly lower arm Speed's Biceps Test Results negative [place] Test Test Results positive Comments Reproduces pain Empty Can Test Results positive Comments Reproduces pain in rotator cuff area, long head biceps tendon with resistance Yergason's Biceps Test Results negative Comments Does not reproduce pain in LH biceps tendon during resisted supination Biceps Load II Test Test Results positive Comments reproduces pain in anterior shoulder near LH biceps tendon PT-OP-M Strength Start: 10/09/23 15:41 Freq: Status: Active Protocol: Document 11/09/23 08:17 NM (Rec: 11/14/23 07:45 NM [id number]) Shoulder Strength Shoulder Manual Muscle Testing Right Flexion 3+ Fair+ Abduction (C5) 3+ Fair+ External Rotation 4- Good- Internal Rotation 4- Good- Comments IE: flex 3/5 abd 3+/5 add 4+/5 ER 3+/5 IR 4-/5 HABD 3+/5 HADD 4+/5 Pain with resisted ER/IR, abd PT-OP-Q Treatments Start: 10/09/23 15:41 Freq: Status: Active Protocol: Document 11/09/23 08:17 NM (Rec: 11/09/23 09:02 NM [id number]) Therapeutic Exercises Sitting Exercises eccentric abd Sitting Exercise Name scaption plane Side right Resistance orange tb Equipment Used AAROM tb #2 orange (anchored over door) Reps/Minutes 1x10, side facing chair Comments up to 100 deg in scaption plane; cues for not UT recruitment eccentric FF Sitting Exercise Name added to HEP Side right Resistance AAROM TB #2 orange (anchored over door) Equipment Used rear facing in chair Reps/Minutes 1x10 Comments up to 120 deg; noted decrease UT compensation with cue for scap set/retract pulleys Side right Resistance PROM Equipment Used seated rear facing, use mirror for self correction awareness , use mirror Reps/Minutes 1x10x2 hold reps FF/scaption AAROM therapist support Comments cued level shld, no UT recruitment into FF, head/neck ext neutral/nod Standing Exercises Row Standing Exercise Name mid row Side bilateral Resistance [place] tb (lvl 3) Reps/Minutes 1x15 Comments cues for scap retraction, setting serratus pushup Resistance wall, hands below 80 deg elevation to decrease pain and trunk rot Reps/Minutes 1x8 Comments cues for scap protraction, manual assist with protraction IR Standing Exercise Name AAROM IR and ADD Side right Equipment Used towel Reps/Minutes 3x5 Comments cues to limit pain PT-OP-R Modalities Start: 10/15/23 07:53 Freq: Status: Active Protocol: Document 10/12/23 14:32 SP (Rec: 10/15/23 07:55 SP [id number]) Hot Pack/Cold Pack Treatment CP Location R shld Patient Position Sitting Treatment Duration (minutes) 6 Patient Tolerance Good Comments CP end tx during wall posture ther ex. PT-OP-T Assessment and Plan Start: 10/09/23 15:41 Freq: Status: Active Protocol: Document 11/09/23 08:17 NM (Rec: 11/09/23 09:02 NM [id number]) Physical Therapy Assessment Goals Eight Impairment function Impairment IR Apley reach to R buttock Short Term Goal (STG) Pt will increase R shoulder IR AROM to at least L4-5 in order to demostrate improved shoulder mobility and ADL tolerance for dressing. 11/09/23: Pt can reach L5 with R shldr, painful STG Duration 5 weeks MET Group Home Goal (LTG) Pt will increase R shoulder IR AROM to at least T12-L1 in order to demonstrate improved shoulder mobility and ADL tolerance for dressing. LTG Duration 10 weeks Seven Impairment function Impairment ER apley reach to R ear Short Term Goal (STG) Pt will increase R shoulder ER AROM to base of occiput in order to fix her hair. 11/09/23: NOT MET- Pt able to reach behind her R ear, but compensates with cervical flexion STG Duration 5 weeks NOT MET, progressing Group Home Goal (LTG) Pt will increase R shoulder ER AROM to at least C7 in order to demonstrate improved shoulder mobility and ADL tolerance. LTG Duration 10 weeks Six Impairment strength Impairment R shoulder abd and ER strength 3+/5 Short Term Goal (STG) Pt will improve R shoulder abd and ER MMT to at least 4-/5 to demonstrate improved shoulder strength for lifting. 11/09/23: ER 4-/5, Abd 3+/5; painful STG Duration 5 weeks PARTIALLY MET Group Home Goal (LTG) Pt will improve R shoulder abd and ER MMT to at least 4/5 to demonstrate improved shoulder strength for lifting. LTG Duration 10 weeks Five Impairment Function Impairment Quickdash score 33 (50% disability) Short Term Goal (STG) Pt will improve Quickdash score by 5 points in order to demonstrate improved ADL participation and tolerance. 11/09/23: score 30, 43.18% STG Duration 5 weeks PROGRESSING Group Home Goal (LTG) Pt will improve Quickdash score by at least 10 points ( MCID) in order to demonstrate improved ADL participation and tolerance. LTG Duration 10 weeks Four Impairment strength Impairment R shoulder flex MMT 3/5 Short Term Goal (STG) Pt will improve R shoulder flex MMT to at least 3+/5 in order to demonstrate improved shoulder strength for lifting and to perform ADLs. 11/09/23: R shldr flex 3+/5, painful STG Duration 5 weeks MET Group Home Goal (LTG) Pt will improve R shoulder flex MMT to at least 4-/5 in order to demonstrate improved shoulder strength for lifting and to perform ADLs. LTG Duration 10 weeks Three Impairment ROM Impairment Shldr ER (45 deg HABD) AROM 10 deg Short Term Goal (STG) Pt will increase R shoulder ER (at 45 deg HABD) AROM to at least 30 deg without compensation and < 3/10 pain in order to improve ADL tolerance. 11/09/23: R shldr ER 15 deg at 45 deg abd, painful STG Duration 5 weeks NOT MET Group Home Goal (LTG) Pt will increase R shoulder ER (at 45 deg HABD) AROM to at least 70 deg without compensation and < 3/10 pain in order to improve ADL tolerance. LTG Duration 10 weeks Two Impairment ROM Impairment Shldr hor abd AROM 70 deg Short Term Goal (STG) Pt will increase R shoulder horizontal abduction AROM to at least 90 deg without compensation and <3/10 pain in order to demonstrate improved shoulder AROM for reaching. 11/09/23: 85 deg without compensation, painful STG Duration 5 weeks NOT MET, progressing Leak Patcher Goal (LTG) Pt will increase R shoulder horizontal abduction AROM to at least 120 deg without compensation and <3/10 pain in order to demonstrate improved shoulder AROM for reaching. LTG Duration 10 weeks One Impairment ROM Impairment Shldr fwd flex AROM 80 deg Short Term Goal (STG) Pt will increase R shoulder forward flexion AROM to at least 90 deg without compensation and <3/10 pain in order to demonstrate improved shoulder AROM for reaching. 11/09/23: R shldr flex 105 deg , painful, minimal compensation 10/29/23: R shld AROM: FF 108 deg supine, L SL abd 89 deg, 18 deg standing, IR behind back lateral R sacrum. STG Duration 5 weeks MET Group Home Goal (LTG) Pt will increase R shoulder forward flexion AROM to at least 120 deg without compensation and <3/10 pain in order to demonstrate improved shoulder AROM for reaching. LTG Duration 10 weeks Assessment Summary Assessment Pt demos decreased tendency for upper trap compensation during R shldr elevation; however, she requires moderate cues for scapular setting and retraction to engage the periscapular muscles and to prevent forward trunk flexion. She demos increased ROM with eccentric flexion exercise and abduction, up to 120 deg flex and 100 deg abd before increased pain and compensation. Continued with AAROM to increase ROM, improve scapular mechanics within painfree range, in addition to periscapular strengthening. HEP: row, IR with wand, scap push up plus. Pt would benefit from skilled PT to address limitations in R shoulder ROM, strength, posture, in order to improve QOL, decrease pain symptoms, and improve ADL tolerance. Physical Therapy Plan Frequency and Duration Frequency of Treatment 2x/Week Duration of treatment (weeks) 10 Plan of Care Start Date 10/09/23 Plan of Care End Date 12/18/23 Therapeutic Interventions Therapeutic Interventions Coordination Training,Home Exercise Program,Joint Mobilizations,Manual Therapy, Neuromuscular Re-education, Patient/Caregiver Education, Soft Tissue Mobilization, Taping,Therapeutic Activities, Therapeutic Exercises Modalities Biofeedback,Cold Pack/Ice Massage,Electric Stimulation, Hot Packs,Iontophoresis, Ultrasound,Vasopneumatic Devices Next Visit Focus/Plan Next Note Type Treatment Note Next Visit Plan Next add rythmic stabilization manual, ABCs FF 90deg. Trial tb row (low resistance) HEP: supine FF, L SL abd, sup serratus press (add over noodle), chest press, wall posture, resisted ADD/ecc abd, resisted ext/eccentric flexion, eccentric FF walk out , ER with dowel wall pushup. Continue remind pendulum arms swing/scapular AROM during gait. POC: Begin gentle shoulder mobility, periscapular strengthening. Cont manual tx with grade II mobs (III as lashonda ). Continue progress HEP.
--- NOTE | 2023-11-09 15:45 | PT.OPPN ---
Current Diagnoses Other articular cartilage disorders, right shoulder (11/09/23) Pain in right shoulder (11/09/23) Adhesive capsulitis of unspecified shoulder (11/09/23) Incomplete rotator cuff tear or rupture of unspecified shoulder, not specified as traumatic (11/09/23) Physical Therapy Progress Note PT-OP-A Visit Information Start: 10/09/23 15:41 Freq: Status: Active Protocol: Document 11/09/23 08:17 NM (Rec: 11/09/23 09:02 NM [id number]) Out-Patient Physical Therapy Visit Information Visit Information Visit Type Progress Note Visit Note Used 4/6 visits approved Visit Start Time 08:16 Visit Stop Time 09:00 Total Visit Minutes 44 Visit Number 10 Evaluation Information Evaluation Date 10/09/23 PT-OP-B Current Condition Start: 10/09/23 15:41 Freq: Status: Active Protocol: Document 10/09/23 15:42 NM (Rec: 10/09/23 16:46 NM [id number]) Current Condition History of Current Condition Onset Date January 2023 Current Complaints R shoulder pain, limited R shoulder mobility, difficulty with ADLs History of Current Condition Pt presents to clinic with R shoulder pain that began insidiously in January 2023. She reports that she woke up with R shoulder pain one morning. She went to her PCP who ordered an injection and then PT. Her R shoulder pain worsened with PT over the summer. She then sought an appt with an orthopedist, who dx her with adhesive capsulitis and ordered an MRI, referring her back to PT. No surgical repair or GAGANDEEP planned at this time. Since the summer, her pain has decreased considerably and her R shoulder mobility has become more limited. At this time, she reports that she only has pain with jerky movements. Pt has most difficulty with performing her ADLs (putting up hair, dressing), lifting overhead, carrying objects >5# , and general mobility. 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 Current Functional Impairments (Reported) Functional Limitations- ADL's Lifting, putting up hair, dressing, reaching overhead PT-OP-C Subjective Start: 10/09/23 15:41 Freq: Status: Active Protocol: Document 11/09/23 08:17 NM (Rec: 11/09/23 09:02 NM [id number]) OP-PT Subjective Patient Comments Patient Comments Pt reports moderate soreness/ pain in her R shoulder today. She states that she wants to push into and through pain in order to improve, even though she knows not to do that. PT-OP-E Functional Tests Start: 10/09/23 15:41 Freq: Status: Active Protocol: Document 10/09/23 15:42 NM (Rec: 10/09/23 16:46 NM [id number]) Functional Tests Apley's Scratch Test Action 1: The subject is instructed to touch the opposite shoulder with his/her hand. This motion checks Glenohumeral adduction, internal rotation , horizontal adduction and scapular protraction Action 2: The subject is instructed to place his/her arm overhead and reach behind the neck to touch his/her upper back. This motion checks Glenohumeral abduction, external rotation and scapular upward rotation and elevation. Action 3: The subject puts his/her hand on the lower back and reaches upward as far as possible. This motion checks glenohumeral adduction, internal rotation and scapular retraction with downward rotation Action 1- Left Able to touch R shoulder- wfl Action 1- Right Able to touch L shoulder- wfl Action 2- Left T4 Action 2- Right R ear (with pain) Action 3- Left T12 Action 3- Right R buttock (pocket) PT-OP-F Manual Assessment Start: 10/09/23 15:41 Freq: Status: Active Protocol: Document 10/09/23 15:42 NM (Rec: 10/09/23 16:46 NM [id number]) Manual Assessments Soft Tissue Assessment Soft Tissue Mobility Assessment No soft tissue restrictions noted around R scapula, trapezius, rhomboids, levator scapulae, scalenes, or SCM. Long head of biceps tendon is palpable and tender to palpation. Joint Mobility Assessment Joint Mobility Assessment Limited R GH PROM in fwd flex, horizontal abd, IR, and ER. End feels are painful and hard . No PROM into ER and limited PROM into IR. ER and IR are most limited. No shoulder subluxation noted. R scapular position is depressed; demos fair scapular control in sidelying but with limited gliding into retraction/ protraction, upward rotation/ elevation PT-OP-J Posture/Palpation/Skin Start: 10/09/23 15:41 Freq: Status: Active Protocol: Document 10/09/23 15:42 NM (Rec: 10/09/23 16:46 NM [id number]) Posture Evaluation Position Standing Evaluation View posterior, lateral Head/C-Spine Posture Neutral Position T-Spine Posture Neutral Thorax Posture (L) Elevated L-Spine Posture Neutral Shoulder Posture (L) Rounded,(R) Rounded,(L) Elevated Scapula Posture (L) Neutral,(R) Protracted,(R) Rotated Down,(R) Depressed Arm Posture (L) Neutral,(R) Internally Rotated Comments Posture Comments R shoulder is depressed compared to L shoulder Palpation Assessment Location R shoulder Palpation Location Anterior shoulder (long heads bicep tendon), posterior shldr /scap Palpation Findings Tenderness Palpation Details Tenderness along R proximal long head biceps tendon PT-OP-K Range of Motion Start: 10/09/23 15:41 Freq: Status: Active Protocol: Document 11/09/23 08:17 NM (Rec: 11/14/23 07:45 NM [id number]) Shoulder Goniometric Range of Motion Shoulder Measured in Degrees Right Flexion 105 Abduction 85 External Rotation at 90 degrees 0 Abduction External Rotation at 45 degrees 15 Abduction External Rotation at 0 degrees Abduction 20 Internal Rotation 45 Internal Rotation Behind Back (text) L5 Comments IE 10/09/23 flex: 80 abd: 70 ER 10 deg (@45 deg abd), 10 deg (@0 deg abd) IR 45 deg, buttock (near pocket) Flex, abd, ER, IR painful (ER most limited and painful). PROM flex (90 deg), abd (70 deg), ER (10 deg), IR (55 deg) . PT-OP-L Special Tests Start: 10/09/23 15:41 Freq: Status: Active Protocol: Document 10/09/23 15:42 NM (Rec: 10/09/23 16:46 NM [id number]) Special Tests Shoulder Special Tests Drop Arm Rotator Cuff Test Results negative Comments able to slowly lower arm Speed's Biceps Test Results negative [place] Test Test Results positive Comments Reproduces pain Empty Can Test Results positive Comments Reproduces pain in rotator cuff area, long head biceps tendon with resistance Belkis's Biceps Test Results negative Comments Does not reproduce pain in LH biceps tendon during resisted supination Biceps Load II Test Test Results positive Comments reproduces pain in anterior shoulder near LH biceps tendon PT-OP-M Strength Start: 10/09/23 15:41 Freq: Status: Active Protocol: Document 11/09/23 08:17 NM (Rec: 11/14/23 07:45 NM [id number]) Shoulder Strength Shoulder Manual Muscle Testing Right Flexion 3+ Fair+ Abduction (C5) 3+ Fair+ External Rotation 4- Good- Internal Rotation 4- Good- Comments IE: flex 3/5 abd 3+/5 add 4+/5 ER 3+/5 IR 4-/5 HABD 3+/5 HADD 4+/5 Pain with resisted ER/IR, abd PT-OP-T Assessment and Plan Start: 10/09/23 15:41 Freq: Status: Active Protocol: Document 11/09/23 08:17 NM (Rec: 11/09/23 09:02 NM [id number]) Physical Therapy Assessment Goals Eight Impairment function Impairment IR Apley reach to R buttock Short Term Goal (STG) Pt will increase R shoulder IR AROM to at least L4-5 in order to demostrate improved shoulder mobility and ADL tolerance for dressing. 11/09/23: Pt can reach L5 with R shldr, painful STG Duration 5 weeks MET Long-Term Goal (LTG) Pt will increase R shoulder IR AROM to at least T12-L1 in order to demonstrate improved shoulder mobility and ADL tolerance for dressing. LTG Duration 10 weeks Seven Impairment function Impairment ER apley reach to R ear Short Term Goal (STG) Pt will increase R shoulder ER AROM to base of occiput in order to fix her hair. 11/09/23: NOT MET- Pt able to reach behind her R ear, but compensates with cervical flexion STG Duration 5 weeks NOT MET, progressing Long-Term Goal (LTG) Pt will increase R shoulder ER AROM to at least C7 in order to demonstrate improved shoulder mobility and ADL tolerance. LTG Duration 10 weeks Six Impairment strength Impairment R shoulder abd and ER strength 3+/5 Short Term Goal (STG) Pt will improve R shoulder abd and ER MMT to at least 4-/5 to demonstrate improved shoulder strength for lifting. 11/09/23: ER 4-/5, Abd 3+/5; painful STG Duration 5 weeks PARTIALLY MET Obgyn Hospitalist Physician Goal (LTG) Pt will improve R shoulder abd and ER MMT to at least 4/5 to demonstrate improved shoulder strength for lifting. LTG Duration 10 weeks Five Impairment Function Impairment Quickdash score 33 (50% disability) Short Term Goal (STG) Pt will improve Quickdash score by 5 points in order to demonstrate improved ADL participation and tolerance. 11/09/23: score 30, 43.18% STG Duration 5 weeks PROGRESSING Long-Term Goal (LTG) Pt will improve Quickdash score by at least 10 points ( MCID) in order to demonstrate improved ADL participation and tolerance. LTG Duration 10 weeks Four Impairment strength Impairment R shoulder flex MMT 3/5 Short Term Goal (STG) Pt will improve R shoulder flex MMT to at least 3+/5 in order to demonstrate improved shoulder strength for lifting and to perform ADLs. 11/09/23: R shldr flex 3+/5, painful STG Duration 5 weeks MET Obgyn Hospitalist Physician Goal (LTG) Pt will improve R shoulder flex MMT to at least 4-/5 in order to demonstrate improved shoulder strength for lifting and to perform ADLs. LTG Duration 10 weeks Three Impairment ROM Impairment Shldr ER (45 deg HABD) AROM 10 deg Short Term Goal (STG) Pt will increase R shoulder ER (at 45 deg HABD) AROM to at least 30 deg without compensation and < 3/10 pain in order to improve ADL tolerance. 11/09/23: R shldr ER 15 deg at 45 deg abd, painful STG Duration 5 weeks NOT MET Long-Term Goal (LTG) Pt will increase R shoulder ER (at 45 deg HABD) AROM to at least 70 deg without compensation and < 3/10 pain in order to improve ADL tolerance. LTG Duration 10 weeks Two Impairment ROM Impairment Shldr hor abd AROM 70 deg Short Term Goal (STG) Pt will increase R shoulder horizontal abduction AROM to at least 90 deg without compensation and <3/10 pain in order to demonstrate improved shoulder AROM for reaching. 11/09/23: 85 deg without compensation, painful STG Duration 5 weeks NOT MET, progressing Obgyn Hospitalist Physician Goal (LTG) Pt will increase R shoulder horizontal abduction AROM to at least 120 deg without compensation and <3/10 pain in order to demonstrate improved shoulder AROM for reaching. LTG Duration 10 weeks One Impairment ROM Impairment Shldr fwd flex AROM 80 deg Short Term Goal (STG) Pt will increase R shoulder forward flexion AROM to at least 90 deg without compensation and <3/10 pain in order to demonstrate improved shoulder AROM for reaching. 11/09/23: R shldr flex 105 deg , painful, minimal compensation 10/29/23: R shld AROM: FF 108 deg supine, L SL abd 89 deg, 18 deg standing, IR behind back lateral R sacrum. STG Duration 5 weeks MET Obgyn Hospitalist Physician Goal (LTG) Pt will increase R shoulder forward flexion AROM to at least 120 deg without compensation and <3/10 pain in order to demonstrate improved shoulder AROM for reaching. LTG Duration 10 weeks Assessment Summary Assessment Pt has been seen x9 times since IE for R shoulder pain due to adhesive capsulitis. Since IE, pt demos improvement in R shoulder flex, abd, ER and IR ROM. She also demo improvements in R shoulder strength. However, pt continues to be limited in both ROM and strength, which impacts her ability to perform ADLs/IADLs and participate in recreational activities, particularly due to pain. Pt is progressing toward goals and has met several STGs. Pt would benefit from skilled PT to address impairments in R shoulder ROM/strength, periscapular strengthening in order to decrease pain symptoms, improve activity tolerance, and return to PLOF. Physical Therapy Plan Frequency and Duration Frequency of Treatment 2x/Week Duration of treatment (weeks) 10 Plan of Care Start Date 10/09/23 Plan of Care End Date 12/18/23 Therapeutic Interventions Therapeutic Interventions Coordination Training,Home Exercise Program,Joint Mobilizations,Manual Therapy, Neuromuscular Re-education, Patient/Caregiver Education, Soft Tissue Mobilization, Taping,Therapeutic Activities, Therapeutic Exercises Modalities Biofeedback,Cold Pack/Ice Massage,Electric Stimulation, Hot Packs,Iontophoresis, Ultrasound,Vasopneumatic Devices Next Visit Focus/Plan Next Note Type Treatment Note Next Visit Plan Next add rythmic stabilization manual, ABCs FF 90deg. Trial tb row (low resistance) HEP: supine FF, L SL abd, sup serratus press (add over noodle), chest press, wall posture, resisted ADD/ecc abd, resisted ext/eccentric flexion, eccentric FF walk out , ER with dowel wall pushup. Continue remind pendulum arms swing/scapular AROM during gait. POC: Begin gentle shoulder mobility, periscapular strengthening. Cont manual tx with grade II mobs (III as lashonda ). Continue progress HEP.
--- NOTE | 2023-11-14 13:45 | PT.OTN ---
Current Diagnoses Other articular cartilage disorders, right shoulder (11/14/23) Pain in right shoulder (11/14/23) Adhesive capsulitis of unspecified shoulder (11/14/23) Incomplete rotator cuff tear or rupture of unspecified shoulder, not specified as traumatic (11/14/23) Physical Therapy Treatment Note PT-OP-A Visit Information Start: 10/09/23 15:41 Freq: Status: Active Protocol: Document 11/14/23 13:06 SP (Rec: 11/14/23 13:48 SP [id number]) Out-Patient Physical Therapy Visit Information Visit Information Visit Type Treatment Note Visit Note Used 5/6 visits approved Then use new authorization of 6 visit til April 2024. 12/22 post PN Visit Start Time 13:06 Visit Stop Time 13:45 Total Visit Minutes 39 Visit Number 11 Number of [facility] FORMER Visits 1 Evaluation Information Evaluation Date 10/09/23 PT-OP-B Current Condition Start: 10/09/23 15:41 Freq: Status: Active Protocol: Document 10/09/23 15:42 NM (Rec: 10/09/23 16:46 NM [id number]) Current Condition History of Current Condition Onset Date January 2023 Current Complaints R shoulder pain, limited R shoulder mobility, difficulty with ADLs History of Current Condition Pt presents to clinic with R shoulder pain that began insidiously in January 2023. She reports that she woke up with R shoulder pain one morning. She went to her PCP who ordered an injection and then PT. Her R shoulder pain worsened with PT over the summer. She then sought an appt with an orthopedist, who dx her with adhesive capsulitis and ordered an MRI, referring her back to PT. No surgical repair or GAGANDEEP planned at this time. Since the summer, her pain has decreased considerably and her R shoulder mobility has become more limited. At this time, she reports that she only has pain with jerky movements. Pt has most difficulty with performing her ADLs (putting up hair, dressing), lifting overhead, carrying objects >5# , and general mobility. Prior Treatments and Tests MRI 07/22/23: no full thickness RC rupture, AC joint OA, tendinosis of proximal long head of biceps tendon and infraspinatus, partial tears of subscapularis and supraspinatus, suspected labral tear 12-2 o'clock Treatment Goals Patient/Caregiver Goals Improve R shoulder ROM and strength, be able to put up her hair Prior Functional Status Baseline Function- ADL's Independent Baseline Function- Mobility Independent Baseline Function- Work/School [facility] Baseline Function- Other Prior to January 2023, able to perform all ADLs independently . Current Functional Impairments (Reported) Functional Limitations- ADL's Lifting, putting up hair, dressing, reaching overhead PT-OP-C Subjective Start: 10/09/23 15:41 Freq: Status: Active Protocol: Document 11/14/23 13:06 SP (Rec: 11/14/23 13:48 SP [id number]) OP-PT Subjective Patient Comments Patient Comments Pt reports feels gaining little more ROM reaching front and up but demonstrates UT and trunk L lat SB and ext compensations. PT-OP-E Functional Tests Start: 10/09/23 15:41 Freq: Status: Active Protocol: Document 10/09/23 15:42 NM (Rec: 10/09/23 16:46 NM [id number]) Functional Tests Apley's Scratch Test Action 1- Left Able to touch R shoulder- wfl Action 1- Right Able to touch L shoulder- wfl Action 2- Left T4 Action 2- Right R ear (with pain) Action 3- Left T12 Action 3- Right R buttock (pocket) PT-OP-F Manual Assessment Start: 10/09/23 15:41 Freq: Status: Active Protocol: Document 10/09/23 15:42 NM (Rec: 10/09/23 16:46 NM [id number]) Manual Assessments Soft Tissue Assessment Soft Tissue Mobility Assessment No soft tissue restrictions noted around R scapula, trapezius, rhomboids, levator scapulae, scalenes, or SCM. Long head of biceps tendon is palpable and tender to palpation. Joint Mobility Assessment Joint Mobility Assessment Limited R GH PROM in fwd flex, horizontal abd, IR, and ER. End feels are painful and hard . No PROM into ER and limited PROM into IR. ER and IR are most limited. No shoulder subluxation noted. R scapular position is depressed; demos fair scapular control in sidelying but with limited gliding into retraction/ protraction, upward rotation/ elevation PT-OP-J Posture/Palpation/Skin Start: 10/09/23 15:41 Freq: Status: Active Protocol: Document 10/09/23 15:42 NM (Rec: 10/09/23 16:46 NM [id number]) Posture Evaluation Position Standing Evaluation View posterior, lateral Head/C-Spine Posture Neutral Position T-Spine Posture Neutral Thorax Posture (L) Elevated L-Spine Posture Neutral Shoulder Posture (L) Rounded,(R) Rounded,(L) Elevated Scapula Posture (L) Neutral,(R) Protracted,(R) Rotated Down,(R) Depressed Arm Posture (L) Neutral,(R) Internally Rotated Comments Posture Comments R shoulder is depressed compared to L shoulder Palpation Assessment Location R shoulder Palpation Location Anterior shoulder (long heads bicep tendon), posterior shldr /scap Palpation Findings Tenderness Palpation Details Tenderness along R proximal long head biceps tendon PT-OP-K Range of Motion Start: 10/09/23 15:41 Freq: Status: Active Protocol: Document 11/09/23 08:17 NM (Rec: 11/14/23 07:45 NM [id number]) Shoulder Goniometric Range of Motion Shoulder Right Flexion 105 Abduction 85 External Rotation at 90 degrees 0 Abduction External Rotation at 45 degrees 15 Abduction External Rotation at 0 degrees Abduction 20 Internal Rotation 45 Internal Rotation Behind Back (text) L5 Comments IE 10/09/23 flex: 80 abd: 70 ER 10 deg (@45 deg abd), 10 deg (@0 deg abd) IR 45 deg, buttock (near pocket) Flex, abd, ER, IR painful (ER most limited and painful). PROM flex (90 deg), abd (70 deg), ER (10 deg), IR (55 deg) . PT-OP-L Special Tests Start: 10/09/23 15:41 Freq: Status: Active Protocol: Document 10/09/23 15:42 NM (Rec: 10/09/23 16:46 NM [id number]) Special Tests Shoulder Special Tests Drop Arm Rotator Cuff Test Results negative Comments able to slowly lower arm Speed's Biceps Test Results negative [place] Test Test Results positive Comments Reproduces pain Empty Can Test Results positive Comments Reproduces pain in rotator cuff area, long head biceps tendon with resistance Yergason's Biceps Test Results negative Comments Does not reproduce pain in LH biceps tendon during resisted supination Biceps Load II Test Test Results positive Comments reproduces pain in anterior shoulder near LH biceps tendon PT-OP-M Strength Start: 10/09/23 15:41 Freq: Status: Active Protocol: Document 11/09/23 08:17 NM (Rec: 11/14/23 07:45 NM [id number]) Shoulder Strength Shoulder Manual Muscle Testing Right Flexion 3+ Fair+ Abduction (C5) 3+ Fair+ External Rotation 4- Good- Internal Rotation 4- Good- Comments IE: flex 3/5 abd 3+/5 add 4+/5 ER 3+/5 IR 4-/5 HABD 3+/5 HADD 4+/5 Pain with resisted ER/IR, abd PT-OP-Q Treatments Start: 10/09/23 15:41 Freq: Status: Active Protocol: Document 11/14/23 13:06 SP (Rec: 11/14/23 13:48 SP [id number]) Therapeutic Exercises Sidelying Exercises openbook Sidelying Exercise Name initiated in PT Side right Reps/Minutes 5 reps x2, manual between sets ABD Sidelying Exercise Name modified scaption Side right Resistance AAROM> AROM Reps/Minutes 2 reps x2 sets Comments cued scapular rotation, minimize UT recruitment Sitting Exercises eccentric abd Sitting Exercise Name scaption plane Side right Resistance orange tb Equipment Used AAROM tb #2 orange (anchored over door) Reps/Minutes 1x10, side facing chair Comments up to 100 deg in scaption plane; cues for not UT recruitment eccentric FF Sitting Exercise Name reviewed HEP Side right Resistance AAROM TB #2 orange (anchored over door) Equipment Used rear facing in chair Reps/Minutes 1x10 Comments up to 120 deg; noted decrease UT compensation with cue for scap set/retract Standing Exercises serratus pushup Standing Exercise Name 1. serratus push up 2. regular modified push up Resistance incline off plinth Reps/Minutes 8reps each Comments cues for scap protraction, manual assist with protraction IR Standing Exercise Name AAROM IR and ADD Side right Equipment Used towel Reps/Minutes 3x5 Comments cues to limit pain Manual Therapy Treatment Soft Tissue Mobilization neck Body Location R UT, LS Mobilization Type Myofascial Release,Strumming Intensity/Depth Moderate Body Position Sidelying Comments between AAROM in sidelying R shld Body Location R distal pec, coracobrac, ant/ Mid/post deltoid, mid&distal infrasp, SA, lat Mobilization Type Strumming,Sustained Pressure, Other Intensity/Depth Moderate Body Position hooklying & L Sidelying Comments manual STMs /c PROM punch, ABD , ER. Joint Mobilizations R scapulothoracic Jt Direction retraction/protraction/ UR/DR Grade III Body Position L SL Reps/Duration 1x10 ea x2 contraction Comments with PROM ABD/FF/ER. Improved scapular control in sidelying compared to standing R GH jt Joint R Direction posterior (mob. strap), inferior Grade III Body Position Hooklying Reps/Duration 4x30 ea Comments R GHJ elevated on towel. Post and inf glides with oscillations to promote relaxation, improve ROM. Pt fwd flex AROM up to 110 deg, abd AROM up to 80 deg before painful. R GHJ off EOB, moving from 0 deg and up to 45 deg ABD. Grade II mob for ER at 45 deg abd with post glide use strap, limited ROM due to pain PT-OP-R Modalities Start: 10/15/23 07:53 Freq: Status: Active Protocol: Document 10/12/23 14:32 SP (Rec: 10/15/23 07:55 SP [id number]) Hot Pack/Cold Pack Treatment CP Location R shld Patient Position Sitting Treatment Duration (minutes) 6 Patient Tolerance Good Comments CP end tx during wall posture ther ex. PT-OP-T Assessment and Plan Start: 10/09/23 15:41 Freq: Status: Active Protocol: Document 11/14/23 13:06 SP (Rec: 11/14/23 13:48 SP [id number]) Physical Therapy Assessment Goals Eight Impairment function Impairment IR Apley reach to R buttock Short Term Goal (STG) Pt will increase R shoulder IR AROM to at least L4-5 in order to demostrate improved shoulder mobility and ADL tolerance for dressing. 11/09/23: Pt can reach L5 with R shldr, painful STG Duration 5 weeks MET [employer] Goal (LTG) Pt will increase R shoulder IR AROM to at least T12-L1 in order to demonstrate improved shoulder mobility and ADL tolerance for dressing. LTG Duration 10 weeks Seven Impairment function Impairment ER apley reach to R ear Short Term Goal (STG) Pt will increase R shoulder ER AROM to base of occiput in order to fix her hair. 11/09/23: NOT MET- Pt able to reach behind her R ear, but compensates with cervical flexion STG Duration 5 weeks NOT MET, progressing Retirement Goal (LTG) Pt will increase R shoulder ER AROM to at least C7 in order to demonstrate improved shoulder mobility and ADL tolerance. LTG Duration 10 weeks Six Impairment strength Impairment R shoulder abd and ER strength 3+/5 Short Term Goal (STG) Pt will improve R shoulder abd and ER MMT to at least 4-/5 to demonstrate improved shoulder strength for lifting. 11/09/23: ER 4-/5, Abd 3+/5; painful STG Duration 5 weeks PARTIALLY MET Retirement Goal (LTG) Pt will improve R shoulder abd and ER MMT to at least 4/5 to demonstrate improved shoulder strength for lifting. LTG Duration 10 weeks Five Impairment Function Impairment Quickdash score 33 (50% disability) Short Term Goal (STG) Pt will improve Quickdash score by 5 points in order to demonstrate improved ADL participation and tolerance. 11/09/23: score 30, 43.18% STG Duration 5 weeks PROGRESSING Retirement Goal (LTG) Pt will improve Quickdash score by at least 10 points ( MCID) in order to demonstrate improved ADL participation and tolerance. LTG Duration 10 weeks Four Impairment strength Impairment R shoulder flex MMT 3/5 Short Term Goal (STG) Pt will improve R shoulder flex MMT to at least 3+/5 in order to demonstrate improved shoulder strength for lifting and to perform ADLs. 11/09/23: R shldr flex 3+/5, painful STG Duration 5 weeks MET [employer] Goal (LTG) Pt will improve R shoulder flex MMT to at least 4-/5 in order to demonstrate improved shoulder strength for lifting and to perform ADLs. LTG Duration 10 weeks Three Impairment ROM Impairment Shldr ER (45 deg HABD) AROM 10 deg Short Term Goal (STG) Pt will increase R shoulder ER (at 45 deg HABD) AROM to at least 30 deg without compensation and < 3/10 pain in order to improve ADL tolerance. 11/09/23: R shldr ER 15 deg at 45 deg abd, painful STG Duration 5 weeks NOT MET [employer] Goal (LTG) Pt will increase R shoulder ER (at 45 deg HABD) AROM to at least 70 deg without compensation and < 3/10 pain in order to improve ADL tolerance. LTG Duration 10 weeks Two Impairment ROM Impairment Shldr hor abd AROM 70 deg Short Term Goal (STG) Pt will increase R shoulder horizontal abduction AROM to at least 90 deg without compensation and <3/10 pain in order to demonstrate improved shoulder AROM for reaching. 11/09/23: 85 deg without compensation, painful STG Duration 5 weeks NOT MET, progressing Retirement Goal (LTG) Pt will increase R shoulder horizontal abduction AROM to at least 120 deg without compensation and <3/10 pain in order to demonstrate improved shoulder AROM for reaching. LTG Duration 10 weeks One Impairment ROM Impairment Shldr fwd flex AROM 80 deg Short Term Goal (STG) Pt will increase R shoulder forward flexion AROM to at least 90 deg without compensation and <3/10 pain in order to demonstrate improved shoulder AROM for reaching. 11/09/23: R shldr flex 105 deg , painful, minimal compensation 10/29/23: R shld AROM: FF 108 deg supine, L SL abd 89 deg, 18 deg standing, IR behind back lateral R sacrum. STG Duration 5 weeks MET [employer] Goal (LTG) Pt will increase R shoulder forward flexion AROM to at least 120 deg without compensation and <3/10 pain in order to demonstrate improved shoulder AROM for reaching. LTG Duration 10 weeks Assessment Summary Assessment Pt demonstrates decreased tendency for UT compensationing post manual and eccentric AAROM into FF, scaption with use mirror and tactile GH inferior glide cuing and periscapular setting into retraction/depression needed while still allowing scapulothoracic and GH AROM. CUes for CS retraction neutral alignment for added support. Decreased UT compensations in sidelying eccentric lowering from ABD against gravity. Physical Therapy Plan Frequency and Duration Frequency of Treatment 2x/Week Duration of treatment (weeks) 10 Plan of Care Start Date 10/09/23 Plan of Care End Date 12/18/23 Therapeutic Interventions Therapeutic Interventions Coordination Training,Home Exercise Program,Joint Mobilizations,Manual Therapy, Neuromuscular Re-education, Patient/Caregiver Education, Soft Tissue Mobilization, Taping,Therapeutic Activities, Therapeutic Exercises Modalities Biofeedback,Cold Pack/Ice Massage,Electric Stimulation, Hot Packs,Iontophoresis, Ultrasound,Vasopneumatic Devices Next Visit Focus/Plan Next Note Type Treatment Note Next Visit Plan Next add rythmic stabilization manual, ABCs FF 90deg. Trial tb row (low resistance) HEP: supine FF, L SL abd, sup serratus press (add over noodle), chest press, wall posture, resisted ADD/ecc abd, resisted ext/eccentric flexion, eccentric FF walk out , ER with dowel wall pushup. Continue remind pendulum arms swing/scapular AROM during gait. POC: Begin gentle shoulder mobility, periscapular strengthening. Cont manual tx with grade II mobs (III as lashonda ). Continue progress HEP.
--- NOTE | 2023-11-19 14:30 | PT.OTN ---
Current Diagnoses Other articular cartilage disorders, right shoulder (11/19/23) Pain in right shoulder (11/19/23) Adhesive capsulitis of unspecified shoulder (11/19/23) Incomplete rotator cuff tear or rupture of unspecified shoulder, not specified as traumatic (11/19/23) Physical Therapy Treatment Note PT-OP-A Visit Information Start: 10/09/23 15:41 Freq: Status: Active Protocol: Document 11/19/23 13:48 SP (Rec: 11/19/23 14:35 SP [id number]) Out-Patient Physical Therapy Visit Information Visit Information Visit Type Treatment Note Visit Note Used 04/17 visits approved Then use new authorization of 6 visit til April 2024. 12/22 post PN Visit Start Time 13:48 Visit Stop Time 14:30 Total Visit Minutes 42 Visit Number 12 Number of DRILL DOCTOR Visits 2 Evaluation Information Evaluation Date 10/09/23 PT-OP-B Current Condition Start: 10/09/23 15:41 Freq: Status: Active Protocol: Document 10/09/23 15:42 NM (Rec: 10/09/23 16:46 NM [id number]) Current Condition History of Current Condition Onset Date January 2023 Current Complaints R shoulder pain, limited R shoulder mobility, difficulty with ADLs History of Current Condition Pt presents to clinic with R shoulder pain that began insidiously in January 2023. She reports that she woke up with R shoulder pain one morning. She went to her PCP who ordered an injection and then PT. Her R shoulder pain worsened with PT over the summer. She then sought an appt with an orthopedist, who dx her with adhesive capsulitis and ordered an MRI, referring her back to PT. No surgical repair or GAGANDEEP planned at this time. Since the summer, her pain has decreased considerably and her R shoulder mobility has become more limited. At this time, she reports that she only has pain with jerky movements. Pt has most difficulty with performing her ADLs (putting up hair, dressing), lifting overhead, carrying objects >5# , and general mobility. Prior Treatments and Tests MRI 07/22/23: no full thickness RC rupture, AC joint OA, tendinosis of proximal long head of biceps tendon and infraspinatus, partial tears of subscapularis and supraspinatus, suspected labral tear 12-2 o'clock Treatment Goals Patient/Caregiver Goals Improve R shoulder ROM and strength, be able to put up her hair Prior Functional Status Baseline Function- ADL's Independent Baseline Function- Mobility Independent Baseline Function- Work/School SAH Baseline Function- Other Prior to January 2023, able to perform all ADLs independently . Current Functional Impairments (Reported) Functional Limitations- ADL's Lifting, putting up hair, dressing, reaching overhead PT-OP-C Subjective Start: 10/09/23 15:41 Freq: Status: Active Protocol: Document 11/19/23 13:48 SP (Rec: 11/19/23 14:35 SP [id number]) OP-PT Subjective Patient Comments Patient Comments Pt reports PT-OP-E Functional Tests Start: 10/09/23 15:41 Freq: Status: Active Protocol: Document 10/09/23 15:42 NM (Rec: 10/09/23 16:46 NM [id number]) Functional Tests Apley's Scratch Test Action 1- Left Able to touch R shoulder- wfl Action 1- Right Able to touch L shoulder- wfl Action 2- Left T4 Action 2- Right R ear (with pain) Action 3- Left T12 Action 3- Right R buttock (pocket) PT-OP-F Manual Assessment Start: 10/09/23 15:41 Freq: Status: Active Protocol: Document 10/09/23 15:42 NM (Rec: 10/09/23 16:46 NM [id number]) Manual Assessments Soft Tissue Assessment Soft Tissue Mobility Assessment No soft tissue restrictions noted around R scapula, trapezius, rhomboids, levator scapulae, scalenes, or SCM. Long head of biceps tendon is palpable and tender to palpation. Joint Mobility Assessment Joint Mobility Assessment Limited R GH PROM in fwd flex, horizontal abd, IR, and ER. End feels are painful and hard . No PROM into ER and limited PROM into IR. ER and IR are most limited. No shoulder subluxation noted. R scapular position is depressed; demos fair scapular control in sidelying but with limited gliding into retraction/ protraction, upward rotation/ elevation PT-OP-J Posture/Palpation/Skin Start: 10/09/23 15:41 Freq: Status: Active Protocol: Document 10/09/23 15:42 NM (Rec: 10/09/23 16:46 NM [id number]) Posture Evaluation Position Standing Evaluation View posterior, lateral Head/C-Spine Posture Neutral Position T-Spine Posture Neutral Thorax Posture (L) Elevated L-Spine Posture Neutral Shoulder Posture (L) Rounded,(R) Rounded,(L) Elevated Scapula Posture (L) Neutral,(R) Protracted,(R) Rotated Down,(R) Depressed Arm Posture (L) Neutral,(R) Internally Rotated Comments Posture Comments R shoulder is depressed compared to L shoulder Palpation Assessment Location R shoulder Palpation Location Anterior shoulder (long heads bicep tendon), posterior shldr /scap Palpation Findings Tenderness Palpation Details Tenderness along R proximal long head biceps tendon PT-OP-K Range of Motion Start: 10/09/23 15:41 Freq: Status: Active Protocol: Document 11/09/23 08:17 NM (Rec: 11/14/23 07:45 NM [id number]) Shoulder Goniometric Range of Motion Shoulder Right Flexion 105 Abduction 85 External Rotation at 90 degrees 0 Abduction External Rotation at 45 degrees 15 Abduction External Rotation at 0 degrees Abduction 20 Internal Rotation 45 Internal Rotation Behind Back (text) L5 Comments IE 10/09/23 flex: 80 abd: 70 ER 10 deg (@45 deg abd), 10 deg (@0 deg abd) IR 45 deg, buttock (near pocket) Flex, abd, ER, IR painful (ER most limited and painful). PROM flex (90 deg), abd (70 deg), ER (10 deg), IR (55 deg) . PT-OP-L Special Tests Start: 10/09/23 15:41 Freq: Status: Active Protocol: Document 10/09/23 15:42 NM (Rec: 10/09/23 16:46 NM [id number]) Special Tests Shoulder Special Tests Drop Arm Rotator Cuff Test Results negative Comments able to slowly lower arm Speed's Biceps Test Results negative [place] Test Test Results positive Comments Reproduces pain Empty Can Test Results positive Comments Reproduces pain in rotator cuff area, long head biceps tendon with resistance Yergason's Biceps Test Results negative Comments Does not reproduce pain in LH biceps tendon during resisted supination Biceps Load II Test Test Results positive Comments reproduces pain in anterior shoulder near LH biceps tendon PT-OP-M Strength Start: 10/09/23 15:41 Freq: Status: Active Protocol: Document 11/09/23 08:17 NM (Rec: 11/14/23 07:45 NM [id number]) Shoulder Strength Shoulder Manual Muscle Testing Right Flexion 3+ Fair+ Abduction (C5) 3+ Fair+ External Rotation 4- Good- Internal Rotation 4- Good- Comments IE: flex 3/5 abd 3+/5 add 4+/5 ER 3+/5 IR 4-/5 HABD 3+/5 HADD 4+/5 Pain with resisted ER/IR, abd PT-OP-Q Treatments Start: 10/09/23 15:41 Freq: Status: Active Protocol: Document 11/19/23 13:48 SP (Rec: 11/19/23 14:35 SP [id number]) Gym Equipment Cable Column (Body Solid) Rows Details con>eccentric Resistance 1.5 plates Reps/Time 5 reps x2 pull down Details con>eccentric Resistance 1.5 plates Reps/Time 5 reps x2 Therapeutic Exercises Prone Exercises rhythmic stab Prone Exercise Name pendulum Side right Resistance 5# DB R hand Reps/Minutes 20 x3 reps Comments noted improved decrease GH / scap thoracic guarding I,T Prone Exercise Name straight elbow Is, A>AAROM T/ relax scaptherapist support/ eccentric lowering Side right Reps/Minutes 1x10 Comments reports no pain, but challenge ; cue for scap setting and retraction Sidelying Exercises openbook Sidelying Exercise Name in PT Side right Resistance A> AROM Reps/Minutes 5 reps x2, manual between sets Comments tactile cues scap retraction/ depress Standing Exercises table walk out Standing Exercise Name 1. flex at rail Side right Resistance AAROM FF therapist tactile cue Equipment Used pain end range Reps/Minutes 1x5 ea Comments cued walk out to comfort R shld FF/abd ROM, hold with breath relax shld Manual Therapy Treatment Soft Tissue Mobilization neck Body Location R UT, LS Mobilization Type Myofascial Release,Strumming Intensity/Depth Moderate Body Position Sidelying Comments between AAROM in sidelying R shld Body Location R distal pec, coracobrac, ant/ Mid/post deltoid, mid&distal infrasp, SA, lat Mobilization Type Strumming,Sustained Pressure, Other Intensity/Depth Moderate Body Position hooklying & L Sidelying Comments manual STMs /c PROM punch, ABD , ER. Joint Mobilizations R scapulothoracic Jt Direction retraction/protraction/ UR/DR Grade III Body Position L SL Reps/Duration 1x10 ea x2 contraction Comments with PROM ABD/FF/ER. Improved scapular control in sidelying compared to standing R GH jt Joint R Direction posterior (mob. strap), inferior Grade III Body Position Hooklying Reps/Duration 4x30 ea Comments R GHJ elevated on towel. Post and inf glides with oscillations to promote relaxation, improve ROM. Pt fwd flex AROM up to 110 deg, abd AROM up to 80 deg before painful. R GHJ off EOB, moving from 0 deg and up to 45 deg ABD. Grade II mob for ER at 45 deg abd with post glide use strap, limited ROM due to pain Manual Techniques [place] Protocol Type prone Body Location R shld Body Position Prone Comments scapular ossilations inferior/ contralateral R SI while supporting LUE 60 deg ABD elbow bent PROM IR/ER approx 70-80 deg ABD elbow bent PT-OP-R Modalities Start: 10/15/23 07:53 Freq: Status: Active Protocol: Document 10/12/23 14:32 SP (Rec: 10/15/23 07:55 SP [id number]) Hot Pack/Cold Pack Treatment CP Location R shld Patient Position Sitting Treatment Duration (minutes) 6 Patient Tolerance Good Comments CP end tx during wall posture ther ex. PT-OP-T Assessment and Plan Start: 10/09/23 15:41 Freq: Status: Active Protocol: Document 11/19/23 13:48 SP (Rec: 11/19/23 14:35 SP [id number]) Physical Therapy Assessment Goals Eight Impairment function Impairment IR Apley reach to R buttock Short Term Goal (STG) Pt will increase R shoulder IR AROM to at least L4-5 in order to demostrate improved shoulder mobility and ADL tolerance for dressing. 11/09/23: Pt can reach L5 with R shldr, painful STG Duration 5 weeks MET Beater Out Leveling Machine Goal (LTG) Pt will increase R shoulder IR AROM to at least T12-L1 in order to demonstrate improved shoulder mobility and ADL tolerance for dressing. LTG Duration 10 weeks Seven Impairment function Impairment ER apley reach to R ear Short Term Goal (STG) Pt will increase R shoulder ER AROM to base of occiput in order to fix her hair. 11/09/23: NOT MET- Pt able to reach behind her R ear, but compensates with cervical flexion STG Duration 5 weeks NOT MET, progressing Intermediate Goal (LTG) Pt will increase R shoulder ER AROM to at least C7 in order to demonstrate improved shoulder mobility and ADL tolerance. LTG Duration 10 weeks Six Impairment strength Impairment R shoulder abd and ER strength 3+/5 Short Term Goal (STG) Pt will improve R shoulder abd and ER MMT to at least 4-/5 to demonstrate improved shoulder strength for lifting. 11/09/23: ER 4-/5, Abd 3+/5; painful STG Duration 5 weeks PARTIALLY MET Beater Out Leveling Machine Goal (LTG) Pt will improve R shoulder abd and ER MMT to at least 4/5 to demonstrate improved shoulder strength for lifting. LTG Duration 10 weeks Five Impairment Function Impairment Quickdash score 33 (50% disability) Short Term Goal (STG) Pt will improve Quickdash score by 5 points in order to demonstrate improved ADL participation and tolerance. 11/09/23: score 30, 43.18% STG Duration 5 weeks PROGRESSING Beater Out Leveling Machine Goal (LTG) Pt will improve Quickdash score by at least 10 points ( MCID) in order to demonstrate improved ADL participation and tolerance. LTG Duration 10 weeks Four Impairment strength Impairment R shoulder flex MMT 3/5 Short Term Goal (STG) Pt will improve R shoulder flex MMT to at least 3+/5 in order to demonstrate improved shoulder strength for lifting and to perform ADLs. 11/09/23: R shldr flex 3+/5, painful STG Duration 5 weeks MET Intermediate Goal (LTG) Pt will improve R shoulder flex MMT to at least 4-/5 in order to demonstrate improved shoulder strength for lifting and to perform ADLs. LTG Duration 10 weeks Three Impairment ROM Impairment Shldr ER (45 deg HABD) AROM 10 deg Short Term Goal (STG) Pt will increase R shoulder ER (at 45 deg HABD) AROM to at least 30 deg without compensation and < 3/10 pain in order to improve ADL tolerance. 11/09/23: R shldr ER 15 deg at 45 deg abd, painful STG Duration 5 weeks NOT MET Beater Out Leveling Machine Goal (LTG) Pt will increase R shoulder ER (at 45 deg HABD) AROM to at least 70 deg without compensation and < 3/10 pain in order to improve ADL tolerance. LTG Duration 10 weeks Two Impairment ROM Impairment Shldr hor abd AROM 70 deg Short Term Goal (STG) Pt will increase R shoulder horizontal abduction AROM to at least 90 deg without compensation and <3/10 pain in order to demonstrate improved shoulder AROM for reaching. 11/09/23: 85 deg without compensation, painful STG Duration 5 weeks NOT MET, progressing Beater Out Leveling Machine Goal (LTG) Pt will increase R shoulder horizontal abduction AROM to at least 120 deg without compensation and <3/10 pain in order to demonstrate improved shoulder AROM for reaching. LTG Duration 10 weeks One Impairment ROM Impairment Shldr fwd flex AROM 80 deg Short Term Goal (STG) Pt will increase R shoulder forward flexion AROM to at least 90 deg without compensation and <3/10 pain in order to demonstrate improved shoulder AROM for reaching. 11/09/23: R shldr flex 105 deg , painful, minimal compensation 10/29/23: R shld AROM: FF 108 deg supine, L SL abd 89 deg, 18 deg standing, IR behind back lateral R sacrum. STG Duration 5 weeks MET Intermediate Goal (LTG) Pt will increase R shoulder forward flexion AROM to at least 120 deg without compensation and <3/10 pain in order to demonstrate improved shoulder AROM for reaching. LTG Duration 10 weeks Assessment Summary Assessment Pt good scapular/ GH relaxation and painfree distraction during rhythmic stab and modified partial partridge protocol. Still limited hard block/guarding GH dissociation OH ecccentric FF manual tactile UR but pain end feel. GOod con/eccentric rows against resistance. Pt challenged with FF and pain trial bent over rail AAROM FF walk aways. Continue to suggest not significant gains and maybe return to ortho for further support, pt nervous and has considered this open yet. Physical Therapy Plan Frequency and Duration Frequency of Treatment 2x/Week Duration of treatment (weeks) 10 Plan of Care Start Date 10/09/23 Plan of Care End Date 12/18/23 Therapeutic Interventions Therapeutic Interventions Coordination Training,Home Exercise Program,Joint Mobilizations,Manual Therapy, Neuromuscular Re-education, Patient/Caregiver Education, Soft Tissue Mobilization, Taping,Therapeutic Activities, Therapeutic Exercises Modalities Biofeedback,Cold Pack/Ice Massage,Electric Stimulation, Hot Packs,Iontophoresis, Ultrasound,Vasopneumatic Devices Next Visit Focus/Plan Next Note Type Treatment Note Next Visit Plan Ask response prone rythmic stabilization manual, and eccentric pull downs, rows for scap mobility. HEP: supine FF, L SL abd, sup serratus press (add over noodle), chest press, wall posture, resisted ADD/ecc abd, resisted ext/eccentric flexion, eccentric FF walk out , ER with dowel wall pushup. Continue remind pendulum arms swing/scapular AROM during gait. POC: Begin gentle shoulder mobility, periscapular strengthening. Cont manual tx with grade II mobs (III as lashonda ). Continue progress HEP.
--- NOTE | 2023-11-23 16:42 | PT.OTN ---
Current Diagnoses Other articular cartilage disorders, right shoulder (11/23/23) Pain in right shoulder (11/23/23) Adhesive capsulitis of unspecified shoulder (11/23/23) Incomplete rotator cuff tear or rupture of unspecified shoulder, not specified as traumatic (11/23/23) Physical Therapy Treatment Note PT-OP-A Visit Information Start: 10/09/23 15:41 Freq: Status: Active Protocol: Document 11/23/23 13:05 NM (Rec: 11/23/23 13:47 NM [id number]) Out-Patient Physical Therapy Visit Information Visit Information Visit Type Treatment Note Visit Note 01/19 post PN Visit Start Time 13:05 Visit Stop Time 13:45 Total Visit Minutes 40 Visit Number 13 Evaluation Information Evaluation Date 10/09/23 PT-OP-B Current Condition Start: 10/09/23 15:41 Freq: Status: Active Protocol: Document 10/09/23 15:42 NM (Rec: 10/09/23 16:46 NM [id number]) Current Condition History of Current Condition Onset Date January 2023 Current Complaints R shoulder pain, limited R shoulder mobility, difficulty with ADLs History of Current Condition Pt presents to clinic with R shoulder pain that began insidiously in January 2023. She reports that she woke up with R shoulder pain one morning. She went to her PCP who ordered an injection and then PT. Her R shoulder pain worsened with PT over the summer. She then sought an appt with an orthopedist, who dx her with adhesive capsulitis and ordered an MRI, referring her back to PT. No surgical repair or GAGANDEEP planned at this time. Since the summer, her pain has decreased considerably and her R shoulder mobility has become more limited. At this time, she reports that she only has pain with jerky movements. Pt has most difficulty with performing her ADLs (putting up hair, dressing), lifting overhead, carrying objects >5# , and general mobility. Prior Treatments and Tests MRI 07/22/23: no full thickness RC rupture, AC joint OA, tendinosis of proximal long head of biceps tendon and infraspinatus, partial tears of subscapularis and supraspinatus, suspected labral tear 12-2 o'clock Treatment Goals Patient/Caregiver Goals Improve R shoulder ROM and strength, be able to put up her hair Prior Functional Status Baseline Function- ADL's Independent Baseline Function- Mobility Independent Baseline Function- Work/School [facility] [facility] Baseline Function- Other Prior to January 2023, able to perform all ADLs independently . Current Functional Impairments (Reported) Functional Limitations- ADL's Lifting, putting up hair, dressing, reaching overhead PT-OP-C Subjective Start: 10/09/23 15:41 Freq: Status: Active Protocol: Document 11/23/23 13:05 NM (Rec: 11/23/23 13:47 NM [id number]) OP-PT Subjective Patient Comments Patient Comments Pt presents with 2/10 R shoulder pain. Pt reports that she does not have pain with turning steering wheel with R hand or reaching to turn radio knob, which is an improvement . She states that she tried blowdrying her hair today and was able to do most of it before her had to help . PT-OP-E Functional Tests Start: 10/09/23 15:41 Freq: Status: Active Protocol: Document 10/09/23 15:42 NM (Rec: 10/09/23 16:46 NM [id number]) Functional Tests Apley's Scratch Test Action 1- Left Able to touch R shoulder- wfl Action 1- Right Able to touch L shoulder- wfl Action 2- Left T4 Action 2- Right R ear (with pain) Action 3- Left T12 Action 3- Right R buttock (pocket) PT-OP-F Manual Assessment Start: 10/09/23 15:41 Freq: Status: Active Protocol: Document 10/09/23 15:42 NM (Rec: 10/09/23 16:46 NM [id number]) Manual Assessments Soft Tissue Assessment Soft Tissue Mobility Assessment No soft tissue restrictions noted around R scapula, trapezius, rhomboids, levator scapulae, scalenes, or SCM. Long head of biceps tendon is palpable and tender to palpation. Joint Mobility Assessment Joint Mobility Assessment Limited R GH PROM in fwd flex, horizontal abd, IR, and ER. End feels are painful and hard . No PROM into ER and limited PROM into IR. ER and IR are most limited. No shoulder subluxation noted. R scapular position is depressed; demos fair scapular control in sidelying but with limited gliding into retraction/ protraction, upward rotation/ elevation PT-OP-J Posture/Palpation/Skin Start: 10/09/23 15:41 Freq: Status: Active Protocol: Document 10/09/23 15:42 NM (Rec: 10/09/23 16:46 NM [id number]) Posture Evaluation Position Standing Evaluation View posterior, lateral Head/C-Spine Posture Neutral Position T-Spine Posture Neutral Thorax Posture (L) Elevated L-Spine Posture Neutral Shoulder Posture (L) Rounded,(R) Rounded,(L) Elevated Scapula Posture (L) Neutral,(R) Protracted,(R) Rotated Down,(R) Depressed Arm Posture (L) Neutral,(R) Internally Rotated Comments Posture Comments R shoulder is depressed compared to L shoulder Palpation Assessment Location R shoulder Palpation Location Anterior shoulder (long heads bicep tendon), posterior shldr /scap Palpation Findings Tenderness Palpation Details Tenderness along R proximal long head biceps tendon PT-OP-K Range of Motion Start: 10/09/23 15:41 Freq: Status: Active Protocol: Document 11/09/23 08:17 NM (Rec: 11/14/23 07:45 NM [id number]) Shoulder Goniometric Range of Motion Shoulder Right Flexion 105 Abduction 85 External Rotation at 90 degrees 0 Abduction External Rotation at 45 degrees 15 Abduction External Rotation at 0 degrees Abduction 20 Internal Rotation 45 Internal Rotation Behind Back (text) L5 Comments IE 10/09/23 flex: 80 abd: 70 ER 10 deg (@45 deg abd), 10 deg (@0 deg abd) IR 45 deg, buttock (near pocket) Flex, abd, ER, IR painful (ER most limited and painful). PROM flex (90 deg), abd (70 deg), ER (10 deg), IR (55 deg) . PT-OP-L Special Tests Start: 10/09/23 15:41 Freq: Status: Active Protocol: Document 10/09/23 15:42 NM (Rec: 10/09/23 16:46 NM [id number]) Special Tests Shoulder Special Tests Drop Arm Rotator Cuff Test Results negative Comments able to slowly lower arm Speed's Biceps Test Results negative [place] Test Test Results positive Comments Reproduces pain Empty Can Test Results positive Comments Reproduces pain in rotator cuff area, long head biceps tendon with resistance Yersteveson's Biceps Test Results negative Comments Does not reproduce pain in LH biceps tendon during resisted supination Biceps Load II Test Test Results positive Comments reproduces pain in anterior shoulder near LH biceps tendon PT-OP-M Strength Start: 10/09/23 15:41 Freq: Status: Active Protocol: Document 11/09/23 08:17 NM (Rec: 11/14/23 07:45 NM [id number]) Shoulder Strength Shoulder Manual Muscle Testing Right Flexion 3+ Fair+ Abduction (C5) 3+ Fair+ External Rotation 4- Good- Internal Rotation 4- Good- Comments IE: flex 3/5 abd 3+/5 add 4+/5 ER 3+/5 IR 4-/5 HABD 3+/5 HADD 4+/5 Pain with resisted ER/IR, abd PT-OP-Q Treatments Start: 10/09/23 15:41 Freq: Status: Active Protocol: Document 11/23/23 13:05 NM (Rec: 11/23/23 13:47 NM [id number]) Therapeutic Exercises Prone Exercises rhythmic stab Prone Exercise Name pendulum Side right Resistance 5# DB R hand Reps/Minutes 20 x3 reps Comments noted improved decrease GH / scap thoracic guarding I,T Prone Exercise Name straight elbow Is, A>AAROM T/ relax scaptherapist support/ eccentric lowering Side right Reps/Minutes 1x10 Comments reports no pain, but challenge ; cue for scap setting and retraction Sidelying Exercises openbook Side right Resistance A> AROM Reps/Minutes 5 reps x2, manual between sets Comments tactile cues scap retraction/ depress Sitting Exercises pulleys Sitting Exercise Name fwd flex, scaption Side right Equipment Used rear facing Reps/Minutes 10x5 Comments gentle AAROM; mirror for visual cue to limit compensation Standing Exercises serratus pushup Standing Exercise Name 1. serratus push up 2. regular modified push up Resistance incline off plinth Reps/Minutes 8 reps each Comments cues for scap protraction, manual assist with protraction IR Standing Exercise Name AAROM IR and ADD Side right Equipment Used towel Reps/Minutes 3x5 Comments cues to limit pain Manual Therapy Treatment Soft Tissue Mobilization neck Body Location R UT, LS Mobilization Type Myofascial Release,Strumming Intensity/Depth Moderate Body Position Sidelying Comments between AAROM in sidelying. Reports tightness in R upper trap, paraspinals R shld Body Location R distal pec, coracobrac, ant/ Mid/post deltoid, mid&distal infrasp, SA, lat Mobilization Type Strumming,Sustained Pressure, Other Intensity/Depth Moderate Body Position hooklying & L Sidelying Comments manual STMs /c PROM ABD, ER. Joint Mobilizations R GH jt Joint R Direction posterior (mob. strap), inferior Grade III Body Position Hooklying Reps/Duration 4x30 ea Comments Moderate muscle guarding today . R GHJ elevated on towel. Post and inf glides with oscillations to promote relaxation, improve ROM. Pt fwd flex AROM up to 110 deg, abd AROM up to 80 deg before painful. R GHJ off EOB, moving from 0 deg and up to 45 deg ABD. Grade II mob for ER at 45 deg abd with post glide, limited ROM due to pain PT-OP-R Modalities Start: 10/15/23 07:53 Freq: Status: Active Protocol: Document 10/12/23 14:32 SP (Rec: 10/15/23 07:55 SP [id number]) Hot Pack/Cold Pack Treatment CP Location R shld Patient Position Sitting Treatment Duration (minutes) 6 Patient Tolerance Good Comments CP end tx during wall posture ther ex. PT-OP-T Assessment and Plan Start: 10/09/23 15:41 Freq: Status: Active Protocol: Document 11/23/23 13:05 NM (Rec: 11/23/23 13:47 NM [id number]) Physical Therapy Assessment Goals Eight Impairment function Impairment IR Apley reach to R buttock Short Term Goal (STG) Pt will increase R shoulder IR AROM to at least L4-5 in order to demostrate improved shoulder mobility and ADL tolerance for dressing. 11/09/23: Pt can reach L5 with R shldr, painful STG Duration 5 weeks MET Prison Goal (LTG) Pt will increase R shoulder IR AROM to at least T12-L1 in order to demonstrate improved shoulder mobility and ADL tolerance for dressing. LTG Duration 10 weeks Seven Impairment function Impairment ER apley reach to R ear Short Term Goal (STG) Pt will increase R shoulder ER AROM to base of occiput in order to fix her hair. 11/09/23: NOT MET- Pt able to reach behind her R ear, but compensates with cervical flexion STG Duration 5 weeks NOT MET, progressing [employer] Goal (LTG) Pt will increase R shoulder ER AROM to at least C7 in order to demonstrate improved shoulder mobility and ADL tolerance. LTG Duration 10 weeks Six Impairment strength Impairment R shoulder abd and ER strength 3+/5 Short Term Goal (STG) Pt will improve R shoulder abd and ER MMT to at least 4-/5 to demonstrate improved shoulder strength for lifting. 11/09/23: ER 4-/5, Abd 3+/5; painful STG Duration 5 weeks PARTIALLY MET [employer] Goal (LTG) Pt will improve R shoulder abd and ER MMT to at least 4/5 to demonstrate improved shoulder strength for lifting. LTG Duration 10 weeks Five Impairment Function Impairment Quickdash score 33 (50% disability) Short Term Goal (STG) Pt will improve Quickdash score by 5 points in order to demonstrate improved ADL participation and tolerance. 11/09/23: score 30, 43.18% STG Duration 5 weeks PROGRESSING Prison Goal (LTG) Pt will improve Quickdash score by at least 10 points ( MCID) in order to demonstrate improved ADL participation and tolerance. LTG Duration 10 weeks Four Impairment strength Impairment R shoulder flex MMT 3/5 Short Term Goal (STG) Pt will improve R shoulder flex MMT to at least 3+/5 in order to demonstrate improved shoulder strength for lifting and to perform ADLs. 11/09/23: R shldr flex 3+/5, painful STG Duration 5 weeks MET Prison Goal (LTG) Pt will improve R shoulder flex MMT to at least 4-/5 in order to demonstrate improved shoulder strength for lifting and to perform ADLs. LTG Duration 10 weeks Three Impairment ROM Impairment Shldr ER (45 deg HABD) AROM 10 deg Short Term Goal (STG) Pt will increase R shoulder ER (at 45 deg HABD) AROM to at least 30 deg without compensation and < 3/10 pain in order to improve ADL tolerance. 11/09/23: R shldr ER 15 deg at 45 deg abd, painful STG Duration 5 weeks NOT MET Prison Goal (LTG) Pt will increase R shoulder ER (at 45 deg HABD) AROM to at least 70 deg without compensation and < 3/10 pain in order to improve ADL tolerance. LTG Duration 10 weeks Two Impairment ROM Impairment Shldr hor abd AROM 70 deg Short Term Goal (STG) Pt will increase R shoulder horizontal abduction AROM to at least 90 deg without compensation and <3/10 pain in order to demonstrate improved shoulder AROM for reaching. 11/09/23: 85 deg without compensation, painful STG Duration 5 weeks NOT MET, progressing Prison Goal (LTG) Pt will increase R shoulder horizontal abduction AROM to at least 120 deg without compensation and <3/10 pain in order to demonstrate improved shoulder AROM for reaching. LTG Duration 10 weeks One Impairment ROM Impairment Shldr fwd flex AROM 80 deg Short Term Goal (STG) Pt will increase R shoulder forward flexion AROM to at least 90 deg without compensation and <3/10 pain in order to demonstrate improved shoulder AROM for reaching. 11/09/23: R shldr flex 105 deg , painful, minimal compensation 10/29/23: R shld AROM: FF 108 deg supine, L SL abd 89 deg, 18 deg standing, IR behind back lateral R sacrum. STG Duration 5 weeks MET Prison Goal (LTG) Pt will increase R shoulder forward flexion AROM to at least 120 deg without compensation and <3/10 pain in order to demonstrate improved shoulder AROM for reaching. LTG Duration 10 weeks Assessment Summary Assessment Pt continues to be limited in R shoulder ROM, moderate muscle guarding today. Good tolerance to rhythmic stabilization with 5# db. Demos improved scapular retraction and setting during prone periscapular activities, only reports pain at end range. Improved scapular control during modified push ups. Current ROM 110 fwd flex, 80 deg abd, 10 deg ER at 45 deg abd. Only few degrees improvement after manual treatment due to intense muscle guarding; demos bony block with glenohumeral elevation, which is very limiting. PT and pt discussed referral back to ortho to another cortisone injection or trial different treatment option, pt reports she would consider. Pt would benefit from skilled PT to decrease pain symptoms and improve activity tolerance. Physical Therapy Plan Frequency and Duration Frequency of Treatment 2x/Week Duration of treatment (weeks) 10 Plan of Care Start Date 10/09/23 Plan of Care End Date 12/18/23 Therapeutic Interventions Therapeutic Interventions Coordination Training,Home Exercise Program,Joint Mobilizations,Manual Therapy, Neuromuscular Re-education, Patient/Caregiver Education, Soft Tissue Mobilization, Taping,Therapeutic Activities, Therapeutic Exercises Modalities Biofeedback,Cold Pack/Ice Massage,Electric Stimulation, Hot Packs,Iontophoresis, Ultrasound,Vasopneumatic Devices Next Visit Focus/Plan Next Note Type Treatment Note Next Visit Plan Ask response prone rythmic stabilization manual, and eccentric pull downs, rows for scap mobility. cont periscap strengthening HEP: supine FF, L SL abd, sup serratus press (add over noodle), chest press, wall posture, resisted ADD/ecc abd, resisted ext/eccentric flexion, eccentric FF walk out , ER with dowel wall pushup. Continue remind pendulum arms swing/scapular AROM during gait. POC: Begin gentle shoulder mobility, periscapular strengthening. Cont manual tx with grade II mobs (III as lashonda ). Continue progress HEP.
--- NOTE | 2023-11-29 10:33 | PT.OTN ---
Current Diagnoses Other articular cartilage disorders, right shoulder (11/29/23) Pain in right shoulder (11/29/23) Adhesive capsulitis of unspecified shoulder (11/29/23) Incomplete rotator cuff tear or rupture of unspecified shoulder, not specified as traumatic (11/29/23) Physical Therapy Treatment Note PT-OP-A Visit Information Start: 10/09/23 15:41 Freq: Status: Active Protocol: Document 11/29/23 09:44 SP (Rec: 11/29/23 10:35 SP [id number]) Out-Patient Physical Therapy Visit Information Visit Information Visit Type Treatment Note Visit Note 02/19 post PN * 12 visits approval at time. 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 She reports that she woke up with R shoulder pain one morning. She went to her PCP who ordered an injection and then PT. Her R shoulder pain worsened with PT over the summer. She then sought an appt with an orthopedist, who dx her with adhesive capsulitis and ordered an MRI, referring her back to PT. No surgical repair or GAGANDEEP planned at this time. Since the summer, her pain has decreased considerably and her R shoulder mobility has become more limited. At this time, she reports that she only has pain with jerky movements. Pt has most difficulty with performing her ADLs (putting up hair, dressing), lifting overhead, carrying objects >5# , and general mobility. Prior Treatments and Tests MRI 07/22/23: no full thickness RC rupture, AC joint OA, tendinosis of proximal long head of biceps tendon and infraspinatus, partial tears of subscapularis and supraspinatus, suspected labral tear 12-2 o'clock Treatment Goals Patient/Caregiver Goals Improve R shoulder ROM and strength, be able to put up her hair Prior Functional Status Baseline Function- ADL's Independent Baseline Function- Mobility Independent Baseline Function- Work/School [employer] Baseline Function- Other Prior to January 2023, able to perform all ADLs independently . Current Functional Impairments (Reported) Functional Limitations- ADL's Lifting, putting up hair, dressing, reaching overhead PT-OP-C Subjective Start: 10/09/23 15:41 Freq: Status: Active Protocol: Document 11/29/23 09:44 SP (Rec: 11/29/23 10:35 SP [id number]) OP-PT Subjective Patient Comments Patient Comments Pt reports feels in a sweet spot, R shld not as painful but not range as would like, normal. She miss stepped on stairs and eccentric BUE out front catch self, suprised able to use her RUE and wasn't as sore as thought she'd be. Pt states she was approved for 12 more visits. PT-OP-E Functional Tests Start: 10/09/23 15:41 Freq: Status: Active Protocol: Document 10/09/23 15:42 NM (Rec: 10/09/23 16:46 NM [id number]) Functional Tests Apley's Scratch Test Action 1- Left Able to touch R shoulder- wfl Action 1- Right Able to touch L shoulder- wfl Action 2- Left T4 Action 2- Right R ear (with pain) Action 3- Left T12 Action 3- Right R buttock (pocket) PT-OP-F Manual Assessment Start: 10/09/23 15:41 Freq: Status: Active Protocol: Document 10/09/23 15:42 NM (Rec: 10/09/23 16:46 NM [id number]) Manual Assessments Soft Tissue Assessment Soft Tissue Mobility Assessment No soft tissue restrictions noted around R scapula, trapezius, rhomboids, levator scapulae, scalenes, or SCM. Long head of biceps tendon is palpable and tender to palpation. Joint Mobility Assessment Joint Mobility Assessment Limited R GH PROM in fwd flex, horizontal abd, IR, and ER. End feels are painful and hard . No PROM into ER and limited PROM into IR. ER and IR are most limited. No shoulder subluxation noted. R scapular position is depressed; demos fair scapular control in sidelying but with limited gliding into retraction/ protraction, upward rotation/ elevation PT-OP-J Posture/Palpation/Skin Start: 10/09/23 15:41 Freq: Status: Active Protocol: Document 10/09/23 15:42 NM (Rec: 10/09/23 16:46 NM [id number]) Posture Evaluation Position Standing Evaluation View posterior, lateral Head/C-Spine Posture Neutral Position T-Spine Posture Neutral Thorax Posture (L) Elevated L-Spine Posture Neutral Shoulder Posture (L) Rounded,(R) Rounded,(L) Elevated Scapula Posture (L) Neutral,(R) Protracted,(R) Rotated Down,(R) Depressed Arm Posture (L) Neutral,(R) Internally Rotated Comments Posture Comments R shoulder is depressed compared to L shoulder Palpation Assessment Location R shoulder Palpation Location Anterior shoulder (long heads bicep tendon), posterior shldr /scap Palpation Findings Tenderness Palpation Details Tenderness along R proximal long head biceps tendon PT-OP-K Range of Motion Start: 10/09/23 15:41 Freq: Status: Active Protocol: Document 11/09/23 08:17 NM (Rec: 11/14/23 07:45 NM [id number]) Shoulder Goniometric Range of Motion Shoulder Right Flexion 105 Abduction 85 External Rotation at 90 degrees 0 Abduction External Rotation at 45 degrees 15 Abduction External Rotation at 0 degrees Abduction 20 Internal Rotation 45 Internal Rotation Behind Back (text) L5 Comments IE 10/09/23 flex: 80 abd: 70 ER 10 deg (@45 deg abd), 10 deg (@0 deg abd) IR 45 deg, buttock (near pocket) Flex, abd, ER, IR painful (ER most limited and painful). PROM flex (90 deg), abd (70 deg), ER (10 deg), IR (55 deg) . PT-OP-L Special Tests Start: 10/09/23 15:41 Freq: Status: Active Protocol: Document 10/09/23 15:42 NM (Rec: 10/09/23 16:46 NM [id number]) Special Tests Shoulder Special Tests Drop Arm Rotator Cuff Test Results negative Comments able to slowly lower arm Speed's Biceps Test Results negative Milton Test Test Results positive Comments Reproduces pain Empty Can Test Results positive Comments Reproduces pain in rotator cuff area, long head biceps tendon with resistance Yergason's Biceps Test Results negative Comments Does not reproduce pain in LH biceps tendon during resisted supination Biceps Load II Test Test Results positive Comments reproduces pain in anterior shoulder near LH biceps tendon PT-OP-M Strength Start: 10/09/23 15:41 Freq: Status: Active Protocol: Document 11/09/23 08:17 NM (Rec: 11/14/23 07:45 NM [id number]) Shoulder Strength Shoulder Manual Muscle Testing Right Flexion 3+ Fair+ Abduction (C5) 3+ Fair+ External Rotation 4- Good- Internal Rotation 4- Good- Comments IE: flex 3/5 abd 3+/5 add 4+/5 ER 3+/5 IR 4-/5 HABD 3+/5 HADD 4+/5 Pain with resisted ER/IR, abd PT-OP-Q Treatments Start: 10/09/23 15:41 Freq: Status: Active Protocol: Document 11/29/23 09:44 SP (Rec: 11/29/23 10:35 SP [id number]) Therapeutic Exercises Sidelying Exercises FF Sidelying Exercise Name AAROM initially Side right Reps/Minutes 5 reps Comments tactile support for scapular and GH R, reports gain more ROM than sitting. openbook Side right Resistance A> AROM Reps/Minutes 5 reps x2, manual between sets Comments tactile cues scap retraction/ depress ABD Sidelying Exercise Name modified scaption Side right Resistance AAROM> AROM eccentric lowering Reps/Minutes 5 reps x2, Contract relax against ADD isometric further into scaption-pnend Comments cued scapular rotation, minimize UT recruitment- able gain little more rge Standing Exercises wall push up Standing Exercise Name 1. W 2. lissette Side bilateral Reps/Minutes 5-8 reps Comments tactile cues for no/minimize UT, allow scapular ROM bicep stretch Standing Exercise Name added to HEP Side right Reps/Minutes 15 SH x3 Comments cued upright posture try square trunk, good bicep stretch, scap depre/retra wall walk Standing Exercise Name trialed post bicep stretch Side right Comments stopped due to UT compensations table walk out Standing Exercise Name flex at rail Side right Resistance AAROM FF therapist tactile cue Equipment Used pain end feel Reps/Minutes 1x5 ea Comments cued walk out to comfort R shld FF ROM, hold with breath relax shld Manual Therapy Treatment Soft Tissue Mobilization R shld Body Location R distal pec, coracobrac, ant/ Mid/post deltoid, mid&distal infrasp, SA, lat Mobilization Type Strumming,Sustained Pressure, Other Intensity/Depth Moderate Body Position hooklying & L Sidelying Comments manual STMs /c PROM ABD, ER. Joint Mobilizations R scapulothoracic Jt Direction retraction/protraction/ UR/DR Grade III Body Position L SL Reps/Duration 1x10 ea x2 contraction Comments with PROM ABD/FF/ER. Improved scapular control in sidelying compared to standing PT-OP-R Modalities Start: 10/15/23 07:53 Freq: Status: Active Protocol: Document 10/12/23 14:32 SP (Rec: 10/15/23 07:55 SP [id number]) Hot Pack/Cold Pack Treatment CP Location R shld Patient Position Sitting Treatment Duration (minutes) 6 Patient Tolerance Good Comments CP end tx during wall posture ther ex. PT-OP-T Assessment and Plan Start: 10/09/23 15:41 Freq: Status: Active Protocol: Document 11/29/23 09:44 SP (Rec: 11/29/23 10:35 SP [id number]) Physical Therapy Assessment Goals Eight Impairment function Impairment IR Apley reach to R buttock Short Term Goal (STG) Pt will increase R shoulder IR AROM to at least L4-5 in order to demostrate improved shoulder mobility and ADL tolerance for dressing. 11/09/23: Pt can reach L5 with R shldr, painful STG Duration 5 weeks MET Snf Goal (LTG) Pt will increase R shoulder IR AROM to at least T12-L1 in order to demonstrate improved shoulder mobility and ADL tolerance for dressing. LTG Duration 10 weeks Seven Impairment function Impairment ER apley reach to R ear Short Term Goal (STG) Pt will increase R shoulder ER AROM to base of occiput in order to fix her hair. 11/09/23: NOT MET- Pt able to reach behind her R ear, but compensates with cervical flexion STG Duration 5 weeks NOT MET, progressing Textile Colorist Formulator Goal (LTG) Pt will increase R shoulder ER AROM to at least C7 in order to demonstrate improved shoulder mobility and ADL tolerance. LTG Duration 10 weeks Six Impairment strength Impairment R shoulder abd and ER strength 3+/5 Short Term Goal (STG) Pt will improve R shoulder abd and ER MMT to at least 4-/5 to demonstrate improved shoulder strength for lifting. 11/09/23: ER 4-/5, Abd 3+/5; painful STG Duration 5 weeks PARTIALLY MET Textile Colorist Formulator Goal (LTG) Pt will improve R shoulder abd and ER MMT to at least 4/5 to demonstrate improved shoulder strength for lifting. LTG Duration 10 weeks Five Impairment Function Impairment Quickdash score 33 (50% disability) Short Term Goal (STG) Pt will improve Quickdash score by 5 points in order to demonstrate improved ADL participation and tolerance. 11/09/23: score 30, 43.18% STG Duration 5 weeks PROGRESSING Textile Colorist Formulator Goal (LTG) Pt will improve Quickdash score by at least 10 points ( MCID) in order to demonstrate improved ADL participation and tolerance. LTG Duration 10 weeks Four Impairment strength Impairment R shoulder flex MMT 3/5 Short Term Goal (STG) Pt will improve R shoulder flex MMT to at least 3+/5 in order to demonstrate improved shoulder strength for lifting and to perform ADLs. 11/09/23: R shldr flex 3+/5, painful STG Duration 5 weeks MET Textile Colorist Formulator Goal (LTG) Pt will improve R shoulder flex MMT to at least 4-/5 in order to demonstrate improved shoulder strength for lifting and to perform ADLs. LTG Duration 10 weeks Three Impairment ROM Impairment Shldr ER (45 deg HABD) AROM 10 deg Short Term Goal (STG) Pt will increase R shoulder ER (at 45 deg HABD) AROM to at least 30 deg without compensation and < 3/10 pain in order to improve ADL tolerance. 11/09/23: R shldr ER 15 deg at 45 deg abd, painful STG Duration 5 weeks NOT MET Snf Goal (LTG) Pt will increase R shoulder ER (at 45 deg HABD) AROM to at least 70 deg without compensation and < 3/10 pain in order to improve ADL tolerance. LTG Duration 10 weeks Two Impairment ROM Impairment Shldr hor abd AROM 70 deg Short Term Goal (STG) Pt will increase R shoulder horizontal abduction AROM to at least 90 deg without compensation and <3/10 pain in order to demonstrate improved shoulder AROM for reaching. 11/09/23: 85 deg without compensation, painful STG Duration 5 weeks NOT MET, progressing Textile Colorist Formulator Goal (LTG) Pt will increase R shoulder horizontal abduction AROM to at least 120 deg without compensation and <3/10 pain in order to demonstrate improved shoulder AROM for reaching. LTG Duration 10 weeks One Impairment ROM Impairment Shldr fwd flex AROM 80 deg Short Term Goal (STG) Pt will increase R shoulder forward flexion AROM to at least 90 deg without compensation and <3/10 pain in order to demonstrate improved shoulder AROM for reaching. 11/09/23: R shldr flex 105 deg , painful, minimal compensation 10/29/23: R shld AROM: FF 108 deg supine, L SL abd 89 deg, 18 deg standing, IR behind back lateral R sacrum. STG Duration 5 weeks MET Textile Colorist Formulator Goal (LTG) Pt will increase R shoulder forward flexion AROM to at least 120 deg without compensation and <3/10 pain in order to demonstrate improved shoulder AROM for reaching. LTG Duration 10 weeks Assessment Summary Assessment Pt improved scapular AAROM during scaption, FF and HABD ( open book) on side post manual , continues to need tactile cues for head looking front and relaxed jaw to lessen compensations UT and SCM/ Scalene compensations. Unsure cupping made significant reduction in proximal tension during AAROM but end tx. She was able to tolerate increase scapular and initiate wall pushup to gain GH and scapular mobility. She reports R anterior> posterior shoulder sore but likes the gain in ROM mobility. Physical Therapy Plan Frequency and Duration Frequency of Treatment 2x/Week Duration of treatment (weeks) 10 Plan of Care Start Date 10/09/23 Plan of Care End Date 12/18/23 Therapeutic Interventions Therapeutic Interventions Coordination Training,Home Exercise Program,Joint Mobilizations,Manual Therapy, Neuromuscular Re-education, Patient/Caregiver Education, Soft Tissue Mobilization, Taping,Therapeutic Activities, Therapeutic Exercises Modalities Biofeedback,Cold Pack/Ice Massage,Electric Stimulation, Hot Packs,Iontophoresis, Ultrasound,Vasopneumatic Devices Next Visit Focus/Plan Next Note Type Treatment Note Next Visit Plan Ask response contract relax into scaption, added wall pushup, cont periscap strengthening. recheck HEP: supine FF, L SL abd, sup serratus press (add over noodle), chest press, wall posture, resisted ADD/ecc abd, resisted ext/eccentric flexion, eccentric FF walk out , ER with dowel wall pushup. Continue remind pendulum arms swing/scapular AROM during gait. POC: Begin gentle shoulder mobility, periscapular strengthening. Cont manual tx with grade II mobs (III as lashonda ). Continue progress HEP.
--- NOTE | 2023-12-03 14:51 | PT.OTN ---
Current Diagnoses Other articular cartilage disorders, right shoulder (12/03/23) Pain in right shoulder (12/03/23) Adhesive capsulitis of unspecified shoulder (12/03/23) Incomplete rotator cuff tear or rupture of unspecified shoulder, not specified as traumatic (12/03/23) Physical Therapy Treatment Note PT-OP-A Visit Information Start: 10/09/23 15:41 Freq: Status: Active Protocol: Document 12/03/23 13:49 NM (Rec: 12/03/23 14:49 NM [id number]) Out-Patient Physical Therapy Visit Information Visit Information Visit Type Treatment Note Visit Note 03/21 post PN Visit Start Time 13:47 Visit Stop Time 14:30 Total Visit Minutes 43 Visit Number 15 Evaluation Information Evaluation Date 10/09/23 PT-OP-B Current Condition Start: 10/09/23 15:41 Freq: Status: Active Protocol: Document 10/09/23 15:42 NM (Rec: 10/09/23 16:46 NM [id number]) Current Condition History of Current Condition Onset Date January 2023 Current Complaints R shoulder pain, limited R shoulder mobility, difficulty with ADLs History of Current Condition Pt presents to clinic with R shoulder pain that began insidiously in January 2023. She reports that she woke up with R shoulder pain one morning. She went to her PCP who ordered an injection and then PT. Her R shoulder pain worsened with PT over the summer. She then sought an appt with an orthopedist, who dx her with adhesive capsulitis and ordered an MRI, referring her back to PT. No surgical repair or GAGANDEEP planned at this time. Since the summer, her pain has decreased considerably and her R shoulder mobility has become more limited. At this time, she reports that she only has pain with jerky movements. Pt has most difficulty with performing her ADLs (putting up hair, dressing), lifting overhead, carrying objects >5# , and general mobility. Prior Treatments and Tests MRI 07/22/23: no full thickness RC rupture, AC joint OA, tendinosis of proximal long head of biceps tendon and infraspinatus, partial tears of subscapularis and supraspinatus, suspected labral tear 12-2 o'clock Treatment Goals Patient/Caregiver Goals Improve R shoulder ROM and strength, be able to put up her hair Prior Functional Status Baseline Function- ADL's Independent Baseline Function- Mobility Independent Baseline Function- Work/School [employer] Baseline Function- Other Prior to January 2023, able to perform all ADLs independently . Current Functional Impairments (Reported) Functional Limitations- ADL's Lifting, putting up hair, dressing, reaching overhead PT-OP-C Subjective Start: 10/09/23 15:41 Freq: Status: Active Protocol: Document 12/03/23 13:49 NM (Rec: 12/03/23 14:49 NM [id number]) OP-PT Subjective Patient Comments Patient Comments Pt reports that she is having less shoulder pain and it is not as noticeable compared to previously. She reports that she was able to put on her coat today and improvement with reaching PT-OP-E Functional Tests Start: 10/09/23 15:41 Freq: Status: Active Protocol: Document 10/09/23 15:42 NM (Rec: 10/09/23 16:46 NM [id number]) Functional Tests Apley's Scratch Test Action 1- Left Able to touch R shoulder- wfl Action 1- Right Able to touch L shoulder- wfl Action 2- Left T4 Action 2- Right R ear (with pain) Action 3- Left T12 Action 3- Right R buttock (pocket) PT-OP-F Manual Assessment Start: 10/09/23 15:41 Freq: Status: Active Protocol: Document 10/09/23 15:42 NM (Rec: 10/09/23 16:46 NM [id number]) Manual Assessments Soft Tissue Assessment Soft Tissue Mobility Assessment No soft tissue restrictions noted around R scapula, trapezius, rhomboids, levator scapulae, scalenes, or SCM. Long head of biceps tendon is palpable and tender to palpation. Joint Mobility Assessment Joint Mobility Assessment Limited R GH PROM in fwd flex, horizontal abd, IR, and ER. End feels are painful and hard . No PROM into ER and limited PROM into IR. ER and IR are most limited. No shoulder subluxation noted. R scapular position is depressed; demos fair scapular control in sidelying but with limited gliding into retraction/ protraction, upward rotation/ elevation PT-OP-J Posture/Palpation/Skin Start: 10/09/23 15:41 Freq: Status: Active Protocol: Document 10/09/23 15:42 NM (Rec: 10/09/23 16:46 NM [id number]) Posture Evaluation Position Standing Evaluation View posterior, lateral Head/C-Spine Posture Neutral Position T-Spine Posture Neutral Thorax Posture (L) Elevated L-Spine Posture Neutral Shoulder Posture (L) Rounded,(R) Rounded,(L) Elevated Scapula Posture (L) Neutral,(R) Protracted,(R) Rotated Down,(R) Depressed Arm Posture (L) Neutral,(R) Internally Rotated Comments Posture Comments R shoulder is depressed compared to L shoulder Palpation Assessment Location R shoulder Palpation Location Anterior shoulder (long heads bicep tendon), posterior shldr /scap Palpation Findings Tenderness Palpation Details Tenderness along R proximal long head biceps tendon PT-OP-K Range of Motion Start: 10/09/23 15:41 Freq: Status: Active Protocol: Document 11/09/23 08:17 NM (Rec: 11/14/23 07:45 NM [id number]) Shoulder Goniometric Range of Motion Shoulder Right Flexion 105 Abduction 85 External Rotation at 90 degrees 0 Abduction External Rotation at 45 degrees 15 Abduction External Rotation at 0 degrees Abduction 20 Internal Rotation 45 Internal Rotation Behind Back (text) L5 Comments IE 10/09/23 flex: 80 abd: 70 ER 10 deg (@45 deg abd), 10 deg (@0 deg abd) IR 45 deg, buttock (near pocket) Flex, abd, ER, IR painful (ER most limited and painful). PROM flex (90 deg), abd (70 deg), ER (10 deg), IR (55 deg) . PT-OP-L Special Tests Start: 10/09/23 15:41 Freq: Status: Active Protocol: Document 10/09/23 15:42 NM (Rec: 10/09/23 16:46 NM [id number]) Special Tests Shoulder Special Tests Drop Arm Rotator Cuff Test Results negative Comments able to slowly lower arm Speed's Biceps Test Results negative [place] Test Test Results positive Comments Reproduces pain Empty Can Test Results positive Comments Reproduces pain in rotator cuff area, long head biceps tendon with resistance Yergason's Biceps Test Results negative Comments Does not reproduce pain in LH biceps tendon during resisted supination Biceps Load II Test Test Results positive Comments reproduces pain in anterior shoulder near LH biceps tendon PT-OP-M Strength Start: 10/09/23 15:41 Freq: Status: Active Protocol: Document 11/09/23 08:17 NM (Rec: 11/14/23 07:45 NM [id number]) Shoulder Strength Shoulder Manual Muscle Testing Right Flexion 3+ Fair+ Abduction (C5) 3+ Fair+ External Rotation 4- Good- Internal Rotation 4- Good- Comments IE: flex 3/5 abd 3+/5 add 4+/5 ER 3+/5 IR 4-/5 HABD 3+/5 HADD 4+/5 Pain with resisted ER/IR, abd PT-OP-Q Treatments Start: 10/09/23 15:41 Freq: Status: Active Protocol: Document 12/03/23 13:49 NM (Rec: 12/03/23 14:49 NM [id number]) Cardio Equipment Upper Body Ergometer (UBE) Duration (Minutes) 4 RPM 15 Other warm up; fwd only Therapeutic Exercises Sidelying Exercises FF Sidelying Exercise Name AAROM initially Side right Reps/Minutes 5 reps Comments tactile support for scapular and GH R, reports gain more ROM than sitting. ABD Sidelying Exercise Name modified scaption Side right Resistance AAROM> AROM eccentric lowering Reps/Minutes 5 reps x2, Contract relax against ADD isometric further into scaption-pnend Comments cued scapular rotation, minimize UT recruitment- able gain little more rge Sitting Exercises inferior glide Sitting Exercise Name self mobilization Side right Resistance LUE creating inf glide in RUE Equipment Used blue ball for UE support, L hand created glide at humerus Reps/Minutes 1x10 with brief hold Comments reports inf glide, lots muscle guarding; cued for scap depression, ER Sitting Exercise Name neutral to ER at 45 deg abd - robber Side bilateral Reps/Minutes 1x10 with 3 ea Comments cue for R shdlr relax, breathwork; reports no pain pulleys Sitting Exercise Name fwd flex, scaption Side right Equipment Used rear facing Reps/Minutes 10x5 Comments gentle AAROM; mirror for visual cue to limit compensation Standing Exercises wall push up Standing Exercise Name 1. W 2. lissette Side bilateral Equipment Used demos slight R trunk/shoulder girdle tilt with W Reps/Minutes 5 reps Comments tactile cues for no/minimize UT, allow scapular ROM IR Standing Exercise Name 1. AAROM IR and ADD stretch, 2 . AROM with towel Side right Equipment Used towel Reps/Minutes 1. 5x5, 2. 1x10 towel lift into shoulder ext Comments cues to limit pain Manual Therapy Treatment Soft Tissue Mobilization R shld Body Location R distal pec, LH bicep, ant/ Mid/post deltoid, mid&distal infrasp, SA, lat Mobilization Type Strumming,Sustained Pressure, Other Intensity/Depth Moderate Body Position hooklying & L Sidelying Comments manual STMs /c PROM ABD, ER. Reports decreased pain with strumming LH bicep Joint Mobilizations R scapulothoracic Jt Direction retraction/protraction/ UR/DR Grade III Body Position L SL Reps/Duration 1x10 ea x2 contraction Comments with PROM ABD/FF/ER. Improved scapular control in sidelying compared to standing R GH jt Joint R Direction posterior, inferior Grade III Body Position Hooklying Reps/Duration 4x30 ea Comments Moderate muscle guarding today . R GHJ elevated on towel. Post and inf glides with oscillations to promote relaxation, improve ROM. Pt fwd flex AROM up to 115 deg, abd AROM up to 110 deg before painful and move into scaption . R GHJ off EOB, moving from 0 deg and up to 45 deg ABD. Grade III mob for ER at 45 deg abd with post glide, limited ROM due to pain Self-Care/Home Management Treatment Education Patient Education Home Exercise Program,Joint Protection,Pain Management Other Education HEP: inferior glide, wand shoulder ext (with added IR as tolerated) PT-OP-R Modalities Start: 10/15/23 07:53 Freq: Status: Active Protocol: Document 10/12/23 14:32 SP (Rec: 10/15/23 07:55 SP [id number]) Hot Pack/Cold Pack Treatment CP Location R shld Patient Position Sitting Treatment Duration (minutes) 6 Patient Tolerance Good Comments CP end tx during wall posture ther ex. PT-OP-T Assessment and Plan Start: 10/09/23 15:41 Freq: Status: Active Protocol: Document 12/03/23 13:49 NM (Rec: 12/03/23 14:49 NM [id number]) Physical Therapy Assessment Goals Eight Impairment function Impairment IR Apley reach to R buttock Short Term Goal (STG) Pt will increase R shoulder IR AROM to at least L4-5 in order to demostrate improved shoulder mobility and ADL tolerance for dressing. 11/09/23: Pt can reach L5 with R shldr, painful STG Duration 5 weeks MET Fdc Goal (LTG) Pt will increase R shoulder IR AROM to at least T12-L1 in order to demonstrate improved shoulder mobility and ADL tolerance for dressing. LTG Duration 10 weeks Seven Impairment function Impairment ER apley reach to R ear Short Term Goal (STG) Pt will increase R shoulder ER AROM to base of occiput in order to fix her hair. 11/09/23: NOT MET- Pt able to reach behind her R ear, but compensates with cervical flexion STG Duration 5 weeks NOT MET, progressing Brazer Induction Goal (LTG) Pt will increase R shoulder ER AROM to at least C7 in order to demonstrate improved shoulder mobility and ADL tolerance. LTG Duration 10 weeks Six Impairment strength Impairment R shoulder abd and ER strength 3+/5 Short Term Goal (STG) Pt will improve R shoulder abd and ER MMT to at least 4-/5 to demonstrate improved shoulder strength for lifting. 11/09/23: ER 4-/5, Abd 3+/5; painful STG Duration 5 weeks PARTIALLY MET Brazer Induction Goal (LTG) Pt will improve R shoulder abd and ER MMT to at least 4/5 to demonstrate improved shoulder strength for lifting. LTG Duration 10 weeks Five Impairment Function Impairment Quickdash score 33 (50% disability) Short Term Goal (STG) Pt will improve Quickdash score by 5 points in order to demonstrate improved ADL participation and tolerance. 11/09/23: score 30, 43.18% STG Duration 5 weeks PROGRESSING Fdc Goal (LTG) Pt will improve Quickdash score by at least 10 points ( MCID) in order to demonstrate improved ADL participation and tolerance. LTG Duration 10 weeks Four Impairment strength Impairment R shoulder flex MMT 3/5 Short Term Goal (STG) Pt will improve R shoulder flex MMT to at least 3+/5 in order to demonstrate improved shoulder strength for lifting and to perform ADLs. 11/09/23: R shldr flex 3+/5, painful STG Duration 5 weeks MET Fdc Goal (LTG) Pt will improve R shoulder flex MMT to at least 4-/5 in order to demonstrate improved shoulder strength for lifting and to perform ADLs. LTG Duration 10 weeks Three Impairment ROM Impairment Shldr ER (45 deg HABD) AROM 10 deg Short Term Goal (STG) Pt will increase R shoulder ER (at 45 deg HABD) AROM to at least 30 deg without compensation and < 3/10 pain in order to improve ADL tolerance. 11/09/23: R shldr ER 15 deg at 45 deg abd, painful STG Duration 5 weeks NOT MET Fdc Goal (LTG) Pt will increase R shoulder ER (at 45 deg HABD) AROM to at least 70 deg without compensation and < 3/10 pain in order to improve ADL tolerance. LTG Duration 10 weeks Two Impairment ROM Impairment Shldr hor abd AROM 70 deg Short Term Goal (STG) Pt will increase R shoulder horizontal abduction AROM to at least 90 deg without compensation and <3/10 pain in order to demonstrate improved shoulder AROM for reaching. 12/03/23: 110 deg before compensation and pain 11/09/23: 85 deg without compensation, painful STG Duration 5 weeks NOT MET, progressing Fdc Goal (LTG) Pt will increase R shoulder horizontal abduction AROM to at least 120 deg without compensation and <3/10 pain in order to demonstrate improved shoulder AROM for reaching. LTG Duration 10 weeks One Impairment ROM Impairment Shldr fwd flex AROM 80 deg Short Term Goal (STG) Pt will increase R shoulder forward flexion AROM to at least 90 deg without compensation and <3/10 pain in order to demonstrate improved shoulder AROM for reaching. 12/03/23: R shoulder flex 115 before compensation and pain 11/09/23: R shldr flex 105 deg , painful, minimal compensation 10/29/23: R shld AROM: FF 108 deg supine, L SL abd 89 deg, 18 deg standing, IR behind back lateral R sacrum. STG Duration 5 weeks MET Brazer Induction Goal (LTG) Pt will increase R shoulder forward flexion AROM to at least 120 deg without compensation and <3/10 pain in order to demonstrate improved shoulder AROM for reaching. LTG Duration 10 weeks Assessment Summary Assessment Initiated UE ergometer today, fwd cycling only. Today, pt able to lift towel into shoulder ext behind back in shoulder ext with minimal pain compared to previous sessions ; continues to have anterior shoulder pain with R shoulder IR/ADD stretch. Initiated self inferior glide on table using ball and LUE to create humeral space during scaption/ abduction. Reports good feedback with self mobilization, demos decreased muscle guarding. Continued with sidelying fwd flex/abd for scapular mechanics. Manual treatment for soft tissue to decrease pain in shdlr muscles , especially near long head biceps tendon. Grade III posterior and inferior mobilizations to increase R shoulder ROM. Currently, R shoulder 115 deg fwd flex, 110 abd, and 20 deg ER at 0 deg abd before pain. Overall, pt is progressing since IE and reports improvement. Pt would benefit from skilled PT to address limitations in R shoulder mobility and strength in order to decrease pain symptoms, improve activity tolerance, and return to PLOF. Physical Therapy Plan Frequency and Duration Frequency of Treatment 2x/Week Duration of treatment (weeks) 10 Plan of Care Start Date 10/09/23 Plan of Care End Date 12/18/23 Therapeutic Interventions Therapeutic Interventions Coordination Training,Home Exercise Program,Joint Mobilizations,Manual Therapy, Neuromuscular Re-education, Patient/Caregiver Education, Soft Tissue Mobilization, Taping,Therapeutic Activities, Therapeutic Exercises Modalities Biofeedback,Cold Pack/Ice Massage,Electric Stimulation, Hot Packs,Iontophoresis, Ultrasound,Vasopneumatic Devices Next Visit Focus/Plan Next Note Type Treatment Note Next Visit Plan Ask response contract relax into scaption, added wall pushup, cont periscap strengthening, inf glide (self ), shoulder ext. Trial shoulder ext, thoracic ext with shoulder flex recheck HEP: supine FF, L SL abd, sup serratus press (add over noodle), chest press, wall posture, resisted ADD/ecc abd, resisted ext/eccentric flexion, eccentric FF walk out , ER with dowel wall pushup. Continue remind pendulum arms swing/scapular AROM during gait. POC: Begin gentle shoulder mobility, periscapular strengthening. Cont manual tx with grade II mobs (III as lashonda ). Continue progress HEP. update PN on 12/10 or 12/12
--- NOTE | 2023-12-05 14:28 | PT.OTN ---
Current Diagnoses Other articular cartilage disorders, right shoulder (12/05/23) Pain in right shoulder (12/05/23) Adhesive capsulitis of unspecified shoulder (12/05/23) Incomplete rotator cuff tear or rupture of unspecified shoulder, not specified as traumatic (12/05/23) Physical Therapy Treatment Note PT-OP-A Visit Information Start: 10/09/23 15:41 Freq: Status: Active Protocol: Document 12/05/23 13:48 SP (Rec: 12/05/23 14:32 SP [id number]) Out-Patient Physical Therapy Visit Information Visit Information Visit Type Treatment Note Visit Note 04/21 post PN Visit Start Time 13:48 Visit Stop Time 14:28 Visit Number 16 Number of ENGLISH 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 She reports that she woke up with R shoulder pain one morning. She went to her PCP who ordered an injection and then PT. Her R shoulder pain worsened with PT over the summer. She then sought an appt with an orthopedist, who dx her with adhesive capsulitis and ordered an MRI, referring her back to PT. No surgical repair or GAGANDEEP planned at this time. Since the summer, her pain has decreased considerably and her R shoulder mobility has become more limited. At this time, she reports that she only has pain with jerky movements. Pt has most difficulty with performing her ADLs (putting up hair, dressing), lifting overhead, carrying objects >5# , and general mobility. Prior Treatments and Tests MRI 07/22/23: no full thickness RC rupture, AC joint OA, tendinosis of proximal long head of biceps tendon and infraspinatus, partial tears of subscapularis and supraspinatus, suspected labral tear 12-2 o'clock Treatment Goals Patient/Caregiver Goals Improve R shoulder ROM and strength, be able to put up her hair Prior Functional Status Baseline Function- ADL's Independent Baseline Function- Mobility Independent Baseline Function- [facility] Baseline Function- Other Prior to January 2023, able to perform all ADLs independently . Current Functional Impairments (Reported) Functional Limitations- ADL's Lifting, putting up hair, dressing, reaching overhead PT-OP-C Subjective Start: 10/09/23 15:41 Freq: Status: Active Protocol: Document 12/05/23 13:48 SP (Rec: 12/05/23 14:32 SP [id number]) OP-PT Subjective Patient Comments Patient Comments Pt report very sore from last tx, R UT, think the UBE culprit. PT-OP-E Functional Tests Start: 10/09/23 15:41 Freq: Status: Active Protocol: Document 10/09/23 15:42 NM (Rec: 10/09/23 16:46 NM [id number]) Functional Tests Apley's Scratch Test Action 1- Left Able to touch R shoulder- wfl Action 1- Right Able to touch L shoulder- wfl Action 2- Left T4 Action 2- Right R ear (with pain) Action 3- Left T12 Action 3- Right R buttock (pocket) PT-OP-F Manual Assessment Start: 10/09/23 15:41 Freq: Status: Active Protocol: Document 10/09/23 15:42 NM (Rec: 10/09/23 16:46 NM [id number]) Manual Assessments Soft Tissue Assessment Soft Tissue Mobility Assessment No soft tissue restrictions noted around R scapula, trapezius, rhomboids, levator scapulae, scalenes, or SCM. Long head of biceps tendon is palpable and tender to palpation. Joint Mobility Assessment Joint Mobility Assessment Limited R GH PROM in fwd flex, horizontal abd, IR, and ER. End feels are painful and hard . No PROM into ER and limited PROM into IR. ER and IR are most limited. No shoulder subluxation noted. R scapular position is depressed; demos fair scapular control in sidelying but with limited gliding into retraction/ protraction, upward rotation/ elevation PT-OP-J Posture/Palpation/Skin Start: 10/09/23 15:41 Freq: Status: Active Protocol: Document 10/09/23 15:42 NM (Rec: 10/09/23 16:46 NM [id number]) Posture Evaluation Position Standing Evaluation View posterior, lateral Head/C-Spine Posture Neutral Position T-Spine Posture Neutral Thorax Posture (L) Elevated L-Spine Posture Neutral Shoulder Posture (L) Rounded,(R) Rounded,(L) Elevated Scapula Posture (L) Neutral,(R) Protracted,(R) Rotated Down,(R) Depressed Arm Posture (L) Neutral,(R) Internally Rotated Comments Posture Comments R shoulder is depressed compared to L shoulder Palpation Assessment Location R shoulder Palpation Location Anterior shoulder (long heads bicep tendon), posterior shldr /scap Palpation Findings Tenderness Palpation Details Tenderness along R proximal long head biceps tendon PT-OP-K Range of Motion Start: 10/09/23 15:41 Freq: Status: Active Protocol: Document 11/09/23 08:17 NM (Rec: 11/14/23 07:45 NM [id number]) Shoulder Goniometric Range of Motion Shoulder Right Flexion 105 Abduction 85 External Rotation at 90 degrees 0 Abduction External Rotation at 45 degrees 15 Abduction External Rotation at 0 degrees Abduction 20 Internal Rotation 45 Internal Rotation Behind Back (text) L5 Comments IE 10/09/23 flex: 80 abd: 70 ER 10 deg (@45 deg abd), 10 deg (@0 deg abd) IR 45 deg, buttock (near pocket) Flex, abd, ER, IR painful (ER most limited and painful). PROM flex (90 deg), abd (70 deg), ER (10 deg), IR (55 deg) . PT-OP-L Special Tests Start: 10/09/23 15:41 Freq: Status: Active Protocol: Document 10/09/23 15:42 NM (Rec: 10/09/23 16:46 NM [id number]) Special Tests Shoulder Special Tests Drop Arm Rotator Cuff Test Results negative Comments able to slowly lower arm Speed's Biceps Test Results negative [place] Test Test Results positive Comments Reproduces pain Empty Can Test Results positive Comments Reproduces pain in rotator cuff area, long head biceps tendon with resistance Josérdayanara's Biceps Test Results negative Comments Does not reproduce pain in LH biceps tendon during resisted supination Biceps Load II Test Test Results positive Comments reproduces pain in anterior shoulder near LH biceps tendon PT-OP-M Strength Start: 10/09/23 15:41 Freq: Status: Active Protocol: Document 11/09/23 08:17 NM (Rec: 11/14/23 07:45 NM [id number]) Shoulder Strength Shoulder Manual Muscle Testing Right Flexion 3+ Fair+ Abduction (C5) 3+ Fair+ External Rotation 4- Good- Internal Rotation 4- Good- Comments IE: flex 3/5 abd 3+/5 add 4+/5 ER 3+/5 IR 4-/5 HABD 3+/5 HADD 4+/5 Pain with resisted ER/IR, abd PT-OP-Q Treatments Start: 10/09/23 15:41 Freq: Status: Active Protocol: Document 12/05/23 13:48 SP (Rec: 12/05/23 14:32 SP [id number]) Therapeutic Exercises Prone Exercises rhythmic stab Prone Exercise Name pendulum Side right Resistance 5# DB R hand Reps/Minutes 20 x3 reps Comments noted improved decrease GH / scap thoracic guarding I,T Prone Exercise Name straight elbow Is Side right Resistance AAROM, therapist assist HABD and eccentric lower as needed Reps/Minutes 1x10 Comments scap tactile UR, DR Sidelying Exercises FF Sidelying Exercise Name AAROM initially Side right Reps/Minutes 2 reps Comments tactile support for scapular and GH R, reports gain more ROM than sitting. openbook Side right Resistance A> AROM Reps/Minutes 2 manual between sets Comments tactile cues scap retraction/ depress ABD Sidelying Exercise Name modified scaption Side right Resistance AAROM> AROM eccentric lowering Reps/Minutes 2 reps then stopped Comments cued scapular rotation, minimize UT recruitment, pain end feel today Sitting Exercises UT, LS stretching Sitting Exercise Name added to HEP (declined HOs) Side bilateral Reps/Minutes 30 each side, x2 Comments cued sit tall, proper form, UE depression inferior glide Sitting Exercise Name self mobilization Side right Resistance LUE creating inf glide in RUE Equipment Used blue ball for UE support, L hand created glide at humerus Reps/Minutes 1x10 with brief hold Comments Mod cues for gentle relaxed shld mus, inferior prox humeral self glide eccentric FF Sitting Exercise Name reviewed HEP Side right Resistance AAROM TB #2 orange (anchored over door) Equipment Used rear facing in chair Reps/Minutes 8 Comments cue for scap set/retract pendulum Sitting Exercise Name HEP reviewed flex/ext/lat/CW/ CCW-seated better and standing Side right Resistance PROM Reps/Minutes 1 min Comments cues to move body not shoulder Standing Exercises wall push up Standing Exercise Name 1. W 2. lissette Side bilateral Equipment Used demos slight R trunk/shoulder girdle tilt with W Reps/Minutes 7 reps each Comments tactile cues for no/minimize UT, allow scapular ROM bicep stretch Standing Exercise Name reviewed HEP Side right Reps/Minutes 15 SH x3 Comments cued upright posture try square trunk, good bicep stretch, scap depre/retra Manual Therapy Treatment Soft Tissue Mobilization neck Body Location R UT, LS Mobilization Type Myofascial Release,Strumming Intensity/Depth Moderate Body Position Sidelying Comments between AAROM in sidelying R shld Body Location R distal pec, LH bicep, ant/ Mid/post deltoid, mid&distal infrasp, SA, lat Mobilization Type Strumming,Sustained Pressure, Other Intensity/Depth Moderate Body Position hooklying & L Sidelying Comments manual STMs /c PROM ABD, ER. Reports decreased pain with strumming LH bicep Joint Mobilizations R scapulothoracic Jt Direction retraction/protraction/ UR/DR Grade II Body Position L SL Reps/Duration 1x10 ea x2 contraction Comments with PROM ABD, HABD, ext, tactile cues . Improved scapular control in sidelying compared to standing PT-OP-R Modalities Start: 10/15/23 07:53 Freq: Status: Active Protocol: Document 10/12/23 14:32 SP (Rec: 10/15/23 07:55 SP [id number]) Hot Pack/Cold Pack Treatment CP Location R shld Patient Position Sitting Treatment Duration (minutes) 6 Patient Tolerance Good Comments CP end tx during wall posture ther ex. PT-OP-T Assessment and Plan Start: 10/09/23 15:41 Freq: Status: Active Protocol: Document 12/05/23 13:48 SP (Rec: 12/05/23 14:32 SP [id number]) Physical Therapy Assessment Goals Eight Impairment function Impairment IR Apley reach to R buttock Short Term Goal (STG) Pt will increase R shoulder IR AROM to at least L4-5 in order to demostrate improved shoulder mobility and ADL tolerance for dressing. 11/09/23: Pt can reach L5 with R shldr, painful STG Duration 5 weeks MET Pourer Bull Ladle Goal (LTG) Pt will increase R shoulder IR AROM to at least T12-L1 in order to demonstrate improved shoulder mobility and ADL tolerance for dressing. LTG Duration 10 weeks Seven Impairment function Impairment ER apley reach to R ear Short Term Goal (STG) Pt will increase R shoulder ER AROM to base of occiput in order to fix her hair. 11/09/23: NOT MET- Pt able to reach behind her R ear, but compensates with cervical flexion STG Duration 5 weeks NOT MET, progressing Pourer Bull Ladle Goal (LTG) Pt will increase R shoulder ER AROM to at least C7 in order to demonstrate improved shoulder mobility and ADL tolerance. LTG Duration 10 weeks Six Impairment strength Impairment R shoulder abd and ER strength 3+/5 Short Term Goal (STG) Pt will improve R shoulder abd and ER MMT to at least 4-/5 to demonstrate improved shoulder strength for lifting. 11/09/23: ER 4-/5, Abd 3+/5; painful STG Duration 5 weeks PARTIALLY MET Usp Goal (LTG) Pt will improve R shoulder abd and ER MMT to at least 4/5 to demonstrate improved shoulder strength for lifting. LTG Duration 10 weeks Five Impairment Function Impairment Quickdash score 33 (50% disability) Short Term Goal (STG) Pt will improve Quickdash score by 5 points in order to demonstrate improved ADL participation and tolerance. 11/09/23: score 30, 43.18% STG Duration 5 weeks PROGRESSING Usp Goal (LTG) Pt will improve Quickdash score by at least 10 points ( MCID) in order to demonstrate improved ADL participation and tolerance. LTG Duration 10 weeks Four Impairment strength Impairment R shoulder flex MMT 3/5 Short Term Goal (STG) Pt will improve R shoulder flex MMT to at least 3+/5 in order to demonstrate improved shoulder strength for lifting and to perform ADLs. 11/09/23: R shldr flex 3+/5, painful STG Duration 5 weeks MET Pourer Bull Ladle Goal (LTG) Pt will improve R shoulder flex MMT to at least 4-/5 in order to demonstrate improved shoulder strength for lifting and to perform ADLs. LTG Duration 10 weeks Three Impairment ROM Impairment Shldr ER (45 deg HABD) AROM 10 deg Short Term Goal (STG) Pt will increase R shoulder ER (at 45 deg HABD) AROM to at least 30 deg without compensation and < 3/10 pain in order to improve ADL tolerance. 11/09/23: R shldr ER 15 deg at 45 deg abd, painful STG Duration 5 weeks NOT MET Pourer Bull Ladle Goal (LTG) Pt will increase R shoulder ER (at 45 deg HABD) AROM to at least 70 deg without compensation and < 3/10 pain in order to improve ADL tolerance. LTG Duration 10 weeks Two Impairment ROM Impairment Shldr hor abd AROM 70 deg Short Term Goal (STG) Pt will increase R shoulder horizontal abduction AROM to at least 90 deg without compensation and <3/10 pain in order to demonstrate improved shoulder AROM for reaching. 12/03/23: 110 deg before compensation and pain 11/09/23: 85 deg without compensation, painful STG Duration 5 weeks NOT MET, progressing Usp Goal (LTG) Pt will increase R shoulder horizontal abduction AROM to at least 120 deg without compensation and <3/10 pain in order to demonstrate improved shoulder AROM for reaching. LTG Duration 10 weeks One Impairment ROM Impairment Shldr fwd flex AROM 80 deg Short Term Goal (STG) Pt will increase R shoulder forward flexion AROM to at least 90 deg without compensation and <3/10 pain in order to demonstrate improved shoulder AROM for reaching. 12/03/23: R shoulder flex 115 before compensation and pain 11/09/23: R shldr flex 105 deg , painful, minimal compensation 10/29/23: R shld AROM: FF 108 deg supine, L SL abd 89 deg, 18 deg standing, IR behind back lateral R sacrum. STG Duration 5 weeks MET Usp Goal (LTG) Pt will increase R shoulder forward flexion AROM to at least 120 deg without compensation and <3/10 pain in order to demonstrate improved shoulder AROM for reaching. LTG Duration 10 weeks Assessment Summary Assessment Pt responded well to manual, AAROM but facial squinting expression during at end feel limited range FF, ABD so stopped. Noted improved self humeral inferior glide post cuing for gentle relaxed shld musculture post cuing education. Pt limited into eccentric FF end tx, cues for rhomboid fac didn't demonstrate as well scap stab support as in past tx to gain AAROM. GOod feedback to added cervical stretching to allow UT/ LS elongation counter recruitment during ROM. Physical Therapy Plan Frequency and Duration Frequency of Treatment 2x/Week Duration of treatment (weeks) 10 Plan of Care Start Date 10/09/23 Plan of Care End Date 12/18/23 Therapeutic Interventions Therapeutic Interventions Coordination Training,Home Exercise Program,Joint Mobilizations,Manual Therapy, Neuromuscular Re-education, Patient/Caregiver Education, Soft Tissue Mobilization, Taping,Therapeutic Activities, Therapeutic Exercises Modalities Biofeedback,Cold Pack/Ice Massage,Electric Stimulation, Hot Packs,Iontophoresis, Ultrasound,Vasopneumatic Devices Next Visit Focus/Plan Next Note Type Treatment Note Next Visit Plan Ask response contract relax into scaption, added wall pushup, cont periscap strengthening, inf glide (self ), shoulder ext. Trial shoulder ext, thoracic ext with shoulder flex recheck HEP: supine FF, L SL abd, sup serratus press (add over noodle), chest press, wall posture, resisted ADD/ecc abd, resisted ext/eccentric flexion, eccentric FF walk out , ER with dowel wall pushup. Continue remind pendulum arms swing/scapular AROM during gait. POC: Begin gentle shoulder mobility, periscapular strengthening. Cont manual tx with grade II mobs (III as lashonda ). Continue progress HEP. update PN on 12/10 or 12/12
--- NOTE | 2023-12-10 16:45 | PT.OTN ---
Current Diagnoses Other articular cartilage disorders, right shoulder (12/10/23) Pain in right shoulder (12/10/23) Adhesive capsulitis of unspecified shoulder (12/10/23) Incomplete rotator cuff tear or rupture of unspecified shoulder, not specified as traumatic (12/10/23) Physical Therapy Treatment Note PT-OP-A Visit Information Start: 10/09/23 15:41 Freq: Status: Active Protocol: Document 12/10/23 13:50 NM (Rec: 12/10/23 14:33 NM [id number]) Out-Patient Physical Therapy Visit Information Visit Information Visit Type Progress Note Visit Start Time 13:50 Visit Stop Time 14:30 Visit Number [id number] Evaluation Information Evaluation Date 10/09/23 PT-OP-B Current Condition Start: 10/09/23 15:41 Freq: Status: Active Protocol: Document 10/09/23 15:42 NM (Rec: 10/09/23 16:46 NM [id number]) Current Condition History of Current Condition Onset Date January 2023 Current Complaints R shoulder pain, limited R shoulder mobility, difficulty with ADLs History of Current Condition Pt presents to clinic with R shoulder pain that began insidiously in January 2023. She reports that she woke up with R shoulder pain one morning. She went to her PCP who ordered an injection and then PT. Her R shoulder pain worsened with PT over the summer. She then sought an appt with an orthopedist, who dx her with adhesive capsulitis and ordered an MRI, referring her back to PT. No surgical repair or GAGANDEEP planned at this time. Since the summer, her pain has decreased considerably and her R shoulder mobility has become more limited. At this time, she reports that she only has pain with jerky movements. Pt has most difficulty with performing her ADLs (putting up hair, dressing), lifting overhead, carrying objects >5# , and general mobility. Prior Treatments and Tests MRI 07/22/23: no full thickness RC rupture, AC joint OA, tendinosis of proximal long head of biceps tendon and infraspinatus, partial tears of subscapularis and supraspinatus, suspected labral tear 12-2 o'clock Treatment Goals Patient/Caregiver Goals Improve R shoulder ROM and strength, be able to put up her hair Prior Functional Status Baseline Function- ADL's Independent Baseline Function- Mobility Independent Baseline Function- Work/School [employer] Baseline Function- Other Prior to January 2023, able to perform all ADLs independently . Current Functional Impairments (Reported) Functional Limitations- ADL's Lifting, putting up hair, dressing, reaching overhead PT-OP-C Subjective Start: 10/09/23 15:41 Freq: Status: Active Protocol: Document 12/10/23 13:50 NM (Rec: 12/10/23 14:33 NM [id number]) OP-PT Subjective Patient Comments Patient Comments Pt reports 2/10 R shoulder pain. No soreness after last treatment. Reports compliance with HEP. She is wanting to continue PT as she feels she is making progress. PT-OP-E Functional Tests Start: 10/09/23 15:41 Freq: Status: Active Protocol: Document 10/09/23 15:42 NM (Rec: 10/09/23 16:46 NM [id number]) Functional Tests Apley's Scratch Test Action 1- Left Able to touch R shoulder- wfl Action 1- Right Able to touch L shoulder- wfl Action 2- Left T4 Action 2- Right R ear (with pain) Action 3- Left T12 Action 3- Right R buttock (pocket) PT-OP-F Manual Assessment Start: 10/09/23 15:41 Freq: Status: Active Protocol: Document 10/09/23 15:42 NM (Rec: 10/09/23 16:46 NM [id number]) Manual Assessments Soft Tissue Assessment Soft Tissue Mobility Assessment No soft tissue restrictions noted around R scapula, trapezius, rhomboids, levator scapulae, scalenes, or SCM. Long head of biceps tendon is palpable and tender to palpation. Joint Mobility Assessment Joint Mobility Assessment Limited R GH PROM in fwd flex, horizontal abd, IR, and ER. End feels are painful and hard . No PROM into ER and limited PROM into IR. ER and IR are most limited. No shoulder subluxation noted. R scapular position is depressed; demos fair scapular control in sidelying but with limited gliding into retraction/ protraction, upward rotation/ elevation PT-OP-J Posture/Palpation/Skin Start: 10/09/23 15:41 Freq: Status: Active Protocol: Document 10/09/23 15:42 NM (Rec: 10/09/23 16:46 NM [id number]) Posture Evaluation Position Standing Evaluation View posterior, lateral Head/C-Spine Posture Neutral Position T-Spine Posture Neutral Thorax Posture (L) Elevated L-Spine Posture Neutral Shoulder Posture (L) Rounded,(R) Rounded,(L) Elevated Scapula Posture (L) Neutral,(R) Protracted,(R) Rotated Down,(R) Depressed Arm Posture (L) Neutral,(R) Internally Rotated Comments Posture Comments R shoulder is depressed compared to L shoulder Palpation Assessment Location R shoulder Palpation Location Anterior shoulder (long heads bicep tendon), posterior shldr /scap Palpation Findings Tenderness Palpation Details Tenderness along R proximal long head biceps tendon PT-OP-K Range of Motion Start: 10/09/23 15:41 Freq: Status: Active Protocol: Document 12/10/23 13:50 NM (Rec: 12/10/23 14:33 NM [id number]) Shoulder Goniometric Range of Motion Shoulder Right Flexion 105 Abduction 85 External Rotation at 90 degrees 0 Abduction External Rotation at 45 degrees 15 Abduction External Rotation at 0 degrees Abduction 20 Internal Rotation 45 Internal Rotation Behind Back (text) L5 Comments 12/10/23: flex 115/123, abd 95/100, ER 30 deg (mid occiput), IR L5 IE 10/09/23 flex: 80 abd: 70 ER 10 deg (@45 deg abd), 10 deg (@0 deg abd) IR 45 deg, buttock (near pocket) Flex, abd, ER, IR painful (ER most limited and painful). PROM flex (90 deg), abd (70 deg), ER (10 deg), IR (55 deg) . PT-OP-L Special Tests Start: 10/09/23 15:41 Freq: Status: Active Protocol: Document 10/09/23 15:42 NM (Rec: 10/09/23 16:46 NM [id number]) Special Tests Shoulder Special Tests Drop Arm Rotator Cuff Test Results negative Comments able to slowly lower arm Speed's Biceps Test Results negative Bureau Test Test Results positive Comments Reproduces pain Empty Can Test Results positive Comments Reproduces pain in rotator cuff area, long head biceps tendon with resistance Belkis's Biceps Test Results negative Comments Does not reproduce pain in LH biceps tendon during resisted supination Biceps Load II Test Test Results positive Comments reproduces pain in anterior shoulder near LH biceps tendon PT-OP-M Strength Start: 10/09/23 15:41 Freq: Status: Active Protocol: Document 12/10/23 13:50 NM (Rec: 12/10/23 14:33 NM [id number]) Shoulder Strength Shoulder Manual Muscle Testing Right Flexion 3+ Fair+ Abduction (C5) 3+ Fair+ External Rotation 4- Good- Internal Rotation 4- Good- Comments 12/10/23: 4- for all motions, min pain with abd IE: flex 3/5 abd 3+/5 add 4+/5 ER 3+/5 IR 4-/5 HABD 3+/5 HADD 4+/5 Pain with resisted ER/IR, abd PT-OP-Q Treatments Start: 10/09/23 15:41 Freq: Status: Active Protocol: Document 12/10/23 13:50 NM (Rec: 12/10/23 14:33 NM [id number]) Therapeutic Exercises Prone Exercises rhythmic stab Prone Exercise Name pendulum Side right Resistance 5# DB R hand Reps/Minutes 2x30 reps Comments improved decrease GH / scapthoracic guarding I,T Prone Exercise Name straight elbow Is Side right Resistance AAROM, therapist assist HABD and eccentric lower as needed Reps/Minutes 1x10 Comments scap tactile UR, DR Sidelying Exercises FF Sidelying Exercise Name AAROM initially Side right Reps/Minutes 1x5 Comments tactile support for scapular and GH R, reports gain more ROM than sitting. openbook Side right Resistance A> AROM Reps/Minutes 1x5 Comments tactile cues scap retraction/ depress ABD Sidelying Exercise Name trialed modified scaption Side right Resistance AAROM> AROM eccentric lowering Reps/Minutes 1x5 Comments cued scapular rotation, minimize UT recruitment, pain end feel today Sitting Exercises inferior glide Sitting Exercise Name self mobilization Side right Resistance LUE creating inf glide in RUE Equipment Used blue ball for UE support, L hand created glide at humerus Reps/Minutes 1x10 with brief hold Comments Mod cues for gentle relaxed shld mus, inferior prox humeral self glide Standing Exercises ER/IR walkout Standing Exercise Name isometric Side right Resistance lvl 3 [place] green tb Equipment Used towel btwn arm/body Reps/Minutes 1x8 ea direction Comments report no pain but feels muscles working Manual Therapy Treatment Soft Tissue Mobilization R shld Body Location rotator cuff, LH biceps, rhomboids Mobilization Type Strumming,Sustained Pressure, Other Intensity/Depth Moderate Body Position hooklying & L Sidelying Comments Manual STMs. Minimal tenderness at rotator cuff. Reports decreased pain with strumming LH bicep after mobilization Joint Mobilizations R scapulothoracic Jt Direction retraction/protraction/ UR/DR Grade II Body Position L SL Reps/Duration 1x10 ea x2 contraction Comments with PROM ABD, HABD, ext, tactile cues . Improved scapular control in sidelying compared to standing R GH jt Joint R Direction posterior, inferior Grade III Body Position Hooklying Reps/Duration 5x30 ea Comments Moderate muscle guarding today . R GHJ elevated on towel. Post and inf glides with oscillations to promote relaxation, improve ROM. Pt fwd flex AROM up to 115 deg, abd AROM up to 110 deg before painful and move into scaption . R GHJ off EOB, moving from 0 deg and up to 45 deg ABD. Grade III mob for ER at 45 deg abd with post glide, limited ROM due to pain Add with neuro-reeducation agonist, antagonist, agonist contraction post mobilization Self-Care/Home Management Treatment Education Patient Education Body Mechanics,Home Exercise Program,Joint Protection,Pain Management,Posture Other Education 8 minutes: PT educated pt on exam findings, POC. PT and pt extensively discussed pt follow up with ortho and possible injection for pain relief to maximize PT visits due to changes in pt progression. Pt is resistant but verbalizes understanding. HEP: ER and IR walkout. PT-OP-R Modalities Start: 10/15/23 07:53 Freq: Status: Active Protocol: Document 10/12/23 14:32 SP (Rec: 10/15/23 07:55 SP [id number]) Hot Pack/Cold Pack Treatment CP Location R shld Patient Position Sitting Treatment Duration (minutes) 6 Patient Tolerance Good Comments CP end tx during wall posture ther ex. PT-OP-T Assessment and Plan Start: 10/09/23 15:41 Freq: Status: Active Protocol: Document 12/10/23 13:50 NM (Rec: 12/10/23 14:33 NM [id number]) Physical Therapy Assessment Goals Eight Impairment function Impairment IR Apley reach to R buttock Short Term Goal (STG) Pt will increase R shoulder IR AROM to at least L4-5 in order to demostrate improved shoulder mobility and ADL tolerance for dressing. 12/10/23, 11/09/23: Pt can reach L5 with R shldr, painful STG Duration 5 weeks MET Elevator Conductor Goal (LTG) Pt will increase R shoulder IR AROM to at least T12-L1 in order to demonstrate improved shoulder mobility and ADL tolerance for dressing. 12/10/23: L5 R shldr IR, painful LTG Duration 10 weeks NOT MET Seven Impairment function Impairment ER apley reach to R ear Short Term Goal (STG) Pt will increase R shoulder ER AROM to base of occiput in order to fix her hair. 12/10/23: R shldr ER to mid- occiput, cued no head flexion compensation 11/09/23: NOT MET- Pt able to reach behind her R ear, but compensates with cervical flexion STG Duration 5 weeks NOT MET, progressing Shelter Goal (LTG) Pt will increase R shoulder ER AROM to at least C7 in order to demonstrate improved shoulder mobility and ADL tolerance. 12/10/23: R shldr ER to mid- occiput, cued no head flexion compensation LTG Duration 10 weeks NOT MET Six Impairment strength Impairment R shoulder abd and ER strength 3+/5 Short Term Goal (STG) Pt will improve R shoulder abd and ER MMT to at least 4-/5 to demonstrate improved shoulder strength for lifting. 12/10/23: 4-/5 MMT for abd and ER; min pain with ABD 11/09/23: ER 4-/5, Abd 3+/5; painful STG Duration 5 weeks MET Elevator Conductor Goal (LTG) Pt will improve R shoulder abd and ER MMT to at least 4/5 to demonstrate improved shoulder strength for lifting. 12/10/23: 4-/5 MMT for abd and ER; min pain with ABD LTG Duration 10 weeks PROGRESSING Five Impairment Function Impairment Quickdash score 33 (50% disability) Short Term Goal (STG) Pt will improve Quickdash score by 5 points in order to demonstrate improved ADL participation and tolerance. 12/10/23: score 22, 25% disability 11/09/23: score 30, 43.18% STG Duration 5 weeks MET Shelter Goal (LTG) Pt will improve Quickdash score by at least 10 points ( MCID) in order to demonstrate improved ADL participation and tolerance. 12/10/23: 22 (25%) LTG Duration 10 weeks MET, PROGRESSING Four Impairment strength Impairment R shoulder flex MMT 3/5 Short Term Goal (STG) Pt will improve R shoulder flex MMT to at least 3+/5 in order to demonstrate improved shoulder strength for lifting and to perform ADLs. 12/10/23: 4-/5 MMT shoulder flex, no pain 11/09/23: R shldr flex 3+/5, painful STG Duration 5 weeks MET Elevator Conductor Goal (LTG) Pt will improve R shoulder flex MMT to at least 4/5 in order to demonstrate improved shoulder strength for lifting and to perform ADLs. GOAL MET- 12/10/23: 4-/5 R shldr flexion MMT; updated to 4+/5 LTG Duration 10 weeks MET; updated Three Impairment ROM Impairment Shldr ER (45 deg HABD) AROM 10 deg Short Term Goal (STG) Pt will increase R shoulder ER (at 45 deg HABD) AROM to at least 30 deg without compensation and < 3/10 pain in order to improve ADL tolerance. 12/10/23: R shldr ER 20 deg at 45 deg abd, 30 deg at 0 deg abd 11/09/23: R shldr ER 15 deg at 45 deg abd, painful STG Duration 5 weeks NOT MET Shelter Goal (LTG) Pt will increase R shoulder ER (at 45 deg HABD) AROM to at least 70 deg without compensation and < 3/10 pain in order to improve ADL tolerance. 12/10/23: R shldr ER 20 deg at 45 deg abd, 30 deg at 0 deg abd LTG Duration 10 weeks NOT MET Two Impairment ROM Impairment Shldr hor abd AROM 70 deg Short Term Goal (STG) Pt will increase R shoulder horizontal abduction AROM to at least 90 deg without compensation and <3/10 pain in order to demonstrate improved shoulder AROM for reaching. 12/10/23: 100 deg R shldr abd before compensation, pain 3/10 12/03/23: 110 deg before compensation and pain 11/09/23: 85 deg without compensation, painful STG Duration 5 weeks MET Shelter Goal (LTG) Pt will increase R shoulder horizontal abduction AROM to at least 120 deg without compensation and <3/10 pain in order to demonstrate improved shoulder AROM for reaching. 12/10/23: 100 deg R shldr abd before compensation, pain 3/10 LTG Duration 10 weeks NOT MET, PROGRESSING One Impairment ROM Impairment Shldr fwd flex AROM 80 deg Short Term Goal (STG) Pt will increase R shoulder forward flexion AROM to at least 90 deg without compensation and <3/10 pain in order to demonstrate improved shoulder AROM for reaching. 12/10/23, 12/03/23: R shoulder flex 115 before compensation and pain 01/1911/09/23: R shldr flex 105 deg , painful, minimal compensation 10/29/23: R shld AROM: FF 108 deg supine, L SL abd 89 deg, 18 deg standing, IR behind back lateral R sacrum. STG Duration 5 weeks MET Shelter Goal (LTG) Pt will increase R shoulder forward flexion AROM to at least 120 deg without compensation and <3/10 pain in order to demonstrate improved shoulder AROM for reaching. LTG Duration 10 weeks Progress Towards Goals Progress Towards Goals Progressing Toward Goals,Slow Progress due to Medical Issues ,Slow Progress - Other Assessment Summary Assessment Majority of session spent on manual treatment to improve R shoulder mobility within limited ranges. Pt continues to have moderate muscle guarding and empty end feels with mobilization, which limits progression. Pt demonstrates improved range after mobilization, flex 115 deg pre/123 deg post, abd 95 deg pre/100 deg post, ER 30 deg at 45 deg abd post. Followed manual with gentle movement re-education to facilitate active RUE elevation in new ROM using agonist-antagonist contraction . Pt able to tolerate self inferior glide mobilization with decreased muscle guarding . Initiated gentle rotator cuff strengthening at 0 deg abd for shoulder strengthening within available ROM; cueing for correct execution and scapular setting to facilitate posterior humeral position and prevent fwd shoulder posture. Pt has been seen since September 2023 for R shoulder adhesive capsulitis. She has been progressing toward goals. Currently, pt has met 6 STGs and 1 LTG. She is progressing toward LTG slowly, primarily limited by pain and muscle guarding. Overall, pt reports significant improvement in both resting/active pain levels and her noticeable ability to use her RUE. However, pt continues to be limited in her R shoulder ROM and strength. She also continues to have limitations in performing ADLs/IADLs. Pt continues to demo decreased humeral movement during RUE elevation and significant muscle guarding, which limits ability to progress through ROM and strength. PT and pt have had extensive discussions about pt progression, and PT strongly encouraged pt to follow up with ortho. Due to insurance limitations, pt mentioned transitioning from 2x/wk to 1x/wk depending on progression wtih good HEP. Pt would benefit from skilled PT for progressive RUE strengthening, improve RUE mobility, improve symptom management, and improve activity tolerance in order to return to PLOF. Physical Therapy Plan Frequency and Duration Frequency of Treatment 1-2x/wk Duration of treatment (weeks) 8 Plan of Care Start Date 12/10/23 Plan of Care End Date 01/28/24 Therapeutic Interventions Therapeutic Interventions Coordination Training,Home Exercise Program,Joint Mobilizations,Manual Therapy, Neuromuscular Re-education, Patient/Caregiver Education, Soft Tissue Mobilization, Taping,Therapeutic Activities, Therapeutic Exercises Modalities Biofeedback,Cold Pack/Ice Massage,Electric Stimulation, Hot Packs,Iontophoresis, Ultrasound,Vasopneumatic Devices Next Visit Focus/Plan Next Note Type Treatment Note Next Visit Plan Ask response contract relax into scaption, added wall pushup, cont periscap strengthening, inf glide (self ), shoulder ext. Trial shoulder ext, thoracic ext with shoulder flex recheck HEP: supine FF, L SL abd, sup serratus press (add over noodle), chest press, wall posture, resisted ADD/ecc abd, resisted ext/eccentric flexion, eccentric FF walk out , ER with dowel wall pushup. Continue remind pendulum arms swing/scapular AROM during gait. POC: Begin gentle shoulder mobility, periscapular strengthening. Cont manual tx with grade II mobs (III as lashonda ). Continue progress HEP. update PN on 12/10 or 12/12
--- NOTE | 2023-12-12 16:28 | PT.OTN ---
Current Diagnoses Other articular cartilage disorders, right shoulder (12/12/23) Pain in right shoulder (12/12/23) Adhesive capsulitis of unspecified shoulder (12/12/23) Incomplete rotator cuff tear or rupture of unspecified shoulder, not specified as traumatic (12/12/23) Physical Therapy Treatment Note PT-OP-A Visit Information Start: 10/09/23 15:41 Freq: Status: Active Protocol: Document 12/12/23 13:49 NM (Rec: 12/12/23 14:30 NM [id number]) Out-Patient Physical Therapy Visit Information Visit Information Visit Type Treatment Note Visit Note 11/21 post PN Visit Start Time 13:48 Visit Stop Time 14:30 Visit Number [id number] Evaluation Information Evaluation Date 10/09/23 PT-OP-B Current Condition Start: 10/09/23 15:41 Freq: Status: Active Protocol: Document 10/09/23 15:42 NM (Rec: 10/09/23 16:46 NM [id number]) Current Condition History of Current Condition Onset Date January 2023 Current Complaints R shoulder pain, limited R shoulder mobility, difficulty with ADLs History of Current Condition Pt presents to clinic with R shoulder pain that began insidiously in January 2023. She reports that she woke up with R shoulder pain one morning. She went to her PCP who ordered an injection and then PT. Her R shoulder pain worsened with PT over the summer. She then sought an appt with an orthopedist, who dx her with adhesive capsulitis and ordered an MRI, referring her back to PT. No surgical repair or GAGANDEEP planned at this time. Since the summer, her pain has decreased considerably and her R shoulder mobility has become more limited. At this time, she reports that she only has pain with jerky movements. Pt has most difficulty with performing her ADLs (putting up hair, dressing), lifting overhead, carrying objects >5# , and general mobility. Prior Treatments and Tests MRI 07/22/23: no full thickness RC rupture, AC joint OA, tendinosis of proximal long head of biceps tendon and infraspinatus, partial tears of subscapularis and supraspinatus, suspected labral tear 12-2 o'clock Treatment Goals Patient/Caregiver Goals Improve R shoulder ROM and strength, be able to put up her hair Prior Functional Status Baseline Function- ADL's Independent Baseline Function- Mobility Independent Baseline Function- Work/School [employer] Baseline Function- Other Prior to January 2023, able to perform all ADLs independently . Current Functional Impairments (Reported) Functional Limitations- ADL's Lifting, putting up hair, dressing, reaching overhead PT-OP-C Subjective Start: 10/09/23 15:41 Freq: Status: Active Protocol: Document 12/12/23 13:49 NM (Rec: 12/12/23 14:30 NM [id number]) OP-PT Subjective Patient Comments Patient Comments Pt reports 3/10 R shoulder pain, specifically at LH biceps tendon. She has a referral to ortho PT-OP-E Functional Tests Start: 10/09/23 15:41 Freq: Status: Active Protocol: Document 10/09/23 15:42 NM (Rec: 10/09/23 16:46 NM [id number]) Functional Tests Apley's Scratch Test Action 1- Left Able to touch R shoulder- wfl Action 1- Right Able to touch L shoulder- wfl Action 2- Left T4 Action 2- Right R ear (with pain) Action 3- Left T12 Action 3- Right R buttock (pocket) PT-OP-F Manual Assessment Start: 10/09/23 15:41 Freq: Status: Active Protocol: Document 10/09/23 15:42 NM (Rec: 10/09/23 16:46 NM [id number]) Manual Assessments Soft Tissue Assessment Soft Tissue Mobility Assessment No soft tissue restrictions noted around R scapula, trapezius, rhomboids, levator scapulae, scalenes, or SCM. Long head of biceps tendon is palpable and tender to palpation. Joint Mobility Assessment Joint Mobility Assessment Limited R GH PROM in fwd flex, horizontal abd, IR, and ER. End feels are painful and hard . No PROM into ER and limited PROM into IR. ER and IR are most limited. No shoulder subluxation noted. R scapular position is depressed; demos fair scapular control in sidelying but with limited gliding into retraction/ protraction, upward rotation/ elevation PT-OP-J Posture/Palpation/Skin Start: 10/09/23 15:41 Freq: Status: Active Protocol: Document 10/09/23 15:42 NM (Rec: 10/09/23 16:46 NM [id number]) Posture Evaluation Position Standing Evaluation View posterior, lateral Head/C-Spine Posture Neutral Position T-Spine Posture Neutral Thorax Posture (L) Elevated L-Spine Posture Neutral Shoulder Posture (L) Rounded,(R) Rounded,(L) Elevated Scapula Posture (L) Neutral,(R) Protracted,(R) Rotated Down,(R) Depressed Arm Posture (L) Neutral,(R) Internally Rotated Comments Posture Comments R shoulder is depressed compared to L shoulder Palpation Assessment Location R shoulder Palpation Location Anterior shoulder (long heads bicep tendon), posterior shldr /scap Palpation Findings Tenderness Palpation Details Tenderness along R proximal long head biceps tendon PT-OP-K Range of Motion Start: 10/09/23 15:41 Freq: Status: Active Protocol: Document 12/10/23 13:50 NM (Rec: 12/10/23 14:33 NM [id number]) Shoulder Goniometric Range of Motion Shoulder Right Flexion 105 Abduction 85 External Rotation at 90 degrees 0 Abduction External Rotation at 45 degrees 15 Abduction External Rotation at 0 degrees Abduction 20 Internal Rotation 45 Internal Rotation Behind Back (text) L5 Comments 12/10/23: flex 115/123, abd 95/100, ER 30 deg (mid occiput), IR L5 IE 10/09/23 flex: 80 abd: 70 ER 10 deg (@45 deg abd), 10 deg (@0 deg abd) IR 45 deg, buttock (near pocket) Flex, abd, ER, IR painful (ER most limited and painful). PROM flex (90 deg), abd (70 deg), ER (10 deg), IR (55 deg) . PT-OP-L Special Tests Start: 10/09/23 15:41 Freq: Status: Active Protocol: Document 10/09/23 15:42 NM (Rec: 10/09/23 16:46 NM [id number]) Special Tests Shoulder Special Tests Drop Arm Rotator Cuff Test Results negative Comments able to slowly lower arm Speed's Biceps Test Results negative [place] Test Test Results positive Comments Reproduces pain Empty Can Test Results positive Comments Reproduces pain in rotator cuff area, long head biceps tendon with resistance Yergason's Biceps Test Results negative Comments Does not reproduce pain in LH biceps tendon during resisted supination Biceps Load II Test Test Results positive Comments reproduces pain in anterior shoulder near LH biceps tendon PT-OP-M Strength Start: 10/09/23 15:41 Freq: Status: Active Protocol: Document 12/10/23 13:50 NM (Rec: 12/10/23 14:33 NM [id number]) Shoulder Strength Shoulder Manual Muscle Testing Right Flexion 3+ Fair+ Abduction (C5) 3+ Fair+ External Rotation 4- Good- Internal Rotation 4- Good- Comments 12/10/23: 4- for all motions, min pain with abd IE: flex 3/5 abd 3+/5 add 4+/5 ER 3+/5 IR 4-/5 HABD 3+/5 HADD 4+/5 Pain with resisted ER/IR, abd PT-OP-Q Treatments Start: 10/09/23 15:41 Freq: Status: Active Protocol: Document 12/12/23 13:49 NM (Rec: 12/12/23 14:30 NM [id number]) Therapeutic Exercises Prone Exercises I,T Prone Exercise Name straight elbow Is, row Side right Resistance AAROM, therapist assist HABD and eccentric lower as needed Reps/Minutes 2x10 Comments scap tactile UR, DR; good retract; no pain Sitting Exercises pulleys Sitting Exercise Name flexion, scaption Side right Equipment Used mob belt at R shoulder to stabilize scap, only humeral motion Reps/Minutes 1x5 ea with 3 hold at top Comments cue for pain free, to tolerance Standing Exercises shoulder ext Side bilateral Resistance [place] lvl 3 Reps/Minutes 1x10 Comments cue for scap setting; reports no bicep tenderness shoulder flex isometric Side right Resistance 50% pt force Reps/Minutes 10x10 Comments at mid range; not painful ER/IR walkout Standing Exercise Name isometric Side right Resistance lvl 3 [place] tb Equipment Used towel btwn arm/body; cued no trunk rot, arm // to body Reps/Minutes 1x10 ea direction Comments report no pain but feels muscles working table walk out Standing Exercise Name flex at rail Side right Resistance AAROM FF therapist tactile cue Equipment Used pain end feel Reps/Minutes 1x5 ea Comments cued walk out to comfort R shld FF ROM, hold with breath relax shld IR Standing Exercise Name towel stretch behind back (IR and ADD) Side right Equipment Used left assisting R Reps/Minutes 5x10 Comments cued no push into pain; pt reports pushing it on this one Manual Therapy Treatment Joint Mobilizations R GH jt Joint R Direction posterior, inferior Grade III Body Position Hooklying Reps/Duration 6x30 ea Comments Moderate muscle guarding today . R GHJ elevated on towel. Post and inf glides with oscillations to promote relaxation, improve ROM. Pt fwd flex AROM up to 120 deg, abd AROM up to 110 deg before painful and move into scaption . R GHJ off EOB, moving from 0 deg and up to 45 deg ABD. Grade III mob for ER at 45 deg abd with post glide, limited ROM due to pain Add with neuro-reeducation agonist, antagonist, agonist contraction post mobilization. Min pain with resisted flex Self-Care/Home Management Treatment Education Patient Education Home Exercise Program Other Education HEP: prone I and row, shoulder ext, shoulder flexion isometric PT-OP-R Modalities Start: 10/15/23 07:53 Freq: Status: Active Protocol: Document 10/12/23 14:32 SP (Rec: 10/15/23 07:55 SP [id number]) Hot Pack/Cold Pack Treatment CP Location R shld Patient Position Sitting Treatment Duration (minutes) 6 Patient Tolerance Good Comments CP end tx during wall posture ther ex. PT-OP-T Assessment and Plan Start: 10/09/23 15:41 Freq: Status: Active Protocol: Document 12/12/23 13:49 NM (Rec: 12/12/23 14:30 NM [id number]) Physical Therapy Assessment Goals Eight Impairment function Impairment IR Apley reach to R buttock Short Term Goal (STG) Pt will increase R shoulder IR AROM to at least L4-5 in order to demostrate improved shoulder mobility and ADL tolerance for dressing. 12/10/23, 11/09/23: Pt can reach L5 with R shldr, painful STG Duration 5 weeks MET Lamp Shade Maker Goal (LTG) Pt will increase R shoulder IR AROM to at least T12-L1 in order to demonstrate improved shoulder mobility and ADL tolerance for dressing. 12/10/23: L5 R shldr IR, painful LTG Duration 10 weeks NOT MET Seven Impairment function Impairment ER apley reach to R ear Short Term Goal (STG) Pt will increase R shoulder ER AROM to base of occiput in order to fix her hair. 12/10/23: R shldr ER to mid- occiput, cued no head flexion compensation 11/09/23: NOT MET- Pt able to reach behind her R ear, but compensates with cervical flexion STG Duration 5 weeks NOT MET, progressing Usp Goal (LTG) Pt will increase R shoulder ER AROM to at least C7 in order to demonstrate improved shoulder mobility and ADL tolerance. 12/10/23: R shldr ER to mid- occiput, cued no head flexion compensation LTG Duration 10 weeks NOT MET Six Impairment strength Impairment R shoulder abd and ER strength 3+/5 Short Term Goal (STG) Pt will improve R shoulder abd and ER MMT to at least 4-/5 to demonstrate improved shoulder strength for lifting. 12/10/23: 4-/5 MMT for abd and ER; min pain with ABD 11/09/23: ER 4-/5, Abd 3+/5; painful STG Duration 5 weeks MET Lamp Shade Maker Goal (LTG) Pt will improve R shoulder abd and ER MMT to at least 4/5 to demonstrate improved shoulder strength for lifting. 12/10/23: 4-/5 MMT for abd and ER; min pain with ABD LTG Duration 10 weeks PROGRESSING Five Impairment Function Impairment Quickdash score 33 (50% disability) Short Term Goal (STG) Pt will improve Quickdash score by 5 points in order to demonstrate improved ADL participation and tolerance. 12/10/23: score 22, 25% disability 11/09/23: score 30, 43.18% STG Duration 5 weeks MET Usp Goal (LTG) Pt will improve Quickdash score by at least 10 points ( MCID) in order to demonstrate improved ADL participation and tolerance. 12/10/23: 22 (25%) LTG Duration 10 weeks MET, PROGRESSING Four Impairment strength Impairment R shoulder flex MMT 3/5 Short Term Goal (STG) Pt will improve R shoulder flex MMT to at least 3+/5 in order to demonstrate improved shoulder strength for lifting and to perform ADLs. 12/10/23: 4-/5 MMT shoulder flex, no pain 11/09/23: R shldr flex 3+/5, painful STG Duration 5 weeks MET Lamp Shade Maker Goal (LTG) Pt will improve R shoulder flex MMT to at least 4/5 in order to demonstrate improved shoulder strength for lifting and to perform ADLs. GOAL MET- 12/10/23: 4-/5 R shldr flexion MMT; updated to 4+/5 LTG Duration 10 weeks MET; updated Three Impairment ROM Impairment Shldr ER (45 deg HABD) AROM 10 deg Short Term Goal (STG) Pt will increase R shoulder ER (at 45 deg HABD) AROM to at least 30 deg without compensation and < 3/10 pain in order to improve ADL tolerance. 12/10/23: R shldr ER 20 deg at 45 deg abd, 30 deg at 0 deg abd 11/09/23: R shldr ER 15 deg at 45 deg abd, painful STG Duration 5 weeks NOT MET Lamp Shade Maker Goal (LTG) Pt will increase R shoulder ER (at 45 deg HABD) AROM to at least 70 deg without compensation and < 3/10 pain in order to improve ADL tolerance. 12/10/23: R shldr ER 20 deg at 45 deg abd, 30 deg at 0 deg abd LTG Duration 10 weeks NOT MET Two Impairment ROM Impairment Shldr hor abd AROM 70 deg Short Term Goal (STG) Pt will increase R shoulder horizontal abduction AROM to at least 90 deg without compensation and <3/10 pain in order to demonstrate improved shoulder AROM for reaching. 12/10/23: 100 deg R shldr abd before compensation, pain 3/10 12/03/23: 110 deg before compensation and pain 11/09/23: 85 deg without compensation, painful STG Duration 5 weeks MET Usp Goal (LTG) Pt will increase R shoulder horizontal abduction AROM to at least 120 deg without compensation and <3/10 pain in order to demonstrate improved shoulder AROM for reaching. 12/10/23: 100 deg R shldr abd before compensation, pain 3/10 LTG Duration 10 weeks NOT MET, PROGRESSING One Impairment ROM Impairment Shldr fwd flex AROM 80 deg Short Term Goal (STG) Pt will increase R shoulder forward flexion AROM to at least 90 deg without compensation and <3/10 pain in order to demonstrate improved shoulder AROM for reaching. 12/10/23, 12/03/23: R shoulder flex 115 before compensation and pain 3/10 11/09/23: R shldr flex 105 deg , painful, minimal compensation 10/29/23: R shld AROM: FF 108 deg supine, L SL abd 89 deg, 18 deg standing, IR behind back lateral R sacrum. STG Duration 5 weeks MET Lamp Shade Maker Goal (LTG) Pt will increase R shoulder forward flexion AROM to at least 120 deg without compensation and <3/10 pain in order to demonstrate improved shoulder AROM for reaching. LTG Duration 10 weeks Assessment Summary Assessment Pt tolerated session well. Consistently 115 deg flex and 90 deg abd prior to UT compensation. After mobilization, 120 deg flex AROM and 110 abd AROM before compensation. Pt demos less muscle guarding today, but still limited in ability to progress further into ROM. Tolerates oscillations best. Initiated gentle shoulder flexion isometrics against wall for biceps tendonosis; cued for 50% force at midrange , but not to move into painful contraction. Trialed use of mobilization belt during pulleys to limit R shoulder shrug and to stabilize scapula better. She demos improved scapular control during prone I's. Tactile cues for scapular motion, posture, arm position . Pt now has referral to ortho . Updated HEP as pt is likely moving down to 1x/wk due to insurance. Pt would benefit from skilled PT for progressive R shoulder mobility and strength, in addition to symptom management in order to improve QOL. Physical Therapy Plan Frequency and Duration Frequency of Treatment 1-2x/wk Duration of treatment (weeks) 8 Plan of Care Start Date 12/10/23 Plan of Care End Date 01/28/24 Therapeutic Interventions Therapeutic Interventions Coordination Training,Home Exercise Program,Joint Mobilizations,Manual Therapy, Neuromuscular Re-education, Patient/Caregiver Education, Soft Tissue Mobilization, Taping,Therapeutic Activities, Therapeutic Exercises Modalities Biofeedback,Cold Pack/Ice Massage,Electric Stimulation, Hot Packs,Iontophoresis, Ultrasound,Vasopneumatic Devices Next Visit Focus/Plan Next Note Type Treatment Note Next Visit Plan Ask response contract relax into scaption, added wall pushup, cont periscap strengthening, inf glide (self ), shoulder ext. Trial shoulder ext, thoracic ext with shoulder flex recheck HEP: supine FF, L SL abd, sup serratus press (add over noodle), chest press, wall posture, resisted ADD/ecc abd, resisted ext/eccentric flexion, eccentric FF walk out , ER with dowel wall pushup. Continue remind pendulum arms swing/scapular AROM during gait. POC: Begin gentle shoulder mobility, periscapular strengthening. Cont manual tx with grade II mobs (III as lashonda ). Continue progress HEP.
--- NOTE | 2023-12-17 16:11 | PT.OTN ---
Current Diagnoses Other articular cartilage disorders, right shoulder (12/17/23) Pain in right shoulder (12/17/23) Adhesive capsulitis of unspecified shoulder (12/17/23) Incomplete rotator cuff tear or rupture of unspecified shoulder, not specified as traumatic (12/17/23) Physical Therapy Treatment Note PT-OP-A Visit Information Start: 10/09/23 15:41 Freq: Status: Active Protocol: Document 12/17/23 13:05 NM (Rec: 12/17/23 13:45 NM [id number]) Out-Patient Physical Therapy Visit Information Visit Information Visit Type Treatment Note Visit Note 12/22 post PN Visit Start Time 13:04 Visit Stop Time 13:45 Visit Number 19 Evaluation Information Evaluation Date 10/09/23 PT-OP-B Current Condition Start: 10/09/23 15:41 Freq: Status: Active Protocol: Document 10/09/23 15:42 NM (Rec: 10/09/23 16:46 NM [id number]) Current Condition History of Current Condition Onset Date January 2023 Current Complaints R shoulder pain, limited R shoulder mobility, difficulty with ADLs History of Current Condition Pt presents to clinic with R shoulder pain that began insidiously in January 2023. She reports that she woke up with R shoulder pain one morning. She went to her PCP who ordered an injection and then PT. Her R shoulder pain worsened with PT over the summer. She then sought an appt with an orthopedist, who dx her with adhesive capsulitis and ordered an MRI, referring her back to PT. No surgical repair or GAGANDEEP planned at this time. Since the summer, her pain has decreased considerably and her R shoulder mobility has become more limited. At this time, she reports that she only has pain with jerky movements. Pt has most difficulty with performing her ADLs (putting up hair, dressing), lifting overhead, carrying objects >5# , and general mobility. Prior Treatments and Tests MRI 07/22/23: no full thickness RC rupture, AC joint OA, tendinosis of proximal long head of biceps tendon and infraspinatus, partial tears of subscapularis and supraspinatus, suspected labral tear 12-2 o'clock Treatment Goals Patient/Caregiver Goals Improve R shoulder ROM and strength, be able to put up her hair Prior Functional Status Baseline Function- ADL's Independent Baseline Function- Mobility Independent Baseline Function- Work/School [employer] Baseline Function- Other Prior to January 2023, able to perform all ADLs independently . Current Functional Impairments (Reported) Functional Limitations- ADL's Lifting, putting up hair, dressing, reaching overhead PT-OP-C Subjective Start: 10/09/23 15:41 Freq: Status: Active Protocol: Document 12/17/23 13:05 NM (Rec: 12/17/23 13:45 NM [id number]) OP-PT Subjective Patient Comments Patient Comments Pt reports increased tenderness at R LH biceps tendon. No change in pain levels, but definitely worse with activity. She had to cancel several appt due to going out of town soon. She is still waiting on referral to ortho PT-OP-E Functional Tests Start: 10/09/23 15:41 Freq: Status: Active Protocol: Document 10/09/23 15:42 NM (Rec: 10/09/23 16:46 NM [id number]) Functional Tests Apley's Scratch Test Action 1- Left Able to touch R shoulder- wfl Action 1- Right Able to touch L shoulder- wfl Action 2- Left T4 Action 2- Right R ear (with pain) Action 3- Left T12 Action 3- Right R buttock (pocket) PT-OP-F Manual Assessment Start: 10/09/23 15:41 Freq: Status: Active Protocol: Document 10/09/23 15:42 NM (Rec: 10/09/23 16:46 NM [id number]) Manual Assessments Soft Tissue Assessment Soft Tissue Mobility Assessment No soft tissue restrictions noted around R scapula, trapezius, rhomboids, levator scapulae, scalenes, or SCM. Long head of biceps tendon is palpable and tender to palpation. Joint Mobility Assessment Joint Mobility Assessment Limited R GH PROM in fwd flex, horizontal abd, IR, and ER. End feels are painful and hard . No PROM into ER and limited PROM into IR. ER and IR are most limited. No shoulder subluxation noted. R scapular position is depressed; demos fair scapular control in sidelying but with limited gliding into retraction/ protraction, upward rotation/ elevation PT-OP-J Posture/Palpation/Skin Start: 10/09/23 15:41 Freq: Status: Active Protocol: Document 10/09/23 15:42 NM (Rec: 10/09/23 16:46 NM [id number]) Posture Evaluation Position Standing Evaluation View posterior, lateral Head/C-Spine Posture Neutral Position T-Spine Posture Neutral Thorax Posture (L) Elevated L-Spine Posture Neutral Shoulder Posture (L) Rounded,(R) Rounded,(L) Elevated Scapula Posture (L) Neutral,(R) Protracted,(R) Rotated Down,(R) Depressed Arm Posture (L) Neutral,(R) Internally Rotated Comments Posture Comments R shoulder is depressed compared to L shoulder Palpation Assessment Location R shoulder Palpation Location Anterior shoulder (long heads bicep tendon), posterior shldr /scap Palpation Findings Tenderness Palpation Details Tenderness along R proximal long head biceps tendon PT-OP-K Range of Motion Start: 10/09/23 15:41 Freq: Status: Active Protocol: Document 12/10/23 13:50 NM (Rec: 12/10/23 14:33 NM [id number]) Shoulder Goniometric Range of Motion Shoulder Right Flexion 105 Abduction 85 External Rotation at 90 degrees 0 Abduction External Rotation at 45 degrees 15 Abduction External Rotation at 0 degrees Abduction 20 Internal Rotation 45 Internal Rotation Behind Back (text) L5 Comments 12/10/23: flex 115/123, abd 95/100, ER 30 deg (mid occiput), IR L5 IE 10/09/23 flex: 80 abd: 70 ER 10 deg (@45 deg abd), 10 deg (@0 deg abd) IR 45 deg, buttock (near pocket) Flex, abd, ER, IR painful (ER most limited and painful). PROM flex (90 deg), abd (70 deg), ER (10 deg), IR (55 deg) . PT-OP-L Special Tests Start: 10/09/23 15:41 Freq: Status: Active Protocol: Document 10/09/23 15:42 NM (Rec: 10/09/23 16:46 NM [id number]) Special Tests Shoulder Special Tests Drop Arm Rotator Cuff Test Results negative Comments able to slowly lower arm Speed's Biceps Test Results negative Jones Test Test Results positive Comments Reproduces pain Empty Can Test Results positive Comments Reproduces pain in rotator cuff area, long head biceps tendon with resistance Josérdayanara's Biceps Test Results negative Comments Does not reproduce pain in LH biceps tendon during resisted supination Biceps Load II Test Test Results positive Comments reproduces pain in anterior shoulder near LH biceps tendon PT-OP-M Strength Start: 10/09/23 15:41 Freq: Status: Active Protocol: Document 12/10/23 13:50 NM (Rec: 12/10/23 14:33 NM [id number]) Shoulder Strength Shoulder Manual Muscle Testing Right Flexion 3+ Fair+ Abduction (C5) 3+ Fair+ External Rotation 4- Good- Internal Rotation 4- Good- Comments 12/10/23: 4- for all motions, min pain with abd IE: flex 3/5 abd 3+/5 add 4+/5 ER 3+/5 IR 4-/5 HABD 3+/5 HADD 4+/5 Pain with resisted ER/IR, abd PT-OP-Q Treatments Start: 10/09/23 15:41 Freq: Status: Active Protocol: Document 12/17/23 13:05 NM (Rec: 12/17/23 13:45 NM [id number]) Therapeutic Exercises Supine Exercises serratus press Side right Resistance 2# db Reps/Minutes 2x10 Comments cues to decrease UT compensation as fatigues Prone Exercises child's pose Prone Exercise Name AROM to shldr flexion stretch Side bilateral Equipment Used on table Reps/Minutes 5x10 Comments cued shldr relaxation, no shldr girdle rotation rhythmic stab Prone Exercise Name pendulum Side right Resistance 5# DB R hand Reps/Minutes 2x30 reps Comments improved decrease GH / scapthoracic guarding I,T Prone Exercise Name straight elbow Is, row Side right Resistance AAROM, therapist assist HABD and eccentric lower as needed Equipment Used arm off table; 1# db Reps/Minutes 2x10 Comments scap tactile UR, DR; good retraction; small stretch ant shldr end range Sitting Exercises pulleys Sitting Exercise Name flexion, scaption Side right Equipment Used mob belt at R shoulder to stabilize scap, only humeral motion Reps/Minutes 1x10 ea with 1 hold at top Comments cue for pain free, to tolerance Standing Exercises IR Standing Exercise Name 1. towel stretch behind back ( IR and ADD), 2. shldr ext with IR Side right Equipment Used left assisting R Reps/Minutes 1. 5x10, 2. 1x10 (reports not painful) Comments cued not to push into pain; demos ant humeral head Manual Therapy Treatment Soft Tissue Mobilization R shld Body Location LH biceps, rotator cuff insertion on humeral head Mobilization Type Strumming,Other Intensity/Depth Superficial Body Position Hooklying Comments strumming LH bicep prior to mobilization. Reports feels like a bruise but decreased pain/tenderness with superficial strumming over anterior portion Joint Mobilizations 1st Rib Joint R Direction caudal Grade III Body Position Supine Reps/Duration 1x10 Comments Added with mobilization with movement (shrug> then scap depression) R AC jt Joint gapping, springing Direction A/P and P/A Grade III Body Position Supine Reps/Duration 1x10 ea Comments To increase mobility at R shldr joint. Limited excursion of clavicle with arm elevation R GH jt Joint R Direction posterior, inferior Grade III Body Position Hooklying Reps/Duration 4x30 ea Comments Moderate muscle guarding today . R GHJ elevated on towel, scapula stabilized by strap. Post and inf glides with oscillations to promote relaxation, improve ROM. Up to 125 deg fwd flexion with scapula stabilized, still 90 deg abd before pain endfeel and bony block occurs. Grade III mob for ER at 45 deg abd with post glide, limited ER ROM due to pain but improved posterior glide with repetitions Then seated inferior glide with R arm elevated on table in sitting at height where humerus begins to translate superiorly, PT performing grade II>III inf glide onto humeral head Self-Care/Home Management Treatment Education Patient Education Home Exercise Program,Joint Protection,Pain Management Other Education HEP: continue prone I/rows; added child's pose stretch for shoulder flexion PT-OP-R Modalities Start: 10/15/23 07:53 Freq: Status: Active Protocol: Document 10/12/23 14:32 SP (Rec: 10/15/23 07:55 SP [id number]) Hot Pack/Cold Pack Treatment CP Location R shld Patient Position Sitting Treatment Duration (minutes) 6 Patient Tolerance Good Comments CP end tx during wall posture ther ex. PT-OP-T Assessment and Plan Start: 10/09/23 15:41 Freq: Status: Active Protocol: Document 12/17/23 13:05 NM (Rec: 12/17/23 13:45 NM [id number]) Physical Therapy Assessment Goals Eight Impairment function Impairment IR Apley reach to R buttock Short Term Goal (STG) Pt will increase R shoulder IR AROM to at least L4-5 in order to demostrate improved shoulder mobility and ADL tolerance for dressing. 12/10/23, 11/09/23: Pt can reach L5 with R shldr, painful STG Duration 5 weeks MET Occupational Therapy Co Director Goal (LTG) Pt will increase R shoulder IR AROM to at least T12-L1 in order to demonstrate improved shoulder mobility and ADL tolerance for dressing. 12/10/23: L5 R shldr IR, painful LTG Duration 10 weeks NOT MET Seven Impairment function Impairment ER apley reach to R ear Short Term Goal (STG) Pt will increase R shoulder ER AROM to base of occiput in order to fix her hair. 12/10/23: R shldr ER to mid- occiput, cued no head flexion compensation 11/09/23: NOT MET- Pt able to reach behind her R ear, but compensates with cervical flexion STG Duration 5 weeks NOT MET, progressing [facility] Goal (LTG) Pt will increase R shoulder ER AROM to at least C7 in order to demonstrate improved shoulder mobility and ADL tolerance. 12/10/23: R shldr ER to mid- occiput, cued no head flexion compensation LTG Duration 10 weeks NOT MET Six Impairment strength Impairment R shoulder abd and ER strength 3+/5 Short Term Goal (STG) Pt will improve R shoulder abd and ER MMT to at least 4-/5 to demonstrate improved shoulder strength for lifting. 12/10/23: 4-/5 MMT for abd and ER; min pain with ABD 11/09/23: ER 4-/5, Abd 3+/5; painful STG Duration 5 weeks MET [facility] Goal (LTG) Pt will improve R shoulder abd and ER MMT to at least 4/5 to demonstrate improved shoulder strength for lifting. 12/10/23: 4-/5 MMT for abd and ER; min pain with ABD LTG Duration 10 weeks PROGRESSING Five Impairment Function Impairment Quickdash score 33 (50% disability) Short Term Goal (STG) Pt will improve Quickdash score by 5 points in order to demonstrate improved ADL participation and tolerance. 12/10/23: score 22, 25% disability 11/09/23: score 30, 43.18% STG Duration 5 weeks MET [facility] Goal (LTG) Pt will improve Quickdash score by at least 10 points ( MCID) in order to demonstrate improved ADL participation and tolerance. 12/10/23: 22 (25%) LTG Duration 10 weeks MET, PROGRESSING Four Impairment strength Impairment R shoulder flex MMT 3/5 Short Term Goal (STG) Pt will improve R shoulder flex MMT to at least 3+/5 in order to demonstrate improved shoulder strength for lifting and to perform ADLs. 12/10/23: 4-/5 MMT shoulder flex, no pain 11/09/23: R shldr flex 3+/5, painful STG Duration 5 weeks MET Occupational Therapy Co Director Goal (LTG) Pt will improve R shoulder flex MMT to at least 4/5 in order to demonstrate improved shoulder strength for lifting and to perform ADLs. GOAL MET- 12/10/23: 4-/5 R shldr flexion MMT; updated to 4+/5 LTG Duration 10 weeks MET; updated Three Impairment ROM Impairment Shldr ER (45 deg HABD) AROM 10 deg Short Term Goal (STG) Pt will increase R shoulder ER (at 45 deg HABD) AROM to at least 30 deg without compensation and < 3/10 pain in order to improve ADL tolerance. 12/10/23: R shldr ER 20 deg at 45 deg abd, 30 deg at 0 deg abd 11/09/23: R shldr ER 15 deg at 45 deg abd, painful STG Duration 5 weeks NOT MET Occupational Therapy Co Director Goal (LTG) Pt will increase R shoulder ER (at 45 deg HABD) AROM to at least 70 deg without compensation and < 3/10 pain in order to improve ADL tolerance. 12/10/23: R shldr ER 20 deg at 45 deg abd, 30 deg at 0 deg abd LTG Duration 10 weeks NOT MET Two Impairment ROM Impairment Shldr hor abd AROM 70 deg Short Term Goal (STG) Pt will increase R shoulder horizontal abduction AROM to at least 90 deg without compensation and <3/10 pain in order to demonstrate improved shoulder AROM for reaching. 12/10/23: 100 deg R shldr abd before compensation, pain 3/10 12/03/23: 110 deg before compensation and pain 11/09/23: 85 deg without compensation, painful STG Duration 5 weeks MET [facility] Goal (LTG) Pt will increase R shoulder horizontal abduction AROM to at least 120 deg without compensation and <3/10 pain in order to demonstrate improved shoulder AROM for reaching. 12/10/23: 100 deg R shldr abd before compensation, pain 3/10 LTG Duration 10 weeks NOT MET, PROGRESSING One Impairment ROM Impairment Shldr fwd flex AROM 80 deg Short Term Goal (STG) Pt will increase R shoulder forward flexion AROM to at least 90 deg without compensation and <3/10 pain in order to demonstrate improved shoulder AROM for reaching. 12/10/23, 12/03/23: R shoulder flex 115 before compensation and pain 311/09/23: R shldr flex 105 deg , painful, minimal compensation 10/29/23: R shld AROM: FF 108 deg supine, L SL abd 89 deg, 18 deg standing, IR behind back lateral R sacrum. STG Duration 5 weeks MET Occupational Therapy Co Director Goal (LTG) Pt will increase R shoulder forward flexion AROM to at least 120 deg without compensation and <3/10 pain in order to demonstrate improved shoulder AROM for reaching. LTG Duration 10 weeks Assessment Summary Assessment Pt continues to use upper trap to compensate for arm elevation and demos moderate muscle guarding with mobilization. However, able to perform 125 deg of fwd flexion with scapula blocked post mobilization and 120 deg without scapula blocked post mobilization before compensation; still limited to 90 deg abduction before upper trap compensation and increased pain. Trialed use of strap across scapula to stabilize today during mobilizations. Pt has improved tolerance to grade III mobilizations, but continues to demos moderate guarding. Added AC joint mobilization to improve mobility at all portions of R shoulder joint and R 1st rib caudal mobilization to decrease muscle guarding. Progressed prone I and rows to 2# db with pt still demonstrating good scapular control. Initiated child's pose stretch for shoulder flexion with cues to limit shoulder rotation into stretch. PT discussed decreasing force for shoulder flexion isometric for pain reduction when performing ( reports increased pain after) and discontinuing exercise if pain persist; pt verbalizes understanding. Pt would benefit from skilled PT to address impairments in R shoulder mobility, strength, and pain management in order to improve activity tolerance and return to PLOF. Physical Therapy Plan Frequency and Duration Frequency of Treatment 1-2x/wk Duration of treatment (weeks) 8 Plan of Care Start Date 12/10/23 Plan of Care End Date 01/28/24 Therapeutic Interventions Therapeutic Interventions Coordination Training,Home Exercise Program,Joint Mobilizations,Manual Therapy, Neuromuscular Re-education, Patient/Caregiver Education, Soft Tissue Mobilization, Taping,Therapeutic Activities, Therapeutic Exercises Modalities Biofeedback,Cold Pack/Ice Massage,Electric Stimulation, Hot Packs,Iontophoresis, Ultrasound,Vasopneumatic Devices Next Visit Focus/Plan Next Note Type Treatment Note Next Visit Plan Ask response contract relax into scaption, added wall pushup, cont periscap strengthening, inf glide (self ), shoulder ext. Trial shoulder ext, thoracic ext with shoulder flex recheck HEP: supine FF, L SL abd, sup serratus press (add over noodle), chest press, wall posture, resisted ADD/ecc abd, resisted ext/eccentric flexion, eccentric FF walk out , ER with dowel wall pushup. Continue remind pendulum arms swing/scapular AROM during gait. POC: Begin gentle shoulder mobility, periscapular strengthening. Cont manual tx with grade II mobs (III as lashonda ). Continue progress HEP.
--- NOTE | 2024-01-01 15:04 | PT.OTN ---
Current Diagnoses Other articular cartilage disorders, right shoulder (01/01/24) Pain in right shoulder (01/01/24) Adhesive capsulitis of unspecified shoulder (01/01/24) Incomplete rotator cuff tear or rupture of unspecified shoulder, not specified as traumatic (01/01/24) Physical Therapy Treatment Note PT-OP-A Visit Information Start: 10/09/23 15:41 Freq: Status: Active Protocol: Document 01/01/24 09:49 NM (Rec: 01/01/24 09:54 NM [id number]) Out-Patient Physical Therapy Visit Information Visit Information Visit Type Treatment Note Visit Start Time 09:49 Visit Stop Time 10:30 Visit Number 20 Evaluation Information Evaluation Date 10/09/23 PT-OP-B Current Condition Start: 10/09/23 15:41 Freq: Status: Active Protocol: Document 10/09/23 15:42 NM (Rec: 10/09/23 16:46 NM [id number]) Current Condition History of Current Condition Onset Date January 2023 Current Complaints R shoulder pain, limited R shoulder mobility, difficulty with ADLs History of Current Condition Pt presents to clinic with R shoulder pain that began insidiously in January 2023. She reports that she woke up with R shoulder pain one morning. She went to her PCP who ordered an injection and then PT. Her R shoulder pain worsened with PT over the summer. She then sought an appt with an orthopedist, who dx her with adhesive capsulitis and ordered an MRI, referring her back to PT. No surgical repair or GAGANDEEP planned at this time. Since the summer, her pain has decreased considerably and her R shoulder mobility has become more limited. At this time, she reports that she only has pain with jerky movements. Pt has most difficulty with performing her ADLs (putting up hair, dressing), lifting overhead, carrying objects >5# , and general mobility. Prior Treatments and Tests MRI 07/22/23: no full thickness RC rupture, AC joint OA, tendinosis of proximal long head of biceps tendon and infraspinatus, partial tears of subscapularis and supraspinatus, suspected labral tear 12-2 o'clock Treatment Goals Patient/Caregiver Goals Improve R shoulder ROM and strength, be able to put up her hair Prior Functional Status Baseline Function- ADL's Independent Baseline Function- Mobility Independent Baseline Function- Work/School [employer] Baseline Function- Other Prior to January 2023, able to perform all ADLs independently . Current Functional Impairments (Reported) Functional Limitations- ADL's Lifting, putting up hair, dressing, reaching overhead PT-OP-C Subjective Start: 10/09/23 15:41 Freq: Status: Active Protocol: Document 01/01/24 09:49 NM (Rec: 01/01/24 09:54 NM [id number]) OP-PT Subjective Patient Comments Patient Comments Pt reports tenderness at R LH biceps tendon. She has an ortho appt on Sunday. She does not have at rest, only with movement. Did not do exercises over her vacation last week. PT-OP-E Functional Tests Start: 10/09/23 15:41 Freq: Status: Active Protocol: Document 10/09/23 15:42 NM (Rec: 10/09/23 16:46 NM [id number]) Functional Tests Apley's Scratch Test Action 1- Left Able to touch R shoulder- wfl Action 1- Right Able to touch L shoulder- wfl Action 2- Left T4 Action 2- Right R ear (with pain) Action 3- Left T12 Action 3- Right R buttock (pocket) PT-OP-F Manual Assessment Start: 10/09/23 15:41 Freq: Status: Active Protocol: Document 10/09/23 15:42 NM (Rec: 10/09/23 16:46 NM [id number]) Manual Assessments Soft Tissue Assessment Soft Tissue Mobility Assessment No soft tissue restrictions noted around R scapula, trapezius, rhomboids, levator scapulae, scalenes, or SCM. Long head of biceps tendon is palpable and tender to palpation. Joint Mobility Assessment Joint Mobility Assessment Limited R GH PROM in fwd flex, horizontal abd, IR, and ER. End feels are painful and hard . No PROM into ER and limited PROM into IR. ER and IR are most limited. No shoulder subluxation noted. R scapular position is depressed; demos fair scapular control in sidelying but with limited gliding into retraction/ protraction, upward rotation/ elevation PT-OP-J Posture/Palpation/Skin Start: 10/09/23 15:41 Freq: Status: Active Protocol: Document 10/09/23 15:42 NM (Rec: 10/09/23 16:46 NM [id number]) Posture Evaluation Position Standing Evaluation View posterior, lateral Head/C-Spine Posture Neutral Position T-Spine Posture Neutral Thorax Posture (L) Elevated L-Spine Posture Neutral Shoulder Posture (L) Rounded,(R) Rounded,(L) Elevated Scapula Posture (L) Neutral,(R) Protracted,(R) Rotated Down,(R) Depressed Arm Posture (L) Neutral,(R) Internally Rotated Comments Posture Comments R shoulder is depressed compared to L shoulder Palpation Assessment Location R shoulder Palpation Location Anterior shoulder (long heads bicep tendon), posterior shldr /scap Palpation Findings Tenderness Palpation Details Tenderness along R proximal long head biceps tendon PT-OP-K Range of Motion Start: 10/09/23 15:41 Freq: Status: Active Protocol: Document 01/01/24 09:49 NM (Rec: 01/01/24 09:54 NM [id number]) Shoulder Goniometric Range of Motion Shoulder Right Flexion 105 Abduction 85 External Rotation at 90 degrees 0 Abduction External Rotation at 45 degrees 15 Abduction External Rotation at 0 degrees Abduction 20 Internal Rotation 45 Internal Rotation Behind Back (text) L5 Comments 01/01/24: 120 deg flex, 80 deg abd, 30 deg ER at 0 deg abd, L1 IR 12/10/23: flex 115/123, abd 95/100, ER 30 deg (mid occiput), IR L5 IE 10/09/23 flex: 80 abd: 70 ER 10 deg (@45 deg abd), 10 deg (@0 deg abd) IR 45 deg, buttock (near pocket) Flex, abd, ER, IR painful (ER most limited and painful). PROM flex (90 deg), abd (70 deg), ER (10 deg), IR (55 deg) . PT-OP-L Special Tests Start: 10/09/23 15:41 Freq: Status: Active Protocol: Document 10/09/23 15:42 NM (Rec: 10/09/23 16:46 NM [id number]) Special Tests Shoulder Special Tests Drop Arm Rotator Cuff Test Results negative Comments able to slowly lower arm Speed's Biceps Test Results negative Mccreary Test Test Results positive Comments Reproduces pain Empty Can Test Results positive Comments Reproduces pain in rotator cuff area, long head biceps tendon with resistance Yerdayanara's Biceps Test Results negative Comments Does not reproduce pain in LH biceps tendon during resisted supination Biceps Load II Test Test Results positive Comments reproduces pain in anterior shoulder near LH biceps tendon PT-OP-M Strength Start: 10/09/23 15:41 Freq: Status: Active Protocol: Document 01/01/24 09:49 NM (Rec: 01/01/24 09:54 NM [id number]) Shoulder Strength Shoulder Manual Muscle Testing Right Flexion 3+ Fair+ Abduction (C5) 3+ Fair+ External Rotation 4- Good- Internal Rotation 4- Good- Comments 01/01/24, 12/10/23: 4- for all motions, min pain with abd IE: flex 3/5 abd 3+/5 add 4+/5 ER 3+/5 IR 4-/5 HABD 3+/5 HADD 4+/5 Pain with resisted ER/IR, abd PT-OP-Q Treatments Start: 10/09/23 15:41 Freq: Status: Active Protocol: Document 01/01/24 09:49 NM (Rec: 01/01/24 09:55 NM [id number]) Therapeutic Exercises Sitting Exercises inferior glide Sitting Exercise Name self mobilization Side right Resistance LUE creating inf glide in RUE Equipment Used blue ball for UE support, L hand created glide at humerus Reps/Minutes 1x10 with brief hold Comments Mod cues for gentle relaxed shld mus, inferior prox humeral self glide pulleys Sitting Exercise Name flexion, scaption Side right Equipment Used mob belt at R shoulder to stabilize scap, only humeral motion Reps/Minutes 1x10 ea with 1 hold at top Comments cue for pain free, to tolerance pendulum Sitting Exercise Name HEP reviewed flex/ext/lat/CW/ CCW-seated better and standing Side right Resistance PROM Reps/Minutes 1 min Comments cues to move body not shoulder Standing Exercises shoulder ext Standing Exercise Name with dowel Side bilateral Resistance AROM Reps/Minutes 1x5 Comments reports no pain at LH biceps table walk out Standing Exercise Name seated on stool: flex, abd Side bilateral Resistance PROM Reps/Minutes 1x10 with 5 hold Comments cued pain free; limited flex 100 before compensation, abd up to 80 deg Shldr ER stretch Standing Exercise Name stretch at wall, 90 deg elbow flexion Side right Equipment Used corner at wall Reps/Minutes 5x10 Comments cued for hip/shldr/feet alignment IR Standing Exercise Name dowel ext/ADD/IR stretch Side right Equipment Used L assisting R Reps/Minutes 1x10 Comments cued not push into pain, feels tight, slight bicep pull Manual Therapy Treatment Soft Tissue Mobilization neck Body Location R UT, LS, cervical paraspinals Mobilization Type Rolling,Strumming,Sustained Pressure Intensity/Depth Moderate Body Position Sidelying Comments Positioned in sidelying, supine, R>L. Increased tone R UT, no trigger point. Moderate soft tissue mobilization prior to 1st rib mobilization R shld Body Location LH biceps, rotator cuff Mobilization Type Cross-Friction,Rolling, Sustained Pressure Intensity/Depth Superficial Body Position Hooklying Comments Cross friction at LH biceps tendon, superficial for pain relief. Rolling and sustained pressure at posterior rotator cuff, lat Joint Mobilizations 1st Rib Joint R Direction caudal Grade III Body Position Supine Reps/Duration 1x10 Comments Mobilization, then with pt performing with passive lateral flexion toward/away, after soft tissue mobilization R AC jt Joint gapping Direction Ant at clavicle, Post at scapula Grade III Body Position Supine Reps/Duration 1x10 ea Comments Posterior scap setting first to limit anterior humeral head placement, to increase mobility at R shldr joint. Limited excursion of clavicle with arm elevation R scapulothoracic Jt Direction upwd, dwd rotation Grade II Body Position L SL Reps/Duration 1x10 ea x2 contraction Comments Improved scapular control in sidelying compared to standing , performed with sidelying flex and abd within pt range R GH jt Joint R Direction posterior, inferior Grade III Body Position Hooklying Reps/Duration 6x30 Comments Moderate muscle guarding today , pt very stiff prior to mobilization. Post and inf glides with oscillations to promote relaxation, improve ROM. Up to 120 deg fwd flexion , still 80 deg abd before pain endfeel and bony block occurs . Grade III mob for ER at 45 deg abd with post glide, limited ER ROM due to pain but improved posterior glide with repetitions Then seated inferior glide with R arm elevated on table in sitting at height where humerus begins to translate superiorly, PT performing grade II>III inf glide onto humeral head PT-OP-R Modalities Start: 10/15/23 07:53 Freq: Status: Active Protocol: Document 10/12/23 14:32 SP (Rec: 10/15/23 07:55 SP [id number]) Hot Pack/Cold Pack Treatment CP Location R shld Patient Position Sitting Treatment Duration (minutes) 6 Patient Tolerance Good Comments CP end tx during wall posture ther ex. PT-OP-T Assessment and Plan Start: 10/09/23 15:41 Freq: Status: Active Protocol: Document 01/01/24 09:49 NM (Rec: 01/01/24 09:54 NM [id number]) Physical Therapy Assessment Goals Eight Impairment function Impairment IR Apley reach to R buttock Short Term Goal (STG) Pt will increase R shoulder IR AROM to at least L4-5 in order to demostrate improved shoulder mobility and ADL tolerance for dressing. 12/10/23, 11/09/23: Pt can reach L5 with R shldr, painful STG Duration 5 weeks MET Page Makeup System Operator Goal (LTG) Pt will increase R shoulder IR AROM to at least T12-L1 in order to demonstrate improved shoulder mobility and ADL tolerance for dressing. 10/31/24: L1 R shldr IR, painful 12/10/23: L5 R shldr IR, painful LTG Duration 10 weeks MET Seven Impairment function Impairment ER apley reach to R ear Short Term Goal (STG) Pt will increase R shoulder ER AROM to base of occiput in order to fix her hair. 12/10/23: R shldr ER to mid- occiput, cued no head flexion compensation 11/09/23: NOT MET- Pt able to reach behind her R ear, but compensates with cervical flexion STG Duration 5 weeks NOT MET, progressing Page Makeup System Operator Goal (LTG) Pt will increase R shoulder ER AROM to at least C7 in order to demonstrate improved shoulder mobility and ADL tolerance. 12/10/23: R shldr ER to mid- occiput, cued no head flexion compensation LTG Duration 10 weeks NOT MET Six Impairment strength Impairment R shoulder abd and ER strength 3+/5 Short Term Goal (STG) Pt will improve R shoulder abd and ER MMT to at least 4-/5 to demonstrate improved shoulder strength for lifting. 12/10/23: 4-/5 MMT for abd and ER; min pain with ABD 11/09/23: ER 4-/5, Abd 3+/5; painful STG Duration 5 weeks MET Fdc Goal (LTG) Pt will improve R shoulder abd and ER MMT to at least 4/5 to demonstrate improved shoulder strength for lifting. 12/10/23: 4-/5 MMT for abd and ER; min pain with ABD LTG Duration 10 weeks PROGRESSING Five Impairment Function Impairment Quickdash score 33 (50% disability) Short Term Goal (STG) Pt will improve Quickdash score by 5 points in order to demonstrate improved ADL participation and tolerance. 12/10/23: score 22, 25% disability 11/09/23: score 30, 43.18% STG Duration 5 weeks MET Fdc Goal (LTG) Pt will improve Quickdash score by at least 10 points ( MCID) in order to demonstrate improved ADL participation and tolerance. 12/10/23: 22 (25%) LTG Duration 10 weeks MET, PROGRESSING Four Impairment strength Impairment R shoulder flex MMT 3/5 Short Term Goal (STG) Pt will improve R shoulder flex MMT to at least 3+/5 in order to demonstrate improved shoulder strength for lifting and to perform ADLs. 12/10/23: 4-/5 MMT shoulder flex, no pain 11/09/23: R shldr flex 3+/5, painful STG Duration 5 weeks MET Fdc Goal (LTG) Pt will improve R shoulder flex MMT to at least 4/5 in order to demonstrate improved shoulder strength for lifting and to perform ADLs. GOAL MET- 12/10/23: 4-/5 R shldr flexion MMT; updated to 4+/5 LTG Duration 10 weeks MET; updated Three Impairment ROM Impairment Shldr ER (45 deg HABD) AROM 10 deg Short Term Goal (STG) Pt will increase R shoulder ER (at 45 deg HABD) AROM to at least 30 deg without compensation and < 3/10 pain in order to improve ADL tolerance. 12/10/23: R shldr ER 20 deg at 45 deg abd, 30 deg at 0 deg abd 11/09/23: R shldr ER 15 deg at 45 deg abd, painful STG Duration 5 weeks NOT MET Page Makeup System Operator Goal (LTG) Pt will increase R shoulder ER (at 45 deg HABD) AROM to at least 70 deg without compensation and < 3/10 pain in order to improve ADL tolerance. 12/10/23: R shldr ER 20 deg at 45 deg abd, 30 deg at 0 deg abd LTG Duration 10 weeks NOT MET Two Impairment ROM Impairment Shldr hor abd AROM 70 deg Short Term Goal (STG) Pt will increase R shoulder horizontal abduction AROM to at least 90 deg without compensation and <3/10 pain in order to demonstrate improved shoulder AROM for reaching. 12/10/23: 100 deg R shldr abd before compensation, pain 312/03/23: 110 deg before compensation and pain 11/09/23: 85 deg without compensation, painful STG Duration 5 weeks MET Fdc Goal (LTG) Pt will increase R shoulder horizontal abduction AROM to at least 120 deg without compensation and <3/10 pain in order to demonstrate improved shoulder AROM for reaching. 12/10/23: 100 deg R shldr abd before compensation, pain 3/10 LTG Duration 10 weeks NOT MET, PROGRESSING One Impairment ROM Impairment Shldr fwd flex AROM 80 deg Short Term Goal (STG) Pt will increase R shoulder forward flexion AROM to at least 90 deg without compensation and <3/10 pain in order to demonstrate improved shoulder AROM for reaching. 12/10/23, 12/03/23: R shoulder flex 115 before compensation and pain 01/1911/09/23: R shldr flex 105 deg , painful, minimal compensation 10/29/23: R shld AROM: FF 108 deg supine, L SL abd 89 deg, 18 deg standing, IR behind back lateral R sacrum. STG Duration 5 weeks MET Page Makeup System Operator Goal (LTG) Pt will increase R shoulder forward flexion AROM to at least 120 deg without compensation and <3/10 pain in order to demonstrate improved shoulder AROM for reaching. LTG Duration 10 weeks Progress Towards Goals Progress Towards Goals Slow Progress due to Medical Issues,Slow Progress - Other, Goals Met Progress Comments Met Apley IR goal today, L1 Assessment Summary Assessment Pt has decreased R shoulder pain at rest, but continues to demonstrate limitations in R shoulder AROM in ER, abd, flexion, and IR. Pt met Apley IR AROM goal today, now up to L1 behind back but continues to have pain with all motions. Exercises targeting restoring PROM and AROM. PT cueing verbally to limit compensations with trunk, neo rotation and extension. Pt demos improved shoulder ext AROM with dowel, but continues to be challenged and have pain with R shoulder IR stretching. Pt with restrictions of posterior capsule. Pt performed self inferior glide, difficulty with creating gap at humeral head. During manual treatment, pt exhibits moderate muscle guarding and has empty end feel with all motions. Unable to progress past 80 deg abduction passively and actively, but up to 120 deg forward flexion with upper trap compensation beginning at 105 deg flexion. Manual treatment consisting of posterior, inferior glides to improve AROM, in addition to soft tissue treatment for pain reduction. Mobilized 1st rib with additional cervical spine muscle soft tissue to decrease pt discomfort at cervical spine. Pt has most discomfort at long head biceps tendon. She has an appt with ortho later this week; PT and pt discussed POC, continuing mobilizing pt within available , painfree AROM. Pt would benefit from skilled PT to decrease pain symptoms, to mobilize R shoulder and improve R shoulder strength in order to increase pt activity tolerance and ability to participate in ADLs. Physical Therapy Plan Frequency and Duration Frequency of Treatment 1-2x/wk Duration of treatment (weeks) 8 Plan of Care Start Date 12/10/23 Plan of Care End Date 01/28/24 Therapeutic Interventions Therapeutic Interventions Coordination Training,Home Exercise Program,Joint Mobilizations,Manual Therapy, Neuromuscular Re-education, Patient/Caregiver Education, Soft Tissue Mobilization, Taping,Therapeutic Activities, Therapeutic Exercises Modalities Biofeedback,Cold Pack/Ice Massage,Electric Stimulation, Hot Packs,Iontophoresis, Ultrasound,Vasopneumatic Devices Next Visit Focus/Plan Next Note Type Progress Note Next Visit Plan trial sleeper stretch, post capsule stretch and mobilization, isometrics Ask response contract relax into scaption, added wall pushup, cont periscap strengthening, inf glide (self ), shoulder ext. Trial shoulder ext, thoracic ext with shoulder flex recheck HEP: supine FF, L SL abd, sup serratus press (add over noodle), chest press, wall posture, resisted ADD/ecc abd, resisted ext/eccentric flexion, eccentric FF walk out , ER with dowel wall pushup. Continue remind pendulum arms swing/scapular AROM during gait. POC: Begin gentle shoulder mobility, periscapular strengthening. Cont manual tx with grade II mobs (III as lashonda ). Continue progress HEP.
--- NOTE | 2024-01-07 15:43 | PT.OTN ---
Current Diagnoses Other articular cartilage disorders, right shoulder (01/07/24) Pain in right shoulder (01/07/24) Adhesive capsulitis of unspecified shoulder (01/07/24) Incomplete rotator cuff tear or rupture of unspecified shoulder, not specified as traumatic (01/07/24) Physical Therapy Treatment Note PT-OP-A Visit Information Start: 10/09/23 15:41 Freq: Status: Active Protocol: Document 01/07/24 13:03 NM (Rec: 01/07/24 13:47 NM [id number]) Out-Patient Physical Therapy Visit Information Visit Information Visit Type Progress Note Visit Note 30 day PN Visit Start Time 13:03 Visit Stop Time 13:45 Visit Number 21 Evaluation Information Evaluation Date 10/09/23 PT-OP-B Current Condition Start: 10/09/23 15:41 Freq: Status: Active Protocol: Document 10/09/23 15:42 NM (Rec: 10/09/23 16:46 NM [id number]) Current Condition History of Current Condition Onset Date January 2023 Current Complaints R shoulder pain, limited R shoulder mobility, difficulty with ADLs History of Current Condition Pt presents to clinic with R shoulder pain that began insidiously in January 2023. She reports that she woke up with R shoulder pain one morning. She went to her PCP who ordered an injection and then PT. Her R shoulder pain worsened with PT over the summer. She then sought an appt with an orthopedist, who dx her with adhesive capsulitis and ordered an MRI, referring her back to PT. No surgical repair or GAGANDEEP planned at this time. Since the summer, her pain has decreased considerably and her R shoulder mobility has become more limited. At this time, she reports that she only has pain with jerky movements. Pt has most difficulty with performing her ADLs (putting up hair, dressing), lifting overhead, carrying objects >5# , and general mobility. Prior Treatments and Tests MRI 07/22/23: no full thickness RC rupture, AC joint OA, tendinosis of proximal long head of biceps tendon and infraspinatus, partial tears of subscapularis and supraspinatus, suspected labral tear 12-2 o'clock Treatment Goals Patient/Caregiver Goals Improve R shoulder ROM and strength, be able to put up her hair Prior Functional Status Baseline Function- ADL's Independent Baseline Function- Mobility Independent Baseline Function- Work/School [employer] [facility] [facility] Baseline Function- Other Prior to January 2023, able to perform all ADLs independently . Current Functional Impairments (Reported) Functional Limitations- ADL's Lifting, putting up hair, dressing, reaching overhead PT-OP-C Subjective Start: 10/09/23 15:41 Freq: Status: Active Protocol: Document 01/07/24 13:03 NM (Rec: 01/07/24 13:47 NM [id number]) OP-PT Subjective Patient Comments Patient Comments Pt reports increased soreness of R biceps from doing R shoulder ER with theraband while watching a basketball game. She went to ortho last week, who recommended the manipulation over any injection or other treatment. She is not willing to do manipulation at this time. PT-OP-E Functional Tests Start: 10/09/23 15:41 Freq: Status: Active Protocol: Document 10/09/23 15:42 NM (Rec: 10/09/23 16:46 NM [id number]) Functional Tests Apley's Scratch Test Action 1- Left Able to touch R shoulder- wfl Action 1- Right Able to touch L shoulder- wfl Action 2- Left T4 Action 2- Right R ear (with pain) Action 3- Left T12 Action 3- Right R buttock (pocket) PT-OP-F Manual Assessment Start: 10/09/23 15:41 Freq: Status: Active Protocol: Document 10/09/23 15:42 NM (Rec: 10/09/23 16:46 NM [id number]) Manual Assessments Soft Tissue Assessment Soft Tissue Mobility Assessment No soft tissue restrictions noted around R scapula, trapezius, rhomboids, levator scapulae, scalenes, or SCM. Long head of biceps tendon is palpable and tender to palpation. Joint Mobility Assessment Joint Mobility Assessment Limited R GH PROM in fwd flex, horizontal abd, IR, and ER. End feels are painful and hard . No PROM into ER and limited PROM into IR. ER and IR are most limited. No shoulder subluxation noted. R scapular position is depressed; demos fair scapular control in sidelying but with limited gliding into retraction/ protraction, upward rotation/ elevation PT-OP-J Posture/Palpation/Skin Start: 10/09/23 15:41 Freq: Status: Active Protocol: Document 10/09/23 15:42 NM (Rec: 10/09/23 16:46 NM [id number]) Posture Evaluation Position Standing Evaluation View posterior, lateral Head/C-Spine Posture Neutral Position T-Spine Posture Neutral Thorax Posture (L) Elevated L-Spine Posture Neutral Shoulder Posture (L) Rounded,(R) Rounded,(L) Elevated Scapula Posture (L) Neutral,(R) Protracted,(R) Rotated Down,(R) Depressed Arm Posture (L) Neutral,(R) Internally Rotated Comments Posture Comments R shoulder is depressed compared to L shoulder Palpation Assessment Location R shoulder Palpation Location Anterior shoulder (long heads bicep tendon), posterior shldr /scap Palpation Findings Tenderness Palpation Details Tenderness along R proximal long head biceps tendon PT-OP-K Range of Motion Start: 10/09/23 15:41 Freq: Status: Active Protocol: Document 01/07/24 13:03 NM (Rec: 01/07/24 13:47 NM [id number]) Shoulder Goniometric Range of Motion Shoulder Right Flexion 105 Abduction 85 External Rotation at 90 degrees 0 Abduction External Rotation at 45 degrees 15 Abduction External Rotation at 0 degrees Abduction 20 Internal Rotation 45 Internal Rotation Behind Back (text) L5 Comments 01/07/24, 01/01/24: 120 deg flex , 80 deg abd, 32 deg ER at 0 deg abd, L1 IR 12/10/23: flex 115/123, abd 95/100, ER 30 deg (mid occiput), IR L5 IE 10/09/23 flex: 80 abd: 70 ER 10 deg (@45 deg abd), 10 deg (@0 deg abd) IR 45 deg, buttock (near pocket) Flex, abd, ER, IR painful (ER most limited and painful). PROM flex (90 deg), abd (70 deg), ER (10 deg), IR (55 deg) . PT-OP-L Special Tests Start: 10/09/23 15:41 Freq: Status: Active Protocol: Document 10/09/23 15:42 NM (Rec: 10/09/23 16:46 NM [id number]) Special Tests Shoulder Special Tests Drop Arm Rotator Cuff Test Results negative Comments able to slowly lower arm Speed's Biceps Test Results negative Haakon Test Test Results positive Comments Reproduces pain Empty Can Test Results positive Comments Reproduces pain in rotator cuff area, long head biceps tendon with resistance Josérgason's Biceps Test Results negative Comments Does not reproduce pain in LH biceps tendon during resisted supination Biceps Load II Test Test Results positive Comments reproduces pain in anterior shoulder near LH biceps tendon PT-OP-M Strength Start: 10/09/23 15:41 Freq: Status: Active Protocol: Document 01/07/24 13:03 NM (Rec: 01/07/24 15:16 NM [id number]) Shoulder Strength Shoulder Manual Muscle Testing Right Flexion 3+ Fair+ Abduction (C5) 3+ Fair+ External Rotation 4- Good- Internal Rotation 4- Good- Comments 01/07/24: 4/5 for flex, IR; 4-/ 5 for ER/abd; no pain reported with resistance 01/01/24, 12/10/23: 4- for all motions, min pain with abd IE: flex 3/5 abd 3+/5 add 4+/5 ER 3+/5 IR 4-/5 HABD 3+/5 HADD 4+/5 Pain with resisted ER/IR, abd PT-OP-Q Treatments Start: 10/09/23 15:41 Freq: Status: Active Protocol: Document 01/07/24 13:03 NM (Rec: 01/07/24 13:47 NM [id number]) Therapeutic Exercises Sidelying Exercises ER Sidelying Exercise Name post mobilization Side right Resistance AROM Equipment Used PT at scap to facilitate movement; arm between towel Reps/Minutes 1x10 Comments cued to prevent fwd R shldr, max avail AROM; only 30deg FF Sidelying Exercise Name post mobilization Side right Reps/Minutes 1x10 Comments tactile support for scapular and GH R; up to 110 deg before UT comp ABD Sidelying Exercise Name modified scaption, post mobilization Side right Resistance AROM with cues for slower eccentric lowering Reps/Minutes 1x10 Comments cued scapular rotation, minimize UT recruitment, pain end feel today Sitting Exercises ER Sitting Exercise Name AROM with scapular retraction Side bilateral Equipment Used back against wall Reps/Minutes 1x10 with 3 hold Comments up to 30 deg ER at 0 deg abd pulleys Sitting Exercise Name flexion, scaption; prior to mobilization Side right Reps/Minutes 1x10 ea with 1 hold at top Comments cue for pain free, to tolerance Standing Exercises GHJ lateral gapping Side right Resistance functional movement Equipment Used towel to gap btwn humerus and body Reps/Minutes 1x5 with 5 hold Comments PT facilitating functional movement resistance at elbow Row Standing Exercise Name high row Side bilateral Resistance apache green tb (lvl 3) Reps/Minutes 1x15 Comments cues for scap retraction, setting table walk out Standing Exercise Name standing at TM bar: flexion only Side bilateral Resistance PROM Equipment Used TM bar Reps/Minutes 1x10 with 5 hold Comments cued B shoulder relaxation, no trunk rotation IR Standing Exercise Name dowel ext/ADD/IR stretch Side right Equipment Used L assisting R Reps/Minutes 1x10 Comments cued not push into pain, feels tight, slight bicep pull Manual Therapy Treatment Joint Mobilizations 1st Rib Joint R Direction caudal Grade III Body Position Supine Reps/Duration 1x10 Comments Mobilization, then with pt performing with passive lateral flexion toward/away, after soft tissue mobilization R AC jt Joint gapping Direction Ant at clavicle, Post at scapula Grade III Body Position Supine Reps/Duration 1x10 ea Comments Posterior scap setting first to limit anterior humeral head placement, to increase mobility at R shldr joint. Limited excursion of clavicle with arm elevation. Decreased mobilization Posterior at scapula R scapulothoracic Jt Direction upwd, dwd rotation Grade II Body Position L SL Reps/Duration 1x10 ea x2 contraction Comments Improved scapular control in sidelying compared to standing , performed with sidelying flex and abd within pt range R GH jt Joint R Direction posterior, inferior, lateral distraction Grade III Body Position Hooklying Reps/Duration 6x30 Comments Moderate muscle guarding with inferior glide, pt very stiff prior to mobilization. Performed P-A, Inf, and lateral gapping distraction with functional movement glide . Decreased posterior capsule mobility, increased guarding with inferior glide. Limited to 80 deg abd due to bony block from humeral head, pain Then seated inferior glide with R arm elevated on table in sitting at height where humerus begins to translate superiorly, PT performing grade III inf glide onto humeral head PT-OP-R Modalities Start: 10/15/23 07:53 Freq: Status: Active Protocol: Document 10/12/23 14:32 SP (Rec: 10/15/23 07:55 SP [id number]) Hot Pack/Cold Pack Treatment CP Location R shld Patient Position Sitting Treatment Duration (minutes) 6 Patient Tolerance Good Comments CP end tx during wall posture ther ex. PT-OP-T Assessment and Plan Start: 10/09/23 15:41 Freq: Status: Active Protocol: Document 01/07/24 13:03 NM (Rec: 01/07/24 13:47 NM [id number]) Physical Therapy Assessment Goals Eight Impairment function Impairment IR Apley reach to R buttock Short Term Goal (STG) Pt will increase R shoulder IR AROM to at least L4-5 in order to demostrate improved shoulder mobility and ADL tolerance for dressing. 12/10/23, 11/09/23: Pt can reach L5 with R shldr, painful STG Duration 5 weeks MET Nanotechnology Engineering Technician Goal (LTG) Pt will increase R shoulder IR AROM to at least T12-L1 in order to demonstrate improved shoulder mobility and ADL tolerance for dressing. 10/31/24: L1 R shldr IR, painful 12/10/23: L5 R shldr IR, painful LTG Duration 10 weeks MET Seven Impairment function Impairment ER apley reach to R ear Short Term Goal (STG) Pt will increase R shoulder ER AROM to base of occiput in order to fix her hair. 01/07/24, 12/10/23: R shldr ER to mid-occiput, cued no head flexion compensation 11/09/23: NOT MET- Pt able to reach behind her R ear, but compensates with cervical flexion STG Duration 5 weeks NOT MET, progressing Nanotechnology Engineering Technician Goal (LTG) Pt will increase R shoulder ER AROM to at least C7 in order to demonstrate improved shoulder mobility and ADL tolerance. 01/07/24, 12/10/23: R shldr ER to mid-occiput, cued no head flexion compensation LTG Duration 10 weeks NOT MET Six Impairment strength Impairment R shoulder abd and ER strength 3+/5 Short Term Goal (STG) Pt will improve R shoulder abd and ER MMT to at least 4-/5 to demonstrate improved shoulder strength for lifting. 12/10/23: 4-/5 MMT for abd and ER; min pain with ABD 11/09/23: ER 4-/5, Abd 3+/5; painful STG Duration 5 weeks MET Nanotechnology Engineering Technician Goal (LTG) Pt will improve R shoulder abd and ER MMT to at least 4/5 to demonstrate improved shoulder strength for lifting. 01/07/24: 4-/5 for abd and ER but not painful 12/10/23: 4-/5 MMT for abd and ER; min pain with ABD LTG Duration 10 weeks PROGRESSING Five Impairment Function Impairment Quickdash score 33 (50% disability) Short Term Goal (STG) Pt will improve Quickdash score by 5 points in order to demonstrate improved ADL participation and tolerance. 12/10/23: score 22, 25% disability 11/09/23: score 30, 43.18% STG Duration 5 weeks MET Halfway Goal (LTG) Pt will improve Quickdash score by at least 10 points ( MCID) in order to demonstrate improved ADL participation and tolerance. 12/10/23: 22 (25%) LTG Duration 10 weeks MET, PROGRESSING Four Impairment strength Impairment R shoulder flex MMT 3/5 Short Term Goal (STG) Pt will improve R shoulder flex MMT to at least 3+/5 in order to demonstrate improved shoulder strength for lifting and to perform ADLs. 12/10/23: 4-/5 MMT shoulder flex, no pain 11/09/23: R shldr flex 3+/5, painful STG Duration 5 weeks MET Nanotechnology Engineering Technician Goal (LTG) Pt will improve R shoulder flex MMT to at least 4/5 in order to demonstrate improved shoulder strength for lifting and to perform ADLs. 01/07/24: 4/5 R shoulder flex and IR MMT; no pain reported GOAL MET- 12/10/23: 4-/5 R shldr flexion MMT; updated to 4/5 LTG Duration 10 weeks MET; updated Three Impairment ROM Impairment Shldr ER (45 deg HABD) AROM 10 deg Short Term Goal (STG) Pt will increase R shoulder ER (at 45 deg HABD) AROM to at least 30 deg without compensation and < 3/10 pain in order to improve ADL tolerance. 01/07/24: 32 deg R shoulder ER AROM but painful 01/1912/10/23: R shldr ER 20 deg at 45 deg abd, 30 deg at 0 deg abd 11/09/23: R shldr ER 15 deg at 45 deg abd, painful STG Duration 5 weeks MET Nanotechnology Engineering Technician Goal (LTG) Pt will increase R shoulder ER (at 45 deg HABD) AROM to at least 70 deg without compensation and < 3/10 pain in order to improve ADL tolerance. 01/07/24: 32 deg R shoulder ER AROM but painful 01/1912/10/23: R shldr ER 20 deg at 45 deg abd, 30 deg at 0 deg abd LTG Duration 10 weeks NOT MET Two Impairment ROM Impairment Shldr hor abd AROM 70 deg Short Term Goal (STG) Pt will increase R shoulder horizontal abduction AROM to at least 90 deg without compensation and <3/10 pain in order to demonstrate improved shoulder AROM for reaching. 12/10/23: 100 deg R shldr abd before compensation, pain 3/12/03/23: 110 deg before compensation and pain 11/09/23: 85 deg without compensation, painful STG Duration 5 weeks MET Halfway Goal (LTG) Pt will increase R shoulder horizontal abduction AROM to at least 120 deg without compensation and <3/10 pain in order to demonstrate improved shoulder AROM for reaching. 01/07/24: 80 deg abd before compensation, end range due to pain >3/10 12/10/23: 100 deg R shldr abd before compensation, pain 3/10 LTG Duration 10 weeks NOT MET, PROGRESSING One Impairment ROM Impairment Shldr fwd flex AROM 80 deg Short Term Goal (STG) Pt will increase R shoulder forward flexion AROM to at least 90 deg without compensation and <3/10 pain in order to demonstrate improved shoulder AROM for reaching. 12/10/23, 12/03/23: R shoulder flex 115 before compensation and pain /11/09/23: R shldr flex 105 deg , painful, minimal compensation 10/29/23: R shld AROM: FF 108 deg supine, L SL abd 89 deg, 18 deg standing, IR behind back lateral R sacrum. STG Duration 5 weeks MET Halfway Goal (LTG) Pt will increase R shoulder forward flexion AROM to at least 120 deg without compensation and <3/10 pain in order to demonstrate improved shoulder AROM for reaching. 01/07/24: 120 deg flex with compensation, 110 deg flexion without compensation LTG Duration 10 weeks PARTIALLY MET Progress Towards Goals Progress Towards Goals Progressing Toward Goals,Slow Progress due to Medical Issues ,Slow Progress - Other,Goals Met Progress Comments Not met ER/abd/flexion mobility goals. Progressing toward strength goals, but not met Assessment Summary Assessment Pt tolerated session well without increased pain. She continues to report no R shoulder pain at rest with pain only during abduction movement. Session emphasis on restoring available AROM and capsular motion. Initiated lateral gapping mobilization and exercise with functional movement. Pt continues to have bony block with abduction due to decreased inferior glide of humeral head, likely with additional capsular and bony interaction. During manual treatment, pt still demos increased muscle guarding with mobilization, unable to mobilization past 80 deg abduction with inferior glide. Pt continues to have increased capsular restrictions with exercise. With cueing and tactile facilitation from PT, pt demos improved eccentric control of sidelying flexion/abduction. Trialed sidelying ER; pt challenged with limited AROM, but without pain. Pt has been seen since September 2023 for adhesive capsulitis. She progressed with mobility initially, but has made minimal progress with R shoulder AROM within the last month. Currently, pt is 1x/wk due to insurance restrictions; she is maintaining AROM but not progressing. Pt is still very limited in her ability to participate in ADLs/IADLs due to mobility limitations and pain. PT had referred pt back to ortho for additional assessment due to plateau in progress. She reports that ortho is wanting to perform a manipulat as next point of treatment. she is unwilling to get manipulation at this point. PT and pt discussed discharge at end of POC with PT recommending taking a break from PT, discharging at end of POC due to plateau in progress and insurance limitations. Pt verbalizes agreement but will continue to discuss in future sessions. Pt would benefit in meantime from skilled PT to improve R shoulder mobility and strength within available AROM in order to improve QOL and decrease pain symptoms. Physical Therapy Plan Frequency and Duration Frequency of Treatment 1-2x/wk Duration of treatment (weeks) 8 Plan of Care Start Date 12/10/23 Plan of Care End Date 01/28/24 Therapeutic Interventions Therapeutic Interventions Coordination Training,Home Exercise Program,Joint Mobilizations,Manual Therapy, Neuromuscular Re-education, Patient/Caregiver Education, Soft Tissue Mobilization, Taping,Therapeutic Activities, Therapeutic Exercises Modalities Biofeedback,Cold Pack/Ice Massage,Electric Stimulation, Hot Packs,Iontophoresis, Ultrasound,Vasopneumatic Devices Next Visit Focus/Plan Next Note Type Treatment Note Next Visit Plan trial sleeper stretch, post capsule stretch and mobilization, isometrics Ask response contract relax into scaption, added wall pushup, cont periscap strengthening, inf glide (self ), shoulder ext. Trial shoulder ext, thoracic ext with shoulder flex recheck HEP: supine FF, L SL abd, sup serratus press (add over noodle), chest press, wall posture, resisted ADD/ecc abd, resisted ext/eccentric flexion, eccentric FF walk out , ER with dowel wall pushup. Continue remind pendulum arms swing/scapular AROM during gait. POC: Begin gentle shoulder mobility, periscapular strengthening. Cont manual tx with grade II mobs (III as lashonda ). Continue progress HEP.
--- NOTE | 2024-01-14 16:13 | PT.OTN ---
Current Diagnoses Other articular cartilage disorders, right shoulder (01/14/24) Pain in right shoulder (01/14/24) Adhesive capsulitis of unspecified shoulder (01/14/24) Incomplete rotator cuff tear or rupture of unspecified shoulder, not specified as traumatic (01/14/24) Physical Therapy Treatment Note PT-OP-A Visit Information Start: 10/09/23 15:41 Freq: Status: Active Protocol: Document 01/14/24 12:59 NM (Rec: 01/14/24 13:45 NM [id number]) Out-Patient Physical Therapy Visit Information Visit Information Visit Type Treatment Note Visit Start Time 13:00 Visit Stop Time 13:45 Visit Number 22 Evaluation Information Evaluation Date 10/09/23 PT-OP-B Current Condition Start: 10/09/23 15:41 Freq: Status: Active Protocol: Document 10/09/23 15:42 NM (Rec: 10/09/23 16:46 NM [id number]) Current Condition History of Current Condition Onset Date January 2023 Current Complaints R shoulder pain, limited R shoulder mobility, difficulty with ADLs History of Current Condition Pt presents to clinic with R shoulder pain that began insidiously in January 2023. She reports that she woke up with R shoulder pain one morning. She went to her PCP who ordered an injection and then PT. Her R shoulder pain worsened with PT over the summer. She then sought an appt with an orthopedist, who dx her with adhesive capsulitis and ordered an MRI, referring her back to PT. No surgical repair or GAGANDEEP planned at this time. Since the summer, her pain has decreased considerably and her R shoulder mobility has become more limited. At this time, she reports that she only has pain with jerky movements. Pt has most difficulty with performing her ADLs (putting up hair, dressing), lifting overhead, carrying objects >5# , and general mobility. Prior Treatments and Tests MRI 07/22/23: no full thickness RC rupture, AC joint OA, tendinosis of proximal long head of biceps tendon and infraspinatus, partial tears of subscapularis and supraspinatus, suspected labral tear 12-2 o'clock Treatment Goals Patient/Caregiver Goals Improve R shoulder ROM and strength, be able to put up her hair Prior Functional Status Baseline Function- ADL's Independent Baseline Function- Mobility Independent Baseline Function- Work/School [employer] Baseline Function- Other Prior to January 2023, able to perform all ADLs independently . Current Functional Impairments (Reported) Functional Limitations- ADL's Lifting, putting up hair, dressing, reaching overhead PT-OP-C Subjective Start: 10/09/23 15:41 Freq: Status: Active Protocol: Document 01/14/24 12:59 NM (Rec: 01/14/24 13:45 NM [id number]) OP-PT Subjective Patient Comments Patient Comments Pt reports that she feels like she is able to use her R shoulder more (e.g. washing hair, ADLs, reaching for microwave), but she feels like the anterior shoulder near biceps tendon is more painful than normals. PT-OP-E Functional Tests Start: 10/09/23 15:41 Freq: Status: Active Protocol: Document 10/09/23 15:42 NM (Rec: 10/09/23 16:46 NM [id number]) Functional Tests Apley's Scratch Test Action 1- Left Able to touch R shoulder- wfl Action 1- Right Able to touch L shoulder- wfl Action 2- Left T4 Action 2- Right R ear (with pain) Action 3- Left T12 Action 3- Right R buttock (pocket) PT-OP-F Manual Assessment Start: 10/09/23 15:41 Freq: Status: Active Protocol: Document 10/09/23 15:42 NM (Rec: 10/09/23 16:46 NM [id number]) Manual Assessments Soft Tissue Assessment Soft Tissue Mobility Assessment No soft tissue restrictions noted around R scapula, trapezius, rhomboids, levator scapulae, scalenes, or SCM. Long head of biceps tendon is palpable and tender to palpation. Joint Mobility Assessment Joint Mobility Assessment Limited R GH PROM in fwd flex, horizontal abd, IR, and ER. End feels are painful and hard . No PROM into ER and limited PROM into IR. ER and IR are most limited. No shoulder subluxation noted. R scapular position is depressed; demos fair scapular control in sidelying but with limited gliding into retraction/ protraction, upward rotation/ elevation PT-OP-J Posture/Palpation/Skin Start: 10/09/23 15:41 Freq: Status: Active Protocol: Document 10/09/23 15:42 NM (Rec: 10/09/23 16:46 NM [id number]) Posture Evaluation Position Standing Evaluation View posterior, lateral Head/C-Spine Posture Neutral Position T-Spine Posture Neutral Thorax Posture (L) Elevated L-Spine Posture Neutral Shoulder Posture (L) Rounded,(R) Rounded,(L) Elevated Scapula Posture (L) Neutral,(R) Protracted,(R) Rotated Down,(R) Depressed Arm Posture (L) Neutral,(R) Internally Rotated Comments Posture Comments R shoulder is depressed compared to L shoulder Palpation Assessment Location R shoulder Palpation Location Anterior shoulder (long heads bicep tendon), posterior shldr /scap Palpation Findings Tenderness Palpation Details Tenderness along R proximal long head biceps tendon PT-OP-K Range of Motion Start: 10/09/23 15:41 Freq: Status: Active Protocol: Document 01/07/24 13:03 NM (Rec: 01/07/24 13:47 NM [id number]) Shoulder Goniometric Range of Motion Shoulder Right Flexion 105 Abduction 85 External Rotation at 90 degrees 0 Abduction External Rotation at 45 degrees 15 Abduction External Rotation at 0 degrees Abduction 20 Internal Rotation 45 Internal Rotation Behind Back (text) L5 Comments 01/07/24, 01/01/24: 120 deg flex , 80 deg abd, 32 deg ER at 0 deg abd, L1 IR 12/10/23: flex 115/123, abd 95/100, ER 30 deg (mid occiput), IR L5 IE 10/09/23 flex: 80 abd: 70 ER 10 deg (@45 deg abd), 10 deg (@0 deg abd) IR 45 deg, buttock (near pocket) Flex, abd, ER, IR painful (ER most limited and painful). PROM flex (90 deg), abd (70 deg), ER (10 deg), IR (55 deg) . PT-OP-L Special Tests Start: 10/09/23 15:41 Freq: Status: Active Protocol: Document 10/09/23 15:42 NM (Rec: 10/09/23 16:46 NM [id number]) Special Tests Shoulder Special Tests Drop Arm Rotator Cuff Test Results negative Comments able to slowly lower arm Speed's Biceps Test Results negative [place] Test Test Results positive Comments Reproduces pain Empty Can Test Results positive Comments Reproduces pain in rotator cuff area, long head biceps tendon with resistance Yergason's Biceps Test Results negative Comments Does not reproduce pain in LH biceps tendon during resisted supination Biceps Load II Test Test Results positive Comments reproduces pain in anterior shoulder near LH biceps tendon PT-OP-M Strength Start: 10/09/23 15:41 Freq: Status: Active Protocol: Document 01/07/24 13:03 NM (Rec: 01/07/24 15:16 NM [id number]) Shoulder Strength Shoulder Manual Muscle Testing Right Flexion 3+ Fair+ Abduction (C5) 3+ Fair+ External Rotation 4- Good- Internal Rotation 4- Good- Comments 01/07/24: 4/5 for flex, IR; 4-/ 5 for ER/abd; no pain reported with resistance 01/01/24, 12/10/23: 4- for all motions, min pain with abd IE: flex 3/5 abd 3+/5 add 4+/5 ER 3+/5 IR 4-/5 HABD 3+/5 HADD 4+/5 Pain with resisted ER/IR, abd PT-OP-Q Treatments Start: 10/09/23 15:41 Freq: Status: Active Protocol: Document 01/14/24 12:59 NM (Rec: 01/14/24 13:45 NM [id number]) Therapeutic Exercises Supine Exercises thoracic extension Side bilateral Equipment Used foam roller, arms across chest Reps/Minutes 1 Comments for improved mobility Sidelying Exercises sleeper stretch Side right Equipment Used L assisting R Reps/Minutes 2x20 Comments increased IR range, cued to no push into painful range Sitting Exercises posterior capsule stretch Side right Equipment Used L assisting R Reps/Minutes 2x30 Comments increased capsule tightness pulleys Sitting Exercise Name flexion, scaption; prior to mobilization Side right Equipment Used mirror for visual cues Reps/Minutes 1x8 ea with 1 hold at top Comments cue for pain free, to tolerance pendulum Sitting Exercise Name flex/ext/lat/CW/CCW Side right Resistance PROM Reps/Minutes 1 min Comments cues to move body not shoulder Standing Exercises R shoulder isometrics Standing Exercise Name short lever arm: flex, ext, ER , IR, abd Side right Resistance 75% force Equipment Used towel against wall Reps/Minutes 5x5 ea Comments cued for posture, form; reports muscles working not painful Shldr ER stretch Standing Exercise Name towel stretch, ER behind head Side right Equipment Used left assisting R Reps/Minutes 5x5 Comments cued to not push into pain; R hand at base of occiput IR Standing Exercise Name towel stretch Side right Equipment Used L assisting R Reps/Minutes 5x5 Comments cued no pushing into pain Manual Therapy Treatment Soft Tissue Mobilization R shld Body Location LH biceps, rotator cuff, rhomboid Mobilization Type Cross-Friction,Rolling, Sustained Pressure Intensity/Depth Superficial Body Position Hooklying Comments Cross friction at LH biceps tendon, superficial for pain relief. Rolling and sustained pressure at posterior rotator cuff, lat Joint Mobilizations R AC jt Joint gapping Direction Ant at clavicle, Post at scapula Grade III Body Position Supine Reps/Duration 1x10 ea Comments Posterior scap setting first to limit anterior humeral head placement, to increase mobility at R shldr joint. Limited excursion of clavicle with arm elevation. Decreased mobilization posterior at scapula and anterior at clavicle R GH jt Joint R Direction posterior, inferior, lateral distraction Grade III Body Position Hooklying Reps/Duration 4x30 Comments Moderate muscle guarding with inferior glide, pt very stiff prior to and after mobilization. Performed P-A, Inf, and lateral gapping distraction with functional movement glide. Decreased posterior capsule mobility, increased guarding with inferior glide. PT-OP-R Modalities Start: 10/15/23 07:53 Freq: Status: Active Protocol: Document 10/12/23 14:32 SP (Rec: 10/15/23 07:55 SP [id number]) Hot Pack/Cold Pack Treatment CP Location R shld Patient Position Sitting Treatment Duration (minutes) 6 Patient Tolerance Good Comments CP end tx during wall posture ther ex. PT-OP-T Assessment and Plan Start: 10/09/23 15:41 Freq: Status: Active Protocol: Document 01/14/24 12:59 NM (Rec: 01/14/24 13:45 NM [id number]) Physical Therapy Assessment Goals Eight Impairment function Impairment IR Apley reach to R buttock Short Term Goal (STG) Pt will increase R shoulder IR AROM to at least L4-5 in order to demostrate improved shoulder mobility and ADL tolerance for dressing. 12/10/23, 11/09/23: Pt can reach L5 with R shldr, painful STG Duration 5 weeks MET Abrasive Water Jet Cutter Operator Goal (LTG) Pt will increase R shoulder IR AROM to at least T12-L1 in order to demonstrate improved shoulder mobility and ADL tolerance for dressing. 10/31/24: L1 R shldr IR, painful 12/10/23: L5 R shldr IR, painful LTG Duration 10 weeks MET Seven Impairment function Impairment ER apley reach to R ear Short Term Goal (STG) Pt will increase R shoulder ER AROM to base of occiput in order to fix her hair. 01/07/24, 12/10/23: R shldr ER to mid-occiput, cued no head flexion compensation 11/09/23: NOT MET- Pt able to reach behind her R ear, but compensates with cervical flexion STG Duration 5 weeks NOT MET, progressing Abrasive Water Jet Cutter Operator Goal (LTG) Pt will increase R shoulder ER AROM to at least C7 in order to demonstrate improved shoulder mobility and ADL tolerance. 01/07/24, 12/10/23: R shldr ER to mid-occiput, cued no head flexion compensation LTG Duration 10 weeks NOT MET Six Impairment strength Impairment R shoulder abd and ER strength 3+/5 Short Term Goal (STG) Pt will improve R shoulder abd and ER MMT to at least 4-/5 to demonstrate improved shoulder strength for lifting. 12/10/23: 4-/5 MMT for abd and ER; min pain with ABD 11/09/23: ER 4-/5, Abd 3+/5; painful STG Duration 5 weeks MET [employer]asive [employer] C[employer] Operator Goal (LTG) Pt will improve R shoulder abd and ER MMT to at least 4/5 to demonstrate improved shoulder strength for lifting. 01/07/24: 4-/5 for abd and ER but not painful 12/10/23: 4-/5 MMT for abd and ER; min pain with ABD LTG Duration 10 weeks PROGRESSING Five Impairment Function Impairment Quickdash score 33 (50% disability) Short Term Goal (STG) Pt will improve Quickdash score by 5 points in order to demonstrate improved ADL participation and tolerance. 12/10/23: score 22, 25% disability 11/09/23: score 30, 43.18% STG Duration 5 weeks MET Abrasive [employer] Jet Cutter Operator Goal (LTG) Pt will improve Quickdash score by at least 10 points ( MCID) in order to demonstrate improved ADL participation and tolerance. 12/10/23: 22 (25%) LTG Duration 10 weeks MET, PROGRESSING Four Impairment strength Impairment R shoulder flex MMT 3/5 Short Term Goal (STG) Pt will improve R shoulder flex MMT to at least 3+/5 in order to demonstrate improved shoulder strength for lifting and to perform ADLs. 12/10/23: 4-/5 MMT shoulder flex, no pain 11/09/23: R shldr flex 3+/5, painful STG Duration 5 weeks MET Abrasive [employer] Cutter Operator Goal (LTG) Pt will improve R shoulder flex MMT to at least 4/5 in order to demonstrate improved shoulder strength for lifting and to perform ADLs. 01/07/24: 4/5 R shoulder flex and IR MMT; no pain reported GOAL MET- 12/10/23: 4-/5 R shldr flexion MMT; updated to 02/14 LTG Duration 10 weeks MET; updated Three Impairment ROM Impairment Shldr ER (45 deg HABD) AROM 10 deg Short Term Goal (STG) Pt will increase R shoulder ER (at 45 deg HABD) AROM to at least 30 deg without compensation and < 3/10 pain in order to improve ADL tolerance. 01/07/24: 32 deg R shoulder ER AROM but painful 01/1912/10/23: R shldr ER 20 deg at 45 deg abd, 30 deg at 0 deg abd 11/09/23: R shldr ER 15 deg at 45 deg abd, painful STG Duration 5 weeks MET Residential Goal (LTG) Pt will increase R shoulder ER (at 45 deg HABD) AROM to at least 70 deg without compensation and < 3/10 pain in order to improve ADL tolerance. 01/07/24: 32 deg R shoulder ER AROM but painful 01/1912/10/23: R shldr ER 20 deg at 45 deg abd, 30 deg at 0 deg abd LTG Duration 10 weeks NOT MET Two Impairment ROM Impairment Shldr hor abd AROM 70 deg Short Term Goal (STG) Pt will increase R shoulder horizontal abduction AROM to at least 90 deg without compensation and <3/10 pain in order to demonstrate improved shoulder AROM for reaching. 12/10/23: 100 deg R shldr abd before compensation, pain 01/1912/03/23: 110 deg before compensation and pain 11/09/23: 85 deg without compensation, painful STG Duration 5 weeks MET Residential Goal (LTG) Pt will increase R shoulder horizontal abduction AROM to at least 120 deg without compensation and <3/10 pain in order to demonstrate improved shoulder AROM for reaching. 01/07/24: 80 deg abd before compensation, end range due to pain >3/10 12/10/23: 100 deg R shldr abd before compensation, pain 3/10 LTG Duration 10 weeks NOT MET, PROGRESSING One Impairment ROM Impairment Shldr fwd flex AROM 80 deg Short Term Goal (STG) Pt will increase R shoulder forward flexion AROM to at least 90 deg without compensation and <3/10 pain in order to demonstrate improved shoulder AROM for reaching. 12/10/23, 12/03/23: R shoulder flex 115 before compensation and pain 3/10 11/09/23: R shldr flex 105 deg , painful, minimal compensation 10/29/23: R shld AROM: FF 108 deg supine, L SL abd 89 deg, 18 deg standing, IR behind back lateral R sacrum. STG Duration 5 weeks MET Residential Goal (LTG) Pt will increase R shoulder forward flexion AROM to at least 120 deg without compensation and <3/10 pain in order to demonstrate improved shoulder AROM for reaching. 01/07/24: 120 deg flex with compensation, 110 deg flexion without compensation LTG Duration 10 weeks PARTIALLY MET Assessment Summary Assessment Pt reports increased discomfort R biceps compared to normal prior to start of session and increased stiffness. Initiated shoulder isometrics for pain reduction with activation. Pt able to perform up to 75% force before pain. PT cued pt to limit leaning into isometric hold with trunk. Initiated thoracic extension to improve shoulder mobility across kinetic chain . Continued with R shoulder mobility, adding sleeper stretch and shoulder ER stretch behind head. Performed joint mobilizations to improve R shoulder mobility. Pt continues to be limited with R shoulder AROM globally and demos muscle guarding, which limits treatment. PT and pt discussed discharging at next session due to plateau in progress, pt will not be seeking further intervention from ortho at this time; pt and PT in agreement. Pt would benefit from skilled PT for R shoulder mobility and strengthening within available range in order to improve QOL and activity tolerance. Physical Therapy Plan Frequency and Duration Frequency of Treatment 1-2x/wk Duration of treatment (weeks) 8 Plan of Care Start Date 12/10/23 Plan of Care End Date 01/28/24 Therapeutic Interventions Therapeutic Interventions Coordination Training,Home Exercise Program,Joint Mobilizations,Manual Therapy, Neuromuscular Re-education, Patient/Caregiver Education, Soft Tissue Mobilization, Taping,Therapeutic Activities, Therapeutic Exercises Modalities Biofeedback,Cold Pack/Ice Massage,Electric Stimulation, Hot Packs,Iontophoresis, Ultrasound,Vasopneumatic Devices Next Visit Focus/Plan Next Note Type Discharge Summary Next Visit Plan trial sleeper stretch, post capsule stretch and mobilization, isometrics Ask response contract relax into scaption, added wall pushup, cont periscap strengthening, inf glide (self ), shoulder ext. Trial shoulder ext, thoracic ext with shoulder flex recheck HEP: supine FF, L SL abd, sup serratus press (add over noodle), chest press, wall posture, resisted ADD/ecc abd, resisted ext/eccentric flexion, eccentric FF walk out , ER with dowel wall pushup. Continue remind pendulum arms swing/scapular AROM during gait. POC: Begin gentle shoulder mobility, periscapular strengthening. Cont manual tx with grade II mobs (III as lashonda ). Continue progress HEP.
--- NOTE | 2024-01-21 16:29 | PT.OTN ---
Current Diagnoses Other articular cartilage disorders, right shoulder (01/21/24) Pain in right shoulder (01/21/24) Adhesive capsulitis of unspecified shoulder (01/21/24) Incomplete rotator cuff tear or rupture of unspecified shoulder, not specified as traumatic (01/21/24) Physical Therapy Treatment Note PT-OP-A Visit Information Start: 10/09/23 15:41 Freq: Status: Active Protocol: Document 01/21/24 12:58 NM (Rec: 01/21/24 13:43 NM [id number]) Out-Patient Physical Therapy Visit Information Visit Information Visit Type Discharge Summary Visit Start Time 13:00 Visit Stop Time 13:45 Visit Number 23 Evaluation Information Evaluation Date 10/09/23 PT-OP-B Current Condition Start: 10/09/23 15:41 Freq: Status: Active Protocol: Document 10/09/23 15:42 NM (Rec: 10/09/23 16:46 NM [id number]) Current Condition History of Current Condition Onset Date January 2023 Current Complaints R shoulder pain, limited R shoulder mobility, difficulty with ADLs History of Current Condition Pt presents to clinic with R shoulder pain that began insidiously in January 2023. She reports that she woke up with R shoulder pain one morning. She went to her PCP who ordered an injection and then PT. Her R shoulder pain worsened with PT over the summer. She then sought an appt with an orthopedist, who dx her with adhesive capsulitis and ordered an MRI, referring her back to PT. No surgical repair or GAGANDEEP planned at this time. Since the summer, her pain has decreased considerably and her R shoulder mobility has become more limited. At this time, she reports that she only has pain with jerky movements. Pt has most difficulty with performing her ADLs (putting up hair, dressing), lifting overhead, carrying objects >5# , and general mobility. Prior Treatments and Tests MRI 07/22/23: no full thickness RC rupture, AC joint OA, tendinosis of proximal long head of biceps tendon and infraspinatus, partial tears of subscapularis and supraspinatus, suspected labral tear 12-2 o'clock Treatment Goals Patient/Caregiver Goals Improve R shoulder ROM and strength, be able to put up her hair Prior Functional Status Baseline Function- ADL's Independent Baseline Function- Mobility Independent Baseline Function- Work/School [employer] [employer] Baseline Function- Other Prior to January 2023, able to perform all ADLs independently . Current Functional Impairments (Reported) Functional Limitations- ADL's Lifting, putting up hair, dressing, reaching overhead PT-OP-C Subjective Start: 10/09/23 15:41 Freq: Status: Active Protocol: Document 01/21/24 12:58 NM (Rec: 01/21/24 13:43 NM [id number]) OP-PT Subjective Patient Comments Patient Comments Pt reports that she hasn't had any change in her R shoulder. R shoulder biceps tendon continues to be 2/10 pain, worse with activity. Brought her HEP to review. Pt agrees to discharge, probably the right choice to give the shoulder a break PT-OP-E Functional Tests Start: 10/09/23 15:41 Freq: Status: Active Protocol: Document 10/09/23 15:42 NM (Rec: 10/09/23 16:46 NM [id number]) Functional Tests Apley's Scratch Test Action 1- Left Able to touch R shoulder- wfl Action 1- Right Able to touch L shoulder- wfl Action 2- Left T4 Action 2- Right R ear (with pain) Action 3- Left T12 Action 3- Right R buttock (pocket) PT-OP-F Manual Assessment Start: 10/09/23 15:41 Freq: Status: Active Protocol: Document 10/09/23 15:42 NM (Rec: 10/09/23 16:46 NM [id number]) Manual Assessments Soft Tissue Assessment Soft Tissue Mobility Assessment No soft tissue restrictions noted around R scapula, trapezius, rhomboids, levator scapulae, scalenes, or SCM. Long head of biceps tendon is palpable and tender to palpation. Joint Mobility Assessment Joint Mobility Assessment Limited R GH PROM in fwd flex, horizontal abd, IR, and ER. End feels are painful and hard . No PROM into ER and limited PROM into IR. ER and IR are most limited. No shoulder subluxation noted. R scapular position is depressed; demos fair scapular control in sidelying but with limited gliding into retraction/ protraction, upward rotation/ elevation PT-OP-J Posture/Palpation/Skin Start: 10/09/23 15:41 Freq: Status: Active Protocol: Document 10/09/23 15:42 NM (Rec: 11/28/23 16:46 NM [id number]) Posture Evaluation Position Standing Evaluation View posterior, lateral Head/C-Spine Posture Neutral Position T-Spine Posture Neutral Thorax Posture (L) Elevated L-Spine Posture Neutral Shoulder Posture (L) Rounded,(R) Rounded,(L) Elevated Scapula Posture (L) Neutral,(R) Protracted,(R) Rotated Down,(R) Depressed Arm Posture (L) Neutral,(R) Internally Rotated Comments Posture Comments R shoulder is depressed compared to L shoulder Palpation Assessment Location R shoulder Palpation Location Anterior shoulder (long heads bicep tendon), posterior shldr /scap Palpation Findings Tenderness Palpation Details Tenderness along R proximal long head biceps tendon PT-OP-K Range of Motion Start: 10/09/23 15:41 Freq: Status: Active Protocol: Document 01/21/24 12:58 NM (Rec: 01/21/24 13:43 NM [id number]) Shoulder Goniometric Range of Motion Shoulder Right Flexion 120 Abduction 95 External Rotation at 0 degrees Abduction 32 Internal Rotation Behind Back (text) L1 Comments 01/21/24: 120 deg flex, 95 deg abd, 105 deg scaption, ER occiput, IR L1, 32 deg ER 01/07/24, 01/01/24: 120 deg flex , 80 deg abd, 32 deg ER at 0 deg abd, L1 IR 12/10/23: flex 115/123, abd 95/100, ER 30 deg (mid occiput), IR L5 IE 10/09/23 flex: 80 abd: 70 ER 10 deg (@45 deg abd), 10 deg (@0 deg abd) IR 45 deg, buttock (near pocket) Flex, abd, ER, IR painful (ER most limited and painful). PROM flex (90 deg), abd (70 deg), ER (10 deg), IR (55 deg) . PT-OP-L Special Tests Start: 10/09/23 15:41 Freq: Status: Active Protocol: Document 10/09/23 15:42 NM (Rec: 10/09/23 16:46 NM [id number]) Special Tests Shoulder Special Tests Drop Arm Rotator Cuff Test Results negative Comments able to slowly lower arm Speed's Biceps Test Results negative [place] Test Test Results positive Comments Reproduces pain Empty Can Test Results positive Comments Reproduces pain in rotator cuff area, long head biceps tendon with resistance Yergason's Biceps Test Results negative Comments Does not reproduce pain in LH biceps tendon during resisted supination Biceps Load II Test Test Results positive Comments reproduces pain in anterior shoulder near LH biceps tendon PT-OP-M Strength Start: 10/09/23 15:41 Freq: Status: Active Protocol: Document 01/21/24 12:58 NM (Rec: 01/21/24 13:43 NM [id number]) Scapula Strength Scapula Manual Muscle Testing Right Elevation (C4) 4 Good Adduction 4 Good Abduction 4 Good Depression 4 Good Comments 01/21/24: 4/5 Shoulder Strength Shoulder Manual Muscle Testing Right Flexion 4 Good Abduction (C5) 4 Good External Rotation 4 Good Internal Rotation 4 Good Comments 01/21/24: 4/5 for all 01/07/24: 4/5 for flex, IR; 4-/ 5 for ER/abd; no pain reported with resistance 01/01/24, 12/10/23: 4- for all motions, min pain with abd IE: flex 3/5 abd 3+/5 add 4+/5 ER 3+/5 IR 4-/5 HABD 3+/5 HADD 4+/5 Pain with resisted ER/IR, abd PT-OP-Q Treatments Start: 10/09/23 15:41 Freq: Status: Active Protocol: Document 01/21/24 12:58 NM (Rec: 01/21/24 13:43 NM [id number]) Therapeutic Exercises Supine Exercises thoracic extension Supine Exercise Name reviewed for HEP but did not perform Prone Exercises child's pose Prone Exercise Name reviewed for HEP but did not perform Sidelying Exercises ER Side right Resistance AROM Equipment Used towel between arm Reps/Minutes 1x10 Comments cued to prevent fwd R shldr FF Sidelying Exercise Name forward flexion Side right Resistance AROM Reps/Minutes 1x10 Comments cued for scapular rotation, control; improved with reps ABD Sidelying Exercise Name modified scaption Side right Resistance AROM Reps/Minutes 1x10 Comments cued to maximize scapular rotation, control; improved with reps Sitting Exercises inferior glide Sitting Exercise Name verbally reviewed for HEP, did not perform pulleys Sitting Exercise Name flexion, scaption; continue with as HEP Side right Equipment Used mirror for visual cues Reps/Minutes 1x5 ea with 1 hold at top Comments cue for pain free, to tolerance pendulum Sitting Exercise Name reviewed for HEP: CW/CCW, flex /ext, medial/lateral Side right Resistance 3# PROM Reps/Minutes 1x15 ea direction Comments cued body not shoulder, let arm distract Standing Exercises R shoulder isometrics Standing Exercise Name reviewed for HEP but did not perform Side right shoulder ext Side bilateral Resistance lvl 3 tb Reps/Minutes 2x10 Comments reports no pain at LH biceps, good upright posture ER/IR walkout Standing Exercise Name reviewed for HEP Side right Resistance lvl 3 Equipment Used towel btwn arm/body Reps/Minutes 1x8 ea Comments reports no pain, unable to progress to isotonic d/t dec range Row Standing Exercise Name 1. mid row, 2. high row Side bilateral Resistance [place] tb (lvl 3) Reps/Minutes 2x10 ea Comments improved scapular control; cued allow protract on return to start IR Standing Exercise Name reviewed with dowel Side right Equipment Used L assisting R Reps/Minutes 5x10 Comments cued no pushing into pain adduction/eccentric ABD Standing Exercise Name bands from elevated level Side right Resistance lvl 3 tb Reps/Minutes 1x10 Comments cued slow, control w/o UT; improved with cues/reps shld ext/eccentric flexion Standing Exercise Name bands from elevated level Side right Resistance lvl 3 tb Equipment Used cues mindful no UT recruitment , mirror for vc Reps/Minutes 1x10 Comments cued control w/o UT; improved with reps Self-Care/Home Management Treatment Education Patient Education Body Mechanics,Home Exercise Program,Joint Protection,Pain Management,Posture Other Education 8 minutes: PT and pt reviewed past HEP and created final HEP for maintenance. Educated on maintaining ROM and strength as able. Educated further on sleeping position, standing/ sitting/driving posture. Educated on use of modalities for pain relief as needed, activity modification as able. Additionally, PT and pt discussed limiting aggravating activity and not pushing into R shoulder pain with activity . Instructed to follow up with PCP and ortho if changes in R shoulder pain/symptoms occur. Pt verbalizes agreement. PT-OP-R Modalities Start: 10/15/23 07:53 Freq: Status: Active Protocol: Document 10/12/23 14:32 SP (Rec: 10/15/23 07:55 SP [id number]) Hot Pack/Cold Pack Treatment CP Location R shld Patient Position Sitting Treatment Duration (minutes) 6 Patient Tolerance Good Comments CP end tx during wall posture ther ex. PT-OP-T Assessment and Plan Start: 10/09/23 15:41 Freq: Status: Active Protocol: Document 01/21/24 12:58 NM (Rec: 01/21/24 13:43 NM [id number]) Physical Therapy Assessment Goals Eight Impairment function Impairment IR Apley reach to R buttock Short Term Goal (STG) Pt will increase R shoulder IR AROM to at least L4-5 in order to demostrate improved shoulder mobility and ADL tolerance for dressing. 12/10/23, 11/09/23: Pt can reach L5 with R shldr, painful STG Duration 5 weeks MET Residential Goal (LTG) Pt will increase R shoulder IR AROM to at least T12-L1 in order to demonstrate improved shoulder mobility and ADL tolerance for dressing. 10/31/24: L1 R shldr IR, painful 12/10/23: L5 R shldr IR, painful LTG Duration 10 weeks MET Seven Impairment function Impairment ER apley reach to R ear Short Term Goal (STG) Pt will increase R shoulder ER AROM to base of occiput in order to fix her hair. 01/21/24: Pt able to reach base of occiput with R hand without head flexion compensation 01/07/24, 12/10/23: R shldr ER to mid-occiput, cued no head flexion compensation 11/09/23: NOT MET- Pt able to reach behind her R ear, but compensates with cervical flexion STG Duration 5 weeks MET Field Party Manager Goal (LTG) Pt will increase R shoulder ER AROM to at least C7 in order to demonstrate improved shoulder mobility and ADL tolerance. 01/21/24: R shoulder ER to base of occiput without head flexion 01/07/24, 12/10/23: R shldr ER to mid-occiput, cued no head flexion compensation LTG Duration 10 weeks NOT MET Six Impairment strength Impairment R shoulder abd and ER strength 3+/5 Short Term Goal (STG) Pt will improve R shoulder abd and ER MMT to at least 4-/5 to demonstrate improved shoulder strength for lifting. 12/10/23: 4-/5 MMT for abd and ER; min pain with ABD 11/09/23: ER 4-/5, Abd 3+/5; painful STG Duration 5 weeks MET Residential Goal (LTG) Pt will improve R shoulder abd and ER MMT to at least 4/5 to demonstrate improved shoulder strength for lifting. 01/21/24: 4/5 MMT for flexion/ abduction/ER without pain 01/07/24: 4-/5 for abd and ER but not painful 12/10/23: 4-/5 MMT for abd and ER; min pain with ABD LTG Duration 10 weeks MET Five Impairment Function Impairment Quickdash score 33 (50% disability) Short Term Goal (STG) Pt will improve Quickdash score by 5 points in order to demonstrate improved ADL participation and tolerance. 12/10/23: score 22, 25% disability 11/09/23: score 30, 43.18% STG Duration 5 weeks MET Residential Goal (LTG) Pt will improve Quickdash score by at least 10 points ( MCID) in order to demonstrate improved ADL participation and tolerance. 12/10/23: 22 (25%) LTG Duration 10 weeks MET Four Impairment strength Impairment R shoulder flex MMT 3/5 Short Term Goal (STG) Pt will improve R shoulder flex MMT to at least 3+/5 in order to demonstrate improved shoulder strength for lifting and to perform ADLs. 12/10/23: 4-/5 MMT shoulder flex, no pain 11/09/23: R shldr flex 3+/5, painful STG Duration 5 weeks MET Residential Goal (LTG) Pt will improve R shoulder flex MMT to at least 4/5 in order to demonstrate improved shoulder strength for lifting and to perform ADLs. 01/21/24: R shoulder flexion/IR MMT 4/5 without pain- MET UPDATED GOAL 01/07/24: 4/5 R shoulder flex and IR MMT; no pain reported GOAL MET- 12/10/23: 4-/5 R shldr flexion MMT; updated to 4/5 LTG Duration 10 weeks MET, updated (MET UPDATED GOAL) Three Impairment ROM Impairment Shldr ER (45 deg HABD) AROM 10 deg Short Term Goal (STG) Pt will increase R shoulder ER (at 45 deg HABD) AROM to at least 30 deg without compensation and < 3/10 pain in order to improve ADL tolerance. 01/21/24, 01/07/24: 32 deg R shoulder ER AROM but painful 3 /10 12/10/23: R shldr ER 20 deg at 45 deg abd, 30 deg at 0 deg abd 11/09/23: R shldr ER 15 deg at 45 deg abd, painful STG Duration 5 weeks MET Residential Goal (LTG) Pt will increase R shoulder ER (at 45 deg HABD) AROM to at least 70 deg without compensation and < 3/10 pain in order to improve ADL tolerance. 01/07/24: 32 deg R shoulder ER AROM but painful 01/1912/10/23: R shldr ER 20 deg at 45 deg abd, 30 deg at 0 deg abd LTG Duration 10 weeks NOT MET Two Impairment ROM Impairment Shldr hor abd AROM 70 deg Short Term Goal (STG) Pt will increase R shoulder horizontal abduction AROM to at least 90 deg without compensation and <3/10 pain in order to demonstrate improved shoulder AROM for reaching. 12/10/23: 100 deg R shldr abd before compensation, pain 01/1912/03/23: 110 deg before compensation and pain 11/09/23: 85 deg without compensation, painful STG Duration 5 weeks MET Residential Goal (LTG) Pt will increase R shoulder horizontal abduction AROM to at least 120 deg without compensation and <3/10 pain in order to demonstrate improved shoulder AROM for reaching. 01/21/24: 95 deg abd; previously 100-110 deg 01/07/24: 80 deg abd before compensation, end range due to pain >01/1912/10/23: 100 deg R shldr abd before compensation, pain 310 LTG Duration 10 weeks NOT MET One Impairment ROM Impairment Shldr fwd flex AROM 80 deg Short Term Goal (STG) Pt will increase R shoulder forward flexion AROM to at least 90 deg without compensation and <3/10 pain in order to demonstrate improved shoulder AROM for reaching. 12/10/23, 12/03/23: R shoulder flex 115 before compensation and pain 01/1911/09/23: R shldr flex 105 deg , painful, minimal compensation 10/29/23: R shld AROM: FF 108 deg supine, L SL abd 89 deg, 18 deg standing, IR behind back lateral R sacrum. STG Duration 5 weeks MET Field Party Manager Goal (LTG) Pt will increase R shoulder forward flexion AROM to at least 120 deg without compensation and <3/10 pain in order to demonstrate improved shoulder AROM for reaching. 01/21/24: 120 deg flexion without compensation, unable to progress past 120 deg without compensation or increased pain 01/07/24: 120 deg flex with compensation, 110 deg flexion without compensation LTG Duration 10 weeks MET Progress Towards Goals Progress Towards Goals Slow Progress due to Medical Issues,Slow Progress - Other, Goals Met Progress Comments Met 5/8 goals. Did not meet AROM goals for ABD and ER Assessment Summary Assessment Pt tolerated session well. Session emphasis on reviewing past HEP and creating final HEP for maintenance of progress. Continued with periscapular and gentle rotator cuff strengthening within available AROM. Pt has improved R shoulder strength, but not able to tolerate progression from R rotator cuff isometrics to isotonics due to increase in compensations and R shoulder pain. Reviewed pendulum for both pain relief and axial distraction to create space at glenohumeral joint. Emphasis on maintaining R scapular control and mechanics to limit abnormal movements and compensations with arm elevation. Pt able to perform all exercises safely and with good form, improved with repetitions. Final HEP added: weighted pendulums, high rows, AROM sidelying flexion and abduction Pt has been seen since September 2023 for treatment related to R shoulder adhesive capsulitis. Pt has made progress toward goals, Since IE, she has met 5/8 goals. Pt has made significant improvements in R shoulder flexion, abduction, and ER since IE, but continues to have limitations globally in R shoulder AROM. Pt no longer has R shoulder pain at rest, but she still has pain in her R biceps tendon with arm elevation. Pt has reported improvements in her own perception of her progress since IE and reports that family members have commented on the changes. She continues to report that she has difficulty with performing ADLs/IADLs and recreational activities despite improvement . Pt continues to present with significant muscle guarding during manual treatments. Currently, pt has reached a plateau in progress, unable to progress with both AROM and strength without further outside intervention. She was referred back to ortho in December 2023 to determine if additional treatments are an option; ortho recommended GAGANDEEP, however, pt is not seeking further intervention at this time. Due to plateau in progress and insurance limitations, PT and pt discussed taking break from PT and discharging at this session. Pt and PT in agreement. PT educated pt on final HEP, maintenance 3x/wk, pain management, posture, and joint safety. PT also educated pt on following up with PCP and ortho if symptoms continue to persist, change, or worsen . Pt verbalizes agreement and is safe to discharge. Physical Therapy Plan Frequency and Duration Frequency of Treatment 1-2x/wk Duration of treatment (weeks) 8 Plan of Care Start Date 12/10/23 Plan of Care End Date 01/28/24 Therapeutic Interventions Therapeutic Interventions Coordination Training,Home Exercise Program,Joint Mobilizations,Manual Therapy, Neuromuscular Re-education, Patient/Caregiver Education, Soft Tissue Mobilization, Taping,Therapeutic Activities, Therapeutic Exercises Modalities Biofeedback,Cold Pack/Ice Massage,Electric Stimulation, Hot Packs,Iontophoresis, Ultrasound,Vasopneumatic Devices Discharge Physical Therapy Discharge Reasons Plateau in Progress Discharge Comments Pt not willing to seek further intervention after referral back to ortho in December 2023 . Plateau in progress, met 5/8 goals Next Visit Focus/Plan Next Visit Plan Discharge from PT services
== END 2024-01-25 08:05 | disposition home or self-care (01) ==
LOC: PHYS 13:00
PROVIDERS: Family Provider Family Medicine; PCP Family Medicine; Referring Provider Family Medicine; Visit Provider Family Medicine
DX: M24.111 Other articular cartilage disorders, right shoulder (principal); M75.110 Incomplete rotator cuff tear or rupture of unspecified shoulder, not specified as traumatic; M75.00 Adhesive capsulitis of unspecified shoulder; M25.511 Pain in right shoulder
CPT/HCPCS: 97110; 97140; 97162; 97535

== ENCOUNTER → 2024-01-23 14:04 | Outpatient (CLI) | payer OTHER, SELFPAY ==
--- NOTE | 2024-01-23 14:05 | DI.MG.S_ITS ---
BILATERAL DIGITAL SCREENING MAMMOGRAM 3D/2D WITH CAD: 01/23/2024 CLINICAL: Routine screening. Comparison is made to exams dated: 01/18/2023 mammogram, 01/05/2022 mammogram, and 12/20/2020 mammogram - [facility]. Both breasts are heterogeneously dense, which may obscure small masses (category c / 51-75% glandular tissue). Current study was also evaluated with a Computer Aided Detection (CAD) system. No significant masses, calcifications, or other findings are seen in either breast. There has been no significant interval change. IMPRESSION: NEGATIVE There is no mammographic evidence of malignancy. A 1 year screening mammogram is recommended. Based on the Tyrer Cuzick model (a risk assessment model) the patient's lifetime risk is 12.4% and her 10 year risk is 2.5%. According to the ACR, ACS, and NCCN guidelines, an annual breast MRI exam along with mammogram is recommended if the patient's lifetime risk is 20% or greater. This exam was interpreted at Station ID: [id number]. NOTE: For mammograms, a report in lay terms will be sent to the patient. Approximately 15% of breast malignancies will not be visualized mammographically. In the management of a palpable breast mass, a negative mammogram must not discourage biopsy of a clinically suspicious lesion. Electronically Signed By: Familia pelaez/kd:01/23/2024 21:28:16 letter sent: Normal Exam ACR BI-RADS Category 1: Negative [id number]
== END ==
LOC: MAMMO 14:04
PROVIDERS: PCP Family Medicine; Referring Provider Family Medicine; Visit Provider Family Medicine
DX: Z12.31 Encounter for screening mammogram for malignant neoplasm of breast (principal); R92.333 Mammographic heterogeneous density, bilateral breasts
CPT/HCPCS: 77063; 77067

== ENCOUNTER → 2024-08-04 07:03 | Outpatient (CLI) | payer OTHER, SELFPAY ==
[2024-08-04 07:48] LABS: Add Manual Diff / Slide Review NO; Basophils Absolute Auto 100 /uL (0-100); Basophils Percent Auto 0.7 % (0-2); Eosinophils Absolute Auto 100 /uL (0-450); Eosinophils Percent Auto 1.7 % (2-4); Hematocrit 40.4 % (36-46); Lymphocytes Absolute Auto 2000 /uL (1100-4500); Lymphocytes Percent Auto 28.2 % (25-40); Mean Corpuscular HGB Conc 34.6 % (30-36); Mean Corpuscular Hemoglobin 30.3 PG (26-34); Mean Corpuscular Volume 87.3 fL (80-100); Monocytes Absolute Auto 500 /uL (0-900); Monocytes Percent Auto 7.1 % (3-14); Neutrophils Absolute Auto 4400 /uL (1500-7000); Neutrophils Percent Auto 62.3 % (50-75); Platelet Count 351 X10^3/uL (150-400); Red Blood Cell Count 4.62 X10^6/uL (4.0-5.2); Red Cell Distribution Width 12.7 % (11.6-14.8); White Blood Cell Count 7.1 X10^3/uL (4.5-11.0)
[2024-08-04 08:28] LABS: Alanine Aminotransferase 33 IU/L (<35); Albumin Globulin Ratio 1.5 (1.0-2.8); Alkaline Phosphatase 83 U/L (38-126); Aspartate Aminotransferase 32 IU/L (14-36); BUN Creatinine Ratio 16.4 (6-22); Bilirubin Total 0.6 mg/dL (0.2-1.3); Blood Urea Nitrogen 9 mg/dL (7-17); Carbon Dioxide 26 mmol/L (22-32); Chloride 103 mmol/L (98-107); Estimated Glomerular Filt Rate > 60 mL/min (>60); Globulin 2.6 g/dL (1.7-4.1); Glucose 98 mg/dL (70-100); HEMOLYSIS < 15 (0-50); Potassium 4.5 mmol/L (3.4-5.1); Sodium 134 mmol/L (137-145); Total Protein 6.6 g/dL (6.3-8.2)
[2024-08-04 08:31] LABS: High Sensitivity CRP - Cardiac 0.9 mg/L (1.0-3.0)
[2024-08-04 08:52] LABS: Follicle Stimulating Hormone 17.3 mIU/mL; Vitamin D 25 Hydroxy (D3) 31.3 ng/mL (30.0-100.0)
[2024-08-04 09:12] LABS: Protein (Total) Urine Random < 5 mg/dL (0-12)
[2024-08-04 09:13] LABS: Protein Creatinine Ratio Urine < 0.02 GRAM/24H
== END ==
PROVIDERS: PCP Family Medicine; Referring Provider Family Medicine; Visit Provider Family Medicine
DX: I10 Essential (primary) hypertension (principal); R73.9 Hyperglycemia, unspecified; E87.1 Hypo-osmolality and hyponatremia; E28.2 Polycystic ovarian syndrome; E78.2 Mixed hyperlipidemia; E55.9 Vitamin D deficiency, unspecified
CPT/HCPCS: 36415; 80053; 82306; 82397; 82570; 83001; 84156; 85025; 86140

== ENCOUNTER → 2024-10-22 07:24 | Outpatient (CLI) | payer OTHER, SELFPAY ==
[2024-10-22 08:22] LABS: Cholesterol 238 mg/dL (140-199); HDL Cholesterol 63 mg/dL (40-60); LDL Cholesterol Calculated 148 mg/dL (<100); Triglycerides 136 mg/dL (35-150)
== END ==
PROVIDERS: PCP Family Medicine; Referring Provider Family Medicine; Visit Provider Family Medicine
DX: E78.2 Mixed hyperlipidemia (principal)
CPT/HCPCS: 36415; 80061

== ENCOUNTER → 2025-02-19 14:45 | Outpatient (CLI) | payer OTHER, SELFPAY ==
--- NOTE | 2025-02-19 14:46 | DI.MG.S_ITS ---
MM screening mammo BI: 02/19/2025. BI-RADS: 1 CLINICAL: 49-year old female for bilateral screening mammogram. Tyrer-Cuzick lifetime risk of 10.6%. No personal or first-degree family history of breast cancer. PRIOR EXAMS 01/23/2024, 01/18/2023, 01/05/2022, 12/20/2020, 12/31/2018, 05/11/2017. MAMMOGRAPHY TECHNIQUE: 2D and 3D (tomosynthesis) digital mammographic views obtained, with additional images as needed for full coverage. Current study was also evaluated with a Computer Aided Detection (CAD) system. DENSITY C. The breasts are heterogeneously dense, which may obscure small masses. MAMMOGRAPHY FINDINGS Bilateral: No suspicious mass, asymmetry, microcalcification, or other abnormality seen. No significant change from comparison. IMPRESSION: * No evidence of malignancy. RECOMMENDATIONS Bilateral * Annual screening mammography. OVERALL ASSESSMENT CATEGORY BI-RADS-1: Negative. The [employer] recommends annual screening mammography beginning at age 40 for women with average risk of breast cancer. ELECTRONICALLY SIGNED: Marlena Bassett M.D. on 02/19/2025 at 06:01:41 PM PT Interpreting Station ID: [id number]
== END ==
LOC: MAMMO 14:45
PROVIDERS: PCP Family Medicine; Referring Provider Family Medicine; Visit Provider Family Medicine
DX: Z12.31 Encounter for screening mammogram for malignant neoplasm of breast (principal); R92.333 Mammographic heterogeneous density, bilateral breasts
CPT/HCPCS: 77063; 77067

== ENCOUNTER → 2025-03-18 15:43 | Outpatient (CLI) | payer OTHER, SELFPAY ==
--- NOTE | 2025-03-18 15:45 | DI.MRI.S_ITS ---
PROCEDURE: MR SHOULDER LT WO CON INDICATIONS: rule out rotator cuff or labral tear TECHNIQUE: Noncontrast oblique coronal T2 fast spin echo with fat saturation, oblique sagittal T1 spin echo and T2 fast spin echo with fat saturation, axial T1 spin echo and T2 fast spin echo with fat saturation through the shoulder. COMPARISON: [facility], MR, MR SHOULDER RT WO CON, 07/22/2023, 15:51. FINDINGS: Image quality: Excellent. Rotator cuff: Low-grade articular and bursal surface partial thickness tear involving distal supraspinatus at its insertion on humeral head is seen extending to musculotendinous junction. Distal infraspinatus tendinosis is seen. The subscapularis tendon is intact. No full-thickness rotator cuff tendon rupture. Sagittal images demonstrate mild supraspinatus muscle atrophy. Bones and bursae: Mild edema involving distal clavicle and acromion is seen without discrete fracture line. Mild acromioclavicular joint osteoarthritic changes are seen with joint space narrowing, subchondral sclerosis and downward osteophyte formation depressing on musculotendinous junction of supraspinatus. Type 2 acromion without an os acromiale. Small amount of joint fluid and subacromial subdeltoid bursal fluid is seen, no loose bodies. Capsule and soft tissues: Signal abnormality and fraying involving superior anterior glenoid labrum consistent with superior anterior labral tear. The long head of the biceps tendon demonstrates normal location and morphology. The rotator interval appears normal, without fibrosis. The coracohumeral ligament is normal in thickness. IMPRESSION: 1. Low-grade articular and bursal surface partial thickness tear involving distal supraspinatus at its insertion on humeral head extending to musculotendinous junction. Mild supraspinatus muscle atrophy. 2. Distal infraspinatus tendinosis. No full-thickness rotator cuff tendon rupture. 3. Mild acromioclavicular joint osteoarthritis. Mild edema involving distal clavicle and acromion without discrete fracture line suggestive of contusion versus changes related to osteoarthritis. Small amount of joint effusion and subacromial subdeltoid bursal fluid, no loose bodies. 4. Suggestion of superior anterior glenoid labral tear. Dictated by: Bob Marina M.D. on 03/18/2025 at 16:22 Approved by: Bob Marina M.D. on 03/18/2025 at 16:28
== END ==
LOC: MRI 15:44
PROVIDERS: Family Provider Family Medicine; PCP Family Medicine; Referring Provider Family Medicine; Visit Provider Family Medicine
DX: M75.112 Incomplete rotator cuff tear or rupture of left shoulder, not specified as traumatic (principal); M75.02 Adhesive capsulitis of left shoulder; M75.42 Impingement syndrome of left shoulder; M19.012 Primary osteoarthritis, left shoulder; M25.412 Effusion, left shoulder
CPT/HCPCS: 73221

== ENCOUNTER 2025-03-23 08:15 | Outpatient (RCR) | payer OTHER, SELFPAY ==
--- NOTE | 2025-03-16 16:28 | PT.OIE ---
Current Diagnoses Other shoulder lesions, left shoulder (03/16/25) Past Medical History (Last Updated 03/10/25 @ 17:05 by Devorah Chu DO) Abnormal Pap smear of cervix (~1999) Asthma Chicken pox Degenerative tear of glenoid labrum of right shoulder (~02/2023) Eczema Eczema Frozen shoulder syndrome (~02/2023) Heavy menstrual period History of hypertension (2014) Hypertension (~2011) Infertility Irregular menstrual cycle Mixed hyperlipidemia Ovarian cyst Painful menstrual periods Partial thickness rotator cuff tear (~02/2023) PCOS (polycystic ovarian syndrome) Plantar fasciitis of right foot (11/2019) Right shoulder pain (~02/2023) Vitamin D deficiency (2018) Past Surgical History (Last Reviewed 01/23/23 @ 09:36 by Maki Knowles PA-C) Status post breast lumpectomy (~2006) Status post dilation and curettage Surgical procedure planned (~2011) Visit Care Team Role Provider Type Devorah Chu DO Attending Provider Physician Family Provider Primary Care Provider Referring Provider Specialty: Medical Address: [address] [place] [address], [address], [place], [address] Email: [email or web address] Physical Therapy Initial Evaluation PT-OP-A Visit Information Start: 03/15/25 08:23 Freq: Status: Active Protocol: Document 03/16/25 15:14 MB (Rec: 03/16/25 15:49 MB Desktop) Out-Patient Physical Therapy Visit Information Visit Information Visit Type Initial Evaluation Visit Start Time 15:14 Visit Stop Time 15:54 Visit Number 1 Number of PET CARE WORKER Visits 0 Evaluation Information Evaluation Date 03/16/25 PT-OP-B Current Condition Start: 03/15/25 08:23 Freq: Status: Active Protocol: Document 03/16/25 15:14 MB (Rec: 03/16/25 15:49 MB Desktop) Current Condition History of Current Condition Onset Date December 2024 Current Complaints Pain and reduced ROM left shoulder History of Current Condition Pt has a history of right frozen shoulder and changes on MRI. She got a steroid injection right away and came to PT here. The frozen shoulder progressed and so PT wasn't as helpful. She tried for 6 weeks. She then when to orthopedist and got another injection. When she came back to PT, she was passed the worst part of the frozen stage . She is unsure if PT or getting into the thawing stage got her right shoulder better . She was good for 10 months to a year and then her left shoulder started bothering her . She saw her doctor in January of 2025, started HRT and DHEA. She has had worsening pain in the past 4 weeks. Pt has KT on. Just sitting, she has 2/10 pain in her left shoulder. Sleeping at night can really increase her pain depending on how she moves at night. It can get up to stabbing pain. Pt points to anterior and posterior shoulder. She ices, takes Ibuprofen, and uses volaren. She got posterior and anterior shots last week. Pt is right handed. Treatment Goals Patient/Caregiver Goals To decrease pain PT-OP-C Subjective Start: 03/15/25 08:23 Freq: Status: Active Protocol: Document 03/16/25 15:14 MB (Rec: 03/16/25 15:49 MB Desktop) OP-PT Subjective Patient Comments Patient Comments See history of current condition Patient Questionnaires Quick Dash- Upper Extremity Quick Dash UE Score 36 Quick Dash UE Impairment 40 to 59% Impaired (Score 40- 59) PT-OP-J Posture/Palpation/Skin Start: 03/15/25 08:23 Freq: Status: Active Protocol: Document 03/16/25 15:14 MB (Rec: 03/16/25 15:49 MB Desktop) Posture Evaluation Comments Posture Comments Standing posture in socks: forward head, rounded shoulders, Dowager's hump, decreased thoracic kyphosis, right shoulder is lower than the left and she is right handed, B shoulders are elevated, left scapular winging and elevated, left iliac crest mildly higher than the right, increased lower lumbar lordosis, anterior pelvic tilt, B thigh approximation, lateral foot WB B, left SC joint is higher than right. PT-OP-K Range of Motion Start: 03/15/25 08:23 Freq: Status: Active Protocol: Document 03/16/25 15:14 MB (Rec: 03/16/25 15:49 MB Desktop) Cervical Spine Range of Motion Cervical Spine Active Testing Position Standing Flexion 25 Extension 17 Rotation Left 41 Rotation Right 52 Lateral Flexion Left 11 Lateral Flexion Right 20 Shoulder Goniometric Range of Motion Shoulder Left Shoulder ROM WFL No Testing Position Standing Flexion 60 Extension 48 Abduction 55 Comments IR behind back to S2 Supine PROM with shoulder in 75 deg abduction: ER to neutral and IR 5 deg, painful and stiff at AC, SC joints, whole shoulder girdle Right Shoulder ROM WFL No Testing Position Standing Flexion 139 Extension 68 Abduction 152 Comments IR behind back T9 Sitting right thoracic rotation is 25% further than to the left, left rib stiffness Supine PROM with shoulder in 90/90: ER 15 deg and IR 40 deg PT-OP-Q Treatments Start: 03/15/25 08:23 Freq: Status: Active Protocol: Document 03/16/25 15:14 MB (Rec: 03/16/25 16:19 MB Desktop) Self-Care/Home Management Treatment Education Patient Education Body Mechanics,Joint Protection,Pain Management, Posture Other Education Ed pt in findings and PT clinical opinion that she is presenting as left shoulder adhesive capsulitis and benefits of getting MRI that was ordered and trying PT to see if manual interventions and exercises can help, ed pt in proper sleeping position with pillow support for shoulders and how to set-up beach towel under fitted sheet to support under left proximal arm for supine sleeping, con't with ice, taping, medications, contributions of thoracic spine and ribs to presentation , ed pt in benefits of trying to get in the pool for mobility PT-OP-T Assessment and Plan Start: 03/15/25 08:23 Freq: Status: Active Protocol: Document 03/16/25 15:14 MB (Rec: 03/16/25 15:49 MB Desktop) Physical Therapy Assessment Rehab Potential Rehabilitation Potential Fair Evaluation Complexity Number of Personal Factors/Comorbidities 1-2 Number of Body Systems Impaired 1-2 Clinical Presentation at Evaluation Evolving Impairments Impairments Coordination,Edema,Functional Activities,Pain,Posture,ROM, Soft Tissue Mobility,Strength Goals 3 Impairment Lack/intolerance of HEP Detention Goal (LTG) Pt will perform progressive HEP with I including breathing , postural, flexibility, range , and strengthening exercises to improve function, range and strength. LTG Duration 8 weeks 2 Impairment Severely limited left shoulder ROM Detention Goal (LTG) Pt will present with active left shoulder flexion and abduction and passive ER and IR in 90/90 equal to the right to improve functional use of arms for ADLs. LTG Duration 8 weeks 1 Impairment QuickDASH score reflects 56.81 % impairment Detention Goal (LTG) Pt will present with QuickDASH score reflecting no more than 20% impairment to improve functional use of arm. LTG Duration 8 weeks Assessment Summary Assessment Pt is a 49 y/o female with history of R frozen shoulder that took greater than a year to thaw. She reports concern of left shoulder freezing and arrives with very stiff and limited motion in left shoulder greater than the right. She has moments of severe pain at night and has trouble sleeping. PT does not perform MMT given pain and PROM and active ROM presentation does appear adhesive capsulitis in nature. Pt presents with limited cervical and thoracic mobility as well and she will benefit from address these areas and breathing to improve left shoulder. PT may focus on manual work, breathing and cervical and thoracic spine at first given pt's high complaints of pain, guarding and concern. Several treatments should reveal whether or not PT will be helpful at this time. PT encourages pt to follow-up about MRI that was already ordered to further determine any other causes of complaints : pt does state that the pain in her left shoulder is different than that when she had right frozen shoulder. Physical Therapy Plan Frequency and Duration Frequency of Treatment 2x/Week Duration of treatment (weeks) 8 Plan of Care Start Date 03/16/25 Plan of Care End Date 05/18/25 Therapeutic Interventions Therapeutic Interventions Balance Training,Canalithic Repositioning,Coordination Training,Gait Training,Home Exercise Program,Joint Mobilizations,Manual Therapy, Neuromuscular Re-education, Patient/Caregiver Education, Self-Care/Home Management,Soft Tissue Mobilization,Taping, Therapeutic Activities, Therapeutic Exercises Modalities Cold Pack/Ice Massage,Electric Stimulation,Hot Packs, Ultrasound Other Therapeutic Interventions PT includes gait training in plan as working on arm swing when she can tolerate may help shoulder and thoracic range Next Visit Focus/Plan Next Note Type Treatment Note Next Visit Plan Consider initiating manual work, Buteyko breathing, gentle thoracic, cervical and shoulder exercises
--- NOTE | 2025-03-19 14:50 | PT-OP ANOTE ---
Pt cancelled today's appt. Is flared up with pain after MRI and positioning had to put L shoulder in. She spoke with Dr Chu and a referral to ortho has been made, awaiting appt. She is utilizing CP, taking Volartian and medication for pain control. She confirmed Mon appt with PT.
--- NOTE | 2025-03-22 08:03 | PT-OP ANOTE ---
Left shoulder MRI results: IMPRESSION: 1. Low-grade articular and bursal surface partial thickness tear involving distal supraspinatus at its insertion on humeral head extending to musculotendinous junction. Mild supraspinatus muscle atrophy. 2. Distal infraspinatus tendinosis. No full-thickness rotator cuff tendon rupture. 3. Mild acromioclavicular joint osteoarthritis. Mild edema involving distal clavicle and acromion without discrete fracture line suggestive of contusion versus changes related to osteoarthritis. Small amount of joint effusion and subacromial subdeltoid bursal fluid, no loose bodies. 4. Suggestion of superior anterior glenoid labral tear.
--- NOTE | 2025-03-23 09:06 | PT.OTN ---
Current Diagnoses Other shoulder lesions, left shoulder (03/23/25) Physical Therapy Treatment Note PT-OP-A Visit Information Start: 03/15/25 08:23 Freq: Status: Active Protocol: Document 03/23/25 08:14 MB (Rec: 03/23/25 09:05 MB Desktop) Out-Patient Physical Therapy Visit Information Visit Information Visit Type Treatment Note Visit Start Time 08:14 Visit Stop Time 08:54 Visit Number 2 Number of BOTTLE FILLER Visits 0 Evaluation Information Evaluation Date 03/16/25 PT-OP-B Current Condition Start: 03/15/25 08:23 Freq: Status: Active Protocol: Document 03/16/25 15:14 MB (Rec: 03/16/25 15:49 MB Desktop) Current Condition History of Current Condition Onset Date December 2024 Current Complaints Pain and reduced ROM left shoulder History of Current Condition Pt has a history of right frozen shoulder and changes on MRI. She got a steroid injection right away and came to PT here. The frozen shoulder progressed and so PT wasn't as helpful. She tried for 6 weeks. She then when to orthopedist and got another injection. When she came back to PT, she was passed the worst part of the frozen stage . She is unsure if PT or getting into the thawing stage got her right shoulder better . She was good for 10 months to a year and then her left shoulder started bothering her . She saw her doctor in January of 2025, started HRT and DHEA. She has had worsening pain in the past 4 weeks. Pt has KT on. Just sitting, she has 2/10 pain in her left shoulder. Sleeping at night can really increase her pain depending on how she moves at night. It can get up to stabbing pain. Pt points to anterior and posterior shoulder. She ices, takes Ibuprofen, and uses volaren. She got posterior and anterior shots last week. Pt is right handed. Treatment Goals Patient/Caregiver Goals To decrease pain PT-OP-C Subjective Start: 03/15/25 08:23 Freq: Status: Active Protocol: Document 03/23/25 08:14 MB (Rec: 03/23/25 09:05 MB Desktop) OP-PT Subjective Patient Comments Patient Comments Pt had MRI and asks if it is a good time to start PT. The pain in the left shoulder is different than the right frozen shoulder in the past. She had reviewed MRI report and noticed that it is similar to the results from the right shoulder in the past. PT-OP-J Posture/Palpation/Skin Start: 03/15/25 08:23 Freq: Status: Active Protocol: Document 03/16/25 15:14 MB (Rec: 03/16/25 15:49 MB Desktop) Posture Evaluation Comments Posture Comments Standing posture in socks: forward head, rounded shoulders, Dowager's hump, decreased thoracic kyphosis, right shoulder is lower than the left and she is right handed, B shoulders are elevated, left scapular winging and elevated, left iliac crest mildly higher than the right, increased lower lumbar lordosis, anterior pelvic tilt, B thigh approximation, lateral foot WB B, left SC joint is higher than right. PT-OP-K Range of Motion Start: 03/15/25 08:23 Freq: Status: Active Protocol: Document 03/16/25 15:14 MB (Rec: 03/16/25 15:49 MB Desktop) Cervical Spine Range of Motion Cervical Spine Active Testing Position Standing Flexion 25 Extension 17 Rotation Left 41 Rotation Right 52 Lateral Flexion Left 11 Lateral Flexion Right 20 Shoulder Goniometric Range of Motion Shoulder Left Shoulder ROM WFL No Testing Position Standing Flexion 60 Extension 48 Abduction 55 Comments IR behind back to S2 Supine PROM with shoulder in 75 deg abduction: ER to neutral and IR 5 deg, painful and stiff at AC, SC joints, whole shoulder girdle Right Shoulder ROM WFL No Testing Position Standing Flexion 139 Extension 68 Abduction 152 Comments IR behind back T9 Sitting right thoracic rotation is 25% further than to the left, left rib stiffness Supine PROM with shoulder in 90/90: ER 15 deg and IR 40 deg PT-OP-Q Treatments Start: 03/15/25 08:23 Freq: Status: Active Protocol: Document 03/23/25 08:14 MB (Rec: 03/23/25 09:05 MB Desktop) Manual Therapy Treatment Consent Patient gave verbal consent for manual Yes treatment Other Other Manual Treatments Pt prone with pillow under hips and lower legs and rolled up towel under left proximal arm: STM left infra, supra, upper traps, levator and triceps, some edema in area, TrP left upper traps. Pt supine with pillow under legs, head, rolled up towel under proximal left arm: STM B SCM, upper traps, left pects, grade I-II PA cervical mobs Self-Care/Home Management Treatment Education Patient Education Body Mechanics,Joint Protection,Pain Management, Posture Other Education Discussed MRI results and talked about plan: try manual today and see if it helps pain and posture and then consider con't or d/c PT as she deems it is helpful, ed in gentle neck movement and shoulder blade movement today and movement of thoracic spine in standing to help with posture but that PT is not going to give true HEP program given symptoms and can revisit next treatment per plan, ongoing log rolling, ice and heat and benefits of water walking, deep water treading with legs with belt and dangle arms PT-OP-T Assessment and Plan Start: 03/15/25 08:23 Freq: Status: Active Protocol: Document 03/23/25 08:14 MB (Rec: 03/23/25 09:05 MB Desktop) Physical Therapy Assessment Rehab Potential Rehabilitation Potential Fair Evaluation Complexity Number of Personal Factors/Comorbidities 1-2 Number of Body Systems Impaired 1-2 Clinical Presentation at Evaluation Evolving Impairments Impairments Coordination,Edema,Functional Activities,Pain,Posture,ROM, Soft Tissue Mobility,Strength Goals 3 Impairment Lack/intolerance of HEP Intermediate Goal (LTG) Pt will perform progressive HEP with I including breathing , postural, flexibility, range , and strengthening exercises to improve function, range and strength. LTG Duration 8 weeks 2 Impairment Severely limited left shoulder ROM Doll Eye Setter Goal (LTG) Pt will present with active left shoulder flexion and abduction and passive ER and IR in 90/90 equal to the right to improve functional use of arms for ADLs. LTG Duration 8 weeks 1 Impairment QuickDASH score reflects 56.81 % impairment Intermediate Goal (LTG) Pt will present with QuickDASH score reflecting no more than 20% impairment to improve functional use of arm. LTG Duration 8 weeks Assessment Summary Assessment Pt con't to wonder about timing of PT in setting of findings, MRI does suggest labral tear and she does have ortho appointment in future. Manual work today and her left arm does dangle more normally and her posture is better with gait after treatment. She may or may not con't with PT, see plan below for possible gentle postural exercises. Physical Therapy Plan Frequency and Duration Frequency of Treatment 2x/Week Duration of treatment (weeks) 8 Plan of Care Start Date 03/16/25 Plan of Care End Date 05/18/25 Therapeutic Interventions Therapeutic Interventions Balance Training,Canalithic Repositioning,Coordination Training,Gait Training,Home Exercise Program,Joint Mobilizations,Manual Therapy, Neuromuscular Re-education, Patient/Caregiver Education, Self-Care/Home Management,Soft Tissue Mobilization,Taping, Therapeutic Activities, Therapeutic Exercises Modalities Cold Pack/Ice Massage,Electric Stimulation,Hot Packs, Ultrasound Other Therapeutic Interventions PT includes gait training in plan as working on arm swing when she can tolerate may help shoulder and thoracic range Next Visit Focus/Plan Next Note Type Treatment Note Next Visit Plan Con't manual work with proximal left arm supported, gentle thoracic, cervical and shoulder exercises, Buteyko breathing For exercises, could consider scapular retraction and chin tuck against wall or in supine with left arm supported by towel in supine or right hand in standing, work on shoulder rolling and thoracic rotation and flexion and extension with left hand/arm supported
--- NOTE | 2025-03-23 14:08 | PT-OP ANOTE ---
Pt states that she felt nauseated and tight since PT this morning. She feels off. She is icing and may try heat. PT and pt agree to d/c PT at this time as it appears that manual intervention was not helpful and pt may still be in the freezing stage of frozen shoulder.
--- NOTE | 2025-03-23 14:11 | PT.OPDS ---
Current Diagnoses Other shoulder lesions, left shoulder (03/23/25) Visit Care Team Role Provider Type Devorah Chu DO Attending Provider Physician Family Provider Primary Care Provider Referring Provider Specialty: Medical Address: [address] [place] [address], [address], [place], [address] Email: [email or web address] Visit Number Visit Number 2 Discharge Summary PT-OP-B Current Condition Start: 03/15/25 08:23 Freq: Status: Active Protocol: Document 03/16/25 15:14 MB (Rec: 03/16/25 15:49 MB Desktop) Current Condition History of Current Condition Onset Date December 2024 Current Complaints Pain and reduced ROM left shoulder History of Current Condition Pt has a history of right frozen shoulder and changes on MRI. She got a steroid injection right away and came to PT here. The frozen shoulder progressed and so PT wasn't as helpful. She tried for 6 weeks. She then when to orthopedist and got another injection. When she came back to PT, she was passed the worst part of the frozen stage . She is unsure if PT or getting into the thawing stage got her right shoulder better . She was good for 10 months to a year and then her left shoulder started bothering her . She saw her doctor in January of 2025, started HRT and DHEA. She has had worsening pain in the past 4 weeks. Pt has KT on. Just sitting, she has 2/10 pain in her left shoulder. Sleeping at night can really increase her pain depending on how she moves at night. It can get up to stabbing pain. Pt points to anterior and posterior shoulder. She ices, takes Ibuprofen, and uses volaren. She got posterior and anterior shots last week. Pt is right handed. Treatment Goals Patient/Caregiver Goals To decrease pain PT-OP-C Subjective Start: 03/15/25 08:23 Freq: Status: Active Protocol: Document 03/23/25 08:14 MB (Rec: 03/23/25 09:05 MB Desktop) OP-PT Subjective Patient Comments Patient Comments Pt had MRI and asks if it is a good time to start PT. The pain in the left shoulder is different than the right frozen shoulder in the past. She had reviewed MRI report and noticed that it is similar to the results from the right shoulder in the past. PT-OP-J Posture/Palpation/Skin Start: 03/15/25 08:23 Freq: Status: Active Protocol: Document 03/16/25 15:14 MB (Rec: 03/16/25 15:49 MB Desktop) Posture Evaluation Comments Posture Comments Standing posture in socks: forward head, rounded shoulders, Dowager's hump, decreased thoracic kyphosis, right shoulder is lower than the left and she is right handed, B shoulders are elevated, left scapular winging and elevated, left iliac crest mildly higher than the right, increased lower lumbar lordosis, anterior pelvic tilt, B thigh approximation, lateral foot WB B, left SC joint is higher than right. PT-OP-K Range of Motion Start: 03/15/25 08:23 Freq: Status: Active Protocol: Document 03/16/25 15:14 MB (Rec: 03/16/25 15:49 MB Desktop) Cervical Spine Range of Motion Cervical Spine Active Testing Position Standing Flexion 25 Extension 17 Rotation Left 41 Rotation Right 52 Lateral Flexion Left 11 Lateral Flexion Right 20 Shoulder Goniometric Range of Motion Shoulder Left Shoulder ROM WFL No Testing Position Standing Flexion 60 Extension 48 Abduction 55 Comments IR behind back to S2 Supine PROM with shoulder in 75 deg abduction: ER to neutral and IR 5 deg, painful and stiff at AC, SC joints, whole shoulder girdle Right Shoulder ROM WFL No Testing Position Standing Flexion 139 Extension 68 Abduction 152 Comments IR behind back T9 Sitting right thoracic rotation is 25% further than to the left, left rib stiffness Supine PROM with shoulder in 90/90: ER 15 deg and IR 40 deg PT-OP-T Assessment and Plan Start: 03/15/25 08:23 Freq: Status: Active Protocol: Document 03/23/25 14:11 MB (Rec: 03/23/25 14:11 MB Desktop) Physical Therapy Assessment Assessment Summary Assessment Pt states that she felt nauseated and tight since PT this morning. She feels off. She is icing and may try heat . PT and pt agree to d/c PT at this time as it appears that manual intervention was not helpful and pt may still be in the freezing stage of frozen shoulder.
== END 2025-03-26 09:54 | disposition home or self-care (01) ==
LOC: PHYS 08:15
PROVIDERS: Family Provider Family Medicine; PCP Family Medicine; Referring Provider Family Medicine; Visit Provider Family Medicine
DX: M75.82 Other shoulder lesions, left shoulder (principal)
CPT/HCPCS: 97140; 97161; 97535

== ENCOUNTER → 2025-08-26 07:28 | Outpatient (CLI) | payer OTHER, SELFPAY ==
[2025-08-26 09:24] LABS: Alanine Aminotransferase 23 IU/L (<35); Albumin 4.4 g/dL (3.5-5.0); Albumin Globulin Ratio 1.6 (1.0-2.8); Alkaline Phosphatase 82 U/L (38-126); Blood Urea Nitrogen 9 mg/dL (7-17); Calcium 9.2 mg/dL (8.4-10.2); Carbon Dioxide 24 mmol/L (22-32); Chloride 101 mmol/L (98-107); Cholesterol 224 mg/dL (140-199); Estimated Glomerular Filt Rate > 60 mL/min (>60); Globulin 2.7 g/dL (1.7-4.1); Glucose 95 mg/dL (70-99); HDL Cholesterol 60 mg/dL (40-60); HEMOLYSIS < 15 (0-50); Potassium 4.5 mmol/L (3.4-5.1); Sodium 135 mmol/L (137-145); Total Protein 7.1 g/dL (6.3-8.2); Triglycerides 158 mg/dL (35-150)
[2025-08-26 09:53] LABS: Ferritin 44 ng/mL (6-137)
[2025-08-27 04:08] LABS: CRP, High Sensitivity 1.28 mg/L (0.00-3.00)
[2025-08-27 09:11] LABS: Insulin Level Total 17.3 uIU/mL (2.6-24.9)
== END ==
PROVIDERS: Family Provider Family Medicine; PCP Family Medicine; Referring Provider Family Medicine; Visit Provider Family Medicine
DX: Z01.411 Encounter for gynecological examination (general) (routine) with abnormal findings (principal); N95.1 Menopausal and female climacteric states; I10 Essential (primary) hypertension; E66.9 Obesity, unspecified; E78.2 Mixed hyperlipidemia
CPT/HCPCS: 36415; 80053; 80061; 82728; 83525; 86140

== ENCOUNTER → 2025-08-28 12:00 | Outpatient (CLI) | payer OTHER, SELFPAY | PROVIDERS: Family Provider Family Medicine; PCP Family Medicine; Referring Provider Family Medicine; Visit Provider Family Medicine | DX: Z12.11 Encounter for screening for malignant neoplasm of colon (principal); Z12.12 Encounter for screening for malignant neoplasm of rectum | CPT/HCPCS: 82274 ==